=== PATIENT | female | born 1935 | race Caucasian/White ===

== ENCOUNTER 2019-01-25 04:06 | Emergency (ER) | payer MEDICARE, OTHER, SELFPAY ==
--- NOTE | 2019-01-25 04:08 | DI.CT.S_ITS ---
PROCEDURE: CT HEAD/BRAIN WO CON INDICATIONS: fall with head injury on eliquis TECHNIQUE: Noncontrast 4.5 mm thick angled axial sections acquired from the foramen magnum to the vertex, with coronal and sagittal reformats. For radiation dose reduction, the following was used: automated exposure control, adjustment of mA and/or kV according to patient size. COMPARISON: None. FINDINGS: Image quality: Excellent. CSF spaces: Basal cisterns are patent. No extra-axial fluid collections. The ventricles are symmetric in size and shape. Brain: No intracranial bleeds or masses. There is cerebral volume loss for age, with resultant ventricular and sulcal prominence. There are periventricular and deep white matter chronic small vessel ischemic changes. Small chronic right putamen lacunar infarct versus prominent perivascular space. There is intracranial internal carotid artery and vertebral artery atherosclerosis. Skull and face: Calvarium and visualized facial bones appear intact, without suspicious lesions. Sinuses: Visualized sinuses and mastoids are clear. IMPRESSION: No acute intracranial disease process. Dictated by: Brisa Joaquin MD, PhD on 01/25/2019 at 7:26 Approved by: Brisa Joaquin MD, PhD on 01/25/2019 at 7:29
[2019-01-25 04:15] VITALS: BP 188/102; PULSE 108; RESP 18; TEMP 36.6; O2SAT 96
--- NOTE | 2019-01-25 04:31 | ED_ITS ---
HPI - Head Injury General Chief complaint: Head Injury Stated complaint: fall at home, hit head on blood thinners Time Seen by Provider: 01/25/19 04:08 Source: patient and family Mode of arrival: ambulatory Limitations: no limitations History of Present Illness HPI Narrative: 83-year-old female, nonsmoker with history of atrial fibrillation on anticoagulants presents with family after a mechanical fall resulted in a head injury from standing. She was up early this morning to use the restroom and stumbled, falling backwards and striking her head. She denies loss of consciousness nor nausea or vomiting. She has full recall of the event and states she frequently loses her balance. She denies any neck or back pain and is otherwise well and free of complaint. Patient activated as a modified trauma given fall with head injury on anticoagulation MD Complaint: head injury Onset (ago): minute(s) Mechanism of Injury: fall Place: home Loss of Consciousness: no Location of injury: parietal Severity: mild Radiation: none Other Injuries: none Associated symptoms: denies other symptoms Related Data Home Medications Medication Instructions Recorded Confirmed ALBUTEROL SULFATE (Ventolin / 2 puff INH Q4H PRN #0 03/11/10 Proventil) Fexofenadine Hydrochloride 180 mg PO QDAY #0 03/11/10 (Melly) Montelukast Sodium (Singulair) 10 mg PO QDAY #0 03/11/10 Simvastatin (Zocor) 20 mg PO HS #0 03/11/10 Fluticasone Propionate/Salme 1 puff IH BID #0 03/12/10 (Advair Diskus 100/50) HYDROCHLOROTHIAZIDE (Hydrodiuril / 25 mg PO QDAY #0 03/12/10 Hctz) WARFARIN SODIUM (COUMADIN) 6 mg PO QDAY #0 03/12/10 ATENOLOL (Tenormin) 100 mg PO QDAY #0 03/13/10 [MICARDIS] 80 mg PO QDAY #0 03/13/10 Previous Rx's Medication Instructions Recorded furosemide 0 PO SEE INSTRUCTIONS #8 tab 05/21/16 Allergies Allergy/AdvReac Type Severity Reaction Status Date / Time From ACTIFED COLD & ALLERGY Allergy Severe TONGUE Uncoded 09/29/17 12:12 SWELLS/LOSS OF MOBILITY Review of Systems Constitutional Denies chills, Denies fever(s), Denies lethargy and Denies weakness Eyes Denies change in vision, Denies eye discharge, Denies irritation and Denies loss of vision ENT Ears, Nose, Mouth, and Throat: Denies change in voice, Denies neck pain and Denies sore throat Cardiovascular Denies chest pain, Denies irregular heart rhythm, Denies lightheadedness, Denies palpitations, Reports dyspnea, Denies dyspnea on exertion and Denies orthopnea Respiratory Reports cough, Reports dyspnea, Denies dyspnea on exertion and Denies wheezing Gastrointestinal Gastrointestinal: Denies abdominal pain, Denies change in bowel habits, Denies diarrhea, Denies nausea and Denies vomiting Genitourinary Denies hematuria, Denies flank pain, Denies urinary incontinence and Denies urinary urgency Musculoskeletal Denies neck pain Integumentary/Breasts Denies pruritus, Denies erythema, Denies rash and Denies wounds Neurologic Denies confusion, Denies loss of vision and Denies weakness Psychiatric Denies anxiety, Denies confusion, Denies depression, Denies homicidal ideation and Denies suicidal ideation Endocrine Denies palpitations Hematologic/Lymphatic Denies easy bruising Allergic/Immunologic Denies wheezing PFSH Social History Smoking Status: Never smoker Social History Smoking Status: Never smoker Exam Narrative Exam Narrative: GENERAL: 83F appears younger than stated age, in no obvious distress. GCS 15, alert and oriented x3 HEAD: Atraumatic. Normocephalic. No obvious hematoma or depressed skull fracture but mild tenderness to palpation where she struck her head on her right parietal region EYES: Pupils equal round and reactive. Extraocular motions intact. No scleral icterus. No injection or drainage. ENT: Nose without bleeding, purulent drainage or septal hematoma. Throat without erythema, tonsillar hypertrophy or exudate. Uvula midline. Airway patent. NECK: Trachea midline. No JVD or lymphadenopathy. Supple, nontender, no meningeal signs. CARDIOVASCULAR: Irregular rate and rhythm without murmurs, gallops, or rubs. RESPIRATORY: Clear to auscultation. Breath sounds equal bilaterally. No wheezes, rales, or rhonchi. GASTROINTESTINAL: Abdomen soft, non-tender, nondistended. No hepato- splenomegaly, or palpable masses. No guarding. EXTREMITIES: No clubbing, cyanosis, or edema. No joint tenderness, effusion, or edema noted. BACK: Nontender without deformity or crepitance. No flank tenderness. NEURO: AOx3. SKIN: No rash or erythema. Initial Vital Signs Initial Vital Signs: Vital Signs Temperature 97.9 F 01/25/19 04:15 Pulse Rate 108 H 01/25/19 04:15 Respiratory Rate 18 01/25/19 04:15 Blood Pressure 188/102 H 01/25/19 04:15 Pulse Oximetry 96 01/25/19 04:15 Course Orders Ordered: ED Orders 01/25/19 04:08 CT head/brain wo con Stat Hemoglobin and Hematocrit Stat Prothrombin Time INR Stat 01/25/19 04:31 XR chest 1V Stat Vital Signs - 8 hr 01/25/19 04:15 01/25/19 05:04 Temperature 97.9 F Pulse Rate 108 H 75 Respiratory Rate 18 20 Blood Pressure 188/102 H Blood Pressure [Left Arm] 135/68 Pulse Oximetry 96 95 MDM - Head Injury Imaging Data CT scan - head: Radiologist's impression: No bleed or fracture Discharge Plan Departure Patient Disposition: Home Clinical Impression: Contusion of head, Cough Instructions: DI for Closed Head Injury Activity Restrictions/Additional Instructions: *You have been diagnosed with [ground level fall with scalp contusion, chronic cough] *What to do: *Take medications as directed *Follow up with your primary care provider in 2-3 days, call for an appointment. Let them know you were seen in the Emergency Department and that we ask that you be seen in follow up *Return to ER if you should have any new, worsening or concerning symptoms Prescriptions: No Action Fexofenadine Hydrochloride (Melly) 180 mg PO QDAY Qty: 0 RF: 0 ALBUTEROL SULFATE (Ventolin / Proventil) 2 puff INH Q4H PRN Qty: 0 RF: 0 Montelukast Sodium (Singulair) 10 mg PO QDAY Qty: 0 RF: 0 Simvastatin (Zocor) 20 mg PO HS Qty: 0 RF: 0 HYDROCHLOROTHIAZIDE (Hydrodiuril / Hctz) 25 mg PO QDAY Qty: 0 RF: 0 WARFARIN SODIUM (COUMADIN) 6 mg PO QDAY Qty: 0 RF: 0 Fluticasone Propionate/Salme (Advair Diskus 100/50) 1 puff IH BID Qty: 0 RF: 0 ATENOLOL (Tenormin) 100 mg PO QDAY Qty: 0 RF: 0 [MICARDIS] 80 mg PO QDAY Qty: 0 RF: 0 furosemide 20 MG tablet PO SEE INSTRUCTIONS Qty: 8 RF: 0 Referrals: Lory Hammer MD [Primary Care Provider] -
--- NOTE | 2019-01-25 04:31 | DI.RAD.S_ITS ---
PROCEDURE: XR CHEST 1V INDICATIONS: cough, shortness of breath TECHNIQUE: One view of the chest was acquired. COMPARISON: None. FINDINGS: Surgical changes and devices: Bilateral breast lumpectomies, left axillary node resection, remote ORIF of the proximal left humerus.. Lungs and pleura: Lungs are clear. No pleural effusions or pneumothorax. Mediastinum: Mediastinal contours appear normal. Mild cardiomegaly. Large right diaphragmatic hernia containing bowel and possibly stomach. Bones and chest wall: No suspicious bony lesions. Overlying soft tissues appear unremarkable. IMPRESSION: 1. Mild cardiomegaly. 2. Large right diaphragmatic hernia containing bowel and possibly stomach. 3. No evidence acute pulmonary process. Dictated by: Anselmo Parson M.D. on 01/25/2019 at 9:35 Approved by: Anselmo Parson M.D. on 01/25/2019 at 9:36
--- NOTE | 2019-01-25 04:42 | PC.NURSE ---
Stated she was reaching up high this AM in cupboard for her medications and fell backwards striking her head on a door,no loc,no neck pain,no obvious swelling or bruising on her scalp.
[2019-01-25 05:04] VITALS: BP 135/68; PULSE 75; RESP 20; O2SAT 95
[2019-01-25 05:34] LABS: Hematocrit 38.7 % (36-46); Hemoglobin 13.1 g/dL (12.0-16.0)
[2019-01-25 05:43] LABS: INR 1.2 (0.9-1.3); Prothrombin Time 14.1 SECONDS (10.1-12.7)
== END 2019-01-25 05:37 | disposition home or self-care (01) ==
PROVIDERS: Emergency Provider Emergency Medicine; PCP Internal Medicine
DX: S00.93XA Contusion of unspecified part of head, initial encounter (principal); R05 Cough; W19.XXXA Unspecified fall, initial encounter; Z79.01 Long term (current) use of anticoagulants
CPT/HCPCS: 36415; 70450; 71045; 85014; 85018; 85610; 99282; 99284

== ENCOUNTER 2019-07-09 21:35 | Emergency (ER) | payer MEDICARE, OTHER, SELFPAY ==
[2019-07-09 21:35] VITALS: BP 191/83; PULSE 92; RESP 16; TEMP 36.3; O2SAT 98
--- NOTE | 2019-07-09 21:43 | DI.CT.S_ITS ---
PROCEDURE: CT HEAD/BRAIN WO CON INDICATIONS: trauma - fall on eliquis TECHNIQUE: Noncontrast 4.5 mm thick angled axial sections acquired from the foramen magnum to the vertex, with coronal and sagittal reformats. For radiation dose reduction, the following was used: automated exposure control, adjustment of mA and/or kV according to patient size. COMPARISON: None. FINDINGS: Image quality: Excellent. CSF spaces: Basal cisterns are patent. No extra-axial fluid collections. The ventricles are symmetric in size and shape. Brain: No intracranial bleeds or masses. There is cerebral volume loss for age, with resultant ventricular and sulcal prominence. There are periventricular and deep white matter chronic small vessel ischemic changes. There is intracranial internal carotid artery and vertebral artery atherosclerosis. Skull and face: Calvarium and visualized facial bones appear intact, without suspicious lesions. Sinuses: Visualized sinuses and mastoids are clear. IMPRESSION: No acute intracranial disease process. Dictated by: Brisa Joaquin MD, PhD on 07/10/2019 at 7:19 Approved by: Brisa Joaquin MD, PhD on 07/10/2019 at 7:21
[2019-07-09 22:23] LABS: Hematocrit 37.3 % (36-46); Hemoglobin 12.6 g/dL (12.0-16.0)
[2019-07-09 22:28] LABS: INR 1.1 (0.9-1.3); Prothrombin Time 12.8 SECONDS (10.1-12.7)
--- NOTE | 2019-07-09 22:44 | ED_ITS ---
HPI - Fall General Chief Complaint: Fall Stated Complaint: GLF on blood thinners Time Seen by Provider: 07/09/19 21:39 Source: patient and EMS Mode of arrival: EMS Limitations: no limitations History of Present Illness HPI Narrative: 84-year-old female nonsmoker with history of hypertension and AFib on anticoagulation presents by EMS for evaluation of a ground level fall in which she fell and struck the right side of her head. Patient has full recall denies any loss of consciousness. She denies any headache, vomiting or focal neurologic findings such as numbness, tingling or weakness. Initially she has very little other complaints but eventually complains of some midline thoracic tenderness. She has activated as a modified trauma given head injury on anticoagulation. MD complaint: fall Onset (ago): minute(s) Fall from: standing Fall witnessed: yes, by family Place fall occurred: home Loss of consciousness: none Prolonged down time: no Symptoms prior to fall: none Context: tripped/slipped Location of injury: head Associated symptoms (after fall): denies Related Data Home Medications Medication Instructions Recorded Confirmed ALBUTEROL SULFATE (Ventolin / 2 puff INH Q4H PRN #0 03/11/10 Proventil) Fexofenadine Hydrochloride 180 mg PO QDAY #0 03/11/10 (Melly) Montelukast Sodium (Singulair) 10 mg PO QDAY #0 03/11/10 Simvastatin (Zocor) 20 mg PO HS #0 03/11/10 Fluticasone Propionate/Salme 1 puff IH BID #0 03/12/10 (Advair Diskus 100/50) HYDROCHLOROTHIAZIDE (Hydrodiuril / 25 mg PO QDAY #0 03/12/10 Hctz) WARFARIN SODIUM (COUMADIN) 6 mg PO QDAY #0 03/12/10 ATENOLOL (Tenormin) 100 mg PO QDAY #0 03/13/10 [MICARDIS] 80 mg PO QDAY #0 03/13/10 Previous Rx's Medication Instructions Recorded furosemide 0 PO SEE INSTRUCTIONS #8 tab 05/21/16 Allergies Allergy/AdvReac Type Severity Reaction Status Date / Time From ACTIFED COLD & ALLERGY Allergy Severe TONGUE Uncoded 09/29/17 12:12 SWELLS/LOSS OF MOBILITY Review of Systems Constitutional Constitutional: Denies chills, Denies fatigue, Denies fever(s), Denies frequent falls, Denies lethargy and Denies weakness Eyes Eyes: Denies change in vision, Denies eye discharge, Denies irritation and Denies loss of vision ENT Ears, Nose, Mouth, and Throat: Denies change in voice, Denies dizziness, Denies neck pain, Denies sore throat and Denies throat swelling Cardiovascular Cardiovascular: Denies chest pain, Denies irregular heart rhythm, Denies lightheadedness, Denies palpitations, Denies dyspnea, Denies dyspnea on exertion and Denies orthopnea Respiratory Respiratory: Denies cough, Denies dyspnea, Denies dyspnea on exertion and Denies wheezing Gastrointestinal Gastrointestinal: Denies abdominal pain, Denies change in bowel habits, Denies diarrhea, Denies nausea and Denies vomiting Genitourinary Genitourinary: Denies hematuria, Denies flank pain, Denies urinary incontinence and Denies urinary urgency Musculoskeletal Musculoskeletal: Reports back pain, Denies muscle weakness, Denies neck pain, Denies numbness and Denies tingling Integumentary/Breasts Skin/Breast: Denies pruritus, Denies erythema, Denies rash and Denies wounds Neurologic Neurologic: Denies behavioral changes, Denies confusion, Denies dizziness, Denies frequent falls, Denies loss of vision, Denies numbness, Denies tingling and Denies weakness Psychiatric Psychiatric: Denies anxiety, Denies behavioral changes, Denies confusion, Denies depression, Denies homicidal ideation and Denies suicidal ideation Endocrine Endocrine: Denies fatigue, Denies flushing and Denies palpitations Hematologic/Lymphatic Hematologic/Lymphatic: Denies easy bruising Allergic/Immunologic Allergic/Immunologic: Denies urticaria, Denies throat swelling and Denies wheezing Patient History Social History Smoking Status: Never smoker Smoking Status: Never smoker Substance Use Type: does not use Exam Narrative Exam Narrative: GENERAL: [84] year old patient appears stated age. Well- nourished, well-developed patient, in mild distress. GCS 15 HEAD: Atraumatic. Normocephalic. No obvious external manifestation of injury EYES: Pupils equal round and reactive. Extraocular motions intact. No scleral icterus. No injection or drainage. ENT: Nose without bleeding, purulent drainage. Throat without erythema, tonsillar hypertrophy or exudate. Airway patent. NECK: Trachea midline. Non tender CARDIOVASCULAR: Regular rate and rhythm without murmurs, gallops, or rubs. RESPIRATORY: Clear to auscultation. Breath sounds equal bilaterally. No wheezes, rales, or rhonchi. GASTROINTESTINAL: Abdomen soft, non-tender, nondistended. EXTREMITIES: No edema or joint tenderness. BACK: Midline tenderness in the mid Thoracics, no crepitance or step-offs noted NEURO: AOx3. SKIN: No rash or erythema of visible areas Initial Vital Signs Initial Vital Signs: Vital Signs Temperature 97.4 F L 07/09/19 21:35 Pulse Rate 92 H 07/09/19 21:35 Respiratory Rate 16 07/09/19 21:35 Blood Pressure 191/83 H 07/09/19 21:35 Pulse Oximetry 98 07/09/19 21:35 Course Orders Ordered: ED Orders 07/09/19 21:43 CT head/brain wo con Stat 07/09/19 22:15 Hemoglobin and Hematocrit Stat Prothrombin Time INR Stat 07/09/19 22:49 XR thoracic spine 3V Stat Vital Signs Vital signs: Vital Signs - 8 hr 07/09/19 22:45 07/09/19 23:27 Pulse Rate 79 87 Respiratory Rate 18 Blood Pressure [Right Arm] 158/64 H 168/71 H Pulse Oximetry 100 100 MDM - Fall Lab Data Result diagrams: 07/09/19 22:15 Labs: Lab Results 07/09/19 07/09/19 Range/Units 22:15 22:15 Hgb 12.6 (12.0-16.0) g/dL Hct 37.3 (36-46) % PT 12.8 H (10.1-12.7) SECONDS INR 1.1 (0.9-1.3) Imaging Data CT scan - head: Radiologist's Impression: No bleed or fracture Lumbar Xray: Attestation: I personally reviewed and interpreted this imaging study as follows: My Impression: No acute process Discharge Plan Departure Patient Disposition: Home Clinical Impression: Contusion of scalp Qualifiers: Encounter type: initial encounter Qualified Code(s): S00.03XA - Contusion of scalp, initial encounter Discharge Date/Time: 07/09/19 23:36 Instructions: How to Prevent Falls Activity Restrictions/Additional Instructions: *You have been diagnosed with [ fall with head injury ] *What to do: *Take medications as directed *Follow up with your primary care provider in 2-3 days, call for an appointment. Let them know you were seen in the Emergency Department and that we ask that you be seen in follow up *Return to ER if you should have any new, worsening or concerning symptoms Prescriptions: No Action Fexofenadine Hydrochloride (Melly) 180 mg PO QDAY Qty: 0 RF: 0 ALBUTEROL SULFATE (Ventolin / Proventil) 2 puff INH Q4H PRN Qty: 0 RF: 0 Montelukast Sodium (Singulair) 10 mg PO QDAY Qty: 0 RF: 0 Simvastatin (Zocor) 20 mg PO HS Qty: 0 RF: 0 HYDROCHLOROTHIAZIDE (Hydrodiuril / Hctz) 25 mg PO QDAY Qty: 0 RF: 0 WARFARIN SODIUM (COUMADIN) 6 mg PO QDAY Qty: 0 RF: 0 Fluticasone Propionate/Salme (Advair Diskus 100/50) 1 puff IH BID Qty: 0 RF: 0 ATENOLOL (Tenormin) 100 mg PO QDAY Qty: 0 RF: 0 [MICARDIS] 80 mg PO QDAY Qty: 0 RF: 0 furosemide 20 MG tablet 0 PO SEE INSTRUCTIONS Qty: 8 RF: 0 Referrals: Lory Hammer MD [Primary Care Provider] -
[2019-07-09 22:45] VITALS: BP 158/64; PULSE 79; RESP 18; O2SAT 100
--- NOTE | 2019-07-09 22:49 | DI.RAD.S_ITS ---
PROCEDURE: XR THORACIC SPINE 3V INDICATIONS: midline thoracic pain TECHNIQUE: 3 views of the thoracic spine were acquired. COMPARISON: None. FINDINGS: Bones: No fractures or dislocations. No suspicious bony lesions. Orbital pairs of ribs are noted, and appear intact where visualized. Spine degenerative disc disease and facet arthropathy. Soft tissues: No paravertebral stripe thickening. IMPRESSION: No fracture. No acute osseous lesion. If symptoms and/or clinical suspicion for pathology persists, evaluation with MRI may be helpful for further assessment. Dictated by: Brisa Joaquin MD, PhD on 07/10/2019 at 8:49 Approved by: Brisa Joaquin MD, PhD on 07/10/2019 at 8:50
[2019-07-09 23:27] VITALS: BP 168/71; PULSE 87; O2SAT 100
== END 2019-07-09 23:36 | disposition home or self-care (01) ==
PROVIDERS: Emergency Provider Emergency Medicine; PCP Internal Medicine
DX: S00.03XA Contusion of scalp, initial encounter (principal); W18.30XA Fall on same level, unspecified, initial encounter; Z79.01 Long term (current) use of anticoagulants
CPT/HCPCS: 36415; 70450; 72072; 85014; 85018; 85610; 99284

== ENCOUNTER 2020-07-27 09:37 | Emergency (ER) | payer MEDICARE, OTHER, SELFPAY ==
[2020-07-27 09:35] VITALS: BP 161/77; PULSE 82; RESP 18; TEMP 36.5; O2SAT 99; BMI 28.3
--- NOTE | 2020-07-27 09:54 | ED.GENADULT ---
HPI - General Adult General Chief complaint: Fall Stated complaint: GLF Time Seen by Provider: 07/27/20 09:49 Source: patient Mode of arrival: EMS Limitations: no limitations History of Present Illness HPI narrative: Patient is an 85-year-old female. Is on anticoagulation. Was brought in by EMS for evaluation after she states she was standing in her bathroom getting dressed this morning. States she was bent over with 1 hand on the toilet trying to put on her underwear when she lost balance and fell over. She hit her head. There was no loss of consciousness. She has no other injuries. She stated that she felt up to the top of her head and felt a bump there and so she used her medical button to contact EMS. She reports no other injuries. Related Data Home Medications Medication Instructions Recorded Confirmed ALBUTEROL SULFATE (Ventolin / 2 puff INH Q4H PRN #0 03/11/10 Proventil) Fexofenadine Hydrochloride 180 mg PO QDAY #0 03/11/10 (Melly) Montelukast Sodium (Singulair) 10 mg PO QDAY #0 03/11/10 Simvastatin (Zocor) 20 mg PO HS #0 03/11/10 Fluticasone Propionate/Salme 1 puff IH BID #0 03/12/10 (Advair Diskus 100/50) HYDROCHLOROTHIAZIDE (Hydrodiuril / 25 mg PO QDAY #0 03/12/10 Hctz) WARFARIN SODIUM (COUMADIN) 6 mg PO QDAY #0 03/12/10 ATENOLOL (Tenormin) 100 mg PO QDAY #0 03/13/10 [MICARDIS] 80 mg PO QDAY #0 03/13/10 Previous Rx's Medication Instructions Recorded furosemide 0 PO SEE INSTRUCTIONS #8 tab 05/21/16 Allergies Allergy/AdvReac Type Severity Reaction Status Date / Time chlorpheniramine Allergy Severe Anaphylaxis Verified 07/27/20 09:51 [From Actifed Cold-Allergy] phenylephrine Allergy Severe Anaphylaxis Verified 07/27/20 09:51 [From Actifed Cold-Allergy] pseudoephedrine Allergy Severe Anaphylaxis Verified 07/27/20 09:51 [From Actifed Cold-Allergy] triprolidine Allergy Severe Anaphylaxis Verified 07/27/20 09:51 [From Actifed Cold-Allergy] Review of Systems Constitutional Constitutional: Denies fever(s) and Denies headache(s) Eyes Eyes: Denies change in vision ENT Ears, Nose, Mouth, and Throat: Denies headache(s) Cardiovascular Cardiovascular: Denies chest pain and Denies dyspnea Respiratory Respiratory: Denies dyspnea Gastrointestinal Gastrointestinal: Denies abdominal pain, Denies nausea and Denies vomiting Genitourinary Genitourinary: Denies dysuria Genitourinary: Denies dysuria Musculoskeletal Musculoskeletal: Denies arthralgias and Denies myalgias Integumentary/Breasts Skin/Breast: Denies rash Neurologic Neurologic: Denies behavioral changes and Denies headache(s) Psychiatric Psychiatric: Denies behavioral changes Hematologic/Lymphatic On Anticoagulants: Yes Allergic/Immunologic Allergic/Immunologic: Denies urticaria Patient History Medical History Hypertension Social History Smoking Status: Never smoker Smoking Status: Never smoker Substance Use Type: does not use Exam Initial Vital Signs Initial Vital Signs: Vital Signs Temperature 97.7 F 07/27/20 09:35 Pulse Rate 82 07/27/20 09:35 Respiratory Rate 18 07/27/20 09:35 Blood Pressure 161/77 H 07/27/20 09:35 Pulse Oximetry 99 07/27/20 09:35 Const General: cooperative and comfortable Limitations: mental status not altered HENMT Head: contusion and No laceration Ears: hearing grossly normal bilaterally Nose: external nose normal Resp Effort & Inspection: normal respiratory effort Auscultation: clear to auscultation bilaterally Cardio Rate: regular rate Rhythm: regular rhythm Skin Lesions: no lesions Rashes: no rashes Neuro General: patient alert, patient awake and patient oriented x3 Cognition: normal cognition Speech: speech normal Extrem General: normal to inspection and capillary refill normal Psych Appearance: grossly normal and well kempt Scores GCS [place] coma scale eye opening: Spontaneous [place] coma scale verbal response: Orientated Dago coma scale motor response: Obey commands Dago coma scale total score: 15 Nexus Score for C-Spine Focal Neurologic deficit present: No Midline spinal tenderness present: No Altered level of conciousness present: No Intoxication present: No Distracting Injury Present: No Nexus Criteria for C-spine: 0 Course Orders Ordered: ED Orders 07/27/20 09:55 CT head/brain wo con Stat Vital Signs Vital signs: Vital Signs - 8 hr 07/27/20 09:35 Temperature 97.7 F Pulse Rate 82 Respiratory Rate 18 Blood Pressure 161/77 H Pulse Oximetry 99 Medical Decision Making Imaging Data CT scan - head: Radiologist's Impression: [address] [id number] Scan ReportSigned Patient: Denice Torres#: [id number]: [id number]:[id number]/Sex: 85 / FDate of Service: 07/27/20Loc: EDAccession Number: [id number] Procedure: CT head/brain wo con Ordering Provider: Enrique Anand D.O. PROCEDURE: CT HEAD/BRAIN WO CON INDICATIONS: fall on blood thinners TECHNIQUE: Noncontrast 4.5 mm thick angled axial sections acquired from the foramen magnum to the vertex, with coronal and sagittal reformats. For radiation dose reduction, the following was used: automated exposure control, adjustment of mA and/or kV according to patient size. COMPARISON: [facility], CT, CT HEAD/BRAIN WO CON, 07/09/2019, 21:51. FINDINGS: Image quality: Slightly degraded by patient positioning and streak artifact predominantly at the skull base. CSF spaces: Basal cisterns are patent. No extra-axial fluid collections. The ventricles are symmetric in size and shape. No focal extra-axial fluid collection. Brain: No intracranial bleeds or masses. There is cerebral volume loss for age, with resultant ventricular and sulcal prominence. There are periventricular and deep white matter chronic small vessel ischemic changes. There is intracranial internal carotid artery atherosclerosis. Skull and face: Calvarium and visualized facial bones appear intact, without suspicious lesions. Small soft tissue hematoma noted overlying the posterior occiput. Sinuses: Visualized sinuses and mastoids are clear. IMPRESSION: No acute intracranial hemorrhage. Small soft tissue hematoma overlying the posterior occiput. No acute skull fracture Senescent changes including cerebral volume loss and microvascular ischemic changes. No acute transcortical infarction. Dictated by: Keith Dodge D.O. on 07/27/2020 at 9:14 Approved by: Keith Dodge D.O. on 07/27/2020 at 9:19 MDM Narrative Medical decision making narrative: CT scan of the head shows no intracranial bleeds. She does have a small hematoma on the posterior aspect of the scalp without any overlying skin deficits. Neck is cleared through nexus criteria. No other injuries reported from the patient or found on exam. Will discharge home. She was given return precautions. Discharge Plan Departure Patient Disposition: Home Clinical Impression: Fall, Contusion of scalp Instructions: How to Prevent Falls Activity Restrictions/Additional Instructions: The CT scan of your head shows no signs of bleeding. You have no restrictions on your activities. Take all of your medications as directed. Return to the emergency department for any new or worsening symptoms Prescriptions: No Action Fexofenadine Hydrochloride (Melly) 180 mg PO QDAY Qty: 0 RF: 0 ALBUTEROL SULFATE (Ventolin / Proventil) 2 puff INH Q4H PRN Qty: 0 RF: 0 Montelukast Sodium (Singulair) 10 mg PO QDAY Qty: 0 RF: 0 Simvastatin (Zocor) 20 mg PO HS Qty: 0 RF: 0 HYDROCHLOROTHIAZIDE (Hydrodiuril / Hctz) 25 mg PO QDAY Qty: 0 RF: 0 WARFARIN SODIUM (COUMADIN) 6 mg PO QDAY Qty: 0 RF: 0 Fluticasone Propionate/Salme (Advair Diskus 100/50) 1 puff IH BID Qty: 0 RF: 0 ATENOLOL (Tenormin) 100 mg PO QDAY Qty: 0 RF: 0 [MICARDIS] 80 mg PO QDAY Qty: 0 RF: 0 furosemide 20 MG tablet 0 PO SEE INSTRUCTIONS Qty: 8 RF: 0 Referrals: Lory Hammer MD [Primary Care Provider] -
[2020-07-27 10:24] VITALS: PULSE 77; RESP 14; O2SAT 98
[2020-07-27 10:30] VITALS: BP 177/82; PULSE 76; RESP 15; O2SAT 98
== END 2020-07-27 10:55 | disposition home or self-care (01) ==
PROVIDERS: Emergency Provider Emergency Medicine; PCP Internal Medicine
DX: S00.03XA Contusion of scalp, initial encounter (principal); W19.XXXA Unspecified fall, initial encounter; Z79.01 Long term (current) use of anticoagulants; I10 Essential (primary) hypertension
CPT/HCPCS: 70450; 99283; 99284

== ENCOUNTER 2021-01-11 05:24 | Observation (INO) | payer MEDICARE, OTHER, SELFPAY ==
[2021-01-11] VITALS (28 sets, daily range): BP systolic 154–230; BP diastolic 71–112; PULSE 78–114; RESP 16–18; TEMP 36.3–36.9; O2SAT 91–99; BMI 31.8
--- NOTE | 2021-01-11 05:34 | ED.BACK ---
HPI - Back Pain/Injury <DO Mitesh Moulton Last Filed: 01/11/21 17:52> General Chief Complaint: Back Pain/Injury Stated Complaint: Lower Right Back Pain Time Seen by Provider: 01/11/21 05:30 Source: patient and EMS Mode of arrival: EMS Limitations: no limitations History of Present Illness HPI Narrative: Patient is a 85-year-old female who is brought in by EMS today for evaluation of her right lower back discomfort. This discomfort has been going on for the past couple days but is worsened over the past 24 hours. She denies any specific trauma. Has not fallen recently. Does not know exactly what caused the discomfort. She is not having any belly pain. No shortness of breath no chest pain. No urinary symptoms. No constipation or diarrhea. No tingling down into her legs. No hip pain. It is worse with palpation and movement. Related Data Home Medications Medication Instructions Recorded Confirmed apixaban 5 mg tablet (Eliquis) 5 mg PO BID 01/11/21 01/11/21 fluticasone propionate 50 1 spray INTRANASAL DAILY 01/11/21 01/11/21 mcg/actuation nasal spray,suspension hydrochlorothiazide 25 mg tablet 25 mg PO DAILY 01/11/21 01/11/21 loratadine 10 mg tablet 10 mg PO DAILY 01/11/21 01/11/21 metoprolol succinate 50 mg 50 mg PO DAILY 01/11/21 01/11/21 tablet,extended release 24 hr montelukast 10 mg tablet 10 mg PO DAILY 01/11/21 01/11/21 simvastatin 40 mg tablet 40 mg PO DAILY 01/11/21 01/11/21 telmisartan 80 mg tablet 80 mg PO DAILY 01/11/21 01/11/21 Allergies Allergy/AdvReac Type Severity Reaction Status Date / Time chlorpheniramine Allergy Severe Anaphylaxis Verified 07/27/20 09:51 [From Actifed Cold-Allergy] phenylephrine Allergy Severe Anaphylaxis Verified 07/27/20 09:51 [From Actifed Cold-Allergy] pseudoephedrine Allergy Severe Anaphylaxis Verified 07/27/20 09:51 [From Actifed Cold-Allergy] triprolidine Allergy Severe Anaphylaxis Verified 07/27/20 09:51 [From Actifed Cold-Allergy] Review of Systems <DO Mitesh Moulton Last Filed: 01/11/21 17:52> Constitutional Constitutional: Reports system reviewed and no additional complaints, except as documented Cardiovascular Cardiovascular: Reports system reviewed and no additional complaints, except as documented Respiratory Respiratory: Reports system reviewed and no additional complaints, except as documented Gastrointestinal Gastrointestinal: Reports system reviewed and no additional complaints, except as documented Genitourinary Genitourinary: Reports system reviewed and no additional complaints, except as documented Musculoskeletal Musculoskeletal: Reports back pain Integumentary/Breasts Skin/Breast: Reports system reviewed and no additional complaints, except as documented Neurologic Neurologic: Reports system reviewed and no additional complaints, except as documented Psychiatric Psychiatric: Reports system reviewed and no additional complaints, except as documented Hematologic/Lymphatic On Anticoagulants: Yes Patient History <Enrique Anand DO - Last Filed: 01/11/21 17:52> Medical History (Updated 01/11/21 @ 18:53 by Kellen Matson DO) Atrial fibrillation COPD (chronic obstructive pulmonary disease) Hypertension Surgical History (Updated 01/11/21 @ 17:53 by Ash Thomas DO) No pertinent past surgical history Family History (Updated 01/11/21 @ 17:54 by Ash Thomas DO) Mother CVA (cerebral vascular accident) Father CVA (cerebral vascular accident) Social History household members: family Smoking Status: Never smoker Smoking Status: Never smoker alcohol intake frequency: holidays/special occasions only Substance Use Type: does not use Exam <Enrique Anand DO - Last Filed: 01/11/21 17:52> Initial Vital Signs Initial Vital Signs: Vital Signs Temperature 97.5 F L 01/11/21 05:25 Pulse Rate 97 H 01/11/21 05:25 Respiratory Rate 18 01/11/21 05:25 Blood Pressure 180/98 H 01/11/21 05:25 Pulse Oximetry 96 01/11/21 05:25 Const General: cooperative and comfortable HENMT Head: normal to inspection and normocephalic Resp Effort & Inspection: normal respiratory effort Cardio Rate: regular rate Back/Spine/Pelvis Thoracic/Lumbar Spine: paraspinal tenderness (Right-sided thoracolumbar), No thoraco-lumbar spasm and No thoracic spinal tenderness Skin General: no rashes or lesions noted Neuro General: patient alert, patient awake and moves all extremities Extrem General: normal to inspection and capillary refill normal Psych Appearance: grossly normal and well kempt <Kellen Mic, DO - Last Filed: 01/11/21 18:53> Initial Vital Signs Initial Vital Signs: Vital Signs Temperature 97.5 F L 01/11/21 05:25 Pulse Rate 97 H 01/11/21 05:25 Respiratory Rate 18 01/11/21 05:25 Blood Pressure 180/98 H 01/11/21 05:25 Pulse Oximetry 96 01/11/21 05:25 Course <Enrique Kika DO - Last Filed: 01/11/21 17:52> Orders Ordered: ED Orders 01/11/21 12:30 Consult to [employer] CONSERVATOR - Cfd Engineer Stat 01/11/21 12:44 COVID19 - ADMIT ([employer] INST[employer] swab/PCR) Stat 01/11/21 13:03 CT head/brain wo con Stat Albuterol (Albuterol 2.5 Mg/3 Ml Neb (Adult)) 2.5 mg INH [id number] PRN PRN Reason: Shortness Of Breath Apixaban (Apixaban 5 Mg Tablet) 5 mg PO BID FABRIZIO Atorvastatin Calcium (Atorvastatin 20 Mg Tablet) 20 mg PO DAILY FABRIZIO Hydrochlorothiazide (Hydrochlorothiazide 25 Mg Tablet) 25 mg PO DAILY FABRIZIO Lidocaine (Lidocaine Patch 1 Each Adh..Patch) 1 each TOP DAILY FABRIZIO Loratadine (Loratadine 10 Mg Tablet) 10 mg PO DAILY FABRIZIO Losartan Potassium (Losartan 50 Mg Tablet) 100 mg PO DAILY FABRIZIO Metoprolol Succinate (Metoprolol Er 50 Mg Tablet) 50 mg PO DAILY FABRIZIO Montelukast Sodium (Montelukast 10 Mg Tablet) 10 mg PO DAILY FABRIZIO Naloxone HCl (Naloxone 0.4 Mg/Ml Vial) 0.2 mg IV Q2MIN PRN PRN Reason: Opiate Reversal Oxycodone HCl (Oxycodone Ir 5 Mg Tablet) 5 mg PO Q4HR PRN PRN Reason: Pain, Moderate (4-6) Discontinued Medications Hydrocodone Bitart/Acetaminophen (Hydrocodone/Acet 5/325 Prepack) 1 bottle MISC SEEINSTR ONE Stop: 01/11/21 05:35 Last Admin: 01/11/21 05:59 Dose: Not Given Documented by: KGALLAG Hydrocodone Bitart/Acetaminophen (Hydrocodone/Acet 5/325 Tablet) 1 tab PO NOW ONE Stop: 01/11/21 05:37 Last Admin: 01/11/21 05:58 Dose: 1 tab Documented by: SULEMAN Hydrochlorothiazide (Hydrochlorothiazide 25 Mg Tablet) 25 mg PO NOW ONE Stop: 01/11/21 07:48 Last Admin: 01/11/21 08:06 Dose: 25 mg Documented by: KAYA Lidocaine (Lidocaine Patch 1 Each Adh..Patch) 1 each TOP NOW ONE Stop: 01/11/21 17:59 Last Admin: 01/11/21 18:33 Dose: 1 each Documented by: LUCIAN Metoprolol Succinate (Metoprolol Er 50 Mg Tablet) 50 mg PO NOW ONE Stop: 01/11/21 07:47 Last Admin: 01/11/21 08:05 Dose: 50 mg Documented by: KAYA Morphine Sulfate (Morphine 2 Mg/Ml Inj) 2 mg IV NOW ONE Stop: 01/11/21 09:19 Last Admin: 01/11/21 09:30 Dose: 2 mg Documented by: KAYA Vital Signs Vital signs: Vital Signs - 8 hr 01/11/21 11:00 01/11/21 11:30 01/11/21 13:04 Pulse Rate 78 83 89 Respiratory Rate 18 17 Blood Pressure 161/72 H 162/94 H Pulse Oximetry 95 99 96 01/11/21 13:06 01/11/21 14:00 Pulse Rate 88 89 Respiratory Rate 17 Blood Pressure 176/79 H 176/78 H Pulse Oximetry 96 98 <Kellen Matson DO - Last Filed: 01/11/21 18:53> Orders Ordered: ED Orders 01/11/21 12:30 Consult to [employer]GR[employer] CONSERVATOR - Cfd Engineer Stat 01/11/21 12:44 COVID19 - ADMIT ([employer]ST[employer] swab/PCR) Stat 01/11/21 13:03 CT head/brain wo con Stat Albuterol (Albuterol 2.5 Mg/3 Ml Neb (Adult)) 2.5 mg INH [id number] PRN PRN Reason: Shortness Of Breath Apixaban (Apixaban 5 Mg Tablet) 5 mg PO BID FABRIZIO Atorvastatin Calcium (Atorvastatin 20 Mg Tablet) 20 mg PO DAILY FABRIZIO Hydrochlorothiazide (Hydrochlorothiazide 25 Mg Tablet) 25 mg PO DAILY FABRIZIO Lidocaine (Lidocaine Patch 1 Each Adh..Patch) 1 each TOP DAILY FABRIZIO Loratadine (Loratadine 10 Mg Tablet) 10 mg PO DAILY FABRIZIO Losartan Potassium (Losartan 50 Mg Tablet) 100 mg PO DAILY [facility] Metoprolol Succinate (Metoprolol Er 50 Mg Tablet) 50 mg PO DAILY [facility] Montelukast Sodium (Montelukast 10 Mg Tablet) 10 mg PO DAILY [facility] Naloxone HCl (Naloxone 0.4 Mg/Ml Vial) 0.2 mg IV Q2MIN PRN PRN Reason: Opiate Reversal Oxycodone HCl (Oxycodone Ir 5 Mg Tablet) 5 mg PO Q4HR PRN PRN Reason: Pain, Moderate (4-6) Discontinued Medications Hydrocodone Bitart/Acetaminophen (Hydrocodone/Acet 5/325 Prepack) 1 bottle MISC SEEINSTR ONE Stop: 01/11/21 05:35 Last Admin: 01/11/21 05:59 Dose: Not Given Documented by: SULEMAN Hydrocodone Bitart/Acetaminophen (Hydrocodone/Acet 5/325 Tablet) 1 tab PO NOW ONE Stop: 01/11/21 05:37 Last Admin: 01/11/21 05:58 Dose: 1 tab Documented by: SULEMAN Hydrochlorothiazide (Hydrochlorothiazide 25 Mg Tablet) 25 mg PO NOW ONE Stop: 01/11/21 07:48 Last Admin: 01/11/21 08:06 Dose: 25 mg Documented by: KAYA Lidocaine (Lidocaine Patch 1 Each Adh..Patch) 1 each TOP NOW ONE Stop: 01/11/21 17:59 Last Admin: 01/11/21 18:33 Dose: 1 each Documented by: LUCIAN Metoprolol Succinate (Metoprolol Er 50 Mg Tablet) 50 mg PO NOW ONE Stop: 01/11/21 07:47 Last Admin: 01/11/21 08:05 Dose: 50 mg Documented by: KAYA Morphine Sulfate (Morphine 2 Mg/Ml Inj) 2 mg IV NOW ONE Stop: 01/11/21 09:19 Last Admin: 01/11/21 09:30 Dose: 2 mg Documented by: KAYA Vital Signs Vital signs: Vital Signs - 8 hr 01/11/21 11:00 01/11/21 11:30 01/11/21 13:04 Pulse Rate 78 83 89 Respiratory Rate 18 17 Blood Pressure 161/72 H 162/94 H Pulse Oximetry 95 99 96 01/11/21 13:06 01/11/21 14:00 Pulse Rate 88 89 Respiratory Rate 17 Blood Pressure 176/79 H 176/78 H Pulse Oximetry 96 98 MDM - Back Pain/Injury <Enrique Anand, DO - Last Filed: 01/11/21 17:52> Lab Data Result diagrams: 01/11/21 07:58 01/11/21 07:58 Labs: Lab Results 01/11/21 01/11/21 01/11/21 Range/Units 07:58 07:58 07:58 WBC 7.2 (4.5-11.0) X10^3/uL RBC 4.23 (4.0-5.2) X10^6/uL Hgb 12.6 (12.0-16.0) g/dL Hct 37.3 (36-46) % MCV 88.0 (80-100) fL MCH 29.6 (26-34) PG MCHC 33.7 (30-36) % RDW 13.2 (11.6-14.8) % Plt Count 241 (150-400) X10^3/uL Neut % (Auto) 76.8 H (50-75) % Lymph % (Auto) 14.6 L (25-40) % [place] % (Auto) 7.0 (3-14) % Eos % (Auto) 0.8 L (2-4) % Baso % (Auto) 0.8 (0-2) % Neut # (Auto) 5500 (7826-2151) /uL Lymph # (Auto) 1000 L (6018-9939) /uL [place] # (Auto) 500 (0-900) /uL Eos # (Auto) 100 (0-450) /uL Baso # (Auto) 100 (0-100) /uL ESR 15 (0-20) MM/HR Sodium 138 (137-145) mmol/L Potassium 4.0 (3.4-5.1) mmol/L Chloride 105 (98-107) mmol/L Carbon Dioxide 28 (22-32) mmol/L BUN 25 H (7-17) mg/dL Creatinine 1.01 (0.52-1.04) mg/dL Estimated GFR 52.3 L (>60) mL/min BUN/Creatinine Ratio 24.8 H (6-22) Glucose 118 H (80-110) mg/dL Calcium 9.6 (8.4-10.2) mg/dL Total Bilirubin 0.7 (0.2-1.3) mg/dL AST 30 (14-36) IU/L ALT 19 (<35) IU/L Alkaline Phosphatase 133 H (38-126) U/L C-Reactive Protein (<1.0) mg/dL Total Protein 7.0 (6.3-8.2) g/dL Albumin 3.9 (3.5-5.0) g/dL Globulin 3.1 (1.7-4.1) g/dL Albumin/Globulin Ratio 1.3 (1.0-2.8) SARS-CoV-2 (PCR) (Negative) 01/11/21 01/11/21 Range/Units 07:58 12:44 WBC (4.5-11.0) X10^3/uL RBC (4.0-5.2) X10^6/uL Hgb (12.0-16.0) g/dL Hct (36-46) % MCV (80-100) fL MCH (26-34) PG MCHC (30-36) % RDW (11.6-14.8) % Plt Count (150-400) X10^3/uL Neut % (Auto) (50-75) % Lymph % (Auto) (25-40) % [place] % (Auto) (3-14) % Eos % (Auto) (2-4) % Baso % (Auto) (0-2) % Neut # (Auto) (5480-5855) /uL Lymph # (Auto) (8689-8661) /uL [place] # (Auto) (0-900) /uL Eos # (Auto) (0-450) /uL Baso # (Auto) (0-100) /uL ESR (0-20) MM/HR Sodium (137-145) mmol/L Potassium (3.4-5.1) mmol/L Chloride (98-107) mmol/L Carbon Dioxide (22-32) mmol/L BUN (7-17) mg/dL Creatinine (0.52-1.04) mg/dL Estimated GFR (>60) mL/min BUN/Creatinine Ratio (6-22) Glucose (80-110) mg/dL Calcium (8.4-10.2) mg/dL Total Bilirubin (0.2-1.3) mg/dL AST (14-36) IU/L ALT (<35) IU/L Alkaline Phosphatase (38-126) U/L C-Reactive Protein 0.8 (<1.0) mg/dL Total Protein (6.3-8.2) g/dL Albumin (3.5-5.0) g/dL Globulin (1.7-4.1) g/dL Albumin/Globulin Ratio (1.0-2.8) SARS-CoV-2 (PCR) Negative (Negative) Urine Dip Bedside Urine Glucose Negative Bedside Urine Bilirubin - Negative Bedside Urine Ketone - Negative Urine Specific [place] 1.015 Bedside Urine Occult Blood - Negative Bedside Urine pH 6.0 Bedside Urine Protein - Negative Bedside Urine Urobilinogen - Negative Bedside Urine Nitrite - Negative Bedside Urine Leukocytes - Negative Esterase MDM Narrative Medical decision making narrative: Patient did report some improvement of her back discomfort after medication here in the ER. Her daughter is now at bedside. The patient did fall a couple weeks ago and since that time has been expressing discomfort in her right hip and has had a decline during this time. She does have some tenderness of her right hip which was not apparent upon her initial evaluation. Will obtain an x-ray to evaluate for any potential fracture. Had a long discussion with the patient and family regarding her living situation. She has a walker at home. Has a bedside commode. Has a chair that she can use to roll around in. The family states that the house is not amendable to a wheelchair. They also are in the works of having someone come to help while the daughter is at work. We also had a long discussion about talk with the primary doctor about home health and physical therapy. Will obtain an x-ray of the hip with plans of discharge with pain medication if there is no fracture. Care turned over to Dr. Matson follow-up. <Kellen Matson, DO - Last Filed: 01/11/21 18:53> Lab Data Labs: Lab Results 01/11/21 01/11/21 01/11/21 Range/Units 07:58 07:58 07:58 WBC 7.2 (4.5-11.0) X10^3/uL RBC 4.23 (4.0-5.2) X10^6/uL Hgb 12.6 (12.0-16.0) g/dL Hct 37.3 (36-46) % MCV 88.0 (80-100) fL MCH 29.6 (26-34) PG MCHC 33.7 (30-36) % RDW 13.2 (11.6-14.8) % Plt Count 241 (150-400) X10^3/uL Neut % (Auto) 76.8 H (50-75) % Lymph % (Auto) 14.6 L (25-40) % [place] % (Auto) 7.0 (3-14) % Eos % (Auto) 0.8 L (2-4) % Baso % (Auto) 0.8 (0-2) % Neut # (Auto) 5500 (7479-0821) /uL Lymph # (Auto) 1000 L (2689-0320) /uL [place] # (Auto) 500 (0-900) /uL Eos # (Auto) 100 (0-450) /uL Baso # (Auto) 100 (0-100) /uL ESR 15 (0-20) MM/HR Sodium 138 (137-145) mmol/L Potassium 4.0 (3.4-5.1) mmol/L Chloride 105 (98-107) mmol/L Carbon Dioxide 28 (22-32) mmol/L BUN 25 H (7-17) mg/dL Creatinine 1.01 (0.52-1.04) mg/dL Estimated GFR 52.3 L (>60) mL/min BUN/Creatinine Ratio 24.8 H (6-22) Glucose 118 H (80-110) mg/dL Calcium 9.6 (8.4-10.2) mg/dL Total Bilirubin 0.7 (0.2-1.3) mg/dL AST 30 (14-36) IU/L ALT 19 (<35) IU/L Alkaline Phosphatase 133 H (38-126) U/L C-Reactive Protein (<1.0) mg/dL Total Protein 7.0 (6.3-8.2) g/dL Albumin 3.9 (3.5-5.0) g/dL Globulin 3.1 (1.7-4.1) g/dL Albumin/Globulin Ratio 1.3 (1.0-2.8) SARS-CoV-2 (PCR) (Negative) 01/11/21 01/11/21 Range/Units 07:58 12:44 WBC (4.5-11.0) X10^3/uL RBC (4.0-5.2) X10^6/uL Hgb (12.0-16.0) g/dL Hct (36-46) % MCV (80-100) fL MCH (26-34) PG MCHC (30-36) % RDW (11.6-14.8) % Plt Count (150-400) X10^3/uL Neut % (Auto) (50-75) % Lymph % (Auto) (25-40) % [place] % (Auto) (3-14) % Eos % (Auto) (2-4) % Baso % (Auto) (0-2) % Neut # (Auto) (4756-8790) /uL Lymph # (Auto) (3197-1243) /uL [place] # (Auto) (0-900) /uL Eos # (Auto) (0-450) /uL Baso # (Auto) (0-100) /uL ESR (0-20) MM/HR Sodium (137-145) mmol/L Potassium (3.4-5.1) mmol/L Chloride (98-107) mmol/L Carbon Dioxide (22-32) mmol/L BUN (7-17) mg/dL Creatinine (0.52-1.04) mg/dL Estimated GFR (>60) mL/min BUN/Creatinine Ratio (6-22) Glucose (80-110) mg/dL Calcium (8.4-10.2) mg/dL Total Bilirubin (0.2-1.3) mg/dL AST (14-36) IU/L ALT (<35) IU/L Alkaline Phosphatase (38-126) U/L C-Reactive Protein 0.8 (<1.0) mg/dL Total Protein (6.3-8.2) g/dL Albumin (3.5-5.0) g/dL Globulin (1.7-4.1) g/dL Albumin/Globulin Ratio (1.0-2.8) SARS-CoV-2 (PCR) Negative (Negative) Urine Dip Bedside Urine Glucose Negative Bedside Urine Bilirubin - Negative Bedside Urine Ketone - Negative Urine Specific [place] 1.015 Bedside Urine Occult Blood - Negative Bedside Urine pH 6.0 Bedside Urine Protein - Negative Bedside Urine Urobilinogen - Negative Bedside Urine Nitrite - Negative Bedside Urine Leukocytes - Negative Esterase MDM Narrative Medical decision making narrative: Patient did report some improvement of her back discomfort after medication here in the ER. Her daughter is now at bedside. The patient did fall a couple weeks ago and since that time has been expressing discomfort in her right hip and has had a decline during this time. She does have some tenderness of her right hip which was not apparent upon her initial evaluation. Will obtain an x-ray to evaluate for any potential fracture. Had a long discussion with the patient and family regarding her living situation. She has a walker at home. Has a bedside commode. Has a chair that she can use to roll around in. The family states that the house is not amendable to a wheelchair. They also are in the works of having someone come to help while the daughter is at work. We also had a long discussion about talk with the primary doctor about home health and physical therapy. Will obtain an x-ray of the hip with plans of discharge with pain medication if there is no fracture. Care turned over to Dr. Matson follow-up. MIC Patient signed out to me by Dr. Anand seen evaluated her myself. X-ray has returned and is negative. She certainly is weak in her right leg. Daughter states that she has been having hallucinations she typically does have hallucinations but last night she said that it was quite different. She also thinks that she may have had a stroke at some time because her right leg is weaker than normal no but that has been ongoing for awhile, but new over the last 2-3 weeks does not seem to be acute. Patient is noted to be hypertensive she has not yet taken her morning meds. We are giving her morning medication. The patient's hip is really quite tender really unable to move it. CT does confirm some inflammation but no fracture. Blood work does not show any leukocytosis ESR CRP are negative do not suspect any sort of septic hip. Non erythematous. Daughter is quite concerned over her mental status changes over the last 2 weeks. She is having some random tremors as well. Physical therapy was evaluated her because she is currently a 2 person assist. At this time it is only daughter to care for her. Daughter must leave to go to work wheezing patient home alone. This is clearly an unsafe discharge. Concern for possible underlying neurologic reason for patient's increasing right leg weakness. She has been given morphine my Lawrence to help with her pain. She is not a NSAID candidate because she is on Eliquis. Social Work has been involved with her care. Dr. Costello updated patient's symptoms test results and agrees for observation Discharge Plan Departure Patient Disposition: Admitted as Observation Clinical Impression: Right leg weakness, Hypertension Admit Date/Time: 01/11/21 14:27 Admit Provider: Ash Thomas
[2021-01-11] MEDS: HYDROCODONE/ACET 5/325 TABLET 1 TAB PO (05:58)
--- NOTE | 2021-01-11 06:49 | DI.RAD.S_ITS ---
PROCEDURE: XR HIP W PEL IF DONE RT 2V INDICATIONS: pain after fall TECHNIQUE: AP pelvis with lateral view(s) of the right hip(s). COMPARISON: None. FINDINGS: Bones: No fractures or dislocations. Pelvic ring appears intact. No suspicious bony lesions. Age-appropriate bony degenerative changes are seen, including involving the lower lumbar spine. Soft tissues: The visualized bowel gas pattern is normal. No suspicious soft tissue calcifications. IMPRESSION: No displaced fractures are seen on these plain films. If there is focal tenderness, or other clinical concern for a fracture not seen on these images in this patient with a given history of trauma, please consider a dedicated CT or a short-term followup plain film series (in 1-2 weeks) for further evaluation. Dictated by: Juan Marques M.D. on 01/11/2021 at 7:25 Approved by: Juan Marques M.D. on 01/11/2021 at 7:26
--- NOTE | 2021-01-11 07:54 | DI.CT.S_ITS ---
PROCEDURE: CT PEL WO CON INDICATIONS: right hip pain can't walk TECHNIQUE: Noncontrast 3 mm axial sections acquired through the bony pelvis, with coronal and sagittal reformatting. COMPARISON: None. FINDINGS: Image quality: Excellent. Bones: In this patient with this given history, scrutiny is given to the right hip. No fractures or dislocations can be seen of the right hip, including the right proximal femur. No fractures are seen of the bones of the pelvis. Degenerative changes are seen throughout, including involving the lower lumbar spine. Is the L5 level is transitional and highly sacralized on the left. Soft tissues: Generalized fatty stranding can be seen surrounding the right kidney, with blurring of the fascial planes. No large joint effusion is seen. No soft tissue fluid collection can be seen to suggest a drainable abscess. 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 No dilated loops of bowel are seen. Colonic diverticulosis is seen, without findings of active diverticulitis. No free air or significant free fluid can be seen. No soft tissue masses can be seen. This patient is status post hysterectomy. No adnexal masses are seen. IMPRESSION: Negative for fracture or dislocation. Inflammatory stranding can be seen surrounding the right hip. Infection or inflammation is suspected. No drainable abscess collection is seen. No large joint effusion is seen. If it would be helpful for clinical management decision making, please consider a dedicated right hip MRI (without and with contrast) for further evaluation (assuming that there is no contraindication). Incidental note is made of: Pelvic kidney Hysterectomy Diverticulosis, without active diverticulitis Transitional lumbar anatomy, with partial sacralization of L5. Dictated by: Juan Marques M.D. on 01/11/2021 at 7:59 Approved by: Juan Marques M.D. on 01/11/2021 at 8:04
[2021-01-11] MEDS: METOPROLOL ER 50 MG TABLET PO (08:05)
[2021-01-11 08:06] LABS: Add Manual Diff / Slide Review NO; Basophils Absolute Auto 100 /uL (0-100); Basophils Percent Auto 0.8 % (0-2); Eosinophils Absolute Auto 100 /uL (0-450); Eosinophils Percent Auto 0.8 % (2-4); Hematocrit 37.3 % (36-46); Hemoglobin 12.6 g/dL (12.0-16.0); Lymphocytes Absolute Auto 1000 /uL (1100-4500); Lymphocytes Percent Auto 14.6 % (25-40); Mean Corpuscular HGB Conc 33.7 % (30-36); Mean Corpuscular Hemoglobin 29.6 PG (26-34); Monocytes Absolute Auto 500 /uL (0-900); Neutrophils Absolute Auto 5500 /uL (1500-7000); Neutrophils Percent Auto 76.8 % (50-75); Platelet Count 241 X10^3/uL (150-400); Red Blood Cell Count 4.23 X10^6/uL (4.0-5.2); Red Cell Distribution Width 13.2 % (11.6-14.8); White Blood Cell Count 7.2 X10^3/uL (4.5-11.0)
[2021-01-11] MEDS: hydroCHLOROthiazide 25 MG TABLET PO (08:06)
[2021-01-11 08:30] LABS: Alanine Aminotransferase 19 IU/L (<35); Albumin 3.9 g/dL (3.5-5.0); Albumin Globulin Ratio 1.3 (1.0-2.8); Alkaline Phosphatase 133 U/L (38-126); Aspartate Aminotransferase 30 IU/L (14-36); BUN Creatinine Ratio 24.8 (6-22); Bilirubin Total 0.7 mg/dL (0.2-1.3); Blood Urea Nitrogen 25 mg/dL (7-17); Calcium 9.6 mg/dL (8.4-10.2); Carbon Dioxide 28 mmol/L (22-32); Chloride 105 mmol/L (98-107); Estimated Glomerular Filt Rate 52.3 mL/min (>60); Globulin 3.1 g/dL (1.7-4.1); Glucose 118 mg/dL (80-110); HEMOLYSIS < 15 (0-50); Sodium 138 mmol/L (137-145)
[2021-01-11] MEDS: MORPHINE 2 MG/ML INJ IV (09:30)
--- NOTE | 2021-01-11 09:40 | PC.NURSE ---
pt unable to stand without max assist x 2 and very unsteady and returned to bed, unable to walk or pivot even with assistance, right leg pain interfering with ambulation and range of motion.
[2021-01-11 09:43] LABS: C-Reactive Protein Quant 0.8 mg/dL (<1.0)
[2021-01-11 10:47] LABS: Erythrocyte Sedimentation Rate 15 MM/HR (0-20)
--- NOTE | 2021-01-11 11:35 | PT.IIE ---
Medical History (Last Reviewed 01/11/21 @ 06:23 by Enrique Anand DO) Hypertension Physical Therapy Inpatient Evaluation/Re-Eval M1 PT/OT-IP Prior Functional Status Start: 01/11/21 12:55 Freq: Status: Active Protocol: Document 01/11/21 11:35 AB (Rec: 01/11/21 13:33 AB [id number]) Medical Review Prior Functional Status Medical History Reviewed Yes Communication able to make needs known but HOPI also with difficulty following directions requiring increase time to respond Mobility and Gait per daughter: pt is modified independent with all mobilities and ambulation using 4WW but has h/o falls with 3-4 fall already within this year Prior Functional Level (Other details) pt daughter, pt has ongoing tremors for some time already and sometime becomes worse that she cannot even assist pt to move Social History Household Members family Living Arrangements House Number of Floors (Floors) Two Floors Number of Stairs To Enter/Railing? pt stays on main level of the house 5 steps to enter with B wide rails and can only hold on to 1 rail at a time Home Environment Standard Height Toilet,Walk in Shower Home Equipment Four Wheel Walker,Bedside Commode,Raised Toilet Seat Without Armrests,Shower Seat with Backrest,Hand Held Shower ,Lift Recliner,Grab Bars Near Toilet Additional Social History Comment pt lives with her daughter but daughter goes to work and pt by herself from ~ 130 pm to ~ 9-10pm. pt sleeps on a lift chair M2 PT-IP Current Condition Start: 01/11/21 12:55 Freq: Status: Active Protocol: Document 01/11/21 11:35 AB (Rec: 01/11/21 13:33 AB [id number]) Physical Therapy Current Condition Current Condition Evaluation Date 01/11/21 Treatment Diagnosis R LBP; difficulty in walking Onset Date 01/11/21 Precautions Other Precautions falls M3 PT-IP Subjective Start: 01/11/21 12:55 Freq: Status: Active Protocol: Document 01/11/21 11:35 AB (Rec: 01/11/21 13:33 AB [id number]) Subjective Physical Therapy Visit Type Type Initial Evaluation Visit Start Time 11:35 Visit Stop Time 12:14 Total Visit Minutes 39 Number of SENIOR APPLICATION SOFTWARE ENGINEER Visits 0 Physical Therapy Visit Comments Patient Comments agreed to do PT Therapy Pain Assessment Pain When Pain Assessed At Rest Location Right Hip Intensity 5 Scale Used Numeric (0 - 10) Pain Management Techniques Distraction,Modification of Treatment,Re-positioning, Timing of Activity with Medications Right Knee Intensity 5 Scale Used Numeric (0 - 10) Pain Management Techniques Distraction,Modification of Treatment,Re-positioning, Timing of Activity with Medications M4 PT-IP Mobility and Gait Start: 01/11/21 12:55 Freq: Status: Active Protocol: Document 01/11/21 11:35 AB (Rec: 01/11/21 13:33 AB [id number]) PT-Bed Mobility Assessment Supine to Sit Supine to Sit Maximum Assistance,2 Person Assistance Sit to Supine Sit to Supine Maximum Assistance,2 Person Assistance PT-Transfer Assessment Comments Mobility Comments pt supine in bed with HOB elevated ~ 45 deg. ROM/MMT conducted but with difficulty. pt presents with BLE in extension/adductor rigidity with resistance with PROM but able to bend knee to ~ 25 deg only. pt completed supine to sit max A x 2 and max cues. pt with increase lateral trunk lean to the L. requires mod to max A for sitting balance on EOB and max cues for upright posture. attempted sit to stand x 3 but unable. pt presents with whole body intentional tremors during attempts and required assistance and reassurance for tremors to subside. pt with difficulty following directions and also has great fear of falling. assisted pt back in bed max A x 2 and max cues. positioned in bed. Call light and table placed within reach. Nurse assist PT with pt and is aware that pt is not safe to go home. talked to the doctor and informed regarding pt's mobility, R knee pain and also regarding the intentional tremors and LE rigidity. Gait Assessment Comments Gait Comments unable PT-Balance Assessment Sitting Balance and Reactions Static Sitting Balance Ability Fair Dynamic Sitting Balance Ability Poor M5 PT-IP Objective Assessments Start: 01/11/21 12:55 Freq: Status: Active Protocol: Document 01/11/21 11:35 AB (Rec: 01/11/21 13:33 AB [id number]) Orientation Orientation/Cognition Level of Alertness Alert Orientation Name Language Function Ability Hard of Hearing Safety Awareness Decreased Safety Awareness Memory Description 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 Gross Range of Motion Lower Extremity ROM Impairments with increase LE rigidity and guarding and only able to bend knees to ~ 25 deg during ROM testing Strength Lower Extremity Strength Knee gross strength: LLE 3+/5 RLE: 3-/5 Comments Strength Comments MMT not tested formally due to pt with difficulty following directions and also has siginificant LE adductor and extensor rigidity Muscle Tone Muscle Tone Location Bilateral Lower Extremity Type of Tone Rigidity Severity of Tone Moderate Comments Muscle Tone Comments also presents with intention tremors trunk/LE/UE M6 PT-IP Treatment Start: 01/11/21 12:55 Freq: Status: Active Protocol: Document 01/11/21 11:35 AB (Rec: 01/11/21 13:33 AB [id number]) Physical Therapy Treatment Education Education Provided Safety M7 PT-IP Assessment and Plan Start: 01/11/21 12:55 Freq: Status: Active Protocol: Document 01/11/21 11:35 AB (Rec: 01/11/21 13:33 AB [id number]) PT Summary Assessment and Plan Potential Rehabilitation Potential Fair Status of Condition at Evaluation Evolving Summary Impairments Pain,ROM,Strength,Balance, Coordination,Sensation,Tone, Cognition,Bed Mobility, Transfers,Gait,Activity Tolerance Assessment Summary PT eval order received from ED for assessment for mobility and safe d/c plan. pt requiring max A x 2 for bed mobility unable to stand to transfer of ambulate. Pt presents with bilateral LE extesor and adductor rigidity in supine and has intention tremors with attempts to sit to stand. pt is not safe to go home and may require SNF rehab. informed MD regarding pt's mobility and rigidity/ tremors presentations. Goals Bed Mobility Goal Contact Guard Assistance Transfer Goal Contact Guard Assistance,Front Wheeled Walker Gait Goal Contact Guard Assistance,Front Wheel Walker Gait Distance 50 Other Goals improve bed mobility, transfers SBA, ambulation using FWW SBA 100 ft up/down 5 steps 1 rail CGA Days to Meet Goals 10 Frequency of Treatment Frequency Of Treatment Once a Day Treatment Plan Physical Therapy Treatment Plan Bed Mobility Training,Transfer Training,Gait Training, Therapeutic Exercise,Balance Retraining,Discharge Planning, Hot or Cold Pack,Neuromuscular Re-ed,Coordination Retraining ,Manual Therapy Recommendations To Nursing Amount of Assist Needed Mechanical Lift Discharge Recommendations PT Discharge Recommendations SNF Rehab Transportation Needs at Discharge Wheelchair/Cabulance,Stretcher /Ambulance
--- NOTE | 2021-01-11 13:03 | DI.CT.S_ITS ---
PROCEDURE: CT HEAD/BRAIN WO CON INDICATIONS: right leg weakness TECHNIQUE: Noncontrast 4.5 mm thick angled axial sections acquired from the foramen magnum to the vertex, with coronal and sagittal reformats. For radiation dose reduction, the following was used: automated exposure control, adjustment of mA and/or kV according to patient size. COMPARISON: [facility], CT, CT HEAD/BRAIN WO CON, 07/27/2020, 10:01. FINDINGS: Image quality: Excellent. CSF spaces: Basal cisterns are patent. No extra-axial fluid collections. Ventricles are normal in size and shape. Brain: No midline shift. No intracranial masses or hemorrhage. No area of hypodensity in a large vascular distribution to suggest acute infarction. Periventricular hypodensity consistent with chronic microvascular ischemic change. Age-related parenchymal loss. Skull and face: Calvarium and visualized facial bones are intact, without suspicious lesions. Sinuses: Visualized sinuses and mastoids are clear. IMPRESSION: No acute intracranial abnormality. No interval change appreciated. Dictated by: Brice Pena M.D. on 01/11/2021 at 13:29 Approved by: Brice Pena M.D. on 01/11/2021 at 13:32
[2021-01-11 14:04] LABS: COVID19 - ADMIT (NP swab/PCR) Negative (Negative)
--- NOTE | 2021-01-11 14:28 | CM.SWNOTE ---
Patient is an 85 year old female who was admitted to [facility] ED on 01/11/21 today for Lower Back Pain. Pt has [employer] for insurance and her PCP is on [facility] Lory [facility]. EMR was reviewed. Per MD, HVAC/R SERVICE TECHNICIAN consult placed due to pt and Dtr not having safe d/c plan to home right now based on pt's lack of mobility. Per PT, completed initial eval in ED on pt with Dtr present and pt below baseline where before pt could stand and transfer and mobilize some and now pt is a 2PA and only completed sitting at EOB and unable to currently stand. Pt presents as having more of a neurological condition with her leg rigidity, tremors, and affect. SW met bedside with pt and Dtr Jose Manuel in the ED and explained role and they confirm that they live in [place] in pt's home and Dtr is primary CG. Dtr typically helps with meds, shopping and errands, cooking but has not needed to help with bathing or toileting but pt currently requiring this assist. Dtr states that she works and cannot quit and be home 11/01 and pt has [employer] that they have had to utilize as pt has GLF x4 since Jun and Dtr cannot safely get pt up from the floor after fall. Dtr in the process of hiring a private CG and interviewed a CG but it was only going to be for a couple hours a few days a week. SW inquired about Medicaid and pt currently over-qualified financially as she gets a couple thousand dollars a month for income. Dtr has placed a call to [facility] and they are sending her some information via mail. Pt also has 3 adult sons, 2 whom live locally but one travels a lot, and both pt and Dtr discussed that they are not available or willing to assist in person at this time but willing to help place calls and get CG in place and maybe provide some financial assist. SW discussed that they may need more information regarding either their assist or the need for Private Pay Respite care. SW discussed the medical justification for keeping the pt in the ED or admitting her and that currently no medical need to be admitted as Inpt Status. SW discussed in depth ER stay, OBS Status and Medicare coverage, and Inpt Status and that currently there may not be a justification for even OBS Stay. SW stressed the importance of a plan for either Private Pay SNF/Respite Stay if not safe for home or family members stepping up to assist at home as pt is currently 2PA. Dtr and pt currently decline PP SNF/Respite and SW provided the Senior [employer] Guidebook and earmarked PP CG agencies and Aging and Disability contact info. SW also inquired about PCP and any referrals for Ortho and Neurology outpt consult and pt and Dtr state no referrals have been discussed or provided even though pt has chronic knee and hip pain from falls and some possible Neuro indicators. SW discussed pt status with ED MD and Hospitalist towards determining if pt meets criteria for OBS stay towards steroids to reduce inflammation and PT to determine if pt will improve for increased mobility/standing to have a safer d/c to home with HH. Plan: SW to follow closely for MD decision if pt meets criteria for OBS stay vs return to home via stretcher and family assist and HH. GISSELLE Ocasio
--- NOTE | 2021-01-11 17:50 | PM.HP.1 ---
History of Present Illness History of Present Illness Date Patient Seen: 01/11/21 Time Patient Seen: 18:23 Chief complaint: Lower Right Back Pain Narrative: This is an 85-year-old female with a past medical history of atrial fibrillation, hypertension, and COPD who presented with worsening right sided weakness and pain over the past month. Patient's daughter has noticed that her mother has been complaining of worsening right hip pain over the past month, progressing more notably over the past 2-3 weeks to the point where she has had a difficult time walking and ultimately today for the patient was unable to ambulate. There was a fall approx. 3 weeks ago but it was not witnessed and it is unknown if she hit her R side. The daughter has also noticed increasing lethargy over the past 2-3 weeks and does report that her mom has been having some paranoid hallucinations, notably at night, Complaining that people are in her room when there is no one present. She also has noticed some slurred speech though no focal weakness, facial droop, numbness, other than her continued right leg weakness and pain. She has been increasingly more and more in her bed and unable to ambulate, and has been favoring her right side. In addition to favoring her right side when turning she also continues to hit her right hip in bed. daughter also notes that starting about 3 weeks ago she was notably having more difficulties with him balance. In the emergency room, patient was notably hypertensive but the remainder of her vital signs are unremarkable. Initial CBC was unremarkable. ESR was within normal limits at 15. Chemistries showed no significant lab abnormalities and a stable creatinine. COVID-[address] of her head was unremarkable. x-ray of her hip did not show any acute fractures. CT abdomen showed soft tissue swelling and fatty inflammation surrounding her right hip but no involvement in her joint, MRI was recommended. She was seen extensively in the emergency room including by Physical therapy and social work and physical therapy did not believe that the patient was safe to discharge home at this time given her current fucntion status. Given some possible speech defects, worsening balance , as well as decreased mobility due to right hip pain patient was admitted under observation status for further evaluation of possible CVA. Patient History Medical History (Updated 01/11/21 @ 17:53 by Ash Thomas DO) Atrial fibrillation COPD (chronic obstructive pulmonary disease) Hypertension Surgical History (Updated 01/11/21 @ 17:53 by Ash Thomas DO) No pertinent past surgical history Family & Social History Family History (Updated 01/11/21 @ 17:54 by Ash Thomas DO) Mother CVA (cerebral vascular accident) Father CVA (cerebral vascular accident) Social History: household members family Prior Living Arrangements House Safety & Behavioral: Feels Safe in Current Yes Environment Been Physically Hurt or No Threatened By a Person Suicidal Ideation Description None Suicide Plan Description No Plan Tobacco & Substance use: Smoking Status Never smoker alcohol intake frequency holiday/special occasion Substance Use Type does not use Meds Home Medications and Allergies Home Medications Medication Instructions Recorded Confirmed Type apixaban 5 mg tablet (Eliquis) 5 mg PO BID 01/11/21 01/11/21 History fluticasone propionate 50 1 spray INTRANASAL DAILY 01/11/21 01/11/21 History mcg/actuation nasal spray,suspension hydrochlorothiazide 25 mg tablet 25 mg PO DAILY 01/11/21 01/11/21 History loratadine 10 mg tablet 10 mg PO DAILY 01/11/21 01/11/21 History metoprolol succinate 50 mg 50 mg PO DAILY 01/11/21 01/11/21 History tablet,extended release 24 hr montelukast 10 mg tablet 10 mg PO DAILY 01/11/21 01/11/21 History simvastatin 40 mg tablet 40 mg PO DAILY 01/11/21 01/11/21 History telmisartan 80 mg tablet 80 mg PO DAILY 01/11/21 01/11/21 History Allergies Allergy/AdvReac Type Severity Reaction Status Date / Time chlorpheniramine Allergy Severe Anaphylaxis Verified 07/27/20 09:51 [From Actifed Cold-Allergy] phenylephrine Allergy Severe Anaphylaxis Verified 07/27/20 09:51 [From Actifed Cold-Allergy] pseudoephedrine Allergy Severe Anaphylaxis Verified 07/27/20 09:51 [From Actifed Cold-Allergy] triprolidine Allergy Severe Anaphylaxis Verified 07/27/20 09:51 [From Actifed Cold-Allergy] Review of Systems Review of Systems Narrative: All other systems reviewed with the patient and are negative unless otherwise stated. Exam Vital Signs (past 8 hours): - 01/11/21 10:00 01/11/21 10:01 01/11/21 10:30 Temperature Pulse Rate 78 78 78 Respiratory Rate Blood Pressure 171/73 H 160/71 H Pulse Oximetry 95 96 95 01/11/21 11:00 01/11/21 11:30 01/11/21 13:04 Temperature Pulse Rate 78 83 89 Respiratory Rate 18 17 Blood Pressure 161/72 H 162/94 H Pulse Oximetry 95 99 96 01/11/21 13:06 01/11/21 14:00 01/11/21 15:00 Temperature 98.4 F Pulse Rate 88 89 82 Respiratory Rate 17 Blood Pressure 176/79 H 176/78 H 204/81 H Pulse Oximetry 96 98 96 01/11/21 16:32 Temperature Pulse Rate Respiratory Rate Blood Pressure Pulse Oximetry 96 Oxygen Delivery Method Room Air Oxygen Flow Rate 0 Narrative Exam Narrative: GENERAL APPEARANCE: Well developed, well nourished, Obese elderlyfemale with BMI of 31.8 in no acute distress. SKIN: Inspection of the skin reveals no rashes, ulcerations or petechiae. HEENT: Normocephalic atraumatic, extraocular muscles are intact, oropharynx is clear and mucous membranes are moist, neck is supple without adenopathy NECK: Supple and symmetric. There was no thyroid enlargement, and no tenderness, or masses were felt. CHEST: Normal AP diameter and normal contour without any kyphoscoliosis. LUNGS: Auscultation of the lungs revealed no wheezes, rhonchi, or rales. CARDIOVASCULAR: There was a regular rate and rhythm without any murmurs, gallops, rubs. Peripheral pulses were 2+ and symmetric. ABDOMEN: Soft and nontender with normal bowel sounds. No ascites was noted. MUSCULOSKELETAL Muscle strength and tone were normal. Though slightly diminished right side compared to left as noted below. R hip minimal tenderness over the area of greater trochanter and slightly inferiorly. no overylying erythema. EXTREMITIES: No cyanosis, clubbing . There is bilateral peripheral edema, left slightly greater than right. Passive range of motion elicited minimal tenderness at her hip Though this was slightly worsened with abduction. NEUROLOGIC: Alert, falls asleep easily, probable cognitive impairment is evident with deficits in short-term memory. Normal affect. strength is at least +4/5 on the right (able to lift foot off of bed though barely, though she is notably weaker on the right compared to the left, though evaluation is limited by effort and pain. Objective Labs Result Diagrams: 01/11/21 07:58 01/11/21 07:58 Labs: Laboratory Results - last 24 hr 01/11/21 01/11/21 01/11/21 07:58 07:58 07:58 WBC 7.2 RBC 4.23 Hgb 12.6 Hct 37.3 MCV 88.0 MCH 29.6 MCHC 33.7 RDW 13.2 Plt Count 241 Neut % (Auto) 76.8 H Lymph % (Auto) 14.6 L [place] % (Auto) 7.0 Eos % (Auto) 0.8 L Baso % (Auto) 0.8 Neut # (Auto) 5500 Lymph # (Auto) 1000 L [place] # (Auto) 500 Eos # (Auto) 100 Baso # (Auto) 100 ESR 15 Sodium 138 Potassium 4.0 Chloride 105 Carbon Dioxide 28 BUN 25 H Creatinine 1.01 Estimated GFR 52.3 L BUN/Creatinine Ratio 24.8 H Glucose 118 H Calcium 9.6 Total Bilirubin 0.7 AST 30 ALT 19 Alkaline Phosphatase 133 H C-Reactive Protein Total Protein 7.0 Albumin 3.9 Globulin 3.1 Albumin/Globulin Ratio 1.3 SARS-CoV-2 (PCR) 01/11/21 01/11/21 07:58 12:44 WBC RBC Hgb Hct MCV MCH MCHC RDW Plt Count Neut % (Auto) Lymph % (Auto) [place] % (Auto) Eos % (Auto) Baso % (Auto) Neut # (Auto) Lymph # (Auto) [place] # (Auto) Eos # (Auto) Baso # (Auto) ESR Sodium Potassium Chloride Carbon Dioxide BUN Creatinine Estimated GFR BUN/Creatinine Ratio Glucose Calcium Total Bilirubin AST ALT Alkaline Phosphatase C-Reactive Protein 0.8 Total Protein Albumin Globulin Albumin/Globulin Ratio SARS-CoV-2 (PCR) Negative Assessment & Plan Assessment & Plan narrative: This is an 85-year-old female with a past medical history of atrial fibrillation, hypertension, and COPD who presented with worsening right sided weakness and pain over the past month. 1. Right lower extremity weakness and pain, right hip soft tissue inflammation - possible CVA given possible slurred speech and balance issues though this may be related to probable progression of dementia / cognitive impairment. Rule out CVA with brain MRI. Depending on MRI of brain consider vascular imaging if positive. - CT of right lower extremity showing soft tissue inflammation around her hip joint, will check MRI for more definitive diagnosis. Etiologies based on exam and history include repetetive trauma leading to a bursitis or other soft tissue injury, possible non-visualized fracture (though this seems less likely), no evidence on exam or labs to suggest infected hip joint either. - continue pain control, PT/OT. Limit opiate use given cognitive impairment. 2. atrial fibrillation / flutter, presumed chronic - continue home beta rina and anticoagulation. - telemetry currently with rate controlled flutter. 3. HTN - hypertensive currently likely in setting of pain. Will attempt to control pain. Resume home medications and adjust as needed. 4. COPD, chronic - not taking home inhalers per daughter. Will provide albuterol prn. No evidence of acute exacerbation 5. Cognitive impairment - encourage daytime activity, rest during the night. Frequent re-orientation if confused. Reported night hallucinations by daughter, consider nightly seroquel depending on hospital course. - OT evaluation ordered. - MRI noted above to check for possible recent CVA. Code: DNR/DNI, surrogate decision maker is the patient's daughter. No formal medical POA, financial POA is the patient's son. Dispo: admitted under observation status pending above evaluation. likely discharge home with home health, [place] not interested in private pay SNF. DVT: on apixaban Quality VTE Deep Vein Thrombosis/Pulmonary Embolism Present on Admission: No
--- NOTE | 2021-01-11 18:24 | DI.MRI.S_ITS ---
PROCEDURE: MR HEAD/BRAIN WO CON INDICATIONS: RLE weakness, speech and balance difficulties, r/o CVA TECHNIQUE: This study is highly limited by motion artifact. Several attempts at diffusion-weighted images with ADC maps were performed in the axial plane. Axial gradient recalled echo sequences were also performed. Sagittal FLAIR images were performed. COMPARISON: [facility], CT, CT HEAD/BRAIN WO CON, 01/25/2019, 4:09. [facility], CT, CT HEAD/BRAIN WO CON, 07/27/2020, 10:01. [facility], CT, CT HEAD/BRAIN WO CON, 01/11/2021, 13:07. FINDINGS: This examination is limited by involuntary motion artifact. No definite findings of acute or subacute infarction can be seen. Note is made of age-appropriate brain parenchymal volume loss and chronic small vessel ischemic changes. No nellie extra-axial fluid collections can be seen. The lateral ventricles are prominent and are somewhat more prominent than would be expected given the degree of sulcal atrophy. The cerebellar tonsils are not abnormally low lying. IMPRESSION: Highly limited study, without nellie findings of acute or subacute infarction. If clinically appropriate, please consider a short-term follow-up repeat study, when the patient is able to hold still. Prominent lateral ventricles. Please consider normal pressure hydrocephalus. Dictated by: Juan Marques M.D. on 01/12/2021 at 13:48 Approved by: Juan Marques M.D. on 01/12/2021 at 13:51
[2021-01-11] MEDS: LIDOCAINE PATCH 1 EACH ADH..PATCH TOP (18:33)
[2021-01-11] MEDS: APIXABAN 5 MG TABLET PO (20:15)
[2021-01-12] VITALS (9 sets, daily range): BP systolic 144–159; BP diastolic 59–78; PULSE 79–95; RESP 16–18; TEMP 36.1–36.8; O2SAT 93–98
[2021-01-12] MEDS: LIDOCAINE PATCH 1 EACH ADH..PATCH TOP (08:40)
[2021-01-12] MEDS: MONTELUKAST 10 MG TABLET PO (08:41)
[2021-01-12] MEDS: METOPROLOL ER 50 MG TABLET PO (08:41)
[2021-01-12] MEDS: LORATADINE 10 MG TABLET PO (08:41)
[2021-01-12] MEDS: LOSARTAN 50 MG TABLET 100 MG PO (08:41)
[2021-01-12] MEDS: hydroCHLOROthiazide 25 MG TABLET PO (08:41)
[2021-01-12] MEDS: APIXABAN 5 MG TABLET PO ×2 (08:41→20:35)
[2021-01-12] MEDS: ATORVASTATIN 20 MG TABLET PO (08:41)
--- NOTE | 2021-01-12 11:13 | OT.IP.EVAL ---
Past Medical History (Last Updated 01/11/21 @ 17:53 by Ash Thomas DO) Atrial fibrillation COPD (chronic obstructive pulmonary disease) Hypertension No pertinent past surgical history Surgical History (Last Updated 01/11/21 @ 17:53 by Ash Thomas DO) No pertinent past surgical history Occupational Therapy Inpatient Evaluation/Re-Eval M1 PT/OT-IP Prior Functional Status Start: 01/11/21 12:55 Freq: Status: Active Protocol: Document 01/12/21 12:44 CGR (Rec: 01/12/21 13:07 CGR [id number]) Medical Review Prior Functional Status Medical History Reviewed Yes Communication able to make needs known but [place] also with difficulty following directions requiring increase time to respond Mobility and Gait per daughter: pt is modified independent with all mobilities and ambulation using 4WW but has h/o falls with 3-4 fall already within this year Activities of Daily Living and IADL's Per pt, pt was mod independent with all ADLs Prior Functional Level (Other details) pt daughter, pt has ongoing tremors for some time and sometime becomes worse that she cannot even assist pt to move Social History Household Members family Living Arrangements House Number of Floors (Floors) Two Floors Number of Stairs To Enter/Railing? pt stays on main level of the house 5 steps to enter with B wide rails and can only hold on to 1 rail at a time Home Environment Standard Height Toilet,Walk in Shower Home Equipment Four Wheel Walker,Bedside Commode,Raised Toilet Seat Without Armrests,Shower Seat with Backrest,Hand Held Shower ,Lift Recliner,Grab Bars Near Toilet Additional Social History Comment pt lives with her daughter but daughter goes to work and pt by herself from ~ 130 pm to ~ 9-10pm. pt sleeps on a lift chair M1 PT/OT-IP Prior Functional Status Start: 01/12/21 12:43 Freq: NEEDED Status: Active Protocol: Document 01/12/21 12:44 CGR (Rec: 01/12/21 13:07 CGR [id number]) Medical Review Prior Functional Status Medical History Reviewed Yes Communication able to make needs known but [place] also with difficulty following directions requiring increase time to respond Mobility and Gait per daughter: pt is modified independent with all mobilities and ambulation using 4WW but has h/o falls with 3-4 fall already within this year Activities of Daily Living and IADL's Per pt, pt was mod independent with all ADLs Prior Functional Level (Other details) pt daughter, pt has ongoing tremors for some time and sometime becomes worse that she cannot even assist pt to move Social History Household Members family Living Arrangements House Number of Floors (Floors) Two Floors Number of Stairs To Enter/Railing? pt stays on main level of the house 5 steps to enter with B wide rails and can only hold on to 1 rail at a time Home Environment Standard Height Toilet,Walk in Shower Home Equipment Four Wheel Walker,Bedside Commode,Raised Toilet Seat Without Armrests,Shower Seat with Backrest,Hand Held Shower ,Lift Recliner,Grab Bars Near Toilet Additional Social History Comment pt lives with her daughter but daughter goes to work and pt by herself from ~ 130 pm to ~ 9-10pm. pt sleeps on a lift chair M2 OT-IP Current Condition Start: 01/12/21 12:43 Freq: Status: Active Protocol: Document 01/12/21 12:44 CGR (Rec: 01/12/21 13:07 CGR [id number]) Occupational Therapy Current Condition Current Condition Evaluation Date 01/12/21 Treatment Diagnosis R hip pain, weakness Diagnosis Onset Date 01/11/21 M3 OT- IP Subjective and Pain Start: 01/12/21 12:43 Freq: Status: Active Protocol: Document 01/12/21 12:44 CGR (Rec: 01/12/21 13:07 CGR [id number]) OT- Subjective Occupational Therapy Visit Type Type Initial Evaluation Visit Start Time 10:30 Visit Stop Time 11:13 Total Visit Minutes 43 Notes Partial co-treat with P.T. for transfer OT Pain Assessment Pain When Pain Assessed At Rest Pain Present Pain Present Pain Reported Location Right Hip Scale Used did not rate Management Techniques Distraction,Modification of Treatment,Re-positioning M4 OT- IP ADL's Start: 01/12/21 12:43 Freq: Status: Active Protocol: Document 01/12/21 12:44 CGR (Rec: 01/12/21 13:07 CGR [id number]) OT [id number] Comments OT Self-Feeding Comments not meal time OT ADL-Grooming General Evaluation Grooming Ability Minimal Assistance Areas Needing Assistance Face Washing Comments OT Grooming Comments seated in chair OT ADL-Oral Care General Eval Oral Care Ability Moderate Assistance Areas of Assistance Brushing Teeth,Retrieving/Set- Up of Items Comments Oral Care Comments Pt had difficulty getting top on and off tooth paste then hand to mouth. OT ADL-Dressing General Eval Lower Body Dressing Ability Total Assistance Areas Needing Assistance Socks OT ADL-Toileting Comments OT Toileting Comments not performed OT ADL-Bathing Comments OT Bathing Comments not performed M5 OT- IP IADL's Start: 01/12/21 12:43 Freq: Status: Active Protocol: Document 01/12/21 12:44 CGR (Rec: 01/12/21 13:07 CGR [id number]) OT-Instrumental Activities of Daily Living Deficits IADL Deficits Identified No Deficits Home Safety Awareness Awareness of Need for Assistance at Home Good Awareness Ability to Problem Solve Emergency Able to Problem Solve Situations Medication Management Medication Management Caregiver Administers Money Management Money Management Caregiver Provides Assistance Meal Preparation Meal Preparation Caregiver Provides Assist Cd Technician Cd Technician Caregiver Provides Assist Driving Driving Caregiver Provides Assist M6 OT- IP Functional Cognition Start: 01/12/21 12:43 Freq: Status: Active Protocol: Document 01/12/21 12:44 CGR (Rec: 01/12/21 13:07 CGR [id number]) Cognitive Factors Limiting Selfcare Function Cognitive Ability Level of Alertness Alert Patient Orientation Name,Month,Place,Situation Attention Span Ability Capable of Focused Attention, Unable to Sustain Attention Ability to Follow Commands Able to Follow One Step Commands with Increased Time, Able to Follow One Step Commands with Repetition Cognitive Comments Cognitive Assessment Comments Pt would benefit from formal cog testing OT- Vision and Hearing OT- Hearing Assessment OT- Hearing Assessment Hearing Impaired OT- Vision Assessment Vision History Cataracts Visual Attentiveness Impaired Visual Convergence Impaired Vision Assessment Comments Pts occular pursuits are delayed beyond what is typical for age. Pt preferred to keep eyes closed for most of session and needed VC to open eyes for activities. M7 OT- IP Mobility and Balance Start: 01/12/21 12:43 Freq: Status: Active Protocol: Document 01/12/21 12:44 CGR (Rec: 01/12/21 13:07 CGR [id number]) OT- Bed Mobility Assessment Rolling Type of Rolling Roll to Right Level of Assistance Maximum Assistance,2 Person Assistance Supine to Sit Supine to Sit Assist Maximum Assistance,2 Person Assistance Scooting Scooting to Edge of Bed Maximum Assistance,2 Person Assistance OT-Transfer Assessment Sit to and From Stand Sit to and from Stand Maximum Assistance,2 Person Assistance Transfers Transfer Ability Maximum Assistance Technique Transfer Destination Bed,Chair Transfer Technique stand with surface swap Devices Transfer Assistive Devices Gait Belt,Front Wheeled Walker Comments Mobility Comments Pt was able to perform sit to stand x 3 with assist for foot placment and maintaining foot placement. Upon third stand bed was moved and chair replaced. Pt states less pain with sitting upright. Pt leans to the L and is unable to maintain straight posture with tactile or verbal cues. OT- Balance Assessment Sitting Balance and Reactions Static Sitting Balance Ability Fair Dynamic Sitting Balance Ability Poor M8 OT- IP Objective Assessments Start: 01/12/21 12:43 Freq: Status: Active Protocol: Document 01/12/21 12:44 CGR (Rec: 01/12/21 13:07 CGR [id number]) OT Gross Range of Motion Upper Extremity Range of Motion ROM Impairments B shld impairments. L 0-90, R 0-100 OT Strength Upper Extremity Strength Assessment Within Functional Limits Comments Strength Comments shlds 3+/5 to limited range, arms and hands 4+/5 OT- Coordination Assessment Upper Extremity Finger to Nose Test Bilateral UE Impaired Finger Tapping Test Bilateral UE Impaired Comments Coordination Comments Pt displays poor coordination throughout session. OT-Muscle Tone Assessment Muscle Tone WNL Yes OT Sensation Assessment Comments Summary Comments Pt states pain sensations to the L upper arm when sensation was tested but later reports normal sensation. Edema Edema Absent M9 OT- IP Assessment and Plan Start: 01/12/21 12:43 Freq: Status: Active Protocol: Document 01/12/21 12:44 CGR (Rec: 01/12/21 13:07 CGR [id number]) OT Summary Assessment and Plan Potential Rehabilitation Potential Good Analytic Complexity at Evaluation High Summary OT Impairments Pain,Range of Motion,Strength, Balance,Coordination,Sensation ,Functional Cognition, Functional Mobility,Grooming, Dressing,Toileting,Bathing, Toilet Transfers,Shower Transfers,Activity Tolerance Progress Towards Goals Slow Progress due to Medical Issues Assessment Summary Pt presents as a high complexity evaluation s/p admit for R sided weakness and hip pain. Pt demonstrates neurologic looking tremors that are impacting her ability to perform ADLs and functional mobility at this time. Pt was unable to safely take steps but stood 3 times with max x 2. Pt will benefit from SNF upon discharge. If home, given pt's current ability for movement, pt would need a lyle lift and ramp to enter the home among other DME items. Goals Self-Feeding Goal Independent Grooming Goal Independent Dressing Goal Independent Toileting Goal Independent Bathing Goal Independent Toilet Transfer Goal Independent Shower Transfer Goal Independent Days to Meet Goals 25 Frequency of Treatment Frequency Of Treatment Once a Day Treatment Plan OT Treatment Plan ADL Training,Functional Cognition Training,Functional Mobility,Therapeutic Exercises ,Patient/Family Education, Discharge Planning Other Treatment Recommendations and Next SLUMS Treatment Focus Discharge Recommendations OT Discharge Recommendations SNF Rehab Other Discharge Recommendations Recommendation is for SNF, if pt goes home, pt will need equipment noted below. Home Equipment Needs lyle, 2ww, BSC, hospital bed, wheelchair, ramp to enter the home. Transportation Needs at Discharge Wheelchair/Cabulance
--- NOTE | 2021-01-12 11:15 | PC.NURSE ---
Patient is confused and was teary eyed earlier. She didnt really give a reason but states that sometimes she just does this. She stated that the year was 2021 and [place] current place. Patient has some skin issues, including some fungal/yeast area's to her r.inner groin. She was a 2-3 person assist to get up to the chair, and is currently in the recliner. Son is suppose to be visiting a bit later. She has been appropriate and kind to staff, no agitation noted.
--- NOTE | 2021-01-12 12:01 | PT.IPTN ---
Physical Therapy Treatment Note M2 PT-IP Current Condition Start: 01/11/21 12:55 Freq: Status: Active Protocol: Document 01/11/21 11:35 AB (Rec: 01/11/21 13:33 AB [id number]) Physical Therapy Current Condition Current Condition Evaluation Date 01/11/21 Treatment Diagnosis R LBP; difficulty in walking Onset Date 01/11/21 Precautions Other Precautions falls M3 PT-IP Subjective Start: 01/11/21 12:55 Freq: Status: Active Protocol: Document 01/12/21 11:42 LJ (Rec: 01/12/21 12:01 LJ [id number]) Subjective Physical Therapy Visit Type Type Treatment Note Visit Start Time 10:30 Visit Stop Time 11:09 Total Visit Minutes 39 Physical Therapy Visit Comments Patient Comments agreed to do PT Therapy Pain Assessment Pain When Pain Assessed At Rest M4 PT-IP Mobility and Gait Start: 01/11/21 12:55 Freq: Status: Active Protocol: Document 01/12/21 11:42 LJ (Rec: 01/12/21 12:01 LJ [id number]) PT-Bed Mobility Assessment Supine to Sit Supine to Sit Maximum Assistance,2 Person Assistance Sit to Supine Sit to Supine Maximum Assistance,2 Person Assistance Scooting Scooting to Edge of Bed Maximum Assistance PT-Transfer Assessment Sit to and From Stand Sit to and from Stand Maximum Assistance,2 Person Assistance,Use of Upper Extremities Equipment Transfer Assistive Device Gait Belt,Front Wheeled Walker Orthotic/Prosthetic Devices or Brace: No Transfers Transfer Destination Chair Transfer Technique stood while chair brought in back of her Transfer Ability Level of Assist Maximum Assistance,2 Person Assistance Comments Mobility Comments Pt slumped in bed with left lateral lean of body and head on shoulders. MaxA x2 for longsitting pivot to get LEs to side of bed. MaxA x2 for scooting to side of bed. Pt exibiting RLE adductor rigidity but able to flex knee beyond 25 deg today. Pt requiring ModA x2 for sitting balance aon edge of bed and Max cues for correcting lateral lean. Pt stood x3 with MaxA x2. Able to maintain standing for ~20 seconds first and second times but only ~10 seconds third attempt during which 2 nurses were assisting to move bed and place chair in back of pt. Pt able to understand and follow directions but had difficulty with motor planning during all mobility. Demonstrates intention tremor responses to assistance with putting feet on floor. Difficulty with correcting lateral lean in sitting and standing. In chair, pt able to remain upright however head remained cocked to the left. Gait Assessment Comments Gait Comments unable PT-Balance Assessment Sitting Balance and Reactions Static Sitting Balance Ability Fair Dynamic Sitting Balance Ability Poor M5 PT-IP Objective Assessments Start: 01/11/21 12:55 Freq: Status: Active Protocol: Document 01/11/21 11:35 AB (Rec: 01/11/21 13:33 AB [id number]) Orientation Orientation/Cognition Level of Alertness Alert Orientation Name Language Function Ability Hard of Hearing Safety Awareness Decreased Safety Awareness Memory Description 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 Gross Range of Motion Lower Extremity ROM Impairments with increase LE rigidity and guarding and only able to bend knees to ~ 25 deg during ROM testing Strength Lower Extremity Strength Knee gross strength: LLE 3+/5 RLE: 3-/5 Comments Strength Comments MMT not tested formally due to pt with difficulty following directions and also has siginificant LE adductor and extensor rigidity Muscle Tone Muscle Tone Location Bilateral Lower Extremity Type of Tone Rigidity Severity of Tone Moderate Comments Muscle Tone Comments also presents with intention tremors trunk/LE/UE M6 PT-IP Treatment Start: 01/11/21 12:55 Freq: Status: Active Protocol: Document 01/12/21 11:42 NATALIE (Rec: 01/12/21 12:01 NATALIE [id number]) Physical Therapy Treatment Education Education Provided Safety M7 PT-IP Assessment and Plan Start: 01/11/21 12:55 Freq: Status: Active Protocol: Document 01/12/21 11:42 NATALIE (Rec: 01/12/21 12:01 NATALIE [id number]) PT Summary Assessment and Plan Potential Rehabilitation Potential Fair Status of Condition at Evaluation Evolving Summary Impairments Pain,ROM,Strength,Balance, Coordination,Sensation,Tone, Cognition,Bed Mobility, Transfers,Gait,Activity Tolerance Assessment Summary Pt mobility improved today but still exhibiting intention tremors and lateral lean. Pt has difficulty following directions and with confusion as to where she is and what year it is. Pt will require SNF vs home Recommendations To Nursing Amount of Assist Needed Mechanical Lift Discharge Recommendations PT Discharge Recommendations SNF Rehab Transportation Needs at Discharge Wheelchair/Cabulance
[2021-01-12] MEDS: LORazepam 2 MG/ML INJ 1 MG IV (13:36)
--- NOTE | 2021-01-12 13:45 | PM.PN.1 ---
Subjective Subjective Date Patient Seen: 01/12/21 Time Patient Seen: 13:45 Interval history: This is an 85 year old female admitted with inability to ambulate yesterday, with concern for possible CVA leading to her difficulties. MRI is being attempted this afternoon with pre-medication due to claustriphobia. Patient denies complaints today, does have chronic pain but overall she feels improved. She did better with PT but still required significant assistance. Exam Vital Signs (past 8 hours): - 01/12/21 07:24 Temperature 97.9 F Pulse Rate 95 H Respiratory Rate 16 Blood Pressure 153/66 H Pulse Oximetry 93 Oxygen Delivery Method Room Air Oxygen Flow Rate 0 Narrative Exam Narrative: GENERAL APPEARANCE: Well developed, well nourished, Obese elderlyfemale with BMI of 31.8 in no acute distress. Sitting in bedside chair. SKIN: Inspection of the skin reveals no rashes, ulcerations or petechiae. HEENT: Normocephalic atraumatic, extraocular muscles are intact, oropharynx is clear and mucous membranes are moist, neck is supple without adenopathy NECK: Supple and symmetric. There was no thyroid enlargement, and no tenderness, or masses were felt. CHEST: Normal AP diameter and normal contour without any kyphoscoliosis. LUNGS: Auscultation of the lungs revealed no wheezes, rhonchi, or rales. CARDIOVASCULAR: There was a regular rate and rhythm without any murmurs, gallops, rubs. Peripheral pulses were 2+ and symmetric. ABDOMEN: Soft and nontender with normal bowel sounds. No ascites was noted. MUSCULOSKELETAL Muscle strength and tone were normal. R hip minimal tenderness over the area of greater trochanter and slightly inferiorly, improved. R knee tenderness without joint effusion. EXTREMITIES: No cyanosis, clubbing . There is bilateral peripheral edema, left slightly greater than right slightly improved today. No pain with active abduction or adduction at the hip, even with resistance. NEUROLOGIC: Alert, falls asleep easily, probable cognitive impairment is evident with deficits in short-term memory. Normal affect. strength is at 5/5 on the right today. Objective Labs Result Diagrams: 01/11/21 07:58 01/11/21 07:58 Labs: Laboratory Results - last 24 hr 01/11/21 12:44 SARS-CoV-2 (PCR) Negative [facility] Medical History (Updated 01/11/21 @ 18:53 by Kellen Matson DO) Atrial fibrillation COPD (chronic obstructive pulmonary disease) Hypertension Surgical History (Updated 01/11/21 @ 17:53 by Ash Thomas DO) No pertinent past surgical history Family History (Updated 01/11/21 @ 17:54 by Ash Thomas DO) Mother CVA (cerebral vascular accident) Father CVA (cerebral vascular accident) Social History household members: family Smoking Status: Never smoker Assessment & Plan Assessment & Plan narrative: This is an 85-year-old female with a past medical history of atrial fibrillation, hypertension, and COPD who presented with worsening right sided weakness and pain over the past month. 1. Right lower extremity weakness and pain, right hip soft tissue inflammation - possible CVA given possible slurred speech and balance issues though this may be related to probable progression of dementia / cognitive impairment. Rule out CVA with brain MRI which is ordered for today and hopefully will be able to obtain given claustripobia. Depending on MRI of brain consider vascular imaging if positive. - CT of right lower extremity showing soft tissue inflammation around her hip joint, will check MRI for more definitive diagnosis. Etiologies based on exam and history include repetetive trauma leading to a bursitis or other soft tissue injury, possible non-visualized fracture (though this seems less likely), no evidence on exam or labs to suggest infected hip joint either. - continue pain control, PT/OT. Limit opiate use given cognitive impairment. 2. atrial fibrillation / flutter, presumed chronic - continue home beta rina and anticoagulation. - telemetry currently with rate controlled flutter. 3. HTN - hypertensive currently likely in setting of pain. Improved today. Will attempt to control pain. Resume home medications and adjust as needed. 4. COPD, chronic - not taking home inhalers per daughter. Will provide albuterol prn. No evidence of acute exacerbation 5. Cognitive impairment - encourage daytime activity, rest during the night. Frequent re-orientation if confused. Reported night hallucinations by daughter, consider nightly seroquel depending on hospital course. - OT evaluation ordered. - MRI noted above to check for possible recent CVA. Code: DNR/DNI, surrogate decision maker is the patient's daughter. No formal medical POA, financial POA is the patient's son. Dispo: admitted under observation status pending above evaluation. likely discharge home with home health tomorrow depending on MRI results, family not interested in private pay SNF. DVT: on apixaban Quality VTE Deep Vein Thrombosis/Pulmonary Embolism Present on Admission: No
--- NOTE | 2021-01-12 18:28 | PC.NURSE ---
Addendum entered by Regina Francisco R.N. 01/12/21 21:37: Pt resting at intervals later in shift. Tele shows a-flutter per ICU staff. Condition remains essentially unchanged. Call light w/in reach, bed alarm on for pt safety. Continue w/plan of care. Original Note: Pt is alert however w/some confusion. Lungs clear/shallow, SpO2 95% RA Tele showing A-flutter per ICU staff. HL RAC intact/patent. SCD in place @ this time. Call light w/in reach, bed alarm on for pt safety.
[2021-01-13] VITALS (7 sets, daily range): BP systolic 134–163; BP diastolic 71–94; PULSE 81–98; RESP 16–20; TEMP 36.2–36.7; O2SAT 94–100
--- NOTE | 2021-01-13 09:38 | PC.NURSE ---
Day shift: Pt OOB w/ PT/OT. Tele HR 130's. Dr Thomas informed. Giving AM meds per MAR at this time.
--- NOTE | 2021-01-13 09:40 | OT.IP.TRT ---
Occupational Therapy Treatment Note M2 OT-IP Current Condition Start: 01/12/21 12:43 Freq: Status: Active Protocol: Document 01/12/21 12:44 CGR (Rec: 01/12/21 13:07 CGR [id number]) Occupational Therapy Current Condition Current Condition Evaluation Date 01/12/21 Treatment Diagnosis R hip pain, weakness Diagnosis Onset Date 01/11/21 M3 OT- IP Subjective and Pain Start: 01/12/21 12:43 Freq: Status: Active Protocol: Document 01/13/21 12:07 CGR (Rec: 01/13/21 12:13 CGR [id number]) OT- Subjective Occupational Therapy Visit Type Type Progress Note Visit Start Time 09:15 Visit Stop Time 09:40 Total Visit Minutes 25 Notes Partial co-treat with P.T., OT left after mobility. OT Pain Assessment Pain When Pain Assessed During Mobility Pain Present Pain Present Pain Reported Location Right Hip Scale Used did not rate Management Techniques Modification of Treatment,Re- positioning M4 OT- IP ADL's Start: 01/12/21 12:43 Freq: Status: Active Protocol: Document 01/13/21 12:07 CGR (Rec: 01/13/21 12:13 CGR [id number]) OT [id number] Comments OT Self-Feeding Comments not meal time, pt had just completed breakfast OT ADL-Grooming Comments OT Grooming Comments not performed OT ADL-Oral Care Comments Oral Care Comments not performed OT ADL-Dressing General Eval Lower Body Dressing Ability Total Assistance Areas Needing Assistance Socks OT ADL-Toileting Comments OT Toileting Comments not performed OT ADL-Bathing Comments OT Bathing Comments not performed M5 OT- IP IADL's Start: 01/12/21 12:43 Freq: Status: Active Protocol: Document 01/12/21 12:44 CGR (Rec: 01/12/21 13:07 CGR [id number]) OT-Instrumental Activities of Daily Living Deficits IADL Deficits Identified No Deficits Home Safety Awareness Awareness of Need for Assistance at Home Good Awareness Ability to Problem Solve Emergency Able to Problem Solve Situations Medication Management Medication Management Caregiver Administers Money Management Money Management Caregiver Provides Assistance Meal Preparation Meal Preparation Caregiver Provides Assist Advertising Project Manager Advertising Project Manager Caregiver Provides Assist Driving Driving Caregiver Provides Assist M6 OT- IP Functional Cognition Start: 01/12/21 12:43 Freq: Status: Active Protocol: Document 01/12/21 12:44 CGR (Rec: 01/12/21 13:07 CGR [id number]) Cognitive Factors Limiting Selfcare Function Cognitive Ability Level of Alertness Alert Patient Orientation Name,Month,Place,Situation Attention Span Ability Capable of Focused Attention, Unable to Sustain Attention Ability to Follow Commands Able to Follow One Step Commands with Increased Time, Able to Follow One Step Commands with Repetition Cognitive Comments Cognitive Assessment Comments Pt would benefit from formal cog testing OT- Vision and Hearing OT- Hearing Assessment OT- Hearing Assessment Hearing Impaired OT- Vision Assessment Vision History Cataracts Visual Attentiveness Impaired Visual Convergence Impaired Vision Assessment Comments Pts occular pursuits are delayed beyond what is typical for age. Pt preferred to keep eyes closed for most of session and needed VC to open eyes for activities. M7 OT- IP Mobility and Balance Start: 01/12/21 12:43 Freq: Status: Active Protocol: Document 01/13/21 12:07 CGR (Rec: 01/13/21 12:13 CGR [id number]) OT- Bed Mobility Assessment Rolling Level of Assistance Standby Assistance,Contact Guard Assistance,Head of Bed Elevated,Bedrails Supine to Sit Supine to Sit Assist Standby Assistance,Contact Guard Assistance,Head of Bed Elevated,Bedrails Scooting Scooting to Edge of Bed Standby Assistance,Contact Guard Assistance,Head of Bed Elevated,Bedrails OT-Transfer Assessment Sit to and From Stand Sit to and from Stand Moderate Assistance,2 Person Assistance Transfers Transfer Ability Moderate Assistance,2 Person Assistance Technique Transfer Destination Bed,Chair Transfer Technique Stand Step Pivot Devices Transfer Assistive Devices Gait Belt,Front Wheeled Walker Comments Mobility Comments Pt was able to take steps to chair then stood again and ambulated ~6 ft with chair follow. Pt needs assist placing feet for sit to stand and input through the knees to maintain positioning till she stands. OT- Balance Assessment Sitting Balance and Reactions Static Sitting Balance Ability Good M8 OT- IP Objective Assessments Start: 01/12/21 12:43 Freq: Status: Active Protocol: Document 01/12/21 12:44 CGR (Rec: 01/12/21 13:07 CGR [id number]) OT Gross Range of Motion Upper Extremity Range of Motion ROM Impairments B shld impairments. L 0-90, R 0-100 OT Strength Upper Extremity Strength Assessment Within Functional Limits Comments Strength Comments shlds 3+/5 to limited range, arms and hands 4+/5 OT- Coordination Assessment Upper Extremity Finger to Nose Test Bilateral UE Impaired Finger Tapping Test Bilateral UE Impaired Comments Coordination Comments Pt displays poor coordination throughout session. OT-Muscle Tone Assessment Muscle Tone WNL Yes OT Sensation Assessment Comments Summary Comments Pt states pain sensations to the L upper arm when sensation was tested but later reports normal sensation. 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 Pt demonstrates neurologic looking tremmors that are impacting her ability to perform ADLs and functional mobility at this time. Tremmors appeared improved on this date and pt was able to take steps to chair then walk about 6 ft. Recommendation is still for d/ c to SNF. Goals Self-Feeding Goal Independent Grooming Goal Independent Dressing Goal Independent Toileting Goal Independent Bathing Goal Independent Toilet Transfer Goal Independent Shower Transfer Goal Independent Days to Meet Goals 25 Frequency of Treatment Frequency Of Treatment Once a Day Treatment Plan OT Treatment Plan ADL Training,Functional Cognition Training,Functional Mobility,Therapeutic Exercises ,Patient/Family Education, Discharge Planning Other Treatment Recommendations and Next SLUMS Treatment Focus Discharge Recommendations OT Discharge Recommendations SNF Rehab Other Discharge Recommendations Recommendation is for SNF, if pt goes home, pt will need equipment noted below. Home Equipment Needs 2ww, BSC, hospital bed, wheelchair, ramp to enter the home. Transportation Needs at Discharge Wheelchair/Cabulance
[2021-01-13] MEDS: LIDOCAINE PATCH 1 EACH ADH..PATCH TOP (09:45)
[2021-01-13] MEDS: ATORVASTATIN 20 MG TABLET PO (09:47)
[2021-01-13] MEDS: APIXABAN 5 MG TABLET PO (09:47)
[2021-01-13] MEDS: hydroCHLOROthiazide 25 MG TABLET PO (09:47)
[2021-01-13] MEDS: METOPROLOL ER 50 MG TABLET PO (09:47)
[2021-01-13] MEDS: LOSARTAN 50 MG TABLET 100 MG PO (09:47)
[2021-01-13] MEDS: LORATADINE 10 MG TABLET PO (09:47)
[2021-01-13] MEDS: MONTELUKAST 10 MG TABLET PO (09:47)
--- NOTE | 2021-01-13 09:48 | PT.IPTN ---
Physical Therapy Treatment Note M2 PT-IP Current Condition Start: 01/11/21 12:55 Freq: Status: Active Protocol: Document 01/11/21 11:35 AB (Rec: 01/11/21 13:33 AB [id number]) Physical Therapy Current Condition Current Condition Evaluation Date 01/11/21 Treatment Diagnosis R LBP; difficulty in walking Onset Date 01/11/21 Precautions Other Precautions falls M3 PT-IP Subjective Start: 01/11/21 12:55 Freq: Status: Active Protocol: Document 01/13/21 09:48 AW (Rec: 01/13/21 11:09 AW [id number]) Subjective Physical Therapy Visit Type Type Treatment Note Visit Start Time 09:16 Visit Stop Time 09:48 Total Visit Minutes 34 Notes Co-tx with OT due to level of assist required Physical Therapy Visit Comments Patient Comments Pt is willing to participate with therapy. She is significantly more alert today . Therapy Pain Assessment Pain When Pain Assessed At Rest Pain Present Pain Present Pain Reported Location Right Hip Intensity 5 Scale Used Numeric (0 - 10) Pain Management Techniques Distraction,Modification of Treatment,Re-positioning Right Knee Intensity 5 Scale Used Numeric (0 - 10) Pain Management Techniques Distraction,Modification of Treatment,Re-positioning M4 PT-IP Mobility and Gait Start: 01/11/21 12:55 Freq: Status: Active Protocol: Document 01/13/21 09:48 AW (Rec: 01/13/21 11:09 AW [id number]) PT-Bed Mobility Assessment Supine to Sit Supine to Sit Standby Assistance,Contact Guard Assistance,Head of Bed Elevated Scooting Scooting to Edge of Bed Standby Assistance PT-Transfer Assessment Sit to and From Stand Sit to and from Stand Moderate Assistance,2 Person Assistance,Use of Upper Extremities Equipment Transfer Assistive Device Gait Belt,Front Wheeled Walker Orthotic/Prosthetic Devices or Brace: No Transfers Transfer Destination Chair Transfer Technique Stand Step Pivot Transfer Ability Level of Assist Moderate Assistance,2 Person Assistance,Use of Upper Extremities Comments Mobility Comments Pt moved slowly but deliberately toward the right side of the bed SBA to CGA with cues to use BUE to move her painful right leg. She used the bed cane on her left to pull to sitting EOB. She was able to sit EOB without assist. PT and OT assisted pt to position her feet closer to the bed, blocked her feet, provided manual cues and assist for knee extension, and mod assist x 2 vs max assist x 1 for pt to stand. She stood ~45 seconds with max cues to extend her knees and hips before needing to sit EOB. After a brief rest, pt stood again in similar fashion and walked 2 feet to transfer to chair mod A x 2 with assist for weightshifting and FWW mmanagement. Pt agreed to get up again mod A x 2 and walked 6 feet with FWW, chair follow, max A x 2. Pt returned to the chair and was positioned to look out the window with call light and tray table in reach. Gait Assessment Gait Gait Assistance Required: Maximum Assistance,2 Person Assist Distance (Feet) 6 Assistive Devices Assistive Device Front Wheeled Walker Orthotic/Prosthetic Devices or Brace: No Gait Deviations General Gait Pattern Antalgic,Ataxic,Decreased Stride Length,Decreased Feet Clearance,Flexed Trunk,Lateral Trunk Lean Factors Limiting Gait Function Factors Limiting Gait Function Abnormal Tonal Influences, Decreased Activity Tolerance, Decreased Sensation,Decreased Strength,Difficulty Following Directions,Incoordination,Pain ,Poor Balance,Poor Safety Awareness Comments Gait Comments Pt has difficulty advancing her RLE but is able to improve amplitude in response to cues . Two person assist required for safety. PT-Balance Assessment Sitting Balance and Reactions Static Sitting Balance Ability Good Dynamic Sitting Balance Ability Fair Standing Balance and Reactions Static Standing Balance Ability Poor Dynamic Standing Balance Ability Poor Device Used FWW Balance Tests Single Limb Standing unable M5 PT-IP Objective Assessments Start: 01/11/21 12:55 Freq: Status: Active Protocol: Document 01/11/21 11:35 AB (Rec: 01/11/21 13:33 AB [id number]) Orientation Orientation/Cognition Level of Alertness Alert Orientation Name Language Function Ability Hard of Hearing Safety Awareness Decreased Safety Awareness Memory Description 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 Gross Range of Motion Lower Extremity ROM Impairments with increase LE rigidity and guarding and only able to bend knees to ~ 25 deg during ROM testing Strength Lower Extremity Strength Knee gross strength: LLE 3+/5 RLE: 3-/5 Comments Strength Comments MMT not tested formally due to pt with difficulty following directions and also has siginificant LE adductor and extensor rigidity Muscle Tone Muscle Tone Location Bilateral Lower Extremity Type of Tone Rigidity Severity of Tone Moderate Comments Muscle Tone Comments also presents with intention tremors trunk/LE/UE M6 PT-IP Treatment Start: 01/11/21 12:55 Freq: Status: Active Protocol: Document 01/13/21 09:48 AW (Rec: 01/13/21 11:09 AW [id number]) Physical Therapy Treatment Education Education Provided Safety M7 PT-IP Assessment and Plan Start: 01/11/21 12:55 Freq: Status: Active Protocol: Document 01/13/21 09:48 AW (Rec: 01/13/21 11:09 AW [id number]) PT Summary Assessment and Plan Summary Impairments Pain,ROM,Strength,Balance, Coordination,Sensation,Tone, Cognition,Bed Mobility, Transfers,Gait,Activity Tolerance Progress Towards Goals Slow Progress due to Pain,Slow Progress due to Medical Issues Assessment Summary Pt's alertness is improved today and she is less tremulous. She continues to require mod assist of two people or max assist of one for sit to stand, transfers, and gait with FWW. Pt would benefit from ongoing acute and subacute rehab services to improve strength and functional mobility before safe to return home. Goals Bed Mobility Goal Contact Guard Assistance Transfer Goal Contact Guard Assistance,Front Wheeled Walker Gait Goal Contact Guard Assistance,Front Wheel Walker Gait Distance 50 Other Goals improve bed mobility, transfers SBA, ambulation using FWW SBA 100 ft up/down 5 steps 1 rail CGA Days to Meet Goals 10 Frequency of Treatment Frequency Of Treatment Once a Day Treatment Plan Physical Therapy Treatment Plan Bed Mobility Training,Transfer Training,Gait Training, Therapeutic Exercise,Balance Retraining,Discharge Planning, Hot or Cold Pack,Neuromuscular Re-ed,Coordination Retraining ,Manual Therapy Precautions Other Precautions falls Recommendations To Nursing Amount of Assist Needed 2 Person Assist,3 or More Person Assist Discharge Recommendations PT Discharge Recommendations SNF Rehab Transportation Needs at Discharge Wheelchair/Cabulance
--- NOTE | 2021-01-13 10:28 | PM.DS.1 ---
History of Present Illness History of Present Illness Date Patient Seen: 01/13/21 Time Patient Seen: 10:28 Chief complaint: Lower Right Back Pain Narrative: This is an 85-year-old female with a past medical history of atrial fibrillation, hypertension, and COPD who presented with worsening right sided weakness and pain over the past month. Patient's daughter has noticed that her mother has been complaining of worsening right hip pain over the past month, progressing more notably over the past 2-3 weeks to the point where she has had a difficult time walking and ultimately today for the patient was unable to ambulate. There was a fall approx. 3 weeks ago but it was not witnessed and it is unknown if she hit her R side. The daughter has also noticed increasing lethargy over the past 2-3 weeks and does report that her mom has been having some paranoid hallucinations, notably at night, Complaining that people are in her room when there is no one present. She also has noticed some slurred speech though no focal weakness, facial droop, numbness, other than her continued right leg weakness and pain. She has been increasingly more and more in her bed and unable to ambulate, and has been favoring her right side. In addition to favoring her right side when turning she also continues to hit her right hip in bed. daughter also notes that starting about 3 weeks ago she was notably having more difficulties with him balance. In the emergency room, patient was notably hypertensive but the remainder of her vital signs are unremarkable. Initial CBC was unremarkable. ESR was within normal limits at 15. Chemistries showed no significant lab abnormalities and a stable creatinine. COVID-[address] of her head was unremarkable. x-ray of her hip did not show any acute fractures. CT abdomen showed soft tissue swelling and fatty inflammation surrounding her right hip but no involvement in her joint, MRI was recommended. She was seen extensively in the emergency room including by Physical therapy and social work and physical therapy did not believe that the patient was safe to discharge home at this time given her current fucntion status. Given some possible speech defects, worsening balance , as well as decreased mobility due to right hip pain patient was admitted under observation status for further evaluation of possible CVA. Discharge Providers Provider Date of admission: 01/11/21 14:27 Discharge Date: 01/13/21 Primary care physician: Lory Hammer MD Consults: 01/11/21 09:18 Consult to Physical Therapy Evaluate & Treat Comment: right hip pain, safety for home Physician Instructions: Evaluate and Treat 01/11/21 12:30 Consult to HEAD BELLHOP CAPTAIN - Graphics Software Engineer Stat Comment: home safety HEAD BELLHOP CAPTAIN Consult: Community Health Res Need 01/11/21 16:10 Consult to Pastoral Services Routine Comment: requested 01/11/21 17:58 Consult to Occupational Therapy Evaluate & Treat Comment: Physician Instructions: Evaluate and treat Consult to Physical Therapy Evaluate & Treat Comment: Physician Instructions: Evaluate and Treat Discharge provider: Ash Thomas DO Summary Hospital Course Hospital Course: This is an 85-year-old female with a past medical history of atrial fibrillation, hypertension, and COPD who presented with worsening right sided weakness and pain over the past month. 1. Right lower extremity weakness and pain, right hip soft tissue inflammation - possible CVA given possible slurred speech and balance issues though this may be related to probable progression of dementia / cognitive impairment however limited MRI (given patient's claustriphobia) was negative for evdience of acut infarct. - CT of right lower extremity showing soft tissue inflammation around her hip joint. MRI was unable to be performed as noted above. Etiologies based on exam and history include repetetive trauma leading to a bursitis or other soft tissue injury, possible non-visualized fracture (though this seems less likely), no evidence on exam or labs to suggest infected hip joint either. - continue pain control, PT/OT. Limit opiate use given cognitive impairment. - patient had continued improvement with pain patches and continued PT/OT therapy, making CVA less likely the etiology. PT / OT did notice imbalance and some tremors when trying to ambulate, would recommend outaptient evaluation with neurology. 2. atrial fibrillation / flutter, presumed chronic - continue home beta rina and anticoagulation. - telemetry currently with rate controlled flutter. 3. HTN - hypertensive currently likely in setting of pain. Improved over the course of admission, no need for medication changes. 4. COPD, chronic - not taking home inhalers per daughter. Will provide albuterol prn. No evidence of acute exacerbation. 5. Cognitive impairment - encourage daytime activity, rest during the night. Frequent re-orientation if confused. Reported night hallucinations by daughter. Would recommend outpatient evaluation with neurology given tremors noted above. - MRI did show enlarged ventricle size, though this is non-specific, recommend outpatient neurology evaluation. Code: DNR/DNI, surrogate decision maker is the patient's daughter. No formal medical POA, financial POA is the patient's son. Dispo: Discharge home with home health. Exam Vital Signs (past 8 hours): - 01/13/21 04:00 01/13/21 08:00 01/13/21 08:32 Temperature 97.2 F L 97.6 F Pulse Rate 81 98 H Respiratory Rate 16 20 Blood Pressure 134/71 147/90 H Pulse Oximetry 94 95 95 01/13/21 08:51 Temperature Pulse Rate 81 Respiratory Rate 16 Blood Pressure Pulse Oximetry 95 Oxygen Delivery Method Room Air Oxygen Flow Rate 0 Narrative Exam Narrative: GENERAL APPEARANCE: Well developed, well nourished, Obese elderlyfemale with BMI of 31.8 in no acute distress. Sitting in bedside chair. SKIN: Inspection of the skin reveals no rashes, ulcerations or petechiae. HEENT: Normocephalic atraumatic, extraocular muscles are intact, oropharynx is clear and mucous membranes are moist, neck is supple without adenopathy NECK: Supple and symmetric. There was no thyroid enlargement, and no tenderness, or masses were felt. CHEST: Normal AP diameter and normal contour without any kyphoscoliosis. LUNGS: Auscultation of the lungs revealed no wheezes, rhonchi, or rales. CARDIOVASCULAR: There was a regular rate and rhythm without any murmurs, gallops, rubs. Peripheral pulses were 2+ and symmetric. ABDOMEN: Soft and nontender with normal bowel sounds. No ascites was noted. MUSCULOSKELETAL Muscle strength and tone were normal. R hip minimal tenderness over the area of greater trochanter and slightly inferiorly, improved. R knee tenderness without joint effusion. EXTREMITIES: No cyanosis, clubbing . There is bilateral peripheral edema, left slightly greater than right slightly improved today. No pain with active abduction or adduction at the hip, even with resistance. NEUROLOGIC: Alert, probable cognitive impairment is evident with deficits in short-term memory. Normal affect. strength is at 5/5 on the right today. Objective Labs Result Diagrams: 01/11/21 07:58 01/11/21 07:58 [facility] Medical History (Updated 01/11/21 @ 18:53 by Kellen Matson DO) Atrial fibrillation COPD (chronic obstructive pulmonary disease) Hypertension Surgical History (Updated 01/11/21 @ 17:53 by Ash Thomas DO) No pertinent past surgical history Family History (Updated 01/11/21 @ 17:54 by Ash Thomas DO) Mother CVA (cerebral vascular accident) Father CVA (cerebral vascular accident) Social History household members: family Smoking Status: Never smoker Discharge Plan Discharge Plan Patient Disposition: Home Health Service Provider Discharge Comment: You were admitted to the hospital with right leg pain. Improved with pain control and rest / PT. This is likely a bursitis or pressure injury to the right thigh based on evaluation. MRI was negative for stroke. Continue pain relief at home with tylenol and pain patches, have also sent a medicated cream to use at the right hip (disregard auto-populated instructions in prescription). Home health prescribed as well. Discharge orders & Medications Prescriptions: New lidocaine 5 % Adhesive Patch,Medicated 1 ea topical DAILY 30 Days Qty: 30 RF: 0 diclofenac sodium 1 % gel 2 g topical QID 30 Days Qty: 100 RF: 0 Continued metoprolol succinate 50 mg tablet extended release 24 hr 50 mg PO DAILY RF: 0 simvastatin 40 mg tablet 40 mg PO DAILY RF: 0 telmisartan 80 mg tablet 80 mg PO DAILY RF: 0 montelukast 10 mg tablet 10 mg PO DAILY RF: 0 hydrochlorothiazide 25 mg tablet 25 mg PO DAILY RF: 0 fluticasone propionate 50 mcg/actuation spray,suspension 1 spray INTRANASAL DAILY RF: 0 loratadine 10 mg tablet 10 mg PO DAILY RF: 0 Eliquis 5 mg tablet 5 mg PO BID RF: 0 Follow up/Referrals: Lory Hammer MD [Primary Care Provider] - Diet/Activity/Treatments Diet: Diet as Tolerated Activity: As tolerated Visit Report/Discharge Packet Instructions: How to Prevent Falls, DI for Muscle Weakness Discharge Data Primary Care Provider: Lory Hammer Attending Provider: Ash Thomas VTE Deep Vein Thrombosis/Pulmonary Embolism Present on Admission: No
--- NOTE | 2021-01-13 13:22 | CM.DPNOTE ---
Called and spoke to Noemi at [facility] to see pt. for all services except ST by Wednesday01/13/21. She said that they could see pt. I also gave the the personal lines agent's [facility] phone number. Faxed clinical packet and received fax confirm. Stephani Bueno CM Asst.
--- NOTE | 2021-01-13 14:35 | PC.NURSE ---
Day shift: Paperwork signed and all questions answered. Pt's Daughter in room for the teaching. Pt has all personal belongings. New MD scripts sent to Pt's pharmacy and her daughter is aware of this. Pt has all personal belongings. This inspector automatic typewriter and extension service specialist in charge Jadiel helped Pt get into her daughters car. Family agrees that they will be able to get Pt back into the house. Pt did well getting into car. Needed 2 ppl to assist w/ gait belt. Gait belt left on Pt to aid family. Left unit at approx 1430.
--- NOTE | 2021-01-13 14:52 | CM.DANOTE ---
DCP/Continued: Reviewed EMR. Per provider patient is medically stable for discharge today. BUILDING MAINTENANCE SUPERINTENDENT met with patient, daughter/Jose Manuel and son/Jason at bedside. Family continues to be concerned about long-term needs for this patient. BUILDING MAINTENANCE SUPERINTENDENT had long discussion with patient and family about long-term assistance and community resources. Family provided with several resources specific to patient needs. Daughter reports that she is interviewing private caregiver on Wednesday. Patient owns home and daughter currently resides with her. Daughter does work during the day but is home at night to assist. Notified daughter that best option would be for family to gather and discuss next steps and financial status? Daughter unclear about patient's income or if she would qualify for Medicaid. In addition, patient receives income from [place] for her spouse whom has . Again, all resources provided for patient/family to follow up. Family agreeable to take patient home today. Home health arranged through [facility] ([facility]) Per [facility] services expected to start on Wednesday01-15-21. Services ordered were as follows: RN/PT/OT/BUILDING MAINTENANCE SUPERINTENDENT/FISHER TROT LINE. Family also would like to transport patient private auto. Son reports that he can get additional assistance if needed. Family offered non-urgent BLS transport via private pay but they declined. P: Home today. [facility] accepted referral. Family provided with numerous resources for immediate f/u as outpatient. GISSELLE Cabrera Discharge Planning/Care Management Advanced directive, confirm from FAMILY Start: 01/11/21 16:11 Freq: Q24H Status: Discharge Protocol: Document 01/11/21 16:11 EE (Rec: 01/11/21 18:08 EE [id number]) Advance Directive, confirm on record Time 18:08 Person contacted Jose Manuel Copy received No Document 01/12/21 16:11 KMD (Rec: 01/12/21 18:23 KMD [id number]) Advance Directive, confirm on record Time 18:08 Person contacted Jose Manuel Copy received No Time 18:23 Person contacted Jose Manuel Copy received No CM Discharge Assessment Start: 01/13/21 14:29 Freq: Status: Discharge Protocol: Document 01/13/21 14:30 KJS (Rec: 01/13/21 14:52 KJS [id number]) Discharge Planning Assessment Assigned Hi Ranger Operator GISSELLE Cabrera Advance Directives? No: discussed and family will work on this Advance Directives on File No History Provided By Patient,Family Member,Medical Record Prior Living Arrangements House Household Members family Type of transporation used prior to Relies on Others admit Independent with ADL's No Is patient alert and oriented? Yes Needs Assistance With Bathing,Grooming,Meal Prep, Toileting,Managing Medications ,Home Chores / Shopping Caregiver for Another No DME Already Rented / Owned Bath Bench,Wheelchair,FWW / Walker,Bedside Commode Patient/Family Preference Home with Home Health Barriers to Discharge No Discharge Plan Home Community Services Home Health Nurse Transportation Arrangement Family requesting to provide transport. Referrals Initiated Home Health,Medicaid Application,Other Additional Comment Home and Community Resources provided. Medicare Choice List Provided Yes SNF/HH Preference [facility] Review Status In Process Next Review Type Continued Stay Review
== END 2021-01-13 14:39 | disposition home health service (06) ==
LOC: ED 14:21 → AC 14:28
PROVIDERS: Admitting Provider Internal Medicine; Emergency Provider Emergency Medicine; PCP Internal Medicine; Referring Provider Emergency Medicine; Visit Provider Internal Medicine
DX: M54.5 Low back pain (principal); R53.1 Weakness; G31.84 Mild cognitive impairment of uncertain or unknown etiology; I48.91 Unspecified atrial fibrillation; J44.9 Chronic obstructive pulmonary disease, unspecified; I10 Essential (primary) hypertension; Z20.822 Contact with and (suspected) exposure to COVID-19; Z91.81 History of falling; M25.551 Pain in right hip; R26.2 Difficulty in walking, not elsewhere classified
CPT/HCPCS: 36415; 51701; 70450; 70551; 72192; 73502; 80053; 81003; 85025; 85651; 86140; 87635; 93005; 94760; 96374; 96375; 97116; 97162; 97167; 97530; 97535; 99285; C9803; G0378; J2060; J2270

== ENCOUNTER 2021-04-03 23:22 | Observation (INO) | payer MEDICARE, OTHER, SELFPAY ==
[2021-01-11 15:56] VITALS: BMI 31.8
[2021-04-03 23:23] VITALS: BP 183/77; PULSE 85; RESP 18; TEMP 36.7; O2SAT 100; BMI 31.6
[2021-04-03 23:27] VITALS: PULSE 79; O2SAT 100
[2021-04-03 23:30] VITALS: PULSE 86; RESP 13; O2SAT 100
--- NOTE | 2021-04-03 23:42 | ED.FALL ---
HPI - Fall General Chief Complaint: Fall Stated Complaint: GLF gen weakness Time Seen by Provider: 04/03/21 23:42 Source: patient and family Mode of arrival: EMS Limitations: no limitations History of Present Illness HPI Narrative: This is an 85-year-old female comes emergency department with witnessed ground level fall. Patient states she lost her balance and fell onto her left side. She initially told medics her left knee and arm hurt. On examination and she initially says she is not in pain but does have pain with palpation in the left hip. Patient denies hitting her head. Her daughter does not think she hit her head either. Patient appears to be on Eliquis. Patient denies any neck or back pain. No chest pain or shortness of breath. No nausea or vomiting. She was on her way to the bathroom but does not know she needs to go to the bathroom. Patient denies any numbness, tingling or weakness. She does not have a formal diagnosis of stroke but daughter suspect she has had 1 her remotely. She tends to lean to the left have a little bit of facial droop and chronic speech changes. She was diagnosed with dementia and does have hallucinations frequently. She has been having some this week. She lives at home with her daughter who I believe is her primary caregiver. Hx of atrial fibrillation, COPD and hypertension. Related Data Home Medications Medication Instructions Recorded Confirmed apixaban 5 mg tablet (Eliquis) 5 mg PO BID 01/11/21 04/04/21 fluticasone propionate 50 1 spray INTRANASAL DAILY 01/11/21 04/04/21 mcg/actuation nasal spray,suspension hydrochlorothiazide 25 mg tablet 25 mg PO DAILY 01/11/21 04/04/21 loratadine 10 mg tablet 10 mg PO DAILY 01/11/21 04/04/21 metoprolol succinate 50 mg 50 mg PO DAILY 01/11/21 01/11/21 tablet,extended release 24 hr montelukast 10 mg tablet 10 mg PO DAILY 01/11/21 01/11/21 simvastatin 40 mg tablet 40 mg PO DAILY 01/11/21 04/04/21 telmisartan 80 mg tablet 80 mg PO DAILY 01/11/21 01/11/21 Allergies Allergy/AdvReac Type Severity Reaction Status Date / Time chlorpheniramine Allergy Severe Anaphylaxis Verified 04/03/21 23:33 [From Actifed Cold-Allergy] phenylephrine Allergy Severe Anaphylaxis Verified 04/03/21 23:33 [From Actifed Cold-Allergy] pseudoephedrine Allergy Severe Anaphylaxis Verified 04/03/21 23:33 [From Actifed Cold-Allergy] triprolidine Allergy Severe Anaphylaxis Verified 04/03/21 23:33 [From Actifed Cold-Allergy] Review of Systems Review of Systems ROS Unobtainable: All systems reviewed & are unremarkable except as noted in HPI and below Patient History Medical History Atrial fibrillation COPD (chronic obstructive pulmonary disease) Hypertension Surgical History No pertinent past surgical history Family History Mother CVA (cerebral vascular accident) Father CVA (cerebral vascular accident) Social History household members: family Smoking Status: Never smoker Smoking Status: Never smoker alcohol intake frequency: holidays/special occasions only Substance Use Type: does not use Exam Narrative Exam Narrative: GENERAL: Alert, female in mild distress. HEENT: Head normocephalic, atraumatic, EOMI, pupils reactive, face symmetric, moist mucous membranes NECK: Supple, full range of motion CARDIOVASCULAR: Regular rate and rhythm without murmurs, rubs or gallops. RESPIRATORY: Breath sounds equal bilaterally, no wheezes rales or rhonchi. ABDOMEN: Soft, nontender. Normoactive bowel sounds all 4 quadrants. No guarding or rebound, rigidity, no mass : No CVA tenderness EXTREMITIES: Normal range of motion of upper extremities, patient has pain in the left hip, pain with movement as well but mild. No other bony tenderness on examination. Clubbing or edema. Neurovascularly intact. No ecchymosis appreciated. BACK: No cervical, thoracic or lumbar vertebral point tenderness. NEUROLOGICAL: Cranial nerves II through XII grossly intact. Moving all extremities SKIN: Warm, dry, no petechiae, no rashes or lesions. Initial Vital Signs Initial Vital Signs: Vital Signs Temperature 98.1 F 04/03/21 23:23 Pulse Rate 85 04/03/21 23:23 Respiratory Rate 18 04/03/21 23:23 Blood Pressure 183/77 H 04/03/21 23:23 Pulse Oximetry 100 04/03/21 23:23 Scores GCS Dago coma scale eye opening: Spontaneous Dago coma scale verbal response: Confused Sunbright coma scale motor response: Obey commands Sunbright coma scale total score: 14 Course Orders Ordered: ED Orders 04/03/21 23:31 Complete Blood Count AUTO DIFF Stat 04/03/21 23:58 XR chest 1V Stat XR hip w pel if done LT 2V Stat Comprehensive Metabolic Panel Stat 04/04/21 00:01 CT head/brain wo con Stat 04/04/21 00:31 Urinalysis and Microscopic Stat 04/04/21 02:20 COVID19 - ADMIT (PLUG AND MOLD FINISHER swab/PCR) Stat Acetaminophen (Acetaminophen 325 Mg Tablet) 650 mg PO Q6HR PRN PRN Reason: Fever/Mild Pain (1-3) Apixaban (Apixaban 5 Mg Tablet) 5 mg PO BID FABRIZIO Metoprolol Succinate (Metoprolol Er 50 Mg Tablet) 50 mg PO DAILY FABRIZIO Montelukast Sodium (Montelukast 10 Mg Tablet) 10 mg PO DAILY FABRIZIO Naloxone HCl (Naloxone 0.4 Mg/Ml Vial) 0.2 mg IV Q2MIN PRN PRN Reason: Opiate Reversal Nystatin (Nystatin Powder 15gm) 1 applic TOP BID FABRIZIO Ondansetron HCl (Ondansetron 4 Mg/2 Ml Inj) 4 mg IV Q8HR PRN PRN Reason: Nausea And Vomiting Oxycodone HCl (Oxycodone Ir 5 Mg Tablet) 5 mg PO Q6HR PRN PRN Reason: Pain, Moderate (4-6) Consultations Consultation #1: Dr. Jim, accepts for observation for patient with GLF, debility and weakness. Urine obtained but appears contaminated. Patient was difficult to obtain labs and blood was slightly hemolyzed with a potassium of 5.1 which was moderately hemolyzed. Patient is at her normal baseline mentation according to her and her daughter. Neither patient nor her daughter clearly tell me if she is anticoagulated but she has Eliquis on her home medication list sweats CT was included. Time: 02:10 Vital Signs Vital signs: Vital Signs - 8 hr 04/03/21 23:23 04/03/21 23:27 04/03/21 23:30 Temperature 98.1 F Pulse Rate 85 79 86 Respiratory Rate 18 13 Blood Pressure 183/77 H Pulse Oximetry 100 100 100 04/04/21 00:00 04/04/21 00:30 04/04/21 01:00 Temperature Pulse Rate 79 78 78 Respiratory Rate 18 16 15 Blood Pressure Pulse Oximetry 100 98 97 04/04/21 02:01 Temperature Pulse Rate Respiratory Rate Blood Pressure 167/70 H Pulse Oximetry MDM - Fall Lab Data Result diagrams: 04/03/21 23:31 04/04/21 01:25 Labs: Lab Results 04/03/21 04/04/21 04/04/21 Range/Units 23:31 00:31 01:25 WBC 7.2 (4.5-11.0) X10^3/uL RBC 4.48 (4.0-5.2) X10^6/uL Hgb 13.2 (12.0-16.0) g/dL Hct 40.5 (36-46) % MCV 90.4 (80-100) fL MCH 29.4 (26-34) PG MCHC 32.5 (30-36) % RDW 13.8 (11.6-14.8) % Plt Count 248 (150-400) X10^3/uL Neut % (Auto) 64.7 (50-75) % Lymph % (Auto) 24.1 L (25-40) % [place] % (Auto) 8.7 (3-14) % Eos % (Auto) 1.7 L (2-4) % Baso % (Auto) 0.8 (0-2) % Neut # (Auto) 4700 (3115-1436) /uL Lymph # (Auto) 1700 (9199-8915) /uL [place] # (Auto) 600 (0-900) /uL Eos # (Auto) 100 (0-450) /uL Baso # (Auto) 100 (0-100) /uL Sodium 136 L (137-145) mmol/L Potassium 5.1 (3.4-5.1) mmol/L Chloride 107 (98-107) mmol/L Carbon Dioxide 22 (22-32) mmol/L BUN 33 H (7-17) mg/dL Creatinine 0.84 (0.52-1.04) mg/dL Estimated GFR > 60.0 (>60) mL/min BUN/Creatinine Ratio 39.3 H (6-22) Glucose 109 (80-110) mg/dL Calcium 9.1 (8.4-10.2) mg/dL Total Bilirubin TNP AST TNP ALT TNP Alkaline Phosphatase TNP Total Protein TNP Albumin TNP Globulin TNP Albumin/Globulin Ratio TNP Urine Color Yellow Urine Appearance Clear Urine pH 5.0 (4.5-8.0) Ur Specific [place] 1.015 (1.000-1.035) Urine Protein Negative (Negative) Urine Glucose (UA) Negative (Negative) g/dL Urine Ketones Negative (NEGATIVE) Urine Occult Blood Negative (Negative) Urine Nitrate Negative (Negative) Urine Bilirubin Negative (NEGATIVE) Urine Urobilinogen 0.2 (0.2) E.U./dL Ur Leukocyte Esterase Trace H (NEGATIVE) Urine RBC 0-1/hpf (0-5/HPF) Urine WBC 0-1/hpf (0-5/HPF) Ur Squamous Epith Cells 5-10 /hpf H (0-5/HPF) Urine Bacteria Moderate (10-30) H (None) Ur Culture Indicated? Cult not indicated Imaging Data CT scan - head: Radiologist's Impression: [place] [address] CT Scan Report Signed Patient: Denice Torres MR#: [id number] : 1935 Acct:[id number] Age/Sex: 85 / F Date of Service: 04/04/21 Loc: Accession Number: [id number] ?? Procedure: CT head/brain wo con Ordering Provider: Karyn Rey D.O. PROCEDURE:? CT HEAD/BRAIN WO CON ? INDICATIONS:? fall, possibly hit head, on eliquis ? TECHNIQUE:? Noncontrast 4.5 mm thick angled axial sections acquired from the foramen magnum to the vertex, with coronal and sagittal reformats.? For radiation dose reduction, the following was used:? automated exposure control, adjustment of mA and/or kV according to patient size.? ? COMPARISON:? [facility], CT, CT HEAD/BRAIN WO CON, 01/11/2021, 13:07. ? FINDINGS:? Image quality:? Excellent.? ? CSF spaces:? Basal cisterns are patent.? No extra-axial fluid collections.? The ventricles are symmetric in size and shape.? ? Brain:? No intracranial bleeds or masses.? There is cerebral volume loss for age, with resultant ventricular and sulcal prominence.? There are periventricular and deep white matter chronic small vessel ischemic changes.? There is intracranial internal carotid artery atherosclerosis.? ? Skull and face:? Calvarium and visualized facial bones appear intact, without suspicious lesions.? ? Sinuses:? Visualized sinuses and mastoids are clear.? ? IMPRESSION:? ? 1. No acute intracranial process. ? 2. Moderate atrophy and chronic microvascular ischemic changes. ? ? ? Dictated by: Nitza Ross M.D. on 04/04/2021 at 1:16 ? ? Approved by: Nitza Ross M.D. on 04/04/2021 at 1:17 MDM Narrative Medical decision making narrative: This is an 85 year old female with witnessed ground level fall by patient's family where she slid slowly to the floor. Patient complained of some left knee and arm pain. She denies any pain initially but on examination does have some left hip pain. She is able to lift her leg slightly off the bed and does not feel particularly uncomfortable but with movement has some mild pain. Patient's x-ray including chest, hip x-ray and head CT are all negative. Patient's labs do not show major abnormalities. Urine sample appears contaminated. She is quite weak that tonight and requires 2 people assist even attempt to stand and was unsuccessful. I spoke with the hospitalist who kindly accepts. Discharge Plan Departure Patient Disposition: Home Clinical Impression: Weakness, Fall from ground level
--- NOTE | 2021-04-03 23:58 | DI.RAD.S_ITS ---
PROCEDURE: XR HIP W PEL IF DONE LT 2V INDICATIONS: left hip pain, Ground level fall TECHNIQUE: AP pelvis with lateral view(s) of the left hip(s). COMPARISON: [facility], , XR HIP W PEL IF DONE RT 2V, 01/11/2021, 6:59. FINDINGS: Bones: No fractures or dislocations. Pelvic ring appears intact. No suspicious bony lesions. Moderate to severe bilateral degenerative hip joint space narrowing. Soft tissues: The visualized bowel gas pattern is normal. No suspicious soft tissue calcifications. IMPRESSION: No visualized acute fracture or dislocation. However, if clinical concern and/or pain persist, short interval imaging followup in 7-10 days is recommended, as occult injury cannot be definitively excluded. Dictated by: Nitza Ross M.D. on 04/04/2021 at 0:24 Approved by: Nitza Ross M.D. on 04/04/2021 at 0:25
--- NOTE | 2021-04-03 23:58 | DI.RAD.S_ITS ---
PROCEDURE: XR CHEST 1V INDICATIONS: fall, left hip pain TECHNIQUE: One view of the chest was acquired. COMPARISON: [facility], CR, XR CHEST 1V, 01/25/2019, 4:48. FINDINGS: Surgical changes and devices: Left humeral fixation. Hardware is intact. Left axillary clips are noted. Lungs and pleura: Lungs are clear. No pleural effusions or pneumothorax. Mediastinum: Mediastinal contours appear normal. Heart size is enlarged. Lucency is noted in the right base most suggestive of diaphragmatic hernia, unchanged. Bones and chest wall: No suspicious bony lesions. Overlying soft tissues appear unremarkable. IMPRESSION: No acute pulmonary process. Dictated by: Nitza Ross M.D. on 04/04/2021 at 0:25 Approved by: Nitza Ross M.D. on 04/04/2021 at 0:27
[2021-04-04] VITALS (11 sets, daily range): BP systolic 146–173; BP diastolic 63–72; PULSE 77–81; RESP 15–19; TEMP 35.7–36.8; O2SAT 95–100; BMI 31.6
--- NOTE | 2021-04-04 00:01 | DI.CT.S_ITS ---
PROCEDURE: CT HEAD/BRAIN WO CON INDICATIONS: fall, possibly hit head, on eliquis TECHNIQUE: Noncontrast 4.5 mm thick angled axial sections acquired from the foramen magnum to the vertex, with coronal and sagittal reformats. For radiation dose reduction, the following was used: automated exposure control, adjustment of mA and/or kV according to patient size. COMPARISON: [facility], CT, CT HEAD/BRAIN WO CON, 01/11/2021, 13:07. FINDINGS: Image quality: Excellent. CSF spaces: Basal cisterns are patent. No extra-axial fluid collections. The ventricles are symmetric in size and shape. Brain: No intracranial bleeds or masses. There is cerebral volume loss for age, with resultant ventricular and sulcal prominence. There are periventricular and deep white matter chronic small vessel ischemic changes. There is intracranial internal carotid artery atherosclerosis. Skull and face: Calvarium and visualized facial bones appear intact, without suspicious lesions. Sinuses: Visualized sinuses and mastoids are clear. IMPRESSION: 1. No acute intracranial process. 2. Moderate atrophy and chronic microvascular ischemic changes. Dictated by: Nitza Ross M.D. on 04/04/2021 at 1:16 Approved by: Nitza Ross M.D. on 04/04/2021 at 1:17
[2021-04-04 00:07] LABS: Add Manual Diff / Slide Review NO; Basophils Absolute Auto 100 /uL (0-100); Basophils Percent Auto 0.8 % (0-2); Eosinophils Absolute Auto 100 /uL (0-450); Eosinophils Percent Auto 1.7 % (2-4); Hematocrit 40.5 % (36-46); Hemoglobin 13.2 g/dL (12.0-16.0); Lymphocytes Absolute Auto 1700 /uL (1100-4500); Lymphocytes Percent Auto 24.1 % (25-40); Mean Corpuscular HGB Conc 32.5 % (30-36); Mean Corpuscular Hemoglobin 29.4 PG (26-34); Mean Corpuscular Volume 90.4 fL (80-100); Monocytes Absolute Auto 600 /uL (0-900); Monocytes Percent Auto 8.7 % (3-14); Neutrophils Absolute Auto 4700 /uL (1500-7000); Neutrophils Percent Auto 64.7 % (50-75); Platelet Count 248 X10^3/uL (150-400); Red Blood Cell Count 4.48 X10^6/uL (4.0-5.2); Red Cell Distribution Width 13.8 % (11.6-14.8); White Blood Cell Count 7.2 X10^3/uL (4.5-11.0)
[2021-04-04 00:37] LABS: Appearance Urine UA CLEAR; Bilirubin Urine UA NEGATIVE (NEGATIVE); Color Urine UA YELLOW; Glucose Urine UA NEGATIVE (Negative); Ketones Urine UA NEGATIVE (NEGATIVE); Leukocyte Esterase Urine UA TRACE (NEGATIVE); Nitrite Urine UA NEGATIVE (Negative); Occult Blood Urine UA NEGATIVE (Negative); Protein Urine UA NEGATIVE (Negative); Specific Gravity Urine UA 1.015 (1.000-1.035); Urobilinogen Urine UA 0.2 E.U./dL (0.2)
[2021-04-04 00:54] LABS: Bacteria Urine Moderate (10-30); RBC Urine 0-1/HPF (0-5/HPF); Squamous Epithelial Cell Urine 5-10 /HPF (0-5/HPF); WBC Urine 0-1/HPF (0-5/HPF)
[2021-04-04 00:55] LABS: Culture Indicated Urine Cult Not Indicated
[2021-04-04 01:55] LABS: BUN Creatinine Ratio 39.3 (6-22); Blood Urea Nitrogen 33 mg/dL (7-17); Calcium 9.1 mg/dL (8.4-10.2); Carbon Dioxide 22 mmol/L (22-32); Chloride 107 mmol/L (98-107); Estimated Glomerular Filt Rate > 60.0 mL/min (>60); Glucose 109 mg/dL (80-110); Sodium 136 mmol/L (137-145)
[2021-04-04 01:56] LABS: HEMOLYSIS 207 (0-50)
[2021-04-04 01:58] LABS: Potassium 5.1 mmol/L (3.4-5.1)
--- NOTE | 2021-04-04 02:40 | DI.CT.S_ITS ---
PROCEDURE: CT PEL WO CON INDICATIONS: left hip pain TECHNIQUE: Noncontrast 3 mm axial sections acquired through the bony pelvis, with coronal and sagittal reformatting. COMPARISON: [facility], CR, XR HIP W PEL IF DONE LT 2V, 04/04/2021, 0:02. [facility], CT, CT PEL WO CON, 01/11/2021, 8:15. FINDINGS: Image quality: Excellent. Bones: No acute osseous fracture or dislocation. Mild degenerative changes are seen in the hips bilaterally. Degenerative changes are also noted in the pubic symphysis, right greater than left sacroiliac joints, and included lumbar spine. There is sacralization of the left L5 transverse process. 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 Soft tissues: Prominent heterotopic ossification is seen along the course of the distal right iliopsoas tendon, most likely secondary to a remote prior injury. The articular cartilages, labrum, ligaments, and tendons are not well evaluated with CT. 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 Multiple diverticula are seen in the colon without signs of acute diverticulitis. Moderate aortic atherosclerotic calcifications are present. IMPRESSION: 1. No acute osseous fracture. 2. Mild bilateral hip osteoarthrosis. 3. Degenerative changes in the pubic symphysis, sacroiliac joints, and included spine. Dictated by: Cb Brewer M.D. on 04/04/2021 at 7:57 Approved by: Cb Brewer M.D. on 04/04/2021 at 8:05
[2021-04-04 03:38] LABS: COVID19 - ADMIT (NP swab/PCR) Negative (Negative)
--- NOTE | 2021-04-04 05:09 | PM.HP.1 ---
History of Present Illness History of Present Illness Date Patient Seen: 04/04/21 Time Patient Seen: 03:00 Chief complaint: GLF gen weakness Narrative: Ms. Torres is an 85W with PMH afib, COPD, HTN who presents to the hospital with a fall. Patient states she has been weaker than normal for a month. She lost her balance today and fell on her left side. She is complaining of left hip pain. She fell because her knees and ankles buckle and feel weak. She did not hit her head or lose consciousness. She sounds as if she has episodes of incontinence. She also has been diagnosed with dementia and recently has been having hallucinations. Patient states she recently had Serafin and Serafin covid vaccine and is wondering if this is causing her symptoms In the ED workup was done, vitals notable for hypertension. Labs notable for WBC of 7.2, hgb 13.2, creatinine 0.84. UA with elevated squamous epithelal cells. CT head showed no acute process and enlarged ventricles. Left hip xray showed no acute process. Chest xray showed no acute process. She was admitted for further treatment. Patient History Medical History Atrial fibrillation COPD (chronic obstructive pulmonary disease) Hypertension Surgical History No pertinent past surgical history Family & Social History Family History Mother CVA (cerebral vascular accident) Father CVA (cerebral vascular accident) Social History: household members family Safety & Behavioral: Feels Safe in Current Yes Environment Been Physically Hurt or No Threatened By a Person Tobacco & Substance use: Smoking Status Never smoker alcohol intake frequency holiday/special occasion Substance Use Type does not use Meds Home Medications and Allergies Home Medications Medication Instructions Recorded Confirmed Type apixaban 5 mg tablet (Eliquis) 5 mg PO BID 01/11/21 04/04/21 History fluticasone propionate 50 1 spray INTRANASAL DAILY 01/11/21 04/04/21 History mcg/actuation nasal spray,suspension hydrochlorothiazide 25 mg tablet 25 mg PO DAILY 01/11/21 04/04/21 History loratadine 10 mg tablet 10 mg PO DAILY 01/11/21 04/04/21 History metoprolol succinate 50 mg 50 mg PO DAILY 01/11/21 01/11/21 History tablet,extended release 24 hr montelukast 10 mg tablet 10 mg PO DAILY 01/11/21 01/11/21 History simvastatin 40 mg tablet 40 mg PO DAILY 01/11/21 04/04/21 History telmisartan 80 mg tablet 80 mg PO DAILY 01/11/21 01/11/21 History Allergies Allergy/AdvReac Type Severity Reaction Status Date / Time chlorpheniramine Allergy Severe Anaphylaxis Verified 04/03/21 23:33 [From Actifed Cold-Allergy] phenylephrine Allergy Severe Anaphylaxis Verified 04/03/21 23:33 [From Actifed Cold-Allergy] pseudoephedrine Allergy Severe Anaphylaxis Verified 04/03/21 23:33 [From Actifed Cold-Allergy] triprolidine Allergy Severe Anaphylaxis Verified 04/03/21 23:33 [From Actifed Cold-Allergy] Review of Systems Review of Systems Narrative: 14 systems reviewed and negative aside from what is noted in HPI Exam Vital Signs (past 8 hours): - 04/03/21 23:23 04/03/21 23:27 04/03/21 23:30 Temperature 98.1 F Pulse Rate 85 79 86 Respiratory Rate 18 13 Blood Pressure 183/77 H Pulse Oximetry 100 100 100 04/04/21 00:00 04/04/21 00:30 04/04/21 01:00 Temperature Pulse Rate 79 78 78 Respiratory Rate 18 16 15 Blood Pressure Pulse Oximetry 100 98 97 04/04/21 02:01 04/04/21 02:36 Temperature 98.2 F Pulse Rate 81 Respiratory Rate 19 Blood Pressure 167/70 H 173/72 H Pulse Oximetry 98 Oxygen Delivery Method Room Air Narrative Exam Narrative: GEN: no acute distress HEENT: moist mucous membranes, PERRL NECK: trachea midline, no JVD CV: regular rate and rhythm with no murmurs PULM: clear bilaterally, no wheezes, rhonchi, rales ABD: soft, nontender, nondistended, no organomegaly, normal bowel sounds EXT: warm and well perfused, left hip point tenderness, R knee swelling NEURO: no focal deficits, awake and alert, mildly confused PSYCH: pleasant, cooperative Objective Labs Result Diagrams: 04/03/21 23:31 04/04/21 01:25 Labs: Laboratory Results - last 24 hr 1004/04/21 04/04/21 23:31 00:31 01:25 WBC 7.2 RBC 4.48 Hgb 13.2 Hct 40.5 MCV 90.4 MCH 29.4 MCHC 32.5 RDW 13.8 Plt Count 248 Neut % (Auto) 64.7 Lymph % (Auto) 24.1 L [place] % (Auto) 8.7 Eos % (Auto) 1.7 L Baso % (Auto) 0.8 Neut # (Auto) 4700 Lymph # (Auto) 1700 [place] # (Auto) 600 Eos # (Auto) 100 Baso # (Auto) 100 Sodium 136 L Potassium 5.1 Chloride 107 Carbon Dioxide 22 BUN 33 H Creatinine 0.84 Estimated GFR > 60.0 BUN/Creatinine Ratio 39.3 H Glucose 109 Calcium 9.1 Total Bilirubin TNP AST TNP ALT TNP Alkaline Phosphatase TNP Total Protein TNP Albumin TNP Globulin TNP Albumin/Globulin Ratio TNP Urine Color Yellow Urine Appearance Clear Urine pH 5.0 Ur Specific [place] 1.015 Urine Protein Negative Urine Glucose (UA) Negative Urine Ketones Negative Urine Occult Blood Negative Urine Nitrate Negative Urine Bilirubin Negative Urine Urobilinogen 0.2 Ur Leukocyte Esterase Trace H Urine RBC 0-1/hpf Urine WBC 0-1/hpf Ur Squamous Epith Cells 5-10 /hpf H Urine Bacteria Moderate (10-30) H Ur Culture Indicated? Cult not indicated SARS-CoV-2 (PCR) 04/04/21 02:20 WBC RBC Hgb Hct MCV MCH MCHC RDW Plt Count Neut % (Auto) Lymph % (Auto) [place] % (Auto) Eos % (Auto) Baso % (Auto) Neut # (Auto) Lymph # (Auto) [place] # (Auto) Eos # (Auto) Baso # (Auto) Sodium Potassium Chloride Carbon Dioxide BUN Creatinine Estimated GFR BUN/Creatinine Ratio Glucose Calcium Total Bilirubin AST ALT Alkaline Phosphatase Total Protein Albumin Globulin Albumin/Globulin Ratio Urine Color Urine Appearance Urine pH Ur Specific [place] Urine Protein Urine Glucose (UA) Urine Ketones Urine Occult Blood Urine Nitrate Urine Bilirubin Urine Urobilinogen Ur Leukocyte Esterase Urine RBC Urine WBC Ur Squamous Epith Cells Urine Bacteria Ur Culture Indicated? SARS-CoV-2 (PCR) Negative Assessment & Plan Assessment & Plan narrative: Ms. Torres presented to the hospital with a fall and left hip pain and was too weak to ambulate to get home. 1. Weakness, fall -etiology unclear, seems slowly progressive could be worsening dementia, some other form of parkinsonism, NPH or other etiology -recheck UA by straight cath to see if evidence of infection, first UA appears contaminated -CT hip as still has hip pain -recommended last admission to f/u neurology, would consider LP for possible NPH -order PT/OT 2. Atrial fibrillation, chronic permanent -continue eliquis, continue metoprolol 3. COPD -no exacerbation, currently -continue montelukast 4. HTN -continue metoprolol, hold telmisartan 5. Cognitive impairment -unclear etiology, possible early dementia, consider workup for NPH CODE: DNR/DNI Proxy: Jose Manuel Torres, Daughter DVT ppx: full ac with eliquis I have utilized all available immediate resources to obtain, update, or review the patient's current medications. Time Spent With Patient Critical Care time: I spent a total of [] minutes of critical care time on this patient's care today; this time is exclusive of procedural time.
[2021-04-04 07:52] LABS: Add Manual Diff / Slide Review NO; Basophils Absolute Auto 100 /uL (0-100); Eosinophils Absolute Auto 100 /uL (0-450); Eosinophils Percent Auto 1.9 % (2-4); Hematocrit 34.5 % (36-46); Hemoglobin 11.4 g/dL (12.0-16.0); Lymphocytes Absolute Auto 1100 /uL (1100-4500); Lymphocytes Percent Auto 21.2 % (25-40); Mean Corpuscular HGB Conc 32.9 % (30-36); Mean Corpuscular Hemoglobin 29.3 PG (26-34); Mean Corpuscular Volume 89.1 fL (80-100); Monocytes Absolute Auto 600 /uL (0-900); Monocytes Percent Auto 10.3 % (3-14); Neutrophils Absolute Auto 3500 /uL (1500-7000); Neutrophils Percent Auto 65.6 % (50-75); Platelet Count 224 X10^3/uL (150-400); Red Blood Cell Count 3.87 X10^6/uL (4.0-5.2); Red Cell Distribution Width 13.3 % (11.6-14.8); White Blood Cell Count 5.4 X10^3/uL (4.5-11.0)
[2021-04-04 08:09] LABS: BUN Creatinine Ratio 31.8 (6-22); Blood Urea Nitrogen 27 mg/dL (7-17); Calcium 9.1 mg/dL (8.4-10.2); Carbon Dioxide 29 mmol/L (22-32); Chloride 105 mmol/L (98-107); Estimated Glomerular Filt Rate > 60.0 mL/min (>60); Glucose 102 mg/dL (80-110); HEMOLYSIS < 15 (0-50); Magnesium 1.8 mg/dL (1.6-2.3); Potassium 3.7 mmol/L (3.4-5.1); Sodium 139 mmol/L (137-145)
[2021-04-04] MEDS: APIXABAN 5 MG TABLET PO ×2 (09:46→20:53)
[2021-04-04] MEDS: METOPROLOL ER 50 MG TABLET PO (09:46)
[2021-04-04] MEDS: MONTELUKAST 10 MG TABLET PO (09:51)
[2021-04-04] MEDS: NYSTATIN POWDER 15GM 1 APPLIC TOP ×2 (09:51→20:53)
--- NOTE | 2021-04-04 10:10 | PT.IIE ---
Medical History (Last Reviewed 04/04/21 @ 05:16 by Logan Jim MD) Atrial fibrillation COPD (chronic obstructive pulmonary disease) Hypertension Physical Therapy Inpatient Evaluation/Re-Eval M1 PT/OT-IP Prior Functional Status Start: 04/04/21 11:06 Freq: NEEDED Status: Active Protocol: Document 04/04/21 10:10 AB (Rec: 04/04/21 11:22 AB [email or web address]) Medical Review Prior Functional Status Medical History Reviewed Yes Communication able to make needs known Mobility and Gait pt stated that she is modified independent with all mobilities and ambulation using a 4WW. Social History Household Members children Living Arrangements House Number of Floors (Floors) Two Floors Number of Stairs To Enter/Railing? ramp to enter pt stays on main level of the house Home Environment Walk in Shower,Ramp Home Equipment Front Wheel Walker,Four Wheel Walker,Bedside Commode,Raised Toilet Seat Without Armrests, Shower Seat without Backrest, Hand Held Shower,Grab Bars Near Toilet,Grab Bars In Shower Additional Social History Comment pt stated that her daughter lives with her but her daughter works M-F 130pm to 9pm. stated that her son/ daughter in law comes in occasionally and stays a few hours with her. also has homehealth aide that comes in 2x /week for ~ 4 hours. M2 PT-IP Current Condition Start: 04/04/21 11:06 Freq: NEEDED Status: Active Protocol: Document 04/04/21 10:10 AB (Rec: 04/04/21 11:22 AB [email or web address]) Physical Therapy Current Condition Current Condition Evaluation Date 04/04/21 Treatment Diagnosis GLF; difficulty in walking Onset Date 04/04/21 M3 PT-IP Subjective Start: 04/04/21 11:06 Freq: NEEDED Status: Active Protocol: Document 04/04/21 10:10 AB (Rec: 04/04/21 11:22 AB [email or web address]) Subjective Physical Therapy Visit Type Type Initial Evaluation Visit Start Time 10:10 Visit Stop Time 10:40 Total Visit Minutes 30 Number of ACUTE CARE SURGEON Visits 0 Physical Therapy Visit Comments Patient Comments agreed to do PT M4 PT-IP Mobility and Gait Start: 04/04/21 11:06 Freq: NEEDED Status: Active Protocol: Document 04/04/21 10:10 AB (Rec: 04/04/21 11:22 AB [email or web address]) PT-Bed Mobility Assessment Supine to Sit Supine to Sit Maximum Assistance,1 Person Assistance,Head of Bed Elevated Sit to Supine Sit to Supine Maximum Assistance,2 Person Assistance Scooting Scooting to Edge of Bed Maximum Assistance PT-Transfer Assessment Sit to and From Stand Sit to and from Stand Maximum Assistance,2 Person Assistance,Use of Upper Extremities Equipment Transfer Assistive Device Gait Belt,Front Wheeled Walker Orthotic/Prosthetic Devices or Brace: No Transfers Transfer Destination Bed,Chair Transfer Technique Stand Step Pivot Transfer Ability Level of Assist Maximum Assistance,2 Person Assistance,Use of Upper Extremities Comments Mobility Comments completed supine to sit with HOB elevated max A and max cues. pt with increase lateral neck and trunk leaning to the L. pt required mod A for sitting on EOB. completed sit <> stand x 3 attempts max a x 2 and max cues. increase R sided leaning and posterior leaning. completed step transfer to chair using FWW max A x 2 and max cues. required assist with weight shifting to be able to move BLE. pt sat on chair. Nurse came in and stated that she needs pt back in bed for a straight cath. pt completed sit to stand from chair max A x 2 and max cues and completed step transfer to bed using FWW max A x 2 and max cues. sit to supine max A x 2 and max cues. positioned pt in bed. Left pt with nurse and NAC. Gait Assessment Comments Gait Comments unable at this time PT-Balance Assessment Sitting Balance and Reactions Static Sitting Balance Ability Fair Dynamic Sitting Balance Ability Fair Standing Balance and Reactions Static Standing Balance Ability Poor Dynamic Standing Balance Ability Poor Device Used FWW M5 PT-IP Objective Assessments Start: 04/04/21 11:06 Freq: NEEDED Status: Active Protocol: Document 04/04/21 10:10 AB (Rec: 04/04/21 11:22 AB [email or web address]) Orientation Orientation/Cognition Level of Alertness Confusional State Orientation Name,Place,Situation Language Function Ability Word Finding Difficulties Safety Awareness Decreased Safety Awareness Memory Description 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 Gross Range of Motion Lower Extremity ROM Assessment Within Functional Limits Strength Lower Extremity Strength Assessment Bilaterally Impaired Hip 3+/5 Knee 3+/5 M6 PT-IP Treatment Start: 04/04/21 11:06 Freq: NEEDED Status: Active Protocol: Document 04/04/21 10:10 AB (Rec: 04/04/21 11:22 AB [email or web address]) Physical Therapy Treatment Education Education Provided Safety M7 PT-IP Assessment and Plan Start: 04/04/21 11:06 Freq: NEEDED Status: Active Protocol: Document 04/04/21 10:10 AB (Rec: 04/04/21 11:22 AB [email or web address]) PT Summary Assessment and Plan Potential Rehabilitation Potential Fair Status of Condition at Evaluation Evolving Summary Impairments Pain,ROM,Strength,Balance, Coordination,Sensation,Tone, Cognition,Bed Mobility, Transfers,Gait,Activity Tolerance Assessment Summary pt requiring max A x 2 with step transfer with poor standing balance and requires assist for steadiness and weight shifting to be able to move BLE for transfers. pt also has increase R sided lateral neck and trunk leaning with LOB laterally and posteriorly. pt also has difficulty following instructions and has decrease safety awareness. pt will require SNF rehab at this time . pt has h/o frequent falls and is a high fall risk. Goals Bed Mobility Goal Minimal Assistance Transfer Goal Minimal Assistance,Front Wheeled Walker Gait Goal Minimal Assistance,Front Wheel Walker Gait Distance 50 Other Goals improve bed mobility, transfers to CGA using fWW and ambulation 100 ft using FWW CGA Days to Meet Goals 10 Frequency of Treatment Frequency Of Treatment Once a Day Treatment Plan Physical Therapy Treatment Plan Bed Mobility Training,Transfer Training,Gait Training, Therapeutic Exercise,Balance Retraining,Discharge Planning, Hot or Cold Pack,Neuromuscular Re-ed,Coordination Retraining ,Manual Therapy Precautions Other Precautions falls Recommendations To Nursing Amount of Assist Needed Mechanical Lift Discharge Recommendations PT Discharge Recommendations SNF Rehab Transportation Needs at Discharge Wheelchair/Cabulance
[2021-04-04 12:06] LABS: Appearance Urine UA CLEAR; Bilirubin Urine UA NEGATIVE (NEGATIVE); Color Urine UA YELLOW; Glucose Urine UA NEGATIVE (Negative); Ketones Urine UA NEGATIVE (NEGATIVE); Leukocyte Esterase Urine UA TRACE (NEGATIVE); Nitrite Urine UA NEGATIVE (Negative); Occult Blood Urine UA NEGATIVE (Negative); Protein Urine UA NEGATIVE (Negative); Specific Gravity Urine UA <=1.005 (1.000-1.035); Urobilinogen Urine UA 0.2 E.U./dL (0.2)
--- NOTE | 2021-04-04 12:10 | CM.DPNOTE ---
Faxed referral packet to: [facility] [place], [place] and [facility] per Bibiana and received confirmations. Stephani Bueno CM Asst.
[2021-04-04 12:16] LABS: Bacteria Urine Moderate (10-30); RBC Urine None Seen (0-5/HPF); Squamous Epithelial Cell Urine None Seen (0-5/HPF); WBC Urine 0-1/HPF (0-5/HPF)
[2021-04-04 12:17] LABS: Culture Indicated Urine Cult Not Indicated
--- NOTE | 2021-04-04 12:28 | OT.IP.EVAL ---
Past Medical History (Last Reviewed 04/04/21 @ 05:16 by Logan Jim MD) Atrial fibrillation COPD (chronic obstructive pulmonary disease) Hypertension No pertinent past surgical history Surgical History (Last Reviewed 04/04/21 @ 05:16 by Logan Jim MD) No pertinent past surgical history Occupational Therapy Inpatient Evaluation/Re-Eval M1 PT/OT-IP Prior Functional Status Start: 04/04/21 11:06 Freq: NEEDED Status: Active Protocol: Document 04/04/21 11:50 [facility] (Rec: 04/04/21 12:56 [facility] [id number]) Medical Review Prior Functional Status Medical History Reviewed Yes Communication able to make needs known Mobility and Gait pt stated that she is modified independent with all mobilities and ambulation using a 4WW. Activities of Daily Living and IADL's Pt states able to do all basic ADL's and that her daughter would assist with showering needs. Pt states is barefooted at home. Social History Household Members children Living Arrangements House Number of Floors (Floors) Two Floors Number of Stairs To Enter/Railing? ramp to enter pt stays on main level of the house Home Environment Walk in Shower,Ramp Home Equipment Front Wheel Walker,Four Wheel Walker,Bedside Commode,Raised Toilet Seat Without Armrests, Shower Seat without Backrest, Hand Held Shower,Grab Bars Near Toilet,Grab Bars In Shower Additional Social History Comment pt stated that her daughter lives with her but her daughter works M-F 130pm to 9pm. stated that her son/ daughter in law comes in occasionally and stays a few hours with her. also has homehealth aide that comes in 2x /week for ~ 4 hours. M2 OT-IP Current Condition Start: 04/04/21 12:30 Freq: Status: Active Protocol: Document 04/04/21 11:50 [facility] (Rec: 04/04/21 12:56 [facility] [id number]) Occupational Therapy Current Condition Current Condition Evaluation Date 04/04/21 Treatment Diagnosis GLF, decreased mobility Diagnosis Onset Date 04/04/21 M3 OT- IP Subjective and Pain Start: 04/04/21 12:30 Freq: Status: Active Protocol: Document 04/04/21 11:50 [facility] (Rec: 04/04/21 12:56 [facility] [id number]) OT- Subjective Occupational Therapy Visit Type Type Treatment Note Visit Start Time 11:50 Visit Stop Time 12:28 Total Visit Minutes 38 Occupational Therapy Visit Comments Patient Comments Pt agreed to get up for OT eval. Patient/Caregiver Goals TO go home. OT Pain Assessment Pain When Pain Assessed At Rest Pain Present Pain Present Denied Pain M4 OT- IP ADL's Start: 04/04/21 12:30 Freq: Status: Active Protocol: Document 04/04/21 11:50 [facility] (Rec: 04/04/21 12:56 [facility] [id number]) OT [id number] Comments OT Self-Feeding Comments Not at meal time. OT ADL-Grooming Comments OT Grooming Comments Pt able to wash her face and hands after set-up of wash cloth. OT ADL-Oral Care Comments Oral Care Comments Not performed. OT ADL-Dressing General Eval Lower Body Dressing Ability Maximum Assistance Areas Needing Assistance Underpants/Brief Comments OT Dressing Comments Pt states does not wear sock and is bare footed at home. OT ADL-Toileting Comments OT Toileting Comments Pt not having to go. OT ADL-Bathing Comments OT Bathing Comments Nursing aid did sponge bath with pt prior. M5 OT- IP IADL's Start: 04/04/21 12:30 Freq: Status: Active Protocol: Document 04/04/21 11:50 [facility] (Rec: 04/04/21 12:56 [facility] [id number]) OT-Instrumental Activities of Daily Living Home Safety Awareness Awareness of Need for Assistance at Home Good Awareness Ability to Problem Solve Emergency Unable to Problem Solve Situations Home Safety Comments Pt did not know what to do in case the toilet overflow and not able to recall 911 to call in case of an emergency. Pt does have a Life Alert and says calls her daughter as well. Medication Management Medication Management Caregiver Administers Money Management Money Management Caregiver Provides Assistance Meal Preparation Meal Preparation Caregiver Provides Assist Meal Preparation Comments Pt states mainly microwaves her meals. Buffing Machine Operator Buffing Machine Operator Caregiver Provides Assist M6 OT- IP Functional Cognition Start: 04/04/21 12:30 Freq: Status: Active Protocol: Document 04/04/21 11:50 [facility] (Rec: 04/04/21 12:56 [facility] [id number]) Cognitive Factors Limiting Selfcare Function Cognitive Ability Level of Alertness Alert,Confusional State Patient Orientation Name Attention Span Ability Capable of Focused Attention, Capable of Sustained Attention Ability to Follow Commands Able to Follow One Step Commands with Increased Time, Able to Follow One Step Commands with Repetition Memory Description Working Impaired Problem Solving Ability Unable to Identify Errors, Needs Assist to Identify Solutions Cognitive Comments Cognitive Assessment Comments Pt not able to accurately answer home safety questions. Pt having trouble to get the words out and also trouble to read the clock- states it was 12-40 versus 12:20. OT- Vision and Hearing OT- Hearing Assessment OT- Hearing Assessment WFL OT- Vision Assessment Visual Acuity Glasses All The Time M7 OT- IP Mobility and Balance Start: 04/04/21 12:30 Freq: Status: Active Protocol: Document 04/04/21 11:50 [facility] (Rec: 04/04/21 12:56 [facility] [id number]) OT- Bed Mobility Assessment Supine to Sit Supine to Sit Assist Minimal Assistance,Head of Bed Elevated,Bedrails Scooting Scooting to Edge of Bed Moderate Assistance,1 Person Assistance OT-Transfer Assessment Sit to and From Stand Sit to and from Stand Maximum Assistance,2 Person Assistance Transfers Transfer Ability Maximum Assistance,2 Person Assistance Technique Transfer Destination Bed,Chair Transfer Technique Stand Step Pivot Devices Transfer Assistive Devices Gait Belt,Front Wheeled Walker Comments Mobility Comments Pt able to get her body to the edge of the bed with with HOB slightly up with PRASANNA x1. Pt normally sleeps on her recliner at home. MAX AX 2 to stand to FWW and assist for balance, and to guide the FWW to transfer to the recliner. OT- Gait Assessment Comments Gait Ability Comments Transfer only at this time. OT- Balance Assessment Sitting Balance and Reactions Static Sitting Balance Ability Fair Dynamic Sitting Balance Ability Poor Standing Balance and Reactions Static Standing Balance Ability Poor Comments Other Balance Tests/Deviations/Treatment Pt tends to lean to the left : with posterior lean. M8 OT- IP Objective Assessments Start: 04/04/21 12:30 Freq: Status: Active Protocol: Document 04/04/21 11:50 [facility] (Rec: 04/04/21 12:56 [facility] [id number]) OT Gross Range of Motion Upper Extremity Range of Motion Assessment Bilaterally Impaired OT Strength Upper Extremity Strength Assessment Bilaterally Impaired OT-Muscle Tone Assessment Muscle Tone WNL Yes M9 OT- IP Assessment and Plan Start: 04/04/21 12:30 Freq: Status: Active Protocol: Document 04/04/21 11:50 [facility] (Rec: 10/15/21 12:56 [facility] [id number]) OT Summary Assessment and Plan Potential Rehabilitation Potential Good Analytic Complexity at Evaluation Moderate Summary OT Impairments Range of Motion,Strength, Balance,Functional Cognition, Functional Mobility,Self- Feeding,Grooming,Dressing, Toileting,Toilet Transfers, Shower Transfers,Activity Tolerance Progress Towards Goals Slow Progress due to Medical Issues,Slow Progress due to Activity Tolerance,Slow Progress due to Cognition Assessment Summary Pt MOD complexity and here due to left hip pain and weakness . Pt is far from her baseline as prior was MOD I with basic ADl needs and mobility with with 4ww. Goals Self-Feeding Goal Independent Grooming Goal Independent Dressing Goal Independent Toileting Goal Independent Bathing Goal Standby Assistance Toilet Transfer Goal Independent Shower Transfer Goal Standby Assistance Days to Meet Goals 30 Frequency of Treatment Frequency Of Treatment Once a Day Treatment Plan OT Treatment Plan ADL Training,Functional Cognition Training,Functional Mobility,Patient/Family Education,Discharge Planning Other Treatment Recommendations and Next Transfer to [facility] with MAX A X2 Treatment Focus with FWW. Discharge Recommendations OT Discharge Recommendations SNF Rehab Transportation Needs at Discharge Wheelchair/Cabulance
--- NOTE | 2021-04-04 15:20 | CM.IDA ---
Initial DCP Assessment Note Patient is an 85 year old female, resident of [place], presents to the ED after GLF/generalized weakness. Pt has [employer] for insurance and her PCP is through the [facility], Dr Orly Bender. Per MD, patient meets criteria for failure to thrive and appears to be requiring more care than what is available at home. Patient admitted observation. Per PT, pt below baseline where before pt could stand and transfer and mobilize some and now pt is a 2 person Max A and requiring Max cues during session. This WINDSHIELD TECHNICIAN reviewed chart notes from patient's admission in December 2020, similar presentation, patient had returned home w/family and HH. According to notes, WINDSHIELD TECHNICIAN team reviewed at length w/dtr Jose Manuel: observation vs inpatient status, facility options, residential care resources, and also strongly encouraged family to solidify residential care plan. Placed call to dtr Jose Manuel to review DCP; Jose Manuel states she still lives w/her mom, works M-F in the afternoon/evenings. patient has caregivers x2 weekly and [facility]. Patient had been doing really well until last few weeks she became increasingly weak. 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 Juan explains patient had not needed increased care, had been self transferring to the and making occasional meals on her own. Jose Manuel has not secured an appt w/a Neurologist, needs a referral from [facility]. Educated dtr that she will likely continue to see ups and downs from patient at home but overall, patient appears to be declining; dtr agreed. 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 Suggested that SNF be attempted and dtr agreeable, states she cannot pay privately. Dtr Jose Manuel prepared to take patient home tomorrow, has the day off. Will attempt SNF placement under current COVID-19 related waiver (for MCR/observation patients) GISSELLE Pena Discharge Planning/Care Management CM Discharge Assessment Start: 04/04/21 14:59 Freq: Status: Active Protocol: Document 04/04/21 15:00 ALEX (Rec: 04/04/21 15:20 ALEX [id number]) Discharge Planning Assessment Assigned Train Brakeman GISSELLE Mccarty DPOA/Assigned Designee Name Jose Manuel Torres dtr Contact Information [phone] cell Advance Directives? No Advance Directives on File No History Provided By Patient,Medical Record Prior Living Arrangements House Household Members children Type of transporation used prior to Relies on Others admit Independent with ADL's No Is patient alert and oriented? No Needs Assistance With Bathing,Meal Prep,Managing Medications,Home Chores / Shopping Patient/Family Preference Home with Home Health Barriers to Discharge Yes Comment Would benefit from SNF stay, may not be available to patient upon DC. Likely home w /dtr and resume [facility] Discharge Plan Home Transportation Arrangement Family
--- NOTE | 2021-04-04 15:43 | CM.DPNOTE ---
DCP Note Attempted SNFs- So far, either no bed availability today/over the weekend and/or cannot secure a diagnosis to admit patient w/use of the COVID-19 waiver form. Will continue to follow closely. Does not appear SNF will be available, dtr states she will not pay privately. Likely home w/dtr and HH tomorrow, family to transport. JW
--- NOTE | 2021-04-04 16:12 | PM.PN.1 ---
Subjective Subjective Date Patient Seen: 04/04/21 Time Patient Seen: 16:12 Interval history: This is an 85 year old female admitted with inability to ambulate yesterday, with concern for possible CVA leading to her difficulties. MRI is being attempted this afternoon with pre-medication due to claustriphobia. Patient denies complaints today, does have chronic pain but overall she feels improved. She did better with PT but still required significant assistance. Exam Vital Signs (past 8 hours): - 04/04/21 09:31 04/04/21 09:46 04/04/21 11:00 Temperature 96.3 F L Pulse Rate 77 77 Respiratory Rate 19 Blood Pressure 166/63 H 166/63 H Pulse Oximetry 95 95 Oxygen Delivery Method Room Air Oxygen Flow Rate 0 Objective Labs Result Diagrams: 04/04/21 07:05 04/04/21 07:05 Labs: Laboratory Results - last 24 hr 04/03/21 04/04/21 04/04/21 23:31 00:31 01:25 WBC 7.2 RBC 4.48 Hgb 13.2 Hct 40.5 MCV 90.4 MCH 29.4 MCHC 32.5 RDW 13.8 Plt Count 248 Neut % (Auto) 64.7 Lymph % (Auto) 24.1 L [place] % (Auto) 8.7 Eos % (Auto) 1.7 L Baso % (Auto) 0.8 Neut # (Auto) 4700 Lymph # (Auto) 1700 [place] # (Auto) 600 Eos # (Auto) 100 Baso # (Auto) 100 Sodium 136 L Potassium 5.1 Chloride 107 Carbon Dioxide 22 BUN 33 H Creatinine 0.84 Estimated GFR > 60.0 BUN/Creatinine Ratio 39.3 H Glucose 109 Calcium 9.1 Magnesium Total Bilirubin TNP AST TNP ALT TNP Alkaline Phosphatase TNP Total Protein TNP Albumin TNP Globulin TNP Albumin/Globulin Ratio TNP Urine Color Yellow Urine Appearance Clear Urine pH 5.0 Ur Specific [place] 1.015 Urine Protein Negative Urine Glucose (UA) Negative Urine Ketones Negative Urine Occult Blood Negative Urine Nitrate Negative Urine Bilirubin Negative Urine Urobilinogen 0.2 Ur Leukocyte Esterase Trace H Urine RBC 0-1/hpf Urine WBC 0-1/hpf Ur Squamous Epith Cells 5-10 /hpf H Urine Bacteria Moderate (10-30) H Ur Culture Indicated? Cult not indicated SARS-CoV-2 (PCR) 04/04/21 04/04/21 04/04/21 02:20 07:05 07:05 WBC 5.4 RBC 3.87 L Hgb 11.4 L Hct 34.5 L MCV 89.1 MCH 29.3 MCHC 32.9 RDW 13.3 Plt Count 224 Neut % (Auto) 65.6 Lymph % (Auto) 21.2 L [place] % (Auto) 10.3 Eos % (Auto) 1.9 L Baso % (Auto) 1.0 Neut # (Auto) 3500 Lymph # (Auto) 1100 [place] # (Auto) 600 Eos # (Auto) 100 Baso # (Auto) 100 Sodium 139 Potassium 3.7 D Chloride 105 Carbon Dioxide 29 BUN 27 H Creatinine 0.85 Estimated GFR > 60.0 BUN/Creatinine Ratio 31.8 H Glucose 102 Calcium 9.1 Magnesium 1.8 Total Bilirubin AST ALT Alkaline Phosphatase Total Protein Albumin Globulin Albumin/Globulin Ratio Urine Color Urine Appearance Urine pH Ur Specific [place] Urine Protein Urine Glucose (UA) Urine Ketones Urine Occult Blood Urine Nitrate Urine Bilirubin Urine Urobilinogen Ur Leukocyte Esterase Urine RBC Urine WBC Ur Squamous Epith Cells Urine Bacteria Ur Culture Indicated? SARS-CoV-2 (PCR) Negative 04/04/21 11:00 WBC RBC Hgb Hct MCV MCH MCHC RDW Plt Count Neut % (Auto) Lymph % (Auto) [place] % (Auto) Eos % (Auto) Baso % (Auto) Neut # (Auto) Lymph # (Auto) [place] # (Auto) Eos # (Auto) Baso # (Auto) Sodium Potassium Chloride Carbon Dioxide BUN Creatinine Estimated GFR BUN/Creatinine Ratio Glucose Calcium Magnesium Total Bilirubin AST ALT Alkaline Phosphatase Total Protein Albumin Globulin Albumin/Globulin Ratio Urine Color Yellow Urine Appearance Clear Urine pH 6.0 Ur Specific [place] <=1.005 Urine Protein Negative Urine Glucose (UA) Negative Urine Ketones Negative Urine Occult Blood Negative Urine Nitrate Negative Urine Bilirubin Negative Urine Urobilinogen 0.2 Ur Leukocyte Esterase Trace H Urine RBC None seen Urine WBC 0-1/hpf Ur Squamous Epith Cells None seen Urine Bacteria Moderate (10-30) H Ur Culture Indicated? Cult not indicated SARS-CoV-2 (PCR) PFSH Medical History Atrial fibrillation COPD (chronic obstructive pulmonary disease) Hypertension Surgical History No pertinent past surgical history Family History Mother CVA (cerebral vascular accident) Father CVA (cerebral vascular accident) Social History household members: children Smoking Status: Never smoker Assessment & Plan Time Spent With Patient Critical Care time: I spent a total of [] minutes of critical care time on this patient's care today; this time is exclusive of procedural time.
--- NOTE | 2021-04-04 18:46 | PC.NURSE ---
Addendum entered by Mena Bailey R.N. 04/04/21 22:00: Change neurovascular to neurological. Addendum entered by Mena Bailey R.N. 04/04/21 21:11: Pt able to transfer with staff assistance x 2 from recliner to commode. Is continent of urine. Pt is unable to move self from commode to standing to return to bed. Pt admits to fear of falling and becomes all over tremulous. States this occurs @ home as well. Tremors stop with rest, reassurance. Utilized mechanical lift to transfer pt to bed. Pt refuses scd's. Toes to feet BL are now bright pink in color when elevated versus cyanotic. Left fourth toe cleansed with normal saline and bandaid applied for superficial slight bleeding to toe--source unsure. Bed alarm in place. Door open and light on as per pt request. No change in neurovascular status this evening shift. Pt denies pain with activity and at rest. Original Note: Pt sitting on side of bed @ beginning of shift. [employer] reports one assist to transfer from chair. Pt reports is slipping with feet on floor and pt is unable to reposition self without assistance. Two assist with gait belt and walker to return to chair for evening meal. Pt is max assist with verbal cueing to return to chair. Once settled, pt admits to needing to toilet. Again, two staff members max assist to mobilize pt. Pt states is unable to take needed steps to nearby commode. Attempted x 2. Pt states, I can't. In chair, pt lists to left side even after having been righted by staff. Left facial droop and left eyelid droop observed with occasional jumbled speech. Upon questioning, pt reports eyelid has been this way x 20 years. Pt reports daughter states pt had suspected stroke sometime in pt's past. IV has failed to right ac and restarted after multiple attempts. Dr. Thomas was informed of these findings, observations, and events and comes to room to assess pt. States feels as though pt is at baseline without any focal deficits. Chair alarm in place. Dinner tray set up for pt and pt is able to feed self. Swallow intact.
[2021-04-04] MEDS: SODIUM CHLORIDE 0.9% FLUSH 10 ML IV (20:55)
--- NOTE | 2021-04-04 23:25 | PC.NURSE ---
Patient was transferred with assistance from this student nurse, KELSY Gibson and VIJAY San from recliner to bedside commode. Gait belt and no-slip socks were on patient. FWW was also in use. She was quite weak and shaky during the transfer with 3 people assisting so it was determined to move her with the lyle lift back to bed from the commode. Once in bed she asked for her socks to be removed and a small, superficial bleeding from her left fourth toe was present. This student nurse cleaned the area with normal saline, dried it with a 2x2 gauze and a band aid was loosely applied. Patient did not complain of any pain. SCD's were applied and call light is in reach.
[2021-04-05] VITALS (7 sets, daily range): BP systolic 115–150; BP diastolic 60–87; PULSE 77–80; RESP 16–20; TEMP 35.6–36.4; O2SAT 94–97
--- NOTE | 2021-04-05 08:03 | DI.MRI.S_ITS ---
PROCEDURE: MR HEAD/BRAIN WO CON INDICATIONS: r/o CVA TECHNIQUE: Non-contrast axial T1 spin echo, axial T2 fast spin echo, sagittal and axial FLAIR, coronal T2 fast spin echo, axial gradient echo, axial diffusion and ADC through the brain. COMPARISON: [facility], CT, CT HEAD/BRAIN WO CON, 04/04/2021, 0:22. [facility], MR, MR HEAD/BRAIN WO CON, 01/12/2021, 13:32. FINDINGS: Image quality: Significantly limited given motion artifact on every sequence. CSF spaces: Within limits of this examination there is stable prominence of the lateral and 3rd ventricles. No focal extra-axial fluid collection within limits of this exam. Brain: Within limits of this exam. No intracranial bleeds or mass effects. There is cerebral volume loss for age. There are periventricular and deep white matter chronic small vessel ischemic changes. Brainstem appears normal. Diffusion-weighted images show no acute ischemic insults. No chronic ischemic insults. Normal intravascular flow voids are present. No suspicious susceptibility artifact. Skull and face: Calvarial bone marrow is normal in signal. Orbits are normal. Sinuses: Sinuses and mastoids are grossly clear within limits of this exam. IMPRESSION: Extremely limited study given significant motion artifact on all sequences. No significant restricted diffusion to suggest acute ischemia. Stable prominence of the lateral and 3rd ventricles. Dictated by: Keith Dodge D.O. on 04/05/2021 at 9:41 Approved by: Keith Dodge D.O. on 04/05/2021 at 9:46
[2021-04-05 08:41] LABS: Add Manual Diff / Slide Review NO; Basophils Absolute Auto 0 /uL (0-100); Basophils Percent Auto 0.7 % (0-2); Eosinophils Absolute Auto 100 /uL (0-450); Eosinophils Percent Auto 1.3 % (2-4); Hematocrit 34.1 % (36-46); Hemoglobin 11.1 g/dL (12.0-16.0); Lymphocytes Absolute Auto 1100 /uL (1100-4500); Lymphocytes Percent Auto 19.4 % (25-40); Mean Corpuscular HGB Conc 32.6 % (30-36); Mean Corpuscular Hemoglobin 29.3 PG (26-34); Mean Corpuscular Volume 89.7 fL (80-100); Monocytes Absolute Auto 500 /uL (0-900); Monocytes Percent Auto 8.7 % (3-14); Neutrophils Absolute Auto 4000 /uL (1500-7000); Neutrophils Percent Auto 69.9 % (50-75); Platelet Count 213 X10^3/uL (150-400); Red Blood Cell Count 3.81 X10^6/uL (4.0-5.2); Red Cell Distribution Width 13.4 % (11.6-14.8); White Blood Cell Count 5.8 X10^3/uL (4.5-11.0)
[2021-04-05 08:54] LABS: Blood Urea Nitrogen 27 mg/dL (7-17); Calcium 8.8 mg/dL (8.4-10.2); Carbon Dioxide 29 mmol/L (22-32); Chloride 105 mmol/L (98-107); Estimated Glomerular Filt Rate 50.6 mL/min (>60); Glucose 93 mg/dL (80-110); HEMOLYSIS < 15 (0-50); Potassium 4.4 mmol/L (3.4-5.1); Sodium 139 mmol/L (137-145)
[2021-04-05] MEDS: LORazepam 2 MG/ML INJ 1.5 MG IV (09:25)
[2021-04-05] MEDS: APIXABAN 5 MG TABLET PO ×2 (09:27→20:29)
[2021-04-05] MEDS: METOPROLOL ER 50 MG TABLET PO (09:27)
[2021-04-05] MEDS: MONTELUKAST 10 MG TABLET PO (09:27)
[2021-04-05] MEDS: SODIUM CHLORIDE 0.9% FLUSH 10 ML IV ×2 (09:27→20:52)
--- NOTE | 2021-04-05 09:29 | OT.IPNOTE ---
Per nursing pt going to get MRI at 930am, check on pt later if appropriate.
--- NOTE | 2021-04-05 12:02 | OT.IPNOTE ---
Per nursing pt not appropriate to be seen as, therefore unable to see pt for OT treatment today.
--- NOTE | 2021-04-05 12:08 | PT-IP ANOTE ---
checked on pt and pt is lethargic. nurse stated that pt was given ativan ~ 1-2 hours ago for MRI procedure. Pt unable to participate with PT this morning.
--- NOTE | 2021-04-05 13:29 | CM.DPNOTE ---
DCP Note Spoke w/patient's dtr Jose Manuel this morning. Reiterated that patient will likely be discharged home today, dtr expressed concern about taking patient home and not being able to provide proper care. Reiterated that patient has required additional care before arriving to and encouraged dtr/family to investigate agency care-giving options, patient's finances and options for facility residential care. caregiver providing assist weekly is a friend who will likely not be able to help d/t her own life circumstance. Therapy team continues to recommend SNF, dtr/family cannot pay privately for this level of care. SNF has snot been secured using COVID-[address] Thomas, patient will receive MRI to r/o acute findings. It appears now that d/t meds administered to assist in the MRI process, patient is very lethargic and cannot safely participate w/therapies so far today. Placed call to [facility]. Patient is current [facility], and so if she remains obs status [facility] will only need an H+P/DC Summary upon DC to continue service. DC might be delayed until tomorrow pending patient's ability to participate w/therapies; home w/family and [facility] is expected today or tomorrow. Dtr Jose Manuel has been updated, states cannot pay privately at this time for SNF or respite stay. ALEX
--- NOTE | 2021-04-05 14:46 | PT-IP ANOTE ---
checked on pt again but pt continues to be lethargic. attempted to wake pt up but pt unable to open her eyes and just moved around in bed. pt unable to participate with PT at this time. will f/u.
--- NOTE | 2021-04-05 14:53 | PC.NURSE ---
Patient given ativan 1.5mg iv for MRI, which she gets claustrophobic easily. She sat up at the side of the bed x1 and had to void 800cc in the bedpan. Patient is arousable but confused. She denies pain.
[2021-04-05] MEDS: NYSTATIN POWDER 15GM 1 APPLIC TOP ×2 (14:58→20:30)
--- NOTE | 2021-04-05 15:02 | P.PN_ITS ---
Subjective Subjective Date Patient Seen: 04/05/21 Time Patient Seen: 15:02 Interval history: reports improved left hip pain, still very sleepy after ativan needed for MRI imaging and claustriphobia. Denies nausea, vomiting chest pain. Exam Vital Signs (past 8 hours): - 04/05/21 08:00 04/05/21 09:15 Temperature 96.1 F L Pulse Rate 80 Respiratory Rate 19 Blood Pressure 139/60 Pulse Oximetry 94 95 Oxygen Delivery Method Room Air Oxygen Flow Rate 0 Narrative Exam Narrative: GEN: no acute distress HEENT: moist mucous membranes, PERRL NECK: trachea midline, no JVD CV: regular rate and rhythm with no murmurs PULM: clear bilaterally, no wheezes, rhonchi, rales ABD: soft, nontender, nondistended, no organomegaly, normal bowel sounds EXT: warm and well perfused, no joint tenderness, slight non-pitting edema bilateral lower extremities. NEURO: no focal deficits, but does have some facial asymmetry and leans preferentially to the left. falls asleep easily, mildly confused. PSYCH: pleasant, cooperative Objective Labs Result Diagrams: 04/05/21 08:23 04/05/21 08:23 Labs: Laboratory Results - last 24 hr 04/05/21 04/05/21 08:23 08:23 WBC 5.8 RBC 3.81 L Hgb 11.1 L Hct 34.1 L MCV 89.7 MCH 29.3 MCHC 32.6 RDW 13.4 Plt Count 213 Neut % (Auto) 69.9 Lymph % (Auto) 19.4 L [place] % (Auto) 8.7 Eos % (Auto) 1.3 L Baso % (Auto) 0.7 Neut # (Auto) 4000 Lymph # (Auto) 1100 [place] # (Auto) 500 Eos # (Auto) 100 Baso # (Auto) 0 Sodium 139 Potassium 4.4 Chloride 105 Carbon Dioxide 29 BUN 27 H Creatinine 1.04 Estimated GFR 50.6 L BUN/Creatinine Ratio 26.0 H Glucose 93 Calcium 8.8 Magnesium 2.0 PFSH Medical History Atrial fibrillation COPD (chronic obstructive pulmonary disease) Hypertension Surgical History No pertinent past surgical history Family History Mother CVA (cerebral vascular accident) Father CVA (cerebral vascular accident) Social History household members: children Smoking Status: Never smoker Assessment & Plan Assessment & Plan narrative: Ms. Torres presented to the hospital with a fall and left hip pain and was too weak to ambulate to get home. 1. Weakness, fall -etiology unclear, seems slowly progressive could be worsening dementia, some other form of parkinsonism, NPH or other etiology. Recommend further outpatient evaluation with neurology. -repeat UA negative. No signs or symptoms of infection. Pain is improved. -CT imaging negative for fracture of left side. -MRI negative for infarct to rule out CVA given mild facial asymmetry, leaning to L side at baseline, now somnolent after ativan required for MRI claustrophobia. -max assist with PT, unable to participate in therapy today after ativan. continue PT/OT. 2. Atrial fibrillation, chronic permanent -continue eliquis, continue metoprolol 3. COPD -no exacerbation, currently -continue montelukast 4. HTN -continue metoprolol, hold telmisartan 5. Cognitive impairment -likely secondary to dementia, further outpatient evaluation with neurology recommended. CODE: DNR/DNI Proxy: Jose Manuel Torres, Daughter DVT ppx: full ac with eliquis I have utilized all available immediate resources to obtain, update, or review the patient's current medications. Dispo: probable discharge home vs private pay SNF, pending repeat PT/OT given sedation required for MRI. Time Spent With Patient Critical Care time: I spent a total of [] minutes of critical care time on this patient's care today; this time is exclusive of procedural time.
[2021-04-06 00:30] VITALS: BP 149/68; PULSE 78; RESP 18; TEMP 36.2; O2SAT 93
[2021-04-06 01:19] VITALS: O2SAT 93
[2021-04-06 08:00] VITALS: BP 150/114; PULSE 79; RESP 18; TEMP 35.6; O2SAT 94
--- NOTE | 2021-04-06 09:12 | P.DS_ITS ---
History of Present Illness History of Present Illness Date Patient Seen: 04/06/21 Time Patient Seen: 09:12 Chief complaint: GLF gen weakness Narrative: Per Dr. Jim, Ms. Torres is an 85W with PMH afib, COPD, HTN who presents to the hospital with a fall. Patient states she has been weaker than normal for a month. She lost her balance today and fell on her left side. She is complaining of left hip pain. She fell because her knees and ankles buckle and feel weak. She did not hit her head or lose consciousness. She sounds as if she has episodes of incontinence. She also has been diagnosed with dementia and recently has been having hallucinations. Patient states she recently had Serafin and Serafin covid vaccine and is wondering if this is causing her symptoms In the ED workup was done, vitals notable for hypertension. Labs notable for WBC of 7.2, hgb 13.2, creatinine 0.84. UA with elevated squamous epithelal cells. CT head showed no acute process and enlarged ventricles. Left hip xray showed no acute process. Chest xray showed no acute process. She was admitted for further treatment. Discharge Providers Provider Date of admission: 04/04/21 02:10 Discharge Date: 04/06/21 Primary care physician: Lory Hammer MD Consults: 04/04/21 02:39 Consult to Occupational Therapy Evaluate & Treat Comment: Physician Instructions: Evaluate and treat Consult to Physical Therapy Evaluate & Treat Comment: Physician Instructions: Evaluate and Treat Discharge provider: Ash Thomas DO Summary Hospital Course Discharge Diagnosis: Please see hospital course by problem list noted below Hospital Course: Ms. Torres presented to the hospital with a fall and left hip pain and was too weak to ambulate to get home. She was admitted for observation but no acute cause of her weakness could be found. Do recommend outpatient follow-up with Neurology for possible parkinsonism as noted below. 1. Weakness, fall -etiology unclear, seems slowly progressive could be worsening dementia, some other form of parkinsonism, NPH or other etiology. Recommend further outpatient evaluation with neurology. -repeat UA negative. No signs or symptoms of infection. Pain is improved. -CT imaging negative for fracture of left side. -MRI negative for infarct to rule out CVA given mild facial asymmetry, leaning to L side at baseline, somnolent after ativan required for MRI claustrophobia, but improved the following day. 2. Atrial fibrillation, chronic permanent -continued eliquis, continue metoprolol 3. COPD -no exacerbation, currently -continue montelukast 4. HTN -no medication changes are recommended. 5. Cognitive impairment -likely secondary to dementia, further outpatient evaluation with neurology recommended. Exam Vital Signs (past 8 hours): - 04/06/21 01:19 04/06/21 08:00 Temperature 96.1 F L Pulse Rate 79 Respiratory Rate 18 Blood Pressure 150/114 H Pulse Oximetry 93 94 Oxygen Delivery Method Room Air Oxygen Flow Rate 0 Narrative Exam Narrative: ?GEN: no acute distress HEENT: moist mucous membranes, PERRL NECK: trachea midline, no JVD CV: regular rate and rhythm with no murmurs PULM: clear bilaterally, no wheezes, rhonchi, rales ABD: soft, nontender, nondistended, no organomegaly, normal bowel sounds EXT: warm and well perfused, no joint tenderness, slight non-pitting edema bilateral lower extremities. NEURO: no focal deficits, but does have some facial asymmetry and leans preferentially to the left. awake and alert. PSYCH: pleasant, cooperative Objective Labs Result Diagrams: 04/05/21 08:23 04/05/21 08:23 [facility] Medical History Atrial fibrillation COPD (chronic obstructive pulmonary disease) Hypertension Surgical History No pertinent past surgical history Family History Mother CVA (cerebral vascular accident) Father CVA (cerebral vascular accident) Social History household members: children Smoking Status: Never smoker Discharge Plan Discharge Plan Patient Disposition: Home Provider Discharge Comment: You were admitted for weakness and left hip pain. Hip pain is improved. No acute cause of weakness could be found. 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 Discharge orders & Medications Prescriptions: Continued metoprolol succinate 50 mg tablet extended release 24 hr 50 mg PO DAILY RF: 0 simvastatin 40 mg tablet 40 mg PO DAILY RF: 0 telmisartan 80 mg tablet 80 mg PO DAILY RF: 0 montelukast 10 mg tablet 10 mg PO DAILY RF: 0 fluticasone propionate 50 mcg/actuation spray,suspension 1 spray INTRANASAL DAILY RF: 0 loratadine 10 mg tablet 10 mg PO DAILY RF: 0 Eliquis 5 mg tablet 5 mg PO BID RF: 0 Discontinued hydrochlorothiazide 25 mg tablet 25 mg PO DAILY RF: 0 Follow up/Referrals: Lory Hammer MD [Primary Care Provider] - Diet/Activity/Treatments Diet: Diet as Tolerated Activity: As tolerated, no restrictions. However high fall risk. Visit Report/Discharge Packet Instructions: How to Prevent Falls, DI for Muscle Weakness Discharge Data Primary Care Provider: Lory Hammer Attending Provider: Logan Jim
[2021-04-06] MEDS: MONTELUKAST 10 MG TABLET PO (09:33)
[2021-04-06] MEDS: APIXABAN 5 MG TABLET PO (09:33)
[2021-04-06] MEDS: METOPROLOL ER 50 MG TABLET PO (09:33)
[2021-04-06] MEDS: SODIUM CHLORIDE 0.9% FLUSH 10 ML IV (09:34)
[2021-04-06] MEDS: NYSTATIN POWDER 15GM 1 APPLIC TOP (09:34)
--- NOTE | 2021-04-06 09:58 | PC.NURSE ---
Patient is alert but confused x2. Getting up with physical therapy now, she is a two person assist with walker and will be discharged today. Waiting to see what the plan is. Home vs Snf! She denies pain. Redness to folds is looing less red and she is comfortable.
--- NOTE | 2021-04-06 10:07 | PT.IPTN ---
Physical Therapy Treatment Note M2 PT-IP Current Condition Start: 04/04/21 11:06 Freq: NEEDED Status: Active Protocol: Document 04/04/21 10:10 AB (Rec: 04/04/21 11:22 AB [id number]) Physical Therapy Current Condition Current Condition Evaluation Date 04/04/21 Treatment Diagnosis GLF; difficulty in walking Onset Date 04/04/21 M3 PT-IP Subjective Start: 04/04/21 11:06 Freq: NEEDED Status: Active Protocol: Document 04/06/21 10:07 AW (Rec: 04/06/21 11:07 AW [id number]) Subjective Physical Therapy Visit Type Type Treatment Note Visit Start Time 09:28 Visit Stop Time 10:07 Total Visit Minutes 39 Number of TENTERING MACHINE OFF BEARER Visits 0 Physical Therapy Visit Comments Patient Comments agreed to do PT M4 PT-IP Mobility and Gait Start: 04/04/21 11:06 Freq: NEEDED Status: Active Protocol: Document 04/06/21 10:07 AW (Rec: 04/06/21 11:07 AW [id number]) PT-Bed Mobility Assessment Supine to Sit Supine to Sit Minimal Assistance,1 Person Assistance,Head of Bed Elevated PT-Transfer Assessment Sit to and From Stand Sit to and from Stand Maximum Assistance,1 Person Assistance,Use of Upper Extremities Equipment Transfer Assistive Device Gait Belt,Front Wheeled Walker Orthotic/Prosthetic Devices or Brace: No Transfers Transfer Destination Chair Transfer Technique Stand Step Pivot Transfer Ability Level of Assist Maximum Assistance,2 Person Assistance Comments Mobility Comments BP in supine was 112/60 HR 87. Pt noted to have a leftward lean in her neck and B hand tremors. She was oriented but confused. With HOB elevated, pt required extra time and min assist to complete supine to sit. Sitting EOB, she attempted to don a brief but needed assist to get it over her feet and pull up past her knees. Pt stood max A x 1 with significant retro lean but could stand ~45 seconds before needing to sit, citing left knee pain and general fatigue. She stood again max A x 1 and stood for ~60 seconds while PT assisted to pull up brief as pt steadied herself with FWW. Pt sat again on EOB. JUNIOR LOAN PROCESSOR arrived to assist with transfer. Pt stood max A x 1 and required max A x 2, max cues, and assist with walker management for step transfer to chair set up on her right side. Pt was too fatigued to do more. She was left with call light and tray table in reach. Gait Assessment Comments Gait Comments Steps taken during transfer only. PT-Balance Assessment Sitting Balance and Reactions Static Sitting Balance Ability Fair Dynamic Sitting Balance Ability Poor Standing Balance and Reactions Static Standing Balance Ability Poor Dynamic Standing Balance Ability Poor Device Used FWW Comments Other Balance Tests/Deviations/Treatment Pt has left-leaning neck and : requires assist with balance in sitting and standing. M5 PT-IP Objective Assessments Start: 04/04/21 11:06 Freq: NEEDED Status: Active Protocol: Document 04/04/21 10:10 AB (Rec: 04/04/21 11:22 AB [id number]) Orientation Orientation/Cognition Level of Alertness Confusional State Orientation Name,Place,Situation Language Function Ability Word Finding Difficulties Safety Awareness Decreased Safety Awareness Memory Description 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 Gross Range of Motion Lower Extremity ROM Assessment Within Functional Limits Strength Lower Extremity Strength Assessment Bilaterally Impaired Hip 3+/5 Knee 3+/5 M6 PT-IP Treatment Start: 04/04/21 11:06 Freq: NEEDED Status: Active Protocol: Document 04/06/21 10:07 AW (Rec: 04/06/21 11:07 AW [id number]) Physical Therapy Treatment Education Education Provided Safety M7 PT-IP Assessment and Plan Start: 04/04/21 11:06 Freq: NEEDED Status: Active Protocol: Document 04/06/21 10:07 AW (Rec: 04/06/21 11:07 AW [id number]) PT Summary Assessment and Plan Summary Progress Towards Goals Slow Progress due to Activity Tolerance Assessment Summary Pt continues to require 2- person assist with transfers and has very limited tolerance for activity. She needs max cues for sequencing and has difficulty following directions which is affecting her mobility independence. PT recommends SNF rehab to improve strength and mobility but pt is likely to discharge home. Per CM, family has declined caregiver training. If she goes home, pt would benefit from home health services. Goals Bed Mobility Goal Minimal Assistance Transfer Goal Minimal Assistance,Front Wheeled Walker Gait Goal Minimal Assistance,Front Wheel Walker Gait Distance 50 Other Goals improve bed mobility, transfers to CGA using fWW and ambulation 100 ft using FWW CGA Days to Meet Goals 10 Frequency of Treatment Frequency Of Treatment Once a Day Treatment Plan Physical Therapy Treatment Plan Bed Mobility Training,Transfer Training,Gait Training, Therapeutic Exercise,Balance Retraining,Discharge Planning, Hot or Cold Pack,Neuromuscular Re-ed,Coordination Retraining ,Manual Therapy Precautions Other Precautions falls Recommendations To Nursing Amount of Assist Needed 2 Person Assist Discharge Recommendations PT Discharge Recommendations SNF Rehab Transportation Needs at Discharge Wheelchair/Cabulance
--- NOTE | 2021-04-06 10:56 | CM.DPC ---
DCP continued: CM called Noemi at [facility] to verify they have everything they need to reinstate services for patient at DC. Noemi asked to send DC summary and a copy of the H&P to continue services- CM faxed DC summary and H&P to [facility]. CM called patients daughter Tor to discuss discharge plan. Patients daughter stated she is fine with her mother coming home with [facility] reinstated. CM asked if she would like some caregiver training by PT to help with assisting her mother at home since PT recommended SNF. Patients daughter stated she felt fine with the patient coming home and does not feel she needs Caregiver training with PT. CM updated patients RN Emily about DC plan and updated PT about patients daughter not wanting extra caregiver training. No other DC planning needs noted at this time. Cm will follow to assist with any new DC planning needs that may arise. Karina Reed RN
--- NOTE | 2021-04-06 11:35 | PT-IP ANOTE ---
RN requested assist with car transfer as pt is discharging home. This PT and LEATHER SPRAYER wheeled pt to ED entrance where pt's daughter arrived to transport. Using a car cane, pt transferred into the car max A x 2 with assist to stand, to elevate her legs to the passenger cabin, and to turn facing forward. Pt's daughter states no one else will be home to assist with transfer from car to transport chair.
== END 2021-04-06 11:25 | disposition home or self-care (01) ==
LOC: ED 04-04 02:10 → AC 04-04 02:11
PROVIDERS: Internal Medicine; Admitting Provider Internal Medicine; Emergency Provider Emergency Medicine; PCP Internal Medicine; Referring Provider Emergency Medicine; Visit Provider Internal Medicine
DX: R53.1 Weakness (principal); W18.39XA Other fall on same level, initial encounter; M25.552 Pain in left hip; J44.9 Chronic obstructive pulmonary disease, unspecified; Z79.01 Long term (current) use of anticoagulants; F03.90 Unspecified dementia, unspecified severity, without behavioral disturbance, psychotic disturbance, mood disturbance, and anxiety; I10 Essential (primary) hypertension; I48.20 Chronic atrial fibrillation, unspecified; Z20.822 Contact with and (suspected) exposure to COVID-19
CPT/HCPCS: 36415; 70450; 70551; 71045; 72192; 73502; 80048; 80053; 81001; 83735; 85025; 87635; 94760; 97162; 97166; 97530; 99284; C9803; G0378; J2060

== ENCOUNTER 2021-04-20 18:12 | Inpatient (IN) | payer MEDICARE, OTHER, SELFPAY ==
[2021-04-04 02:15] VITALS: BMI 31.6
[2021-04-20] VITALS (77 sets, daily range): BP systolic 144–223; BP diastolic 64–108; PULSE 61–150; RESP 16–26; TEMP 36.4–36.6; O2SAT 95–100; BMI 31.4
--- NOTE | 2021-04-20 18:24 | ED_ITS ---
HPI - General Adult General Chief complaint: Trauma Stated complaint: Fall on ground 5 hours + blood thinners Time Seen by Provider: 04/20/21 18:15 Source: patient, family and EMS Mode of arrival: EMS History of Present Illness HPI narrative: 85-year-old woman with a history of hypertension, hyperlipidemia, atrial fibrillation on Eliquis, COPD due to recently was diagnosed with dementia. She lives with her daughter and is home alone while her daughter works. Medics have been out there increasingly frequently over the last 3 weeks and patient declines transport each time. Reportedly she is able to sit in her chair can sometimes transfer to the commode right next to the chair but any more than that she ends up falling on calls for lift assist. Apparently she tried to get up to answer the door around noon today fell on the floor, she does report hitting her head but no loss of consciousness, and 5 hours later her daughter came home and called medics. She denies fever, headaches, specific localized weakness, abdominal pain, vomiting, diarrhea. She does note a slight cough, she has had a Serafin & Serafin vaccine. She was admitted April 03, January 13, July 27 and July 09 for similar findings. Despite not wanting to be transported to the hospital, medics were concerned that her global weakness was significant enough that they opted to transport her for further evaluation. She is globally weak, sitting in the bed she continues to drift to the left side, mild left facial droop that she can correct for when it is pointed out. She is globally weak. Speech is fluent but she is having mild word-finding difficulties (likely more related to dementia rather than aphasia). Related Data Home Medications Medication Instructions Recorded Confirmed apixaban 5 mg tablet (Eliquis) 5 mg PO BID 01/11/21 04/04/21 fluticasone propionate 50 1 spray INTRANASAL DAILY 01/11/21 04/04/21 mcg/actuation nasal spray,suspension loratadine 10 mg tablet 10 mg PO DAILY 01/11/21 04/04/21 metoprolol succinate 50 mg 50 mg PO DAILY 01/11/21 01/11/21 tablet,extended release 24 hr montelukast 10 mg tablet 10 mg PO DAILY 01/11/21 01/11/21 simvastatin 40 mg tablet 40 mg PO DAILY 01/11/21 04/04/21 telmisartan 80 mg tablet 80 mg PO DAILY 01/11/21 01/11/21 Allergies Allergy/AdvReac Type Severity Reaction Status Date / Time chlorpheniramine Allergy Severe Anaphylaxis Verified 04/03/21 23:33 [From Actifed Cold-Allergy] phenylephrine Allergy Severe Anaphylaxis Verified 04/03/21 23:33 [From Actifed Cold-Allergy] pseudoephedrine Allergy Severe Anaphylaxis Verified 04/03/21 23:33 [From Actifed Cold-Allergy] triprolidine Allergy Severe Anaphylaxis Verified 04/03/21 23:33 [From Actifed Cold-Allergy] Review of Systems Review of Systems Narrative: Remainder of complete review of systems is otherwise unremarkable except for that included in the HPI. Patient History Medical History Atrial fibrillation COPD (chronic obstructive pulmonary disease) Hypertension Surgical History No pertinent past surgical history Family History Mother CVA (cerebral vascular accident) Father CVA (cerebral vascular accident) Social History household members: children Smoking Status: Never smoker Smoking Status: Never smoker alcohol intake frequency: holidays/special occasions only Substance Use Type: does not use Exam Narrative Exam Narrative: General: Chronically ill-appearing but in no acute distress. Listing to the left side while sitting in the hospital bed. HEENT: Moist mucous membranes, normal sclera with reactive pupils, mild left- sided facial weakness with left eyelid droop that she can correct when this is pointed out. She has no peripheral visual deficits. Neck: No JVD, supple Respiratory: Lungs are clear to auscultation, she does have a mild scattered cough but no wheezing no rales no rhonchi. Full and symmetrical air movement Cardiac: Irregular, mildly tachycardic without murmurs no bruits Abdomen: Soft, mild diffuse tenderness with palpation but no specific localizing symptoms. bowel tones, no flank pain Skin: Warm and dry, no rashes Neurologic: Globally weak, unable to lift either leg off the bed due to her weakness. Both arms can be held against gravity for a few moments. Extremities: No trauma, well perfused, mild left knee effusion from chronic arthritis Psych: Cooperative, fluent speech, poor overall insight Initial Vital Signs Initial Vital Signs: Vital Signs Temperature 97.6 F 04/20/21 18:12 Pulse Rate 94 H 04/20/21 18:12 Respiratory Rate 20 04/20/21 18:12 Blood Pressure 177/101 H 04/20/21 18:12 Pulse Oximetry 100 04/20/21 18:12 Course Orders Ordered: ED Orders 04/20/21 19:00 Blood Culture Stat 04/20/21 19:58 Urinalysis and Microscopic Stat Urine Culture Stat 04/20/21 21:19 EKG-12 Lead Routine 04/21/21 Consult to MENTAL HEALTH AIDES TEACHER - Station Mechanic Stat 04/21/21 00:15 Magnesium Urgent NT-proBNP (BNP-Adult 18+) Routine Troponin I Stat 04/21/21 01:51 Consult to Tele-wildlife biostation research ecologist Routine 04/21/21 01:57 Consult to Physical Therapy Evaluate & Treat Acetaminophen (Acetaminophen 325 Mg Tablet) 650 mg PO Q6HR PRN PRN Reason: Fever/Mild Pain (1-3) Sodium Chloride (Normal Saline 0.9%) 1,000 mls @ 150 mls/hr IV CONT FABRIZIO Last Admin: 04/20/21 18:51 Dose: 150 mls/hr Documented by: KARIS Naloxone HCl (Naloxone 0.4 Mg/Ml Vial) 0.2 mg IV Q2MIN PRN PRN Reason: Opiate Reversal Naloxone HCl (Naloxone 0.4 Mg/Ml Vial) 0.2 mg IV Q2MIN PRN PRN Reason: Opiate Reversal Sennosides (Sennosides 8.6 Mg Tablet) 17.2 mg PO BEDTIME FABRIZIO Discontinued Medications Acetaminophen (Acetaminophen 325 Mg Tablet) 650 mg PO NOW ONE Stop: 04/20/21 22:45 Last Admin: 04/20/21 23:01 Dose: 650 mg Documented by: CHELI Amlodipine Besylate (Amlodipine 5 Mg Tablet) 10 mg PO NOW ONE Stop: 04/20/21 22:34 Last Admin: 04/20/21 22:40 Dose: 10 mg Documented by: CHELI Nicardipine HCl 25 mg/ Sodium (Chloride) 250 mls @ 50 mls/hr IV TITRATE FABRIZIO; Protocol Last Titration: 04/21/21 01:11 Dose: 2 mg/hr, 20 mls/hr Documented by: Titration: 04/20/21 23:53 Dose: 2.5 mg/hr, 25 mls/hr Documented by: Titration: 04/20/21 23:12 Dose: 3 mg/hr, 30 mls/hr Documented by: Titration: 04/20/21 22:32 Dose: 2.5 mg/hr, 25 mls/hr Documented by: Admin: 04/20/21 22:06 Dose: 5 mg/hr, 50 mls/hr Documented by: CHELI Losartan Potassium (Losartan 50 Mg Tablet) 100 mg PO NOW ONE Stop: 04/20/21 18:59 Last Admin: 04/20/21 20:04 Dose: 100 mg Documented by: KARIS Metoprolol Tartrate (Metoprolol Tartrate 5 Mg/5 Ml Inj) 5 mg IV Q5M FABRIZIO Stop: 04/20/21 20:26 Last Admin: 04/20/21 21:00 Dose: 5 mg Documented by: Admin: 04/20/21 20:35 Dose: 5 mg Documented by: Admin: 04/20/21 20:27 Dose: 5 mg Documented by: KARIS Vital Signs Vital signs: Vital Signs - 8 hr 04/20/21 19:45 04/20/21 19:50 04/20/21 19:55 Pulse Rate 84 89 81 Respiratory Rate 17 17 17 Blood Pressure Pulse Oximetry 98 99 99 04/20/21 20:00 04/20/21 20:04 04/20/21 20:05 Pulse Rate 80 79 82 Respiratory Rate 17 18 Blood Pressure 223/93 H Pulse Oximetry 99 98 04/20/21 20:10 04/20/21 20:15 04/20/21 20:16 Pulse Rate 91 H 85 83 Respiratory Rate 18 19 21 Blood Pressure 195/108 H Pulse Oximetry 99 99 100 04/20/21 20:20 04/20/21 20:25 04/20/21 20:27 Pulse Rate 88 90 88 Respiratory Rate 22 19 18 Blood Pressure 192/81 H Pulse Oximetry 100 100 99 04/20/21 20:30 04/20/21 20:33 04/20/21 20:35 Pulse Rate 90 79 78 Respiratory Rate 18 17 17 Blood Pressure 214/84 H 202/86 H Pulse Oximetry 100 100 100 04/20/21 20:38 04/20/21 20:40 04/20/21 20:45 Pulse Rate 78 79 79 Respiratory Rate 17 17 17 Blood Pressure 192/81 H 202/86 H Pulse Oximetry 100 100 100 04/20/21 20:50 04/20/21 20:53 04/20/21 20:55 Pulse Rate 77 80 72 Respiratory Rate 16 17 17 Blood Pressure 205/84 H Pulse Oximetry 100 99 99 04/20/21 20:57 04/20/21 20:58 04/20/21 21:00 Pulse Rate 79 79 79 Respiratory Rate 18 20 17 Blood Pressure 210/91 H 210/91 H Pulse Oximetry 100 100 100 04/20/21 21:05 04/20/21 21:09 04/20/21 21:10 Pulse Rate 79 79 80 Respiratory Rate 16 19 18 Blood Pressure 202/93 H Pulse Oximetry 100 99 99 04/20/21 21:12 04/20/21 21:15 04/20/21 21:20 Pulse Rate 79 79 79 Respiratory Rate 18 18 Blood Pressure 202/93 H Pulse Oximetry 98 100 99 04/20/21 21:25 04/20/21 21:30 04/20/21 21:35 Pulse Rate 79 80 80 Respiratory Rate 19 16 18 Blood Pressure Pulse Oximetry 100 99 99 04/20/21 21:40 04/20/21 21:45 04/20/21 21:50 Pulse Rate 80 84 80 Respiratory Rate 18 17 18 Blood Pressure Pulse Oximetry 99 98 98 04/20/21 21:55 04/20/21 22:00 04/20/21 22:05 Pulse Rate 84 80 79 Respiratory Rate 18 23 Blood Pressure Pulse Oximetry 99 97 97 04/20/21 22:07 04/20/21 22:10 04/20/21 22:15 Pulse Rate 80 80 79 Respiratory Rate 25 H 25 H 24 Blood Pressure 206/84 H 201/84 H 178/77 H Pulse Oximetry 97 97 96 04/20/21 22:20 04/20/21 22:25 04/20/21 22:30 Pulse Rate 79 79 69 Respiratory Rate 25 H Blood Pressure 178/73 H 144/70 H Pulse Oximetry 97 97 96 04/20/21 22:35 04/20/21 22:36 04/20/21 22:40 Pulse Rate 85 87 83 Respiratory Rate 21 21 22 Blood Pressure 190/75 H 170/74 H Pulse Oximetry 96 95 96 04/20/21 22:45 04/20/21 22:50 04/20/21 22:51 Pulse Rate 88 81 85 Respiratory Rate 26 H 25 H 19 Blood Pressure 178/72 H Pulse Oximetry 97 97 97 04/20/21 22:55 04/20/21 22:56 04/20/21 23:00 Pulse Rate 95 H 83 88 Respiratory Rate 25 H 19 Blood Pressure 183/77 H 182/75 H Pulse Oximetry 97 98 97 04/20/21 23:05 04/20/21 23:10 04/20/21 23:11 Pulse Rate 82 81 Respiratory Rate 18 24 Blood Pressure 181/79 H 165/67 H Pulse Oximetry 97 97 97 04/20/21 23:15 04/20/21 23:16 04/20/21 23:20 Pulse Rate 81 80 83 Respiratory Rate 23 18 22 Blood Pressure 190/73 H 168/71 H Pulse Oximetry 97 97 96 04/20/21 23:25 04/20/21 23:26 04/20/21 23:31 Pulse Rate 83 80 150 H Respiratory Rate 23 Blood Pressure 178/86 H Pulse Oximetry 98 98 04/20/21 23:35 04/20/21 23:40 04/20/21 23:44 Pulse Rate 87 87 83 Respiratory Rate 19 18 Blood Pressure 164/64 H Pulse Oximetry 97 96 97 04/20/21 23:45 04/20/21 23:46 04/20/21 23:50 Pulse Rate 80 81 82 Respiratory Rate 17 18 20 Blood Pressure 166/70 H 144/74 H Pulse Oximetry 97 97 97 04/20/21 23:55 04/21/21 00:00 04/21/21 00:05 Pulse Rate 81 87 86 Respiratory Rate 17 23 24 Blood Pressure 154/72 H 168/73 H Pulse Oximetry 96 95 95 04/21/21 00:06 04/21/21 00:10 04/21/21 00:15 Pulse Rate 85 83 79 Respiratory Rate 22 24 18 Blood Pressure 168/67 H 157/68 H 160/70 H Pulse Oximetry 96 95 96 04/21/21 00:20 04/21/21 00:25 04/21/21 00:29 Pulse Rate 81 79 81 Respiratory Rate 22 24 35 H Blood Pressure 157/72 H 182/79 H Pulse Oximetry 96 96 95 04/21/21 00:30 04/21/21 00:35 04/21/21 00:40 Pulse Rate 80 79 79 Respiratory Rate 29 H 26 H 26 H Blood Pressure 157/69 H 161/70 H Pulse Oximetry 95 95 95 04/21/21 00:41 04/21/21 00:45 04/21/21 00:50 Pulse Rate 80 80 79 Respiratory Rate 23 17 23 Blood Pressure 166/85 H 153/67 H 153/63 H Pulse Oximetry 96 96 95 04/21/21 00:55 04/21/21 01:00 04/21/21 01:05 Pulse Rate 85 81 81 Respiratory Rate 19 30 H 32 H Blood Pressure 151/65 H 155/70 H 150/59 H Pulse Oximetry 97 96 96 04/21/21 01:10 Pulse Rate 83 Respiratory Rate 27 H Blood Pressure Pulse Oximetry 94 Medical Decision Making Lab Data Result diagrams: 04/20/21 18:37 04/20/21 18:37 Labs: Lab Results 04/20/21 04/20/21 04/20/21 Range/Units 18:24 18:37 18:37 WBC 6.7 (4.5-11.0) X10^3/uL RBC 4.63 (4.0-5.2) X10^6/uL Hgb 13.6 (12.0-16.0) g/dL Hct 40.8 (36-46) % MCV 88.1 (80-100) fL MCH 29.4 (26-34) PG MCHC 33.4 (30-36) % RDW 13.3 (11.6-14.8) % Plt Count 294 (150-400) X10^3/uL Neut % (Auto) 77.9 H (50-75) % Lymph % (Auto) 14.1 L (25-40) % [place] % (Auto) 6.6 (3-14) % Eos % (Auto) 1.0 L (2-4) % Baso % (Auto) 0.4 (0-2) % Neut # (Auto) 5200 (9771-3849) /uL Lymph # (Auto) 900 L (0909-6802) /uL [place] # (Auto) 400 (0-900) /uL Eos # (Auto) 100 (0-450) /uL Baso # (Auto) 0 (0-100) /uL Sodium 141 (137-145) mmol/L Potassium 4.0 (3.4-5.1) mmol/L Chloride 104 (98-107) mmol/L Carbon Dioxide 30 (22-32) mmol/L BUN 22 H (7-17) mg/dL Creatinine 0.92 (0.52-1.04) mg/dL Estimated GFR 58.3 L (>60) mL/min BUN/Creatinine Ratio 23.9 H (6-22) Glucose 126 H (80-110) mg/dL Lactate (0.7-2.1) mmol/L Calcium 9.6 (8.4-10.2) mg/dL Magnesium (1.6-2.3) mg/dL Total Bilirubin 1.3 (0.2-1.3) mg/dL AST 27 (14-36) IU/L ALT 17 (<35) IU/L Alkaline Phosphatase 173 H (38-126) U/L Troponin I (0.01-0.034) ng/mL NT-Pro-B Natriuret Pep (<450) pg/mL Total Protein 7.8 (6.3-8.2) g/dL Albumin 4.4 (3.5-5.0) g/dL Globulin 3.4 (1.7-4.1) g/dL Albumin/Globulin Ratio 1.3 (1.0-2.8) Lipase (23-300) U/L Urine Color Urine Appearance Urine pH (4.5-8.0) Ur Specific [place] (1.000-1.035) Urine Protein (Negative) Urine Glucose (UA) (Negative) g/dL Urine Ketones (NEGATIVE) Urine Occult Blood (Negative) Urine Nitrate (Negative) Urine Bilirubin (NEGATIVE) Urine Urobilinogen (0.2) E.U./dL Ur Leukocyte Esterase (NEGATIVE) Urine RBC (0-5/HPF) Urine WBC (0-5/HPF) Ur Squamous Epith Cells (0-5/HPF) Urine Bacteria (None) Ur Culture Indicated? SARS-CoV-2 (PCR) Negative (Negative) 04/20/21 04/20/21 04/20/21 Range/Units 18:37 18:37 19:58 WBC (4.5-11.0) X10^3/uL RBC (4.0-5.2) X10^6/uL Hgb (12.0-16.0) g/dL Hct (36-46) % MCV (80-100) fL MCH (26-34) PG MCHC (30-36) % RDW (11.6-14.8) % Plt Count (150-400) X10^3/uL Neut % (Auto) (50-75) % Lymph % (Auto) (25-40) % [place] % (Auto) (3-14) % Eos % (Auto) (2-4) % Baso % (Auto) (0-2) % Neut # (Auto) (4112-0542) /uL Lymph # (Auto) (7269-1127) /uL [place] # (Auto) (0-900) /uL Eos # (Auto) (0-450) /uL Baso # (Auto) (0-100) /uL Sodium (137-145) mmol/L Potassium (3.4-5.1) mmol/L Chloride (98-107) mmol/L Carbon Dioxide (22-32) mmol/L BUN (7-17) mg/dL Creatinine (0.52-1.04) mg/dL Estimated GFR (>60) mL/min BUN/Creatinine Ratio (6-22) Glucose (80-110) mg/dL Lactate 1.3 (0.7-2.1) mmol/L Calcium (8.4-10.2) mg/dL Magnesium 1.9 (1.6-2.3) mg/dL Total Bilirubin (0.2-1.3) mg/dL AST (14-36) IU/L ALT (<35) IU/L Alkaline Phosphatase (38-126) U/L Troponin I 0.014 (0.01-0.034) ng/mL NT-Pro-B Natriuret Pep 1160 H (<450) pg/mL Total Protein (6.3-8.2) g/dL Albumin (3.5-5.0) g/dL Globulin (1.7-4.1) g/dL Albumin/Globulin Ratio (1.0-2.8) Lipase 249 (23-300) U/L Urine Color Yellow Urine Appearance Clear Urine pH 5.0 (4.5-8.0) Ur Specific [place] 1.015 (1.000-1.035) Urine Protein Negative (Negative) Urine Glucose (UA) Negative (Negative) g/dL Urine Ketones Negative (NEGATIVE) Urine Occult Blood Trace-lysed (Negative) Urine Nitrate Negative (Negative) Urine Bilirubin Negative (NEGATIVE) Urine Urobilinogen 0.2 (0.2) E.U./dL Ur Leukocyte Esterase Negative (NEGATIVE) Urine RBC 0-1/hpf (0-5/HPF) Urine WBC 1-5/hpf (0-5/HPF) Ur Squamous Epith Cells 0-1 /hpf (0-5/HPF) Urine Bacteria Many (>30) H (None) Ur Culture Indicated? Specimen cultured SARS-CoV-2 (PCR) (Negative) 04/21/21 04/21/21 04/21/21 Range/Units 00:15 00:15 00:15 WBC (4.5-11.0) X10^3/uL RBC (4.0-5.2) X10^6/uL Hgb (12.0-16.0) g/dL Hct (36-46) % MCV (80-100) fL MCH (26-34) PG MCHC (30-36) % RDW (11.6-14.8) % Plt Count (150-400) X10^3/uL Neut % (Auto) (50-75) % Lymph % (Auto) (25-40) % [place] % (Auto) (3-14) % Eos % (Auto) (2-4) % Baso % (Auto) (0-2) % Neut # (Auto) (5877-0959) /uL Lymph # (Auto) (5105-3905) /uL [place] # (Auto) (0-900) /uL Eos # (Auto) (0-450) /uL Baso # (Auto) (0-100) /uL Sodium (137-145) mmol/L Potassium (3.4-5.1) mmol/L Chloride (98-107) mmol/L Carbon Dioxide (22-32) mmol/L BUN (7-17) mg/dL Creatinine (0.52-1.04) mg/dL Estimated GFR (>60) mL/min BUN/Creatinine Ratio (6-22) Glucose (80-110) mg/dL Lactate (0.7-2.1) mmol/L Calcium (8.4-10.2) mg/dL Magnesium 1.8 (1.6-2.3) mg/dL Total Bilirubin (0.2-1.3) mg/dL AST (14-36) IU/L ALT (<35) IU/L Alkaline Phosphatase (38-126) U/L Troponin I 0.017 (0.01-0.034) ng/mL NT-Pro-B Natriuret Pep 1170 H (<450) pg/mL Total Protein (6.3-8.2) g/dL Albumin (3.5-5.0) g/dL Globulin (1.7-4.1) g/dL Albumin/Globulin Ratio (1.0-2.8) Lipase (23-300) U/L Urine Color Urine Appearance Urine pH (4.5-8.0) Ur Specific [place] (1.000-1.035) Urine Protein (Negative) Urine Glucose (UA) (Negative) g/dL Urine Ketones (NEGATIVE) Urine Occult Blood (Negative) Urine Nitrate (Negative) Urine Bilirubin (NEGATIVE) Urine Urobilinogen (0.2) E.U./dL Ur Leukocyte Esterase (NEGATIVE) Urine RBC (0-5/HPF) Urine WBC (0-5/HPF) Ur Squamous Epith Cells (0-5/HPF) Urine Bacteria (None) Ur Culture Indicated? SARS-CoV-2 (PCR) (Negative) Imaging Data CT scan - head: Radiologist's Impression: FINDINGS:? Image quality:? Excellent.? ? CSF spaces:? Basal cisterns are patent.? No extra-axial fluid collections.? Lateral ventricles are prominent size, unchanged.? Minimally prominent 3rd ventricle.? 4th ventricle is within normal limits.? ? Brain:? No midline shift.? No intracranial masses or hemorrhage.? No area of hypodensity in a large vascular distribution to suggest acute infarction. Periventricular hypodensity consistent with chronic microvascular ischemic change. Age-related parenchymal loss. ? Skull and face:? Calvarium and visualized facial bones are intact, without suspicious lesions.? ? Sinuses:? Visualized sinuses and mastoids are clear.? ? IMPRESSION:? No acute intracranial abnormality. Chronic microvascular ischemic disease. ? ? Dictated by: Brice Pena M.D. on 04/20/2021 at 19:41 ? ? Chest x-ray: Radiologist's Impression: INDINGS:? ? Surgical changes and devices:? Left axillary clips.? Suspect right breast biopsy clip.? Left humerus ORIF.? ? Lungs and pleura:? Lungs appear clear.? Minimal opacity at the left cardiac border is unchanged since 2019 and could represent prominent pericardial fat pad.? No defi nite consolidation.? No pleural effusions or pneumothorax.? ? Mediastinum:? Mediastinal contours appear unchanged.? Hiatal hernia.? Heart size is enlarged.? ? Bones and chest wall:? No suspicious bony lesions.? Overlying soft tissues appear unremarkable.? ? IMPRESSION:? No acute airspace opacity identified. Cardiomegaly. Hiatal hernia. ? ? Dictated by: Brice Pena M.D. on 04/20/2021 at 19:45 ? ? ECG Data Interpretation: Atrial flutter at a rate of 86 Variable conduction for the flutter Not meeting acute STEMI criteria Repeat EKG Flutter with variable conduction at a rate of 68 Baseline is a bit more stable at this point no evidence of acute ischemic issues MDM Narrative Medical decision making narrative: 85-year-old woman with progressive weakness [facility] Medics have been out increasingly since hospital discharge on April 06. She is weak enough that she can not lift her legs off the bed. With concerns for possible stroke with leaning to the left and lip mild left facial weakness notes from admission April 06 note MRI negative for infarct to rule out CVA given mild facial asymmetry, leaning to L side at baseline. She was discharged home with [facility] after 04/06 admit. Daughter is no available for further questioning. In the grand context of everything she has been getting significantly worse with increasing weakness since December of this year. Over the last couple of weeks and since discharge home from the hospital on April 06 she has been essentially unable to transfer by herself and is having significant difficulty with even one-person assist. The home physical therapist and occupational therapists have essentially signed off saying that there is nothing additional they can offer at this time. There apparently was a home health aide that was there for a couple of hours but the patient was reluctant to allow her to bathe her or help her toilet. She is having multiple falls due to significant weakness and seeming left-sided weakness. Her daughter continues to be concerned about the word-finding difficulties the left facial droop in the listing to the left that again had been noted on April 06 with a normal MRI at that time. Clinically she certainly appears to have stroke likely the residual symptoms that are increasing her overall weakness. At this time her blood pressure is significantly elevated and it may simply be that this is a hypertensive crisis exacerbating stroke-like symptoms. She was given an extra dose her ARB with no affect to blood pressure. She was given 3 doses of metoprolol with no blood pressure effects. Will begin nicardipine with a goal of 160-180. In looking it plead previous admission blood pressures they been ranging anywhere from 140-220 systolic with similar wide range for diastolic pressures. Currently no evidence for congestive heart failure or acute coronary syndrome. Bed availability is limited and at this point there is no option for transfer to [facility] or [place]. Will likely need to board in the emergency department over the course of the evening, patient is admitted to the [facility]. Critical Care Time Critical Care Time Critical Care Time: Yes Total Critical Care Time: 36 Attestation: Critical care time is separate from other billable procedures. There is a high probability of a significant, sudden or life-threatening deterioration that requires my full and direct attention, intervention and personal management. This critical care time includes consultation with family and other consulting doctors, review of records, and interpretation of data from labs, EKGs and imaging as well as managements of hypertensive emergency and stroke-like symptoms. Discharge Plan Departure Patient Disposition: Admitted As Inpatient Clinical Impression: Weakness, Hypertensive crisis Admit Date/Time: 04/21/21 02:14 Admit Provider: Yuliya Nails
--- NOTE | 2021-04-20 18:33 | DI.CT.S_ITS ---
PROCEDURE: CT HEAD/BRAIN WO CON INDICATIONS: Fall, on Eliquis, question subacute stroke, left-sided weakn TECHNIQUE: Noncontrast 4.5 mm thick angled axial sections acquired from the foramen magnum to the vertex, with coronal and sagittal reformats. For radiation dose reduction, the following was used: automated exposure control, adjustment of mA and/or kV according to patient size. COMPARISON: [facility], MR, MR HEAD/BRAIN WO CON, 04/05/2021, 9:49. [facility], CT, CT HEAD/BRAIN WO CON, 04/04/2021, 0:22. FINDINGS: Image quality: Excellent. CSF spaces: Basal cisterns are patent. No extra-axial fluid collections. Lateral ventricles are prominent size, unchanged. Minimally prominent 3rd ventricle. 4th ventricle is within normal limits. Brain: No midline shift. No intracranial masses or hemorrhage. No area of hypodensity in a large vascular distribution to suggest acute infarction. Periventricular hypodensity consistent with chronic microvascular ischemic change. Age-related parenchymal loss. Skull and face: Calvarium and visualized facial bones are intact, without suspicious lesions. Sinuses: Visualized sinuses and mastoids are clear. IMPRESSION: No acute intracranial abnormality. Chronic microvascular ischemic disease. Dictated by: Brice Pena M.D. on 04/20/2021 at 19:41 Approved by: Brice Pena M.D. on 04/20/2021 at 19:43
--- NOTE | 2021-04-20 18:34 | DI.RAD.S_ITS ---
PROCEDURE: XR CHEST 1V INDICATIONS: Cough TECHNIQUE: One view of the chest was acquired. COMPARISON: [facility], CR, XR CHEST 1V, 04/04/2021, 0:02. [facility], CR, XR CHEST 1V, 01/25/2019, 4:48. FINDINGS: Surgical changes and devices: Left axillary clips. Suspect right breast biopsy clip. Left humerus ORIF. Lungs and pleura: Lungs appear clear. Minimal opacity at the left cardiac border is unchanged since 2019 and could represent prominent pericardial fat pad. No definite consolidation. No pleural effusions or pneumothorax. Mediastinum: Mediastinal contours appear unchanged. Hiatal hernia. Heart size is enlarged. Bones and chest wall: No suspicious bony lesions. Overlying soft tissues appear unremarkable. IMPRESSION: No acute airspace opacity identified. Cardiomegaly. Hiatal hernia. Dictated by: Brice Pena M.D. on 04/20/2021 at 19:45 Approved by: Brice Pena M.D. on 04/20/2021 at 19:47
[2021-04-20 18:42] LABS: Add Manual Diff / Slide Review NO; Basophils Absolute Auto 0 /uL (0-100); Basophils Percent Auto 0.4 % (0-2); Eosinophils Absolute Auto 100 /uL (0-450); Hematocrit 40.8 % (36-46); Hemoglobin 13.6 g/dL (12.0-16.0); Lymphocytes Absolute Auto 900 /uL (1100-4500); Lymphocytes Percent Auto 14.1 % (25-40); Mean Corpuscular HGB Conc 33.4 % (30-36); Mean Corpuscular Hemoglobin 29.4 PG (26-34); Mean Corpuscular Volume 88.1 fL (80-100); Monocytes Absolute Auto 400 /uL (0-900); Monocytes Percent Auto 6.6 % (3-14); Neutrophils Absolute Auto 5200 /uL (1500-7000); Neutrophils Percent Auto 77.9 % (50-75); Platelet Count 294 X10^3/uL (150-400); Red Blood Cell Count 4.63 X10^6/uL (4.0-5.2); Red Cell Distribution Width 13.3 % (11.6-14.8); White Blood Cell Count 6.7 X10^3/uL (4.5-11.0)
[2021-04-20 18:50] LABS: Alanine Aminotransferase 17 IU/L (<35); Albumin 4.4 g/dL (3.5-5.0); Albumin Globulin Ratio 1.3 (1.0-2.8); Alkaline Phosphatase 173 U/L (38-126); Aspartate Aminotransferase 27 IU/L (14-36); BUN Creatinine Ratio 23.9 (6-22); Bilirubin Total 1.3 mg/dL (0.2-1.3); Blood Urea Nitrogen 22 mg/dL (7-17); Calcium 9.6 mg/dL (8.4-10.2); Carbon Dioxide 30 mmol/L (22-32); Chloride 104 mmol/L (98-107); Estimated Glomerular Filt Rate 58.3 mL/min (>60); Globulin 3.4 g/dL (1.7-4.1); Glucose 126 mg/dL (80-110); HEMOLYSIS < 15 (0-50); Lactate (Lactic Acid) 1.3 mmol/L (0.7-2.1); Lipase 249 U/L (23-300); Magnesium 1.9 mg/dL (1.6-2.3); Sodium 141 mmol/L (137-145); Total Protein 7.8 g/dL (6.3-8.2)
[2021-04-20] MEDS: SODIUM CHLORIDE 0.9% 1,000 ML 150 ML IV (18:51)
[2021-04-20 19:01] LABS: NT-proBNP (BNP-Adult 18+) 1160 pg/mL (<450); Troponin I 0.014 ng/mL (0.01-0.034)
[2021-04-20 19:35] LABS: COVID19 - ADMIT (NP swab/PCR) Negative (Negative)
[2021-04-20] MEDS: LOSARTAN 50 MG TABLET 100 MG PO (20:04)
[2021-04-20 20:07] LABS: Appearance Urine UA CLEAR; Bilirubin Urine UA NEGATIVE (NEGATIVE); Color Urine UA YELLOW; Glucose Urine UA NEGATIVE (Negative); Ketones Urine UA NEGATIVE (NEGATIVE); Leukocyte Esterase Urine UA NEGATIVE (NEGATIVE); Nitrite Urine UA NEGATIVE (Negative); Occult Blood Urine UA TRACE-LYSED (Negative); Protein Urine UA NEGATIVE (Negative); Specific Gravity Urine UA 1.015 (1.000-1.035); Urobilinogen Urine UA 0.2 E.U./dL (0.2)
[2021-04-20 20:14] LABS: Bacteria Urine Many (>30); Culture Indicated Urine Specimen Cultured; RBC Urine 0-1/HPF (0-5/HPF); Squamous Epithelial Cell Urine 0-1 /HPF (0-5/HPF); WBC Urine 1-5/HPF (0-5/HPF)
[2021-04-20] MEDS: METOPROLOL TARTRATE 5 MG/5 ML INJ IV ×3 (20:27→21:00)
--- NOTE | 2021-04-20 21:22 | PC.NURSE ---
I/O cath produced 750ml output.
[2021-04-20] MEDS: NICARDIPINE 25 MG in SODIUM CHLORIDE 0.9% 240 ML 50 ML IV (22:06)
[2021-04-20] MEDS: AMLODIPINE 5 MG TABLET 10 MG PO (22:40)
[2021-04-20] MEDS: ACETAMINOPHEN 325 MG TABLET 650 MG PO (23:01)
[2021-04-21] VITALS (76 sets, daily range): BP systolic 128–203; BP diastolic 59–109; PULSE 76–97; RESP 14–38; TEMP 36.2–36.8; O2SAT 90–97; BMI 33.7
[2021-04-21 00:44] LABS: Troponin I 0.017 ng/mL (0.01-0.034)
[2021-04-21 01:51] LABS: NT-proBNP (BNP-Adult 18+) 1170 pg/mL (<450)
[2021-04-21 02:20] LABS: Magnesium 1.8 mg/dL (1.6-2.3)
--- NOTE | 2021-04-21 03:16 | P.HP_ITS ---
History of Present Illness History of Present Illness Date Patient Seen: 04/21/21 Time Patient Seen: 00:11 Chief complaint: Fall on ground 5 hours + blood thinners Narrative: Denice Torres is a 85-year-old woman with a history of hypertension, hyperlipidemia, atrial fibrillation on Eliquis, COPD, chronic gloabal weakness, frequent falls and dementia with hallucinations. She lives with her daughter and is home alone while her daughter works. Frequent calls to the paramedics, often declining transport frequent falling with calls for lift assist. Earlier yesterday while her daughter was out the patient had a ground level fall, states that she did not hit her head but is unable to recall details, is a poor historian due to dementia. The daughter is unsure how long her mother was down. Patient was assessed for admit in the emergency department. She denies chest pain, SOB, body aches, fever, headaches, specific localized weakness, abdominal pain, nausea, vomiting, diarrhea, chills, no changes in medications. She does note a slight cough, she has had a Serafin & Serafin vaccine. She was admitted April 03, January 13, July 27 and July 09 for similar findings. She is globally weak, sitting in the bed she continues to drift to the left side, mild left facial droop that she can correct for when it is pointed out. Speech is fluent but she is having mild word-finding difficulties (likely more related to dementia rather than aphasia). She is favoring of the left side was noted on documentation on last hospitalization 04/03/2021, also the daughter at the bedside notes that previous visits with the patient's PCP has noted worsening dementia symptoms which would imply that the patient has been diagnosed with dementia for a longer period than previously thought. The daughter also notes that the patient's home blood pressures have been running in the 180s to 190 systolic for some time, which is was represented on last admits b/p's. In the ED the patient was placed on a nicardipine drip for hypertensive urgency BP's were 181/79, 190/73, 178/86-patient was stable and asymptomatic. Upon admit temp 97.6?, BP 178/86, HR 87, R 19, O2 saturation 96% on room air patient's CBC normal, CMP grossly normal, BNP 1160, initial troponin 1. 0.014, lipase normal, patient's urine was positive for large amount of bacteria was sent for culture. Patient's chest x-ray demonstrated no acute airspace opacity, was positive for cardiomegaly a and hiatal hernia. Patient's head CT was negative for any acute intracranial processes. Patient's EKG demonstrated atrial flutter with a rate of 86-did not meet STEMI criteria. Patient admitted for hypertensive urgency, with atrial flutter, ground level fall in the setting of frequent fall, secondary to global weakness, and left-sided neurological deficit. Patient History Medical History (Updated 04/21/21 @ 03:47 by SIMON Robins-JAMES) Atrial fibrillation COPD (chronic obstructive pulmonary disease) Dementia Failure to thrive in adult Frequent falls Hallucination Hypertension Hypertensive urgency Surgical History No pertinent past surgical history Family & Social History Family History Mother CVA (cerebral vascular accident) Father CVA (cerebral vascular accident) Social History: household members children Safety & Behavioral: Feels Safe in Current Yes, lives with daughter-home alone while daughter works Environment Been Physically Hurt or No Threatened By a Person Tobacco & Substance use: Smoking Status Never smoker alcohol intake frequency holiday/special occasion Substance Use Type does not use Meds Home Medications and Allergies Home Medications Medication Instructions Recorded Confirmed Type apixaban 5 mg tablet (Eliquis) 5 mg PO BID 01/11/21 04/04/21 History fluticasone propionate 50 1 spray INTRANASAL DAILY 01/11/21 04/04/21 History mcg/actuation nasal spray,suspension loratadine 10 mg tablet 10 mg PO DAILY 01/11/21 04/04/21 History metoprolol succinate 50 mg 50 mg PO DAILY 01/11/21 01/11/21 History tablet,extended release 24 hr montelukast 10 mg tablet 10 mg PO DAILY 01/11/21 01/11/21 History simvastatin 40 mg tablet 40 mg PO DAILY 01/11/21 04/04/21 History telmisartan 80 mg tablet 80 mg PO DAILY 01/11/21 01/11/21 History Allergies Allergy/AdvReac Type Severity Reaction Status Date / Time chlorpheniramine Allergy Severe Anaphylaxis Verified 04/03/21 23:33 [From Actifed Cold-Allergy] phenylephrine Allergy Severe Anaphylaxis Verified 04/03/21 23:33 [From Actifed Cold-Allergy] pseudoephedrine Allergy Severe Anaphylaxis Verified 04/03/21 23:33 [From Actifed Cold-Allergy] triprolidine Allergy Severe Anaphylaxis Verified 04/03/21 23:33 [From Actifed Cold-Allergy] Review of Systems Review of Systems Narrative: Patient unable to adequately participate in HPI or ROS due to dementia. Exam Vital Signs (past 8 hours): - 04/20/21 19:30 04/20/21 19:35 04/20/21 19:40 Pulse Rate 90 76 79 Respiratory Rate 18 16 16 Blood Pressure Pulse Oximetry 99 97 98 04/20/21 19:45 04/20/21 19:50 04/20/21 19:55 Pulse Rate 84 89 81 Respiratory Rate 17 17 17 Blood Pressure Pulse Oximetry 98 99 99 04/20/21 20:00 04/20/21 20:04 04/20/21 20:05 Pulse Rate 80 79 82 Respiratory Rate 17 18 Blood Pressure 223/93 H Pulse Oximetry 99 98 04/20/21 20:10 04/20/21 20:15 04/20/21 20:16 Pulse Rate 91 H 85 83 Respiratory Rate 18 19 21 Blood Pressure 195/108 H Pulse Oximetry 99 99 100 04/20/21 20:20 04/20/21 20:25 04/20/21 20:27 Pulse Rate 88 90 88 Respiratory Rate 22 19 18 Blood Pressure 192/81 H Pulse Oximetry 100 100 99 04/20/21 20:30 04/20/21 20:33 04/20/21 20:35 Pulse Rate 90 79 78 Respiratory Rate 18 17 17 Blood Pressure 214/84 H 202/86 H Pulse Oximetry 100 100 100 04/20/21 20:38 04/20/21 20:40 04/20/21 20:45 Pulse Rate 78 79 79 Respiratory Rate 17 17 17 Blood Pressure 192/81 H 202/86 H Pulse Oximetry 100 100 100 04/20/21 20:50 04/20/21 20:53 04/20/21 20:55 Pulse Rate 77 80 72 Respiratory Rate 16 17 17 Blood Pressure 205/84 H Pulse Oximetry 100 99 99 04/20/21 20:57 04/20/21 20:58 04/20/21 21:00 Pulse Rate 79 79 79 Respiratory Rate 18 20 17 Blood Pressure 210/91 H 210/91 H Pulse Oximetry 100 100 100 04/20/21 21:05 04/20/21 21:09 04/20/21 21:10 Pulse Rate 79 79 80 Respiratory Rate 16 19 18 Blood Pressure 202/93 H Pulse Oximetry 100 99 99 04/20/21 21:12 04/20/21 21:15 04/20/21 21:20 Pulse Rate 79 79 79 Respiratory Rate 18 18 Blood Pressure 202/93 H Pulse Oximetry 98 100 99 04/20/21 21:25 04/20/21 21:30 04/20/21 21:35 Pulse Rate 79 80 80 Respiratory Rate 19 16 18 Blood Pressure Pulse Oximetry 100 99 99 04/20/21 21:40 04/20/21 21:45 04/20/21 21:50 Pulse Rate 80 84 80 Respiratory Rate 18 17 18 Blood Pressure Pulse Oximetry 99 98 98 04/20/21 21:55 04/20/21 22:00 04/20/21 22:05 Pulse Rate 84 80 79 Respiratory Rate 18 23 Blood Pressure Pulse Oximetry 99 97 97 04/20/21 22:07 04/20/21 22:10 04/20/21 22:15 Pulse Rate 80 80 79 Respiratory Rate 25 H 25 H 24 Blood Pressure 206/84 H 201/84 H 178/77 H Pulse Oximetry 97 97 96 04/20/21 22:20 04/20/21 22:25 04/20/21 22:30 Pulse Rate 79 79 69 Respiratory Rate 25 H Blood Pressure 178/73 H 144/70 H Pulse Oximetry 97 97 96 04/20/21 22:35 04/20/21 22:36 04/20/21 22:40 Pulse Rate 85 87 83 Respiratory Rate 22 Blood Pressure 190/75 H 170/74 H Pulse Oximetry 96 95 96 04/20/21 22:45 04/20/21 22:50 04/20/21 22:51 Pulse Rate 88 81 85 Respiratory Rate 26 H 25 H 19 Blood Pressure 178/72 H Pulse Oximetry 97 97 97 04/20/21 22:55 04/20/21 22:56 04/20/21 23:00 Pulse Rate 95 H 83 88 Respiratory Rate 25 H 19 Blood Pressure 183/77 H 182/75 H Pulse Oximetry 97 98 97 04/20/21 23:05 04/20/21 23:10 04/20/21 23:11 Pulse Rate 82 81 Respiratory Rate 18 24 Blood Pressure 181/79 H 165/67 H Pulse Oximetry 97 97 97 04/20/21 23:15 04/20/21 23:16 04/20/21 23:20 Pulse Rate 81 80 83 Respiratory Rate 23 18 22 Blood Pressure 190/73 H 168/71 H Pulse Oximetry 97 97 96 04/20/21 23:25 04/20/21 23:26 04/20/21 23:31 Pulse Rate 83 80 150 H Respiratory Rate 23 Blood Pressure 178/86 H Pulse Oximetry 98 98 04/20/21 23:35 04/20/21 23:40 04/20/21 23:44 Pulse Rate 87 87 83 Respiratory Rate 19 18 Blood Pressure 164/64 H Pulse Oximetry 97 96 97 04/20/21 23:45 04/20/21 23:46 04/20/21 23:50 Pulse Rate 80 81 82 Respiratory Rate 17 18 20 Blood Pressure 166/70 H 144/74 H Pulse Oximetry 97 97 97 04/20/21 23:55 04/21/21 00:00 04/21/21 00:05 Pulse Rate 81 87 86 Respiratory Rate 17 23 24 Blood Pressure 154/72 H 168/73 H Pulse Oximetry 96 95 95 04/21/21 00:06 04/21/21 00:10 04/21/21 00:15 Pulse Rate 85 83 79 Respiratory Rate 22 24 18 Blood Pressure 168/67 H 157/68 H 160/70 H Pulse Oximetry 96 95 96 04/21/21 00:20 04/21/21 00:25 04/21/21 00:29 Pulse Rate 81 79 81 Respiratory Rate 22 24 35 H Blood Pressure 157/72 H 182/79 H Pulse Oximetry 96 96 95 04/21/21 00:30 04/21/21 00:35 04/21/21 00:40 Pulse Rate 80 79 79 Respiratory Rate 29 H 26 H 26 H Blood Pressure 157/69 H 161/70 H Pulse Oximetry 95 95 95 04/21/21 00:41 04/21/21 00:45 04/21/21 00:50 Pulse Rate 80 80 79 Respiratory Rate 23 17 23 Blood Pressure 166/85 H 153/67 H 153/63 H Pulse Oximetry 96 96 95 04/21/21 00:55 04/21/21 01:00 04/21/21 01:05 Pulse Rate 85 81 81 Respiratory Rate 19 30 H 32 H Blood Pressure 151/65 H 155/70 H 150/59 H Pulse Oximetry 97 96 96 04/21/21 01:10 Pulse Rate 83 Respiratory Rate 27 H Blood Pressure Pulse Oximetry 94 Oxygen Delivery Method Room Air Narrative Exam Narrative: GEN: Noemy obese elderly female in no acute distress at this time. HEENT: moist mucous membranes, PERRLA NECK: trachea midline, no JVD CV: irregular rate and rhythm with no murmurs PULM: Clear auscultation of all lobes, with occasional scattered wheezing throughout. ABD: soft, nontender, nondistended, no organomegaly, normal bowel sounds x4, no rebound, No CVA tenderness, no suprapubic tenderness. EXT: warm and well perfused, no joint tenderness, mild effusion to the left knee, slight non-pitting edema bilateral lower extremities. NEURO: no focal deficits, but does have some facial asymmetry and leans preferentially to the left. falls asleep easily, mildly confused, verbalizes active hallucination. PSYCH: pleasant, cooperative, no insight/cognitive thinking skills inappropriate for age, but congruent with a diagnosis of dementia. Objective Labs Result Diagrams: 04/20/21 18:37 04/20/21 18:37 Labs: Laboratory Results - last 24 hr 04/20/21 04/20/21 04/20/21 18:24 18:37 18:37 WBC 6.7 RBC 4.63 Hgb 13.6 Hct 40.8 MCV 88.1 MCH 29.4 MCHC 33.4 RDW 13.3 Plt Count 294 Neut % (Auto) 77.9 H Lymph % (Auto) 14.1 L Bee % (Auto) 6.6 Eos % (Auto) 1.0 L Baso % (Auto) 0.4 Neut # (Auto) 5200 Lymph # (Auto) 900 L Bee # (Auto) 400 Eos # (Auto) 100 Baso # (Auto) 0 Sodium 141 Potassium 4.0 Chloride 104 Carbon Dioxide 30 BUN 22 H Creatinine 0.92 Estimated GFR 58.3 L BUN/Creatinine Ratio 23.9 H Glucose 126 H Lactate Calcium 9.6 Magnesium Total Bilirubin 1.3 AST 27 ALT 17 Alkaline Phosphatase 173 H Troponin I NT-Pro-B Natriuret Pep Total Protein 7.8 Albumin 4.4 Globulin 3.4 Albumin/Globulin Ratio 1.3 Lipase Urine Color Urine Appearance Urine pH Ur Specific [place] Urine Protein Urine Glucose (UA) Urine Ketones Urine Occult Blood Urine Nitrate Urine Bilirubin Urine Urobilinogen Ur Leukocyte Esterase Urine RBC Urine WBC Ur Squamous Epith Cells Urine Bacteria Ur Culture Indicated? SARS-CoV-2 (PCR) Negative 04/20/21 04/20/21 04/20/21 18:37 18:37 19:58 WBC RBC Hgb Hct MCV MCH MCHC RDW Plt Count Neut % (Auto) Lymph % (Auto) Bee % (Auto) Eos % (Auto) Baso % (Auto) Neut # (Auto) Lymph # (Auto) Bee # (Auto) Eos # (Auto) Baso # (Auto) Sodium Potassium Chloride Carbon Dioxide BUN Creatinine Estimated GFR BUN/Creatinine Ratio Glucose Lactate 1.3 Calcium Magnesium 1.9 Total Bilirubin AST ALT Alkaline Phosphatase Troponin I 0.014 NT-Pro-B Natriuret Pep 1160 H Total Protein Albumin Globulin Albumin/Globulin Ratio Lipase 249 Urine Color Yellow Urine Appearance Clear Urine pH 5.0 Ur Specific [place] 1.015 Urine Protein Negative Urine Glucose (UA) Negative Urine Ketones Negative Urine Occult Blood Trace-lysed Urine Nitrate Negative Urine Bilirubin Negative Urine Urobilinogen 0.2 Ur Leukocyte Esterase Negative Urine RBC 0-1/hpf Urine WBC 1-5/hpf Ur Squamous Epith Cells 0-1 /hpf Urine Bacteria Many (>30) H Ur Culture Indicated? Specimen cultured SARS-CoV-2 (PCR) 04/21/21 04/21/21 04/21/21 00:15 00:15 00:15 WBC RBC Hgb Hct MCV MCH MCHC RDW Plt Count Neut % (Auto) Lymph % (Auto) Bee % (Auto) Eos % (Auto) Baso % (Auto) Neut # (Auto) Lymph # (Auto) Bee # (Auto) Eos # (Auto) Baso # (Auto) Sodium Potassium Chloride Carbon Dioxide BUN Creatinine Estimated GFR BUN/Creatinine Ratio Glucose Lactate Calcium Magnesium 1.8 Total Bilirubin AST ALT Alkaline Phosphatase Troponin I 0.017 NT-Pro-B Natriuret Pep 1170 H Total Protein Albumin Globulin Albumin/Globulin Ratio Lipase Urine Color Urine Appearance Urine pH Ur Specific [place] Urine Protein Urine Glucose (UA) Urine Ketones Urine Occult Blood Urine Nitrate Urine Bilirubin Urine Urobilinogen Ur Leukocyte Esterase Urine RBC Urine WBC Ur Squamous Epith Cells Urine Bacteria Ur Culture Indicated? SARS-CoV-2 (PCR) Assessment & Plan Assessment & Plan narrative: Denice Torres is a 85-year-old woman with a history of hypertension, hyperlipidemia, atrial fibrillation on Eliquis, COPD, chronic gloabal weakness, frequent falls and dementia with hallucinations. Earlier yesterday while her daughter was out the patient had a ground level fall, states that she did not hit her head, unable to verify how long the patient was down or if she hit her head. Patient admitted for hypertensive urgency, with atrial flutter, ground level fall in the setting of frequent fall, secondary to global weakness, and left-sided neurological deficit. The patient requires ruleout of stroke, assessment of global weakness, referral to SNF for rehab, and AERONAUTICAL RESEARCH ENGINEER evaluation to help daughter with support services to provide a safe environment for the patients care. As the patient has failed outpatient care multiple times resulting in multiple hospitalizations, and visits from paramedics. 1.Hypertensive urgency, acute on chronic, with atrial flutter, in the setting chronic permanent atrial fibrillation and HTN, uncontrolled, acute on chronic, present on admission-patient is stable and asymptomatic -patient's meds: Metoprolol 50 mg once daily Telimasarten 80mg QD -placed on nicardipine drip in ED -recommend increasing doage of B/P meds Metoprolol XL 75 mg once daily -Do not have telimasarten available increased losartan to 50 mg b.i.d.- monitor for hypotension or bradycardia -continue Eliquis -Patient admitted to ICU for nicardipine drip. Monitored on telemed- will stop drip if sustained HR<90 & SBP<160/DBP <100-pt asymptomatic. -Trend troponins, echo ordered for tomorrow. -out pt f/u with PCP r/t B/P 2. Ground level fall, acute on chronic, in the setting of frequent falls, secondary to global weakness, acute on chronic, and left-sided neurological deficit, acute on chronic, present on admission. -etiology unclear, believe this to be slowly progressive could be worsening dementia, possible UTI exacerbating symptoms.Low threshold for a stroke as this is the same presentation on last admit and imaging was negative, but repeating MRI to R/O stroke. Head CT was negative. (ativan for MRI-claustrophobia) - Blood & Urine culture pending. -Rocephin 2 g IV now followed by 1 g Q 24 hours- broad spectrum empiric therapy for UTI. -recommended last admission to f/u neurology -I discussed with the daughter that I strongly recommend 24hr around the clock supervision for her mothers safety, as her level of function is likely only to continue to decline. -Placed on FALL precautions -order PT/OT, AERONAUTICAL RESEARCH ENGINEER- recommend pt go to a SNF for Rehab 3. COPD, chronic, present on admission -no exacerbation, currently stable -continue montelukast 4. Dementia with hallucinations, acute on chronic, present on admission -Patient is pleasant, confused and unable to provide accurate HPI & ROS. The daughter seems to imply this is the patients base-line & has been for sometime, though with noted consistent decline- that she verbalizes has been told to her by the patients PCP. -needs neurological evaluation 5. Overweight as evidence by BMI of 31.5, acute on chronic, present on admit -consideration will be given for dietary counseling CODE: DNR/DNI Surrogate decision maker: Jose Manuel Torres, Daughter DVT ppx: SCD's & eliquis Covid PCR: Negative Disposition: Estimated length of stay, less than 2 midnights I confirmed that the patient's advanced care plan is present, Code status is documented and/or surrogate decision maker is listed in the patient's medical record. I have utilized all available immediate resources to obtain, update, or review the patient's current medications. Time Spent With Patient Critical Care time: I spent a total of [] minutes of critical care time on this patient's care today; this time is exclusive of procedural time.
--- NOTE | 2021-04-21 03:29 | DI.MRI.S_ITS ---
PROCEDURE: MR STROKE Pre- and post-contrast brain MRI, non-contrast brain MR angiogram, pre- and postcontrast neck MR angiogram INDICATIONS: GLF, left sided weakness, global weakness TECHNIQUE: Brain: Noncontrast axial T1 spin echo, axial T2 fast spin echo, sagittal and axial FLAIR, coronal T2 fast spin echo, axial gradient echo, axial diffusion and ADC through the brain. After the administration of contrast, axial 3D VIBE of the cranial vasculature and brain. Brain MRA: Non-contrast 3-D time of flight MR angiogram, with multiple sdbkhpf-idpxedjsn-tjvcejkxoa (MIP) reformats performed. Neck MRA: Axial and sagittal TruFISP through the neck. Coronal dynamic MR angiogram during administration of contrast in the arterial and venous phases, with 3-dimenstional vssfzsw-iqyoapsne-zccihmlmiu (MIP) reformats constructed from subtraction images. COMPARISON: None. FINDINGS: Severely motion degraded examination. BRAIN: CSF spaces: Ventricles are grossly unremarkable. Basal cisterns are patent. No extra-axial fluid collections. Brain: No midline shift. No intracranial bleeds or masses. Aranda-white matter interface appears intact. No acute ischemia. No abnormal enhancement. Scattered small white matter changes, probably represent chronic microvascular ischemic disease, versus statistically less likely demyelination or other infectious, inflammatory, neurodegenerative etiology, technically nonspecific. Skull and face: Calvarium and facial bones appear intact. Orbits appear normal. Sinuses: Sinuses and mastoids are clear. HEAD MR ANGIOGRAPHY: Anterior circulation: Intracranial internal carotid arteries (ICA): Patent. Anterior cerebral arteries (IVA): Patent. Middle cerebral arteries (MCA): Patent. Other: No aneurysms are seen. Posterior circulation: In Visualized portions of the vertebral arteries: Patent. Basilar artery: Patent. Posterior cerebral arteries (ADVERTISING AGENT): Patent. Other: No aneurysms are seen. NECK MR ANGIOGRAPHY: Carotid system: Common carotid artery (CCA) origins: Patent. Common carotid arteries (CCA): Patent. Internal carotid arteries (ICA): Patent. Posterior circulation: Vertebral artery origins: Dominant appearance of the left vertebral artery. There is diffuse narrowing of the right vertebral artery Extracranial portions of both vertebral arteries: Patent. Basilar artery: Patent. Soft tissues: Visualized neck soft tissues demonstrate no suspicious abnormalities. Bones: No suspicious bony lesions. Cervical spondylosis and facet arthropathy. IMPRESSION: BRAIN MRI: Severely motion degraded examination. No evidence of acute ischemia identified. Diffuse small white matter changes, probably represent chronic microvascular ischemic disease, versus statistically less likely demyelination or other infectious, inflammatory, neurodegenerative etiology, technically nonspecific. BRAIN MR ANGIOGRAM: No focal intracranial stenosis or occlusion. NECK MR ANGIOGRAM: Dominant appearance of the left vertebral artery. 50% focal stenosis of the proximal left vertebral artery. No hemodynamically significant right ICA stenosis. Dictated by: Al Dawn M.D. on 04/21/2021 at 11:47 Approved by: Al Dawn M.D. on 04/21/2021 at 12:00
--- NOTE | 2021-04-21 04:24 | DI.ECHO.S_ITS ---
[place] +---------+ Hospital +---------+ : : [address] : : : : [id number] : : : : Phone: [phone] Echocardiogram Report + + :Name: WILDER DIAS Study Date: 04/21/2021 Height: 65 in : :[facility] ReadingLocation: Weight: 189 lb : : Gender: Female BSA: 1.9 m2 : :: 1935 Age: 85 yrs BP: 148/69 mmHg: :Reason For Study: HYPERTENSION URGENCY, ATRIAL FLUTTER : :Ordering Physician: NONA, : :CHETAN Performed By: Chica Robin : :Referring: CHETAN CASTELLANO : + + Interpretation Summary The patient was in atrial flutter with heart rates between 59-89 bpm during the exam. Mild concentric left ventricular hypertrophy with ejection fraction 60-65%. Severe biatrial enlargement. Mild aortic regurgitation. Mild mitral annular calcification. Mild mitral regurgitation. Mild tricuspid regurgitation. Procedure: A two-dimensional transthoracic echocardiogram with color flow and Doppler was performed. The study quality was technically adequate. There is no prior echocardiogram noted for this patient. The patient was in atrial flutter with heart rates between 59-89 bpm during the exam. Left Ventricle: The left ventricle is normal in size. There is mild concentric left ventricular hypertrophy. The ejection fraction is estimated to be 60-65%. There are no focal wall motion abnormalities. Right Ventricle: The right ventricle is normal in size and function. Atria: There is severe biatrial enlargement. There is no Doppler evidence for an interatrial shunt. Mitral Valve: The mitral valve leaflets appear mildly thickened, but open well. There is mild mitral annular calcification. There is mild mitral regurgitation. Aortic Valve: The aortic valve is trileaflet. The aortic valve opens well. There is no aortic valve stenosis. There is mild aortic regurgitation. Tricuspid Valve: The tricuspid valve is normal in structure and function. There is mild tricuspid regurgitation. Pulmonary artery pressures cannot be estimated because of the lack of a measurable TR jet velocity but the IVC suggests a CVP of around 15 mmHg. Pulmonic Valve: The pulmonic valve is not well visualized. There is trace pulmonic regurgitation. Great Vessels: The aortic root is normal size. The dimensions of the ascending aorta are normal. The IVC is dilated (diameter is greater than 2.1 cm) and it collapses less than 50% with a sniff. This suggests a high right atrial pressure of 15 mm Hg. Pericardium/ Pleura There is no pericardial effusion. There is no pleural effusion. MMode/2D Measurements & Calculations LVIDd: 4.4 cm LVOT diam: 2.0 cm LVIDs: 2.7 cm Ao root diam: 3.2 cm FS: 37.7 % asc Aorta Diam: 3.2 cm IVSd: 0.92 cm LVPWd: 1.4 cm LV garsia. diameter/BSA (cm/m^2): 2.3 LV sys. diameter/BSA (cm/m^2): 1.4 LA A2 area: 30.2 cm2 RA long axis: 6.8 cm LA A4 area: 36.5 cm2 RA area: 27.1 cm2 LA length (vol): 7.6 cm RA vol: 91.2 ml LA vol: 122.4 ml RA : 47.3 ml/m2 LA vol index: 63.4 ml/m2 IVC diam: 2.7 cm RVD1 (basal): 3.2 cm TAPSE: 2.0 cm Doppler Measurements & Calculations Ao V2 max: 114.9 cm/sec LVOT Max Marquis: 61.5 cm/sec Ao V2 mean: 80.1 cm/sec LV V1 max P.5 mmHg Ao max P.3 mmHg LV V1 VTI: 16.7 cm Ao mean P.9 mmHg MARCY(I,D): 2.0 cm2 Ao V2 VTI: 26.5 cm MARCY(V,D): 1.7 cm2 sev ratio: 0.63 MARCY indexed to BSA (cm^2/m^2): 1.0 MV E max marquis: 100.8 cm/sec PA V2 max: 67.3 cm/sec MV A max marquis: 2.4 cm/sec PA V2 mean: 47.5 cm/sec MV E/A: 42.1 PA mean P.0 mmHg Med Peak E' Marquis: 6.7 cm/sec E/E' med: 15.1 Lat Peak E' Marquis: 7.3 cm/sec E/E' lat: 13.9 E/e' average: 14.5 MV dec time: 0.18 sec SV(LVOT): 52.5 ml Electronically signed by: Marcy Ram on Reading Physician:04/21/2021 03:08 PM
[2021-04-21] MEDS: cefTRIAXone 2,000 MG in SODIUM CHLORIDE 0.9% 100 ML 200 ML IV (05:36)
--- NOTE | 2021-04-21 07:27 | PC.ADMIT ---
[email or web address] Admission Note: The patient,Denice Torres,85 y/o, was given written information regarding hospital policies, unit procedures and contact persons. Patient's smoking status: Never smoker. Vital Signs - 8 hr 04/20/21 23:31 04/20/21 23:35 04/20/21 23:40 Temperature Pulse Rate 150 H 87 87 Respiratory Rate 19 Blood Pressure Pulse Oximetry 97 96 04/20/21 23:44 04/20/21 23:45 04/20/21 23:46 Temperature Pulse Rate 83 80 81 Respiratory Rate 18 17 18 Blood Pressure 164/64 H 166/70 H Pulse Oximetry 97 97 97 04/20/21 23:50 04/20/21 23:55 04/21/21 00:00 Temperature Pulse Rate 82 81 87 Respiratory Rate 20 17 23 Blood Pressure 144/74 H 154/72 H 168/73 H Pulse Oximetry 97 96 95 04/21/21 00:05 04/21/21 00:06 04/21/21 00:10 Temperature Pulse Rate 86 85 83 Respiratory Rate 24 22 24 Blood Pressure 168/67 H 157/68 H Pulse Oximetry 95 96 95 04/21/21 00:15 04/21/21 00:20 04/21/21 00:25 Temperature Pulse Rate 79 81 79 Respiratory Rate 18 22 24 Blood Pressure 160/70 H 157/72 H 182/79 H Pulse Oximetry 96 96 96 04/21/21 00:29 04/21/21 00:30 04/21/21 00:35 Temperature Pulse Rate 81 80 79 Respiratory Rate 35 H 29 H 26 H Blood Pressure 157/69 H 161/70 H Pulse Oximetry 95 95 95 04/21/21 00:40 04/21/21 00:41 04/21/21 00:45 Temperature Pulse Rate 79 80 80 Respiratory Rate 26 H 23 17 Blood Pressure 166/85 H 153/67 H Pulse Oximetry 95 96 96 04/21/21 00:50 04/21/21 00:55 04/21/21 01:00 Temperature Pulse Rate 79 85 81 Respiratory Rate 23 19 30 H Blood Pressure 153/63 H 151/65 H 155/70 H Pulse Oximetry 95 97 96 04/21/21 01:05 04/21/21 01:10 04/21/21 01:35 Temperature Pulse Rate 81 83 78 Respiratory Rate 32 H 27 H 17 Blood Pressure 150/59 H Pulse Oximetry 96 94 95 04/21/21 01:36 04/21/21 01:40 04/21/21 01:45 Temperature Pulse Rate 76 80 79 Respiratory Rate 16 17 16 Blood Pressure 154/67 H 165/72 H Pulse Oximetry 95 97 95 04/21/21 01:50 04/21/21 01:55 04/21/21 02:00 Temperature Pulse Rate 79 78 82 Respiratory Rate 18 20 23 Blood Pressure 150/102 H Pulse Oximetry 96 95 97 04/21/21 02:05 04/21/21 02:10 04/21/21 02:15 Temperature Pulse Rate 90 80 80 Respiratory Rate 27 H 18 22 Blood Pressure Pulse Oximetry 04/21/21 02:16 04/21/21 02:20 04/21/21 02:25 Temperature Pulse Rate 90 79 79 Respiratory Rate 20 18 Blood Pressure 151/109 H Pulse Oximetry 04/21/21 02:30 04/21/21 02:35 04/21/21 02:40 Temperature Pulse Rate 79 79 86 Respiratory Rate 21 Blood Pressure 151/79 H Pulse Oximetry 04/21/21 02:45 04/21/21 02:46 04/21/21 02:50 Temperature Pulse Rate 88 97 H 82 Respiratory Rate Blood Pressure 195/86 H Pulse Oximetry 04/21/21 02:55 04/21/21 02:56 04/21/21 03:00 Temperature Pulse Rate 82 79 80 Respiratory Rate 17 19 19 Blood Pressure 145/63 H 146/64 H Pulse Oximetry 93 93 92 04/21/21 03:05 04/21/21 03:10 04/21/21 03:15 Temperature Pulse Rate 80 79 83 Respiratory Rate Blood Pressure 144/65 H Pulse Oximetry 92 93 92 04/21/21 03:20 04/21/21 03:25 04/21/21 03:30 Temperature Pulse Rate 79 79 81 Respiratory Rate Blood Pressure Pulse Oximetry 91 91 92 04/21/21 03:35 04/21/21 03:40 04/21/21 03:45 Temperature Pulse Rate 79 97 H 79 Respiratory Rate Blood Pressure Pulse Oximetry 92 92 04/21/21 03:50 04/21/21 03:53 04/21/21 03:55 Temperature Pulse Rate 83 80 79 Respiratory Rate Blood Pressure 147/66 H Pulse Oximetry 91 92 94 04/21/21 04:00 04/21/21 04:05 04/21/21 04:10 Temperature Pulse Rate 79 82 79 Respiratory Rate Blood Pressure 156/67 H Pulse Oximetry 93 92 92 04/21/21 04:15 04/21/21 04:30 04/21/21 04:46 Temperature Pulse Rate 79 80 80 Respiratory Rate Blood Pressure 128/83 179/92 H 200/79 H Pulse Oximetry 92 92 92 04/21/21 05:05 04/21/21 05:44 04/21/21 05:51 Temperature 98.3 F Pulse Rate 79 79 Respiratory Rate 24 28 H Blood Pressure 148/74 H Pulse Oximetry 94 93 92 04/21/21 06:00 04/21/21 06:31 04/21/21 07:00 Temperature Pulse Rate 87 76 79 Respiratory Rate 31 H 16 17 Blood Pressure 163/68 H 170/73 H Pulse Oximetry 90 L 93 93 Patient admitted to ICU room 226 at 0505, drowsy and oriented to person and place, following simple directions. Has left UE and LE weakness, left face droop, left eye slightly closed with decreased vision. Denies pain. A-flutter CVR, BBB, BP 148/74, Nicardipine gtt off. Brief dry, declines urge to void. Abx hung as ordered.
[2021-04-21] MEDS: METOPROLOL ER 25 MG TABLET 75 MG PO (08:34)
[2021-04-21] MEDS: LOSARTAN 50 MG TABLET PO ×2 (08:34→20:19)
[2021-04-21] MEDS: SODIUM CHLORIDE 0.9% FLUSH 10 ML IV ×2 (08:35→22:24)
[2021-04-21] MEDS: LORazepam 0.5 MG TABLET PO (10:10)
--- NOTE | 2021-04-21 12:46 | ST.IPCSEOM ---
Visit Care Team Role Provider Type Lory Hammer MD Primary Care Provider Non-Staff Specialty: Medical Address: [address] [place] [address], [id number] Email: Nas Walker MD Other Providers Physician Specialty: Medical Address: Phone: Fax: Email: Valerie Shepard MD Other Providers Physician Specialty: Medical Address: Phone: Fax: Email: Cynthia Messina MD Other Providers Physician Specialty: Medical Address: Phone: Fax: Email: Gucci Fall MD Other Providers Physician Specialty: Medical Address: Phone: Fax: Email: Fredrick Patiño MD Other Providers Physician Specialty: Medical Address: Phone: Fax: Email: Enrique Mcintyre MD Other Providers Physician Specialty: Medical Address: Phone: Fax: Email: Kory Ball MD Other Providers Physician Specialty: Medical Address: Phone: Fax: Email: Bay Lewis MD Other Providers Physician Specialty: Medical Address: Phone: Fax: Email: Castro Messina MD Other Providers Physician Specialty: Medical Address: Phone: Fax: Email: Bandar Ceballos MD Other Providers Physician Specialty: Medical Address: Phone: Fax: Email: Drew Bello MD Other Providers Physician Specialty: Medical Address: Phone: Fax: Email: Maria E Rodgers MD Emergency Provider Physician Referring Provider Specialty: Emergency Medicine Address: [address] [place] [address], [facility] Email: [facility] Admit Provider Physician Attending Provider Specialty: Medical Address: [address] [place] [address], [id number] Email: Past Medical History (Last Updated 04/21/21 @ 09:18 by Rosemary Leal RN) Atrial fibrillation (Medical) Breast cancer (Medical) Lymph nodes removed COPD (chronic obstructive pulmonary disease) (Medical) Dementia (Medical) 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) Frequent falls (Medical) Hallucination (Medical) History of hysterectomy (Medical) Hypertension (Medical) Hypertensive urgency (Medical) No pertinent past surgical history (Medical) Speech-Language Pathology Swallow Evaluation 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 CONSERVATOR Clinical Swallow Evaluation Start: 04/21/21 10:21 Freq: Status: Active Protocol: Document 04/21/21 10:22 CLEO (Rec: 04/21/21 10:34 ZS [id number]) Clinical Swallow Evaluation Session Time Visit Start Time 09:10 Visit Stop Time 10:10 Total Visit Minutes 60 Setting Assessment Location Acute Care Visit Type Note Type Initial evaluation Next Note Type Next Note Type Treatment Note Patient Information Identification Type Name,Wristband History Denice Torres is a 85-year- old woman with a history of hypertension, hyperlipidemia, atrial fibrillation on Eliquis , COPD, chronic gloabal weakness, frequent falls and dementia with hallucinations. She lives with her daughter and is home alone while her daughter works. Frequent calls to the paramedics, often declining transport frequent falling with calls for lift assist. Earlier yesterday while her daughter was out the patient had a ground level fall, states that she did not hit her head but is unable to recall details, is a poor historian due to dementia. The daughter is unsure how long her mother was down. She denies chest pain, SOB, body aches, fever, headaches, specific localized weakness, abdominal pain, nausea, vomiting, diarrhea, chills, no changes in medications. She does note a slight cough, she has had a Serafin & Serafin vaccine. She was admitted April 03, January 13, July 27 and July 09 for similar findings. She is globally weak, sitting in the bed she continues to drift to the left side, mild left facial droop that she can correct for when it is pointed out. Speech is fluent but she is having mild word- finding difficulties (likely more related to dementia rather than aphasia). She is favoring of the left side was noted on documentation on last hospitalization 04/03/2021, also the daughter at the bedside notes that previous visits with the patient's PCP has noted worsening dementia symptoms which would imply that the patient has been diagnosed with dementia for a longer period than previously thought. Patient's chest x-ray demonstrated no acute airspace opacity, was positive for cardiomegaly a and hiatal hernia. Patient's head CT was negative for any acute intracranial processes. Patient's EKG demonstrated atrial flutter with a rate of 86-did not meet STEMI criteria . Subjective Observations Denice was seated upright in her bed and about to eat breakfast when clinician arrived. She exhibited significant left side weakness and was leaning to the left with pillows to help her maintain an upright position. Reported by Patient Current Diet Regular,Thin liquids Baseline Feeding Method Needs some assistance Objective Assessment Mental Status Alert,Responsive,Cooperative Oral Integrity WFL Dentition Missing teeth,Decay,Dentures or partials present Lip Function Within normal limits Observation of Lips at Rest Symmetrical Pucker Within normal limits Alternating Pucker/Lip Retraction Within normal limits Tongue Function Mild impairment Observations of Tongue at Rest Within normal limits Tongue Protrusion Within normal limits Tongue Retraction Within normal limits Tongue Lateralization Within normal limits Jaw Function Within normal limits Observations of Jaw at Rest Within normal limits Jaw Opening Within normal limits Jaw Closing Within normal limits Hard/Soft Palate Function Within normal limits Observations of Hard/Soft Palate Within normal limits Comment Completed oral mechanism exam with Denice. Denice exhibited weakness in her left eye and some drooping on her left side , though her mouth and jaw were symmetrical at rest and in motion. Bilateral weakness noted on tongue lateralization , though ROM was WNL. Missing dentition and decay noted. Denice has about 15-20 teeth, mostly in the front of her mouth and mostly uppers. She expressed difficulty chewing due to limited teeth. Denice had a congested/gurgly vocal quality prior to eating anything. Vocal quality improved with a drink of water . Speech was clear and intelligible, though word finding difficulties were present. Denice independently talked around words and described objects when experiencing word finding difficulty. Some difficulty noted in tracking longer answers to questions (e.g., What do you need help with?), though Denice tracked a story as she told it to clinician from beginning to end with no difficulty. Food and Liquid Trials Position During Assessment Upright (90 degrees),In bed Liquids Trialed Thin Solids Trialed Puree,Mechanical Soft,Regular Administration Type Tea spoon,Straw,Self-feeding, Needs some assistance Oral Impairment Mildly impaired Oral Phase Comments Denice demonstrated difficulty getting food from plate to her mouth due to global weakness and impaired vision in her left eye. Anterior spillage due to hand and arm muscle weakness/incoordination more than labial weakness. Once food was in her mouth, Denice demonstrated timely and efficient mastication, though reported difficulty chewing with her limited dentition. Anterior posterior propulsion of bolus was WNL and no oral residue noted following swallow. Pharyngeal Impairment Within normal limits Pharyngeal Phase Comments No wet/gurgly vocal quality noted following food or liquid trials. Denice had a congested/ gurgly vocal quality when clinician arrived in room, but this was reduced following initial trial of water and gradually dissipated through session. She reported no difficulty with swallowing and exhibited no overt signs/ symptoms of aspiration. Fatigue/Endurance Moderate fatigue Comment Denice ate very little of her breakfast as she became fatigued and frustrated with trying to get food from the plate to her mouth. She spilled food frequently and began crying because she was having so much trouble with getting food to her mouth. Despite difficulty, Denice indicated she did not want to be fed. She was receptive to help in getting food positioned on a utensil and positioning food on the plate or in her hand, but did not want to be fed. Denice indicated some difficulty with chewing due to limited dentition, which may contribute to fatigue, though limited trials were completed. Findings Swallowing Function Oral phase dysphagia Severity of Swallow Impairment Mildly impaired Contributing Factors to Swallow Mastication inefficiency Impairment Prognosis Fair Based on Cognitive status,Family support,Age,Comorbidities, Duration of symptoms/severity Comment Denice presents with mild oral dysphagia secondary to limited dentition. Denice experiences difficulty with transportation of food from the plate to her mouth and experiences difficulty chewing, both of which contribute to fatigue when eating. Increased frustration and fatigue when eating contribute to limited oral intake during meals, which may result in poor nutrition/hydration. Recommend dysphagia mechanical diet for easier chewing and manipulation of food (e.g., cutting, scooping, moving food to mouth). Impact on Safety and Functioning Risk for inadequate nutrition/ hydration Recommendations Instrumental Assessment No Swallowing Treatment Yes Recommended Solids Dysphagia Mechanical Recommended Liquids Thin Other Recommendations Denice benefits from the use of bowls and large spoons when self-feeding. She requires some assistance with positioning of self and dishes during meals to help reduce frustration. Safety Precautions/Swallowing Feed only when alert,Reduce Recommendations distractions,Remain upright ( 90 degrees) during all oral intake,Upright position at least 30 minutes after meals, Small bites and sips when eating,Slow rate; swallow between bites,Set-up assistance,1 to 1 feeding assistance Medication Recommendations As Tolerated Education Patient/Caregiver Education Described results of evaluation,Patient expressed understanding of evaluation, Patient expressed agreement with goals & treatment plans, Patient expressed understanding of feeding recommendations,Patient requires further education/ training Goals Short-term Goals 1. Denice will independently use strategies in conversation with others when she is having difficulty finding a word. 2. Denice will safely tolerate least restrictive diet to meet her nutrition and hydration needs.
--- NOTE | 2021-04-21 13:56 | PT.IIE ---
Medical History (Last Updated 04/21/21 @ 09:18 by Rosemary Leal RN) Atrial fibrillation Breast cancer COPD (chronic obstructive pulmonary disease) Dementia Failure to thrive in adult Frequent falls Hallucination Hypertension Hypertensive urgency Physical Therapy Inpatient Evaluation/Re-Eval M1 PT/OT-IP Prior Functional Status Start: 04/21/21 08:53 Freq: NEEDED Status: Active Protocol: Document 04/21/21 13:59 CGR (Rec: 04/21/21 14:21 CGR [id number]) Medical Review Prior Functional Status Medical History Reviewed Yes Communication Pt is an effective verbal communicator. Mobility and Gait Pt was mobilizing with a 4ww at baseline. Activities of Daily Living and IADL's Pt was IND throughout the day (with multiple falls). Pt's daughter assists with showers and they have a home health aide that comes in 2 times a week for 4 hours a day. Prior Functional Level (Other details) Pt lives with her daughter who works M-F from 1330 to 2100. Social History Household Members children Living Arrangements House Number of Floors (Floors) Two Floors Number of Stairs To Enter/Railing? Pt has a ramp to enter the home and stays on the main level Home Equipment Front Wheel Walker,Four Wheel Walker,Bedside Commode,Raised Toilet Seat Without Armrests, Shower Seat without Backrest, Hand Held Shower,Grab Bars In Shower Employment Status Retired Additional Social History Comment Pt's son and daughter in law also check in on pt. M1 PT/OT-IP Prior Functional Status Start: 04/21/21 13:58 Freq: NEEDED Status: Active Protocol: Document 04/21/21 13:59 CGR (Rec: 04/21/21 14:21 CGR [id number]) Medical Review Prior Functional Status Medical History Reviewed Yes Communication Pt is an effective verbal communicator. Mobility and Gait Pt was mobilizing with a 4ww at baseline. Activities of Daily Living and IADL's Pt was IND throughout the day (with multiple falls). Pt's daughter assists with showers and they have a home health aide that comes in 2 times a week for 4 hours a day. Prior Functional Level (Other details) Pt lives with her daughter who works M-F from 1330 to 2100. Social History Household Members children Living Arrangements House Number of Floors (Floors) Two Floors Number of Stairs To Enter/Railing? Pt has a ramp to enter the home and stays on the main level Home Equipment Front Wheel Walker,Four Wheel Walker,Bedside Commode,Raised Toilet Seat Without Armrests, Shower Seat without Backrest, Hand Held Shower,Grab Bars In Shower Employment Status Retired Additional Social History Comment Pt's son and daughter in law also check in on pt. M2 PT-IP Current Condition Start: 04/21/21 08:53 Freq: NEEDED Status: Active Protocol: Document 04/21/21 13:56 AW (Rec: 04/21/21 14:36 AW [id number]) Physical Therapy Current Condition Current Condition Evaluation Date 04/21/21 Treatment Diagnosis sepsis, AMS; impaired mobility and gait M3 PT-IP Subjective Start: 04/21/21 08:53 Freq: NEEDED Status: Active Protocol: Document 04/21/21 13:56 AW (Rec: 04/21/21 14:36 AW [id number]) Subjective Physical Therapy Visit Type Type Initial Evaluation Visit Start Time 13:36 Visit Stop Time 13:56 Total Visit Minutes 20 Notes Co-tx with OT due to pt's high level of assist. Number of BOARD FILLER Visits 0 Physical Therapy Visit Comments Patient Comments Pt would like to try to use the [facility] Pain Assessment Pain When Pain Assessed During Mobility Pain Present Pain Present Unable to Respond FLACC Pain Scale Face Occasional grimace/frown Legs Uneasy, restless, tense Activity Squirming,shifting Cry No cry (awake or asleep) Consolability Reassurable with touch FLACC Total 4 M4 PT-IP Mobility and Gait Start: 04/21/21 08:53 Freq: NEEDED Status: Active Protocol: Document 04/21/21 13:56 AW (Rec: 04/21/21 14:36 AW [id number]) PT-Bed Mobility Assessment Supine to Sit Supine to Sit Maximum Assistance,Total Assistance,2 Person Assistance Scooting Scooting to Edge of Bed Dependent PT-Transfer Assessment Sit to and From Stand Sit to and from Stand Maximum Assistance,Total Assistance,2 Person Assistance ,Use of Upper Extremities Equipment Transfer Assistive Device Mechanical Lift Orthotic/Prosthetic Devices or Brace: No Transfers Transfer Destination Bedside Commode Transfer Ability Level of Assist Total Assistance Comments Mobility Comments Pt was lying in bed as PT and OT arrived. She indicated interest in using the [facility]. Pt leaned heavily to the left during all activities but did not seem aware of leaning and was only minimally able to correct in response to cues. She needed max to total assist x 2 for supine to sit. She was intermittently able to support herself with UE's on the bed but needed near- constant assist to maintain seated balance. Pt needed total assist to scoot toward EOB and had uncontrolled, jerky movement in BLE which made it difficult for her feet to contact the floor. PT and OT called for nursing assist. DIVERSIFIED CROPS I FARMWORKER attempted to provide approximation for B feet during attempt to stand x 2 with FWW but pt was only minimally able to clear her hips from the bed and kept her weight posteriorly distributed in spite of max cues. Weight remained shifted toward her right and she was not able to fully extend either knee in spite of max verbal and tactile cues. Transfer was deemed unsafe. Assisted RN and DIVERSIFIED CROPS I FARMWORKER to transfer pt to [facility] via overhead lift. Gait Assessment Comments Gait Comments Unable at this time. PT-Balance Assessment Sitting Balance and Reactions Static Sitting Balance Ability Poor Dynamic Sitting Balance Ability Poor Standing Balance and Reactions Static Standing Balance Ability Poor Dynamic Standing Balance Ability Poor Device Used FWW M5 PT-IP Objective Assessments Start: 04/21/21 08:53 Freq: NEEDED Status: Active Protocol: Document 04/21/21 13:56 AW (Rec: 04/21/21 14:36 AW [id number]) Orientation Orientation/Cognition Level of Alertness Confusional State Orientation Name Language Function Ability Word Finding Difficulties,Hard of Hearing Safety Awareness Decreased Safety Awareness Memory Description 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 Gross Range of Motion Lower Extremity ROM Assessment Within Functional Limits Strength Lower Extremity Strength Assessment Bilaterally Impaired Comments Strength Comments BLE grossly 3+/5 but difficult to assess due to pt's challenged following directions. Sensation Assessment Comments Sensation Comments Unable to formally assess due to pt cognitive status. Muscle Tone Muscle Tone WNL No Comments Muscle Tone Comments Jerking involuntary movements BLE noted during bed mobility and in sitting. M6 PT-IP Treatment Start: 04/21/21 08:53 Freq: NEEDED Status: Active Protocol: Document 04/21/21 13:56 AW (Rec: 04/21/21 14:36 AW [id number]) Physical Therapy Treatment Education Education Provided Safety M7 PT-IP Assessment and Plan Start: 04/21/21 08:53 Freq: NEEDED Status: Active Protocol: Document 04/21/21 13:56 AW (Rec: 04/21/21 14:36 AW [id number]) PT Summary Assessment and Plan Potential Rehabilitation Potential Fair Status of Condition at Evaluation Evolving Summary Impairments Pain,Strength,Balance, Cognition,Bed Mobility, Transfers,Gait Assessment Summary Denice Farfan is an 85 yo woman with acute encephalopathy. This is her third admission since December and her mobility has progressively declined over that time. She was modified independent with 4WW for household mobility earlier this year but has had repeated falls and increasing weakness. On evaluation today, pt leaned significantly to the left and required max to total assist with two people for bed mobility and sit to stand. Transfer with FWW was deemed unsafe and pt ultimately transferred to [facility] with overhead lift. She will require SNF rehab to improve strength and mobility independence. She may ultimately need long-term placement. Goals Bed Mobility Goal Minimal Assistance Transfer Goal Minimal Assistance,Front Wheeled Walker Gait Goal Minimal Assistance,Front Wheel Walker Gait Distance 50 Other Goals - improve bed mobility and transfers to CGA, and gait to 50 feet with FWW CGA Days to Meet Goals 10 Frequency of Treatment Frequency Of Treatment Once a Day Treatment Plan Physical Therapy Treatment Plan Bed Mobility Training,Transfer Training,Gait Training, Therapeutic Exercise,Balance Retraining,Discharge Planning, Hot or Cold Pack Other Recommendations and Next Treatment bed mobility, transfers Focus Precautions Other Precautions falls Recommendations To Nursing Amount of Assist Needed Mechanical Lift Discharge Recommendations PT Discharge Recommendations SNF Rehab Transportation Needs at Discharge Wheelchair/Cabulance,Stretcher /Ambulance
--- NOTE | 2021-04-21 13:56 | OT.IP.EVAL ---
Past Medical History (Last Updated 04/21/21 @ 09:18 by Rosemary Leal RN) Atrial fibrillation Breast cancer COPD (chronic obstructive pulmonary disease) Dementia Failure to thrive in adult Frequent falls Hallucination History of hysterectomy Hypertension Hypertensive urgency No pertinent past surgical history Surgical History (Last Updated 04/21/21 @ 09:18 by Rosemary Leal RN) History of hysterectomy No pertinent past surgical history Occupational Therapy Inpatient Evaluation/Re-Eval M1 PT/OT-IP Prior Functional Status Start: 04/21/21 08:53 Freq: NEEDED Status: Active Protocol: Document 04/21/21 13:59 CGR (Rec: 04/21/21 14:21 CGR [id number]) Medical Review Prior Functional Status Medical History Reviewed Yes Communication Pt is an effective verbal communicator. Mobility and Gait Pt was mobilizing with a 4ww at baseline. Activities of Daily Living and IADL's Pt was IND throughout the day (with multiple falls). Pt's daughter assists with showers and they have a home health aide that comes in 2 times a week for 4 hours a day. Prior Functional Level (Other details) Pt lives with her daughter who works [employer] from 1330 to 2100. Social History Household Members children Living Arrangements House Number of Floors (Floors) Two Floors Number of Stairs To Enter/Railing? Pt has a ramp to enter the home and stays on the main level Home Equipment Front Wheel Walker,Four Wheel Walker,Bedside Commode,Raised Toilet Seat Without Armrests, Shower Seat without Backrest, Hand Held Shower,Grab Bars In Shower Employment Status Retired Additional Social History Comment Pt's son and daughter in law also check in on pt. M1 PT/OT-IP Prior Functional Status Start: 04/21/21 13:58 Freq: NEEDED Status: Active Protocol: Document 04/21/21 13:59 CGR (Rec: 04/21/21 14:21 CGR [id number]) Medical Review Prior Functional Status Medical History Reviewed Yes Communication Pt is an effective verbal communicator. Mobility and Gait Pt was mobilizing with a 4ww at baseline. Activities of Daily Living and IADL's Pt was IND throughout the day (with multiple falls). Pt's daughter assists with showers and they have a home health aide that comes in 2 times a week for 4 hours a day. Prior Functional Level (Other details) Pt lives with her daughter who works M-F from 1330 to 2100. Social History Household Members children Living Arrangements House Number of Floors (Floors) Two Floors Number of Stairs To Enter/Railing? Pt has a ramp to enter the home and stays on the main level Home Equipment Front Wheel Walker,Four Wheel Walker,Bedside Commode,Raised Toilet Seat Without Armrests, Shower Seat without Backrest, Hand Held Shower,Grab Bars In Shower Employment Status Retired Additional Social History Comment Pt's son and daughter in law also check in on pt. M2 OT-IP Current Condition Start: 04/21/21 13:58 Freq: Status: Active Protocol: Document 04/21/21 13:59 CGR (Rec: 04/21/21 14:21 CGR [id number]) Occupational Therapy Current Condition Current Condition Evaluation Date 04/21/21 Treatment Diagnosis global weakness, found down Diagnosis Onset Date 04/21/21 M3 OT- IP Subjective and Pain Start: 04/21/21 13:58 Freq: Status: Active Protocol: Document 04/21/21 13:59 CGR (Rec: 04/21/21 14:21 CGR [id number]) OT- Subjective Occupational Therapy Visit Type Type Initial Evaluation Visit Start Time 13:33 Visit Stop Time 13:56 Total Visit Minutes 23 Notes Co-eval with P.T. OT Pain Assessment Pain When Pain Assessed At Rest Pain Present Pain Present Denied Pain M4 OT- IP ADL's Start: 04/21/21 13:58 Freq: Status: Active Protocol: Document 04/21/21 13:59 CGR (Rec: 04/21/21 14:21 CGR [id number]) OT [id number] Comments OT Self-Feeding Comments not meal time OT ADL-Grooming Comments OT Grooming Comments not performed OT ADL-Oral Care Comments Oral Care Comments not performed OT ADL-Dressing General Eval Lower Body Dressing Ability Total Assistance Areas Needing Assistance Socks Comments OT Dressing Comments supine in bed OT ADL-Toileting Comments OT Toileting Comments Pt left on BSC for attempted urination with nursing present as pt needed lift for transfer. OT ADL-Bathing Comments OT Bathing Comments not performed M5 OT- IP IADL's Start: 04/21/21 13:58 Freq: Status: Active Protocol: Document 04/21/21 13:59 CGR (Rec: 04/21/21 14:21 CGR [id number]) OT-Instrumental Activities of Daily Living Deficits IADL Deficits Identified Deficits Home Safety Awareness Awareness of Need for Assistance at Home Decreased Awareness Ability to Problem Solve Emergency Unable to Problem Solve Situations Medication Management Medication Management Comments concerns regarding pt's ability to perform Money Management Money Management Comments concerns regarding pt's ability to perform Meal Preparation Meal Preparation Comments concerns regarding pt's ability to perform Education Spec Education Spec Comments concerns regarding pt's ability to perform Driving Driving Comments Pt does not drive M6 OT- IP Functional Cognition Start: 04/21/21 13:58 Freq: Status: Active Protocol: Document 04/21/21 13:59 CGR (Rec: 04/21/21 14:21 CGR [id number]) Cognitive Factors Limiting Selfcare Function Cognitive Ability Level of Alertness Alert Patient Orientation Name Attention Span Ability Unable to Focus,Unable to Sustain Attention Ability to Follow Commands Able to Follow One Step Commands with Increased Time, Able to Follow One Step Commands with Repetition Cognitive Comments Cognitive Assessment Comments Pt with poor cognition on this date. Per nursing, pt is just waking up from medications given for MRI. Reassess if cog assessment is needed at next session. Pt with hallucinations of a little boy in the room at [facility]. OT- Vision and Hearing OT- Hearing Assessment OT- Hearing Assessment WFL OT- Vision Assessment Visual Attentiveness Impaired Occular Pursuits Impaired Vertical Visual Convergence Impaired Vision Assessment Comments Pt unable to follow commands to perform M7 OT- IP Mobility and Balance Start: 04/21/21 13:58 Freq: Status: Active Protocol: Document 04/21/21 13:59 CGR (Rec: 04/21/21 14:21 CGR [id number]) OT- Bed Mobility Assessment Supine to Sit Supine to Sit Assist Total Assistance,2 Person Assistance Scooting Scooting to Edge of Bed Total Assistance,2 Person Assistance OT-Transfer Assessment Sit to and From Stand Sit to and from Stand Total Assistance,2 Person Assistance Transfers Transfer Ability Total Assistance Technique Transfer Destination Bedside Commode Devices Transfer Assistive Devices Gait Belt,Front Wheeled Walker ,Mechanical Lift Comments Mobility Comments Pt was able to stand initially with 2-3 person assist and significant posterior lean but then was unable to stand again for transfer. OT- Gait Assessment Comments Gait Ability Comments Unable to perform OT- Balance Assessment Sitting Balance and Reactions Static Sitting Balance Ability Poor Dynamic Sitting Balance Ability Poor M8 OT- IP Objective Assessments Start: 04/21/21 13:58 Freq: Status: Active Protocol: Document 04/21/21 13:59 CGR (Rec: 04/21/21 14:21 CGR [id number]) OT Gross Range of Motion Upper Extremity Range of Motion Assessment Left Impaired ROM Impairments L shld 0-90 R shld 0-110 OT Strength Upper Extremity Strength Assessment Within Functional Limits Comments Strength Comments grossly 4/5 OT- Coordination Assessment Comments Coordination Comments not tested, pt unable to perform on this date. OT-Muscle Tone Assessment Muscle Tone WNL Yes OT Sensation Assessment Edema Edema Absent M9 OT- IP Assessment and Plan Start: 04/21/21 13:58 Freq: Status: Active Protocol: Document 04/21/21 13:59 CGR (Rec: 04/21/21 14:21 CGR [id number]) OT Summary Assessment and Plan Potential Rehabilitation Potential Fair Analytic Complexity at Evaluation High Summary OT Impairments Range of Motion,Strength, Balance,Coordination, Functional Cognition, Functional Mobility,Self- Feeding,Grooming,Dressing, Toileting,Bathing,Toilet Transfers,Shower Transfers, Activity Tolerance Progress Towards Goals Slow Progress due to Medical Issues,Slow Progress due to Activity Tolerance,Slow Progress due to Cognition Assessment Summary Pt presents as a high complexity evaluation s/p admit for global weakness after being found down. Pt appears confused and hallucinating that a little boy is in her room. Per nursing, pt is waking up after being medicated for MRI. Pt needed total assist for all mobility today and was unable to stand fully even with 2 person assist. Lift used for transfer to [facility] [place] and pt left with nursing. Goals Self-Feeding Goal Independent Grooming Goal Independent Dressing Goal Independent Toileting Goal Independent Toilet Transfer Goal Independent Days to Meet Goals 15 Frequency of Treatment Frequency Of Treatment Once a Day Treatment Plan OT Treatment Plan ADL Training,Functional Cognition Training,Functional Mobility,Patient/Family Education,Discharge Planning Other Treatment Recommendations and Next co-treat with P.T. for all Treatment Focus mobility. Discharge Recommendations OT Discharge Recommendations SNF Rehab Transportation Needs at Discharge Wheelchair/Cabulance
--- NOTE | 2021-04-21 14:31 | DIET.PN1 ---
Dietary Progress Note Assessment: 85y F admitted for weakness and falls referred to nutrition for being screened high risk secondary to dementia. Pt lives c daughter and is alone several hours per day. Caregivers twice weekly for total 8hrs/w. Pt seen by POLYSOM TECH recommended Dysphagia Mechanical diet secondary to poor dentition (15 teeth, mostly uppers c difficulty chewing), difficulty navigating food from plate to mouth with utensil, and easy to fatigue and frustrate secondary to L sided weakness and vision loss. Concern regarding food safety and fire safety in home. With pts elevated BMI and difficulty preparing and eating food, pt at high risk for sarcopenic obesity increasing weakness, reliance on and work of caregivers, increased risk of falls in home. Ht: 165.1 cm Wt: 91.8 kg BMI: 33.7 UBW: 90-96kg Last BM: 04/20/21 (04/21/21 09:00) MNA: 10 Pelon Score: 16 Diet: 04/21/21 Breakfast Heart Healthy Diet Diet Modifications: 04/21/21 Dinner Dysphagia Mechanical Soft Nutrition Percent Meal Consumed 0% 04/21/21 12:45 Percent Meal Consumed 15 04/21/21 10:57 Labs: RBC 4.63 X10^6/uL (4.0-5.2) 04/20/21 18:37 Hgb 13.6 g/dL (12.0-16.0) 04/20/21 18:37 Hct 40.8 % (36-46) 04/20/21 18:37 Creatinine 0.92 mg/dL (0.52-1.04) 04/20/21 18:37 Lactate 1.3 mmol/L (0.7-2.1) 04/20/21 18:37 NT-Pro-B Natriuret Pep 1170 pg/mL (<450) H 04/21/21 00:15 Nutrition Diagnosis: difficulty eating r/t multifactoral: residual effects of stroke, poor dentition, and dementia aeb pt has 15 natural teeth mostly on top, pt with L sided weakness and vision loss leading to frustration and early fatigue with self-feeding, pt with memory impairment and reduced situational awareness c hallucinations. Interventions: 1. Recc adaptations to feeding including: modified texture diet, food in bowls, and weighted silverware to increase pts ability to consume nourishing foods to reduce LBM losses. 2. Recc supervised meal times with assistance as needed with feeding or set up of meal and adaptive gear. EER: Monitoring/Evaluations: monitoring POs to see if functional interventions increase meaningful PO intake. Electronically Signed by: Emma Mora 04/21/21 14:31 Clinical [address] [address]
--- NOTE | 2021-04-21 15:08 | CM.DPNOTE ---
Emailed referral packet to [facility] per Patricia and received receipt. Stephani Bueno CM Asst.
--- NOTE | 2021-04-21 15:27 | PM.PN.1 ---
Subjective Subjective Date Patient Seen: 04/21/21 Time Patient Seen: 08:00 Interval history: Patient states she was admitted for fall. She denies feeling any different than her baseline. Exam Vital Signs (past 8 hours): - 04/21/21 07:47 04/21/21 08:00 04/21/21 08:30 Temperature Pulse Rate 79 Respiratory Rate 16 Blood Pressure 159/68 H Pulse Oximetry 94 93 93 04/21/21 09:00 04/21/21 11:45 04/21/21 13:00 Temperature 97.5 F L Pulse Rate 91 H 80 Respiratory Rate 38 H 14 Blood Pressure 148/69 H Pulse Oximetry 93 93 Oxygen Delivery Method Room Air Oxygen Flow Rate 0 Narrative Exam Narrative: GEN: no acute distress at this time HEENT: moist mucous membranes, PERRLA NECK: trachea midline, no JVD CV: irregular rate and rhythm with no murmurs PULM: Clear auscultation of all lobes, with occasional scattered wheezing throughout. ABD: soft, nontender, nondistended, no organomegaly, normal bowel sounds x4, no rebound, No CVA tenderness, no suprapubic tenderness. EXT: warm and well perfused, no joint tenderness, mild effusion to the left knee, slight non-pitting edema bilateral lower extremities. NEURO: no focal deficits, but does have some facial asymmetry and leans preferentially to the left. falls asleep easily, mildly confused, verbalizes active hallucination. PSYCH: pleasant, cooperative, no insight/cognitive thinking skills inappropriate for age, but congruent with a diagnosis of dementia. Objective Labs Result Diagrams: 04/20/21 18:37 04/20/21 18:37 Labs: Laboratory Results - last 24 hr 04/20/21 04/20/21 04/20/21 18:24 18:37 18:37 WBC 6.7 RBC 4.63 Hgb 13.6 Hct 40.8 MCV 88.1 MCH 29.4 MCHC 33.4 RDW 13.3 Plt Count 294 Neut % (Auto) 77.9 H Lymph % (Auto) 14.1 L [place] % (Auto) 6.6 Eos % (Auto) 1.0 L Baso % (Auto) 0.4 Neut # (Auto) 5200 Lymph # (Auto) 900 L [place] # (Auto) 400 Eos # (Auto) 100 Baso # (Auto) 0 Sodium 141 Potassium 4.0 Chloride 104 Carbon Dioxide 30 BUN 22 H Creatinine 0.92 Estimated GFR 58.3 L BUN/Creatinine Ratio 23.9 H Glucose 126 H Lactate Calcium 9.6 Magnesium Total Bilirubin 1.3 AST 27 ALT 17 Alkaline Phosphatase 173 H Troponin I NT-Pro-B Natriuret Pep Total Protein 7.8 Albumin 4.4 Globulin 3.4 Albumin/Globulin Ratio 1.3 Lipase Urine Color Urine Appearance Urine pH Ur Specific [place] Urine Protein Urine Glucose (UA) Urine Ketones Urine Occult Blood Urine Nitrate Urine Bilirubin Urine Urobilinogen Ur Leukocyte Esterase Urine RBC Urine WBC Ur Squamous Epith Cells Urine Bacteria Ur Culture Indicated? Nasal Screen MRSA (PCR) SARS-CoV-2 (PCR) Negative 04/20/21 04/20/21 04/20/21 18:37 18:37 19:58 WBC RBC Hgb Hct MCV MCH MCHC RDW Plt Count Neut % (Auto) Lymph % (Auto) [place] % (Auto) Eos % (Auto) Baso % (Auto) Neut # (Auto) Lymph # (Auto) [place] # (Auto) Eos # (Auto) Baso # (Auto) Sodium Potassium Chloride Carbon Dioxide BUN Creatinine Estimated GFR BUN/Creatinine Ratio Glucose Lactate 1.3 Calcium Magnesium 1.9 Total Bilirubin AST ALT Alkaline Phosphatase Troponin I 0.014 NT-Pro-B Natriuret Pep 1160 H Total Protein Albumin Globulin Albumin/Globulin Ratio Lipase 249 Urine Color Yellow Urine Appearance Clear Urine pH 5.0 Ur Specific [place] 1.015 Urine Protein Negative Urine Glucose (UA) Negative Urine Ketones Negative Urine Occult Blood Trace-lysed Urine Nitrate Negative Urine Bilirubin Negative Urine Urobilinogen 0.2 Ur Leukocyte Esterase Negative Urine RBC 0-1/hpf Urine WBC 1-5/hpf Ur Squamous Epith Cells 0-1 /hpf Urine Bacteria Many (>30) H Ur Culture Indicated? Specimen cultured Nasal Screen MRSA (PCR) SARS-CoV-2 (PCR) 04/21/21 04/21/21 04/21/21 00:15 00:15 00:15 WBC RBC Hgb Hct MCV MCH MCHC RDW Plt Count Neut % (Auto) Lymph % (Auto) [place] % (Auto) Eos % (Auto) Baso % (Auto) Neut # (Auto) Lymph # (Auto) [place] # (Auto) Eos # (Auto) Baso # (Auto) Sodium Potassium Chloride Carbon Dioxide BUN Creatinine Estimated GFR BUN/Creatinine Ratio Glucose Lactate Calcium Magnesium 1.8 Total Bilirubin AST ALT Alkaline Phosphatase Troponin I 0.017 NT-Pro-B Natriuret Pep 1170 H Total Protein Albumin Globulin Albumin/Globulin Ratio Lipase Urine Color Urine Appearance Urine pH Ur Specific [place] Urine Protein Urine Glucose (UA) Urine Ketones Urine Occult Blood Urine Nitrate Urine Bilirubin Urine Urobilinogen Ur Leukocyte Esterase Urine RBC Urine WBC Ur Squamous Epith Cells Urine Bacteria Ur Culture Indicated? Nasal Screen MRSA (PCR) SARS-CoV-2 (PCR) 04/21/21 05:20 WBC RBC Hgb Hct MCV MCH MCHC RDW Plt Count Neut % (Auto) Lymph % (Auto) [place] % (Auto) Eos % (Auto) Baso % (Auto) Neut # (Auto) Lymph # (Auto) [place] # (Auto) Eos # (Auto) Baso # (Auto) Sodium Potassium Chloride Carbon Dioxide BUN Creatinine Estimated GFR BUN/Creatinine Ratio Glucose Lactate Calcium Magnesium Total Bilirubin AST ALT Alkaline Phosphatase Troponin I NT-Pro-B Natriuret Pep Total Protein Albumin Globulin Albumin/Globulin Ratio Lipase Urine Color Urine Appearance Urine pH Ur Specific [place] Urine Protein Urine Glucose (UA) Urine Ketones Urine Occult Blood Urine Nitrate Urine Bilirubin Urine Urobilinogen Ur Leukocyte Esterase Urine RBC Urine WBC Ur Squamous Epith Cells Urine Bacteria Ur Culture Indicated? Nasal Screen MRSA (PCR) Negative for mrsa SARS-CoV-2 (PCR) [facility] Medical History (Updated 04/21/21 @ 09:18 by Rosemary Leal RN) Atrial fibrillation Breast cancer COPD (chronic obstructive pulmonary disease) Dementia Failure to thrive in adult Frequent falls Hallucination Hypertension Hypertensive urgency Surgical History (Updated 04/21/21 @ 09:18 by Rosemary Leal RN) History of hysterectomy No pertinent past surgical history Family History Mother CVA (cerebral vascular accident) Father CVA (cerebral vascular accident) Social History household members: children Smoking Status: Never smoker Assessment & Plan Assessment & Plan narrative: Denice Torres is an 85W with PMHhypertension, hyperlipidemia, atrial fibrillation on Eliquis, COPD, frequent falls and dementia with hallucinations who presented with a fall 1. Ground level fall, acute on chronic,? in the setting of frequent falls, secondary to global weakness, acute on chronic, and left-sided neurological deficit, acute on chronic, present on admission. -CT head and MRI negative for acute process, as was done last admission - Blood & Urine culture pending. -for now Rocephin 1 g Q 24 hour for possible UBI -recommended last two admissions to have neurology follow up -likely needs more around the clock care -Placed on FALL precautions -order PT/OT, ASSOCIATE FINANCIAL ANALYST 2.Hypertension, acute on chronic, with atrial flutter, in the setting chronic permanent atrial fibrillation and HTN, -patient is stable and asymptomatic -patient's meds:? Metoprolol 50 mg once daily, Telimasarten 80mg QD -placed on nicardipine drip in ED, but this was stopped prior to arrival on floor -metoprolol has been increased - increased losartan to 50 mg b.i.d.- monitor for hypotension or bradycardia -continue Eliquis -ECHO with no acute process 3. COPD, chronic, present on admission -no exacerbation, currently stable -continue montelukast 4. Dementia with hallucinations, acute on chronic, present on admission -Patient is pleasant, confused and unable to provide accurate HPI & ROS. The daughter seems to imply this is the patients base-line & has been for sometime, though with noted consistent decline- that she verbalizes has been told to her by the patients PCP. -needs neurological evaluation 5. Overweight as evidence by BMI of 31.5, acute on chronic, present on admit -consideration will be given for dietary counseling Dispo: patient is medically stable for discharge pending dc home with additional services vs snf Time Spent With Patient Critical Care time: I spent a total of [] minutes of critical care time on this patient's care today; this time is exclusive of procedural time. Quality VTE Deep Vein Thrombosis/Pulmonary Embolism Present on Admission: No
--- NOTE | 2021-04-21 16:09 | CM.DANOTE ---
DCP/Assessment: Reviewed chart. Patient is a 85yr old female admitted to [facility] after [facility]. PCP listed is Lory Hammer. Primary payor is 1)Medicare 2)[facility]. Met with patient during therapy session. Patient currently max assist due to weakness. Records indicate early dementia. MOTOR EQUIPMENT CAPTAIN introduced role and requested to call patient's daughter/Jose Manuel for d/c planning needs. Patient agreeable. Apparently patient resides at home with daughter has her caregiver however, daughter works every day outside the residence. In addition, patient has been on service with [facility]. Last admit to [facility] was on 04-04-21. Placed call to daughter/Jose Manuel she admits that she is having trouble caring for patient in the home. Daughter works and leaves patient alone. Currently that is no longer appropriate given recent hospitalizations and falls. Daughter would like patient to go to SNF for short term. Daughter reports that patient does not qualify for Medicaid. Patient get approximately $2,500.00 to $3,000.00 monthly. Daughter resides in patient's home. Placed call to [facility] to check on whether or not they could consider under [employer] voucher and they report that they do not have adequate staffing. Therefore, referral sent to [facility] for review. Daughter plans to be at [facility] on 04-22-21 at approximately 10:30AM. Daughter aware if SNF cannot be found or accept will need to consider home with private pay caregivers until long-term plan can be secured. P: Pending. CLAUDIA Discharge Planning/Care Management CM Discharge Assessment Start: 04/21/21 15:56 Freq: Status: Active Protocol: Document 04/21/21 15:56 CLAUDIA (Rec: 04/21/21 16:09 CLAUDIA [id number]) Discharge Planning Assessment Assigned Mash Tub Cooker GISSELLE Cabrera Contact Information Jose Manuel Torres (daughter) ph# [phone] Advance Directives? No Advance Directives on File No History Provided By Patient,Medical Record Prior Living Arrangements House Household Members children Type of transporation used prior to Relies on Others admit Independent with ADL's No Is patient alert and oriented? Yes Needs Assistance With Bathing,Eating,Grooming,Meal Prep,Toileting,Managing Medications,Home Chores / Shopping Caregiver for Another No Patient/Family Preference [facility] Facility Barriers to Discharge Yes Comment Attempting SNF placement due to weakness and daughter's inabilty to care for her until she is stronger. Discharge Plan [facility] Facility [facility] Nurse Transportation Arrangement Facility Referrals Initiated [facility],Other Has Agency SNF been contacted Yes Comment [facility] reports that they do not have adequate staffing[facility] Whiteboard Updated in Patient Room with Yes name and ext. # of Mash Tub Cooker Review Status In Process Next Review Type Continued Stay Review
--- NOTE | 2021-04-21 17:58 | PC.NURSE ---
Day Shift Note Admission assessment, med list, and MRI interview form completed via phone call with daughter Jose Manuel Torres. Pt awakes easily to voice, oriented to self only, unable to state where she is. Left side is weak and pt leans predominately to left side, daughter reports this is not new. Premedicated with PO ativan prior to MRI due to history of claustrophobia. SpO2 93-94% on RA. Denies pain. Attempted bedpan for void this am without success, bladder scanned for 488 ml. PT/OT in room and attempted to transfer pt to [facility] without success. Transferred via [place] lift at 1400 and voided 600 ml. Pt quite agitated with SCDs stating that little boy is grabbing my legs, SCDs turned off at this time, reoriented to room and situation. Pt seen attempting to eat blankets, reported she was hungry. SMELLER assisted to eat dinner, required one to one assist. Bed alarm on. Call light within reach.
[2021-04-21] MEDS: APIXABAN 5 MG TABLET PO (20:21)
[2021-04-21] MEDS: SENNOSIDES 8.6 MG TABLET 17.2 MG PO (20:21)
[2021-04-22] VITALS (22 sets, daily range): BP systolic 158–221; BP diastolic 70–102; PULSE 76–81; RESP 16–22; TEMP 36.3–36.8; O2SAT 91–98
--- NOTE | 2021-04-22 01:55 | PC.NURSE ---
Addendum entered by Cande Ghosh R.N. 04/22/21 06:41: Damaris SHARIF/Hospitalist notified of BP 197/85 after Metoprolol IR 25 mg. Discussed HR 68-79 per pulse oximeter. López SHARIF to put in orders for Hydralazine. Addendum entered by Cande Ghosh R.N. 04/22/21 04:25: Damaris SHARIF/Hospitalist notified of patient's blood pressure trending up. HR 78 BP 197/84. Orders received for an additional one time dose of Metoprolol IR 25 mg. Patient able to communicate that she needed to urinate and was able to void 300 ml on the bedpan. Oxygen removed as patient is sating 92-94% on RA. Patient had removed the oxygen to the top of her head. Original Note: Patient remains confused. Patient bladder scanned for 417 cc @ 2245. Patient transferred to BS per lyle with void of 400cc. Patient denies pain. Patient desating on RA to 87% during sleep. Initiated O2 @ 1L and sats up to 89%, and with an increase to 2L sats increasing to 93-98%. Barrier cream applied to slit in gluteal cleft with prateek care. Patient repositioned with assistance of Ronna bed.
[2021-04-22] MEDS: METOPROLOL IR 25 MG TABLET PO (04:41)
[2021-04-22] MEDS: cefTRIAXone 1,000 MG in SODIUM CHLORIDE 0.9% 100 ML 200 ML IV (04:42)
[2021-04-22] MEDS: HYDRALAZINE 10 MG TABLET PO (07:15)
[2021-04-22] MEDS: LOSARTAN 50 MG TABLET PO ×2 (08:49→20:56)
[2021-04-22] MEDS: METOPROLOL ER 25 MG TABLET 75 MG PO (08:49)
[2021-04-22] MEDS: AMLODIPINE 5 MG TABLET PO (08:49)
[2021-04-22] MEDS: HYDRALAZINE 25 MG TABLET PO ×4 (08:50→20:56)
[2021-04-22] MEDS: SODIUM CHLORIDE 0.9% FLUSH 10 ML IV ×2 (08:50→20:57)
[2021-04-22] MEDS: INFLUENZA HD VACCINE 0.7 ML SYRINGE IM (08:50)
[2021-04-22] MEDS: APIXABAN 5 MG TABLET PO ×2 (08:50→20:56)
--- NOTE | 2021-04-22 09:53 | ST.IPDYTX ---
Visit Care Team Role Provider Type Lory Hammer MD Primary Care Provider Non-Staff Specialty: Medical Address: [address] [place] [address], [id number] Email: Nas Walker MD Other Providers Physician Specialty: Medical Address: Phone: Fax: Email: Valerie Shepard MD Other Providers Physician Specialty: Medical Address: Phone: Fax: Email: Cynthia Messina MD Other Providers Physician Specialty: Medical Address: Phone: Fax: Email: Gucci Fall MD Other Providers Physician Specialty: Medical Address: Phone: Fax: Email: Fredrick Patiño MD Other Providers Physician Specialty: Medical Address: Phone: Fax: Email: Enrique Mcintyre MD Other Providers Physician Specialty: Medical Address: Phone: Fax: Email: Kory Ball MD Other Providers Physician Specialty: Medical Address: Phone: Fax: Email: Bay Lewis MD Other Providers Physician Specialty: Medical Address: Phone: Fax: Email: Castro Messina MD Other Providers Physician Specialty: Medical Address: Phone: Fax: Email: Bandar Ceballos MD Other Providers Physician Specialty: Medical Address: Phone: Fax: Email: Drew Bello MD Other Providers Physician Specialty: Medical Address: Phone: Fax: Email: Maria E Rodgers MD Emergency Provider Physician Referring Provider Specialty: Emergency Medicine Address: [address] [place] [address] Email: ZAKIA Robins Admit Provider Physician Attending Provider Specialty: Medical Address: [address] [place] [address], [facility] Email: [facility] Dysphagia Treatment [facility] Dysphagia Treatment Start: 04/22/21 09:39 Freq: Status: Active Protocol: Document 04/22/21 09:39 [place] (Rec: 04/22/21 09:53 LNK [id number]) Dysphagia Treatment Session Time Visit Start Time 09:10 Visit Stop Time 09:30 Total Visit Minutes 20 Setting Assessment Location Acute Care Visit Type Note Type Treatment Note Patient Information Identification Type Name,ID Wristband Subjective Observations pt was seated up in bed eating breakfast. She was leaning to the left and was self-feeding . Treatment Liquids Trialed Thin Solids Trialed Puree,Dysphagia Mechanical Administration Type Tea Spoon,Straw,Self-Feeding Pharyngeal Strategies Sitting Upright (90 deg),Small Bites and Sips Treatment Activities Slow rate of eating. Left facial droop observed. Speech continues to be mildly dysarthric but intelligible. Mild word finding observed, pt was able to independently say word after describing object aloud. No wet/gurgly vocal quality observed during treatment. No oral residue observed on either left or right sides. Assessment Patient Response to Treatment Good Assessment of Improvement Pt appears to be more alert and less confused than reported yesterday. Improved self-feeding with less spills and reduced frustration. Diet Recommendations Recommendations Continue Current Diet Medication Recommendations As Tolerated,Whole in Carrier, Crushed in Carrier Aspiration Precautions Recommended Precautions Upright at 90 Degrees,Frequent Rest Periods,Small Bites/Sips Treatment Plan Placement Recommendation after Discharge Care Home Facility,Home with Home Health Appropriate for Continued Therapy Yes Therapy Recommendations Monitor pt for safe PO intake. Advance diet as tolerated Dysphagia Goals 1. Denice will independently use strategies in conversation with others when she is having difficulty finding a word. 2. Denice will safely tolerate least restrictive diet to meet her nutrition and hydration needs. [ End ]
--- NOTE | 2021-04-22 11:11 | DIET.PN1 ---
Dietary Progress Note Pt doing well with modified texture diet and food in bowls. Pt able to self-feed today with POs last night 40% and this am 25% compared to 0-15% without functional intervention. Weighted silverware did not work for pt, will trial standard silverware today with lunch. Ht: 165.1 cm Wt: 91.8 kg BMI: 33.7 Last BM: 04/20/21 (04/21/21 09:00) MNA: 10 Pelon Score: 15 Diet: 04/21/21 Breakfast Heart Healthy Diet Diet Modifications: 04/21/21 Dinner Dysphagia Diet Diet Modifications: food in bowls Safety Tray needed?: No Liquid consistency: Normal/Thin Food texture: Dysphagia Mechanical Soft Nutrition Percent Meal Consumed 25% 04/22/21 11:07 Percent Meal Consumed 40 04/21/21 17:56 Percent Meal Consumed 0% 04/21/21 12:45 Percent Meal Consumed 15 04/21/21 10:57 Labs: RBC 4.63 X10^6/uL (4.0-5.2) 04/20/21 18:37 Hgb 13.6 g/dL (12.0-16.0) 04/20/21 18:37 Hct 40.8 % (36-46) 04/20/21 18:37 Creatinine 0.92 mg/dL (0.52-1.04) 04/20/21 18:37 Lactate 1.3 mmol/L (0.7-2.1) 04/20/21 18:37 NT-Pro-B Natriuret Pep 1170 pg/mL (<450) H 04/21/21 00:15 Electronically Signed by: Emma Mora 04/22/21 11:11 Clinical Diet[address] [address]
--- NOTE | 2021-04-22 11:15 | OT.IP.TRT ---
Current Diagnoses Hypertensive urgency (04/21/21) Occupational Therapy Treatment Note M2 OT-IP Current Condition Start: 04/21/21 13:58 Freq: Status: Active Protocol: Document 04/21/21 13:59 CGR (Rec: 04/21/21 14:21 CGR [id number]) Occupational Therapy Current Condition Current Condition Evaluation Date 04/21/21 Treatment Diagnosis global weakness, found down Diagnosis Onset Date 04/21/21 M3 OT- IP Subjective and Pain Start: 04/21/21 13:58 Freq: Status: Active Protocol: Document 04/22/21 11:15 [facility] (Rec: 04/22/21 12:44 CCC [id number]) OT- Subjective Occupational Therapy Visit Type Type Treatment Note Visit Start Time 11:15 Visit Stop Time 11:36 Total Visit Minutes 21 Occupational Therapy Visit Comments Patient Comments Pt agreed to try to get up and pt's daughter in the room. risk and insurance manager in the room for part of the session and pt's daughter not feeing well. risk and insurance manager suggested pt daughter to let the nurse know or go to the ER . Patient/Caregiver Goals Pt wanting to go home. OT Pain Assessment Pain When Pain Assessed At Rest Pain Present Pain Present Denied Pain M4 OT- IP ADL's Start: 04/21/21 13:58 Freq: Status: Active Protocol: Document 04/21/21 13:59 CGR (Rec: 04/21/21 14:21 CGR [id number]) OT [id number] Comments OT Self-Feeding Comments not meal time OT ADL-Grooming Comments OT Grooming Comments not performed OT ADL-Oral Care Comments Oral Care Comments not performed OT ADL-Dressing General Eval Lower Body Dressing Ability Total Assistance Areas Needing Assistance Socks Comments OT Dressing Comments supine in bed OT ADL-Toileting Comments OT Toileting Comments Pt left on BSC for attempted urination with nursing present as pt needed lift for transfer. OT ADL-Bathing Comments OT Bathing Comments not performed M5 OT- IP IADL's Start: 04/21/21 13:58 Freq: Status: Active Protocol: Document 04/21/21 13:59 CGR (Rec: 04/21/21 14:21 CGR [id number]) OT-Instrumental Activities of Daily Living Deficits IADL Deficits Identified Deficits Home Safety Awareness Awareness of Need for Assistance at Home Decreased Awareness Ability to Problem Solve Emergency Unable to Problem Solve Situations Medication Management Medication Management Comments concerns regarding pt's ability to perform Money Management Money Management Comments concerns regarding pt's ability to perform Meal Preparation Meal Preparation Comments concerns regarding pt's ability to perform Legal Records Clerk Legal Records Clerk Comments concerns regarding pt's ability to perform Driving Driving Comments Pt does not drive M6 OT- IP Functional Cognition Start: 04/21/21 13:58 Freq: Status: Active Protocol: Document 04/22/21 11:15 [facility] (Rec: 04/22/21 12:44 [facility] [id number]) Cognitive Factors Limiting Selfcare Function Cognitive Ability Level of Alertness Alert Patient Orientation Name Attention Span Ability Unable to Focus,Unable to Sustain Attention Ability to Follow Commands Able to Follow One Step Commands with Increased Time, Able to Follow One Step Commands with Repetition Cognitive Comments Cognitive Assessment Comments Pt needing concrete simple commands to follow. Pt needing cues for all bed mobility needs. M7 OT- IP Mobility and Balance Start: 04/21/21 13:58 Freq: Status: Active Protocol: Document 04/22/21 11:15 [facility] (Rec: 04/22/21 12:44 [facility] [id number]) OT- Bed Mobility Assessment Supine to Sit Supine to Sit Assist Maximum Assistance,2 Person Assistance Sit to Supine Sit to Supine Assist Total Assistance,2 Person Assistance OT-Transfer Assessment Comments Mobility Comments Pt needing MAX AX 2 to get to the edge of the bed with HOB up. Pt BP increased 193/86 and shaky and then assisted to get back to supine, total assist x2. OT- Balance Assessment Sitting Balance and Reactions Static Sitting Balance Ability Fair Dynamic Sitting Balance Ability Poor Comments Other Balance Tests/Deviations/Treatment Pt initially needing MODA X 1 : to sit at edge of the bed but after set-up and cushion placed under her feet needing CGA. Pt tends to lean to the left and posteriorly. M8 OT- IP Objective Assessments Start: 04/21/21 13:58 Freq: Status: Active Protocol: Document 04/21/21 13:59 CGR (Rec: 04/21/21 14:21 CGR [id number]) OT Gross Range of Motion Upper Extremity Range of Motion Assessment Left Impaired ROM Impairments L shld 0-90 R shld 0-110 OT Strength Upper Extremity Strength Assessment Within Functional Limits Comments Strength Comments grossly 4/5 OT- Coordination Assessment Comments Coordination Comments not tested, pt unable to perform on this date. OT-Muscle Tone Assessment Muscle Tone WNL Yes OT Sensation Assessment Edema Edema Absent M9 OT- IP Assessment and Plan Start: 04/21/21 13:58 Freq: Status: Active Protocol: Document 04/22/21 11:15 [facility] (Rec: 04/22/21 12:44 [facility] [id number]) OT Summary Assessment and Plan Potential Rehabilitation Potential Fair Analytic Complexity at Evaluation High Summary OT Impairments Range of Motion,Strength, Balance,Coordination, Functional Cognition, Functional Mobility,Self- Feeding,Grooming,Dressing, Toileting,Bathing,Toilet Transfers,Shower Transfers, Activity Tolerance Progress Towards Goals Slow Progress due to Medical Issues,Slow Progress due to Activity Tolerance,Slow Progress due to Cognition Assessment Summary Pt able to sit on the edge of the bed better today from CGA to MODA X 1. Pt having increased BP and shaky and assisted back to bed. Nursing notified. Pt will benefit from skilled rehab when medically stable. Goals Self-Feeding Goal Independent Grooming Goal Independent Dressing Goal Independent Toileting Goal Independent Toilet Transfer Goal Independent Days to Meet Goals 30 Frequency of Treatment Frequency Of Treatment Once a Day Treatment Plan OT Treatment Plan ADL Training,Functional Cognition Training,Functional Mobility,Patient/Family Education,Discharge Planning Other Treatment Recommendations and Next Transfer with FWW to [place] with Treatment Focus MAX AX 2 Discharge Recommendations OT Discharge Recommendations SNF Rehab Transportation Needs at Discharge Wheelchair/Cabulance
--- NOTE | 2021-04-22 11:36 | PT.IPTN ---
Current Diagnoses Hypertensive urgency (04/21/21) Physical Therapy Treatment Note M2 PT-IP Current Condition Start: 04/21/21 08:53 Freq: NEEDED Status: Active Protocol: Document 04/21/21 13:56 AW (Rec: 04/21/21 14:36 AW [id number]) Physical Therapy Current Condition Current Condition Evaluation Date 04/21/21 Treatment Diagnosis sepsis, AMS; impaired mobility and gait M3 PT-IP Subjective Start: 04/21/21 08:53 Freq: NEEDED Status: Active Protocol: Document 04/22/21 11:15 [place] (Rec: 04/22/21 13:19 KS [id number]) Subjective Physical Therapy Visit Type Type Treatment Note Visit Start Time 11:15 Visit Stop Time 11:36 Total Visit Minutes 21 Notes Co-tx with OT due to pt's high level of assist. Daughter present during tx. Number of BONE DRIER Visits 1 M4 PT-IP Mobility and Gait Start: 04/21/21 08:53 Freq: NEEDED Status: Active Protocol: Document 04/22/21 11:15 [place] (Rec: 04/22/21 13:19 KS [id number]) PT-Bed Mobility Assessment Supine to Sit Supine to Sit Maximum Assistance,2 Person Assistance Sit to Supine Sit to Supine Total Assistance,2 Person Assistance Scooting Scooting to Edge of Bed Maximum Assistance Scooting Up and Down in Bed Dependent PT-Transfer Assessment Comments Mobility Comments Pt in bed upon arrival from PT and OT w/ daughter in room. Pt limited in mobility due to weakness and high blood pressure 193/86. Pt Max A x2 for sup<>sit and Max for scooting to EOB. Once EOB, pt was able to maintain seated balance w/ use of hand rail for ~5 min CGA to Min A. Pt fatigued and anxious w/ high BP, Total A for sit<>sup and scooting up in bed. Pt left in bed w/ pillow under LUE to prevent lean and SCDs on night mode for pts comfort. RN notified and approved. Gait Assessment Comments Gait Comments Unable at this time. PT-Balance Assessment Sitting Balance and Reactions Static Sitting Balance Ability Fair Dynamic Sitting Balance Ability Poor Standing Balance and Reactions Static Standing Balance Ability Poor Dynamic Standing Balance Ability Poor Device Used FWW M5 PT-IP Objective Assessments Start: 04/21/21 08:53 Freq: NEEDED Status: Active Protocol: Document 04/21/21 13:56 AW (Rec: 04/21/21 14:36 AW [id number]) Orientation Orientation/Cognition Level of Alertness Confusional State Orientation Name Language Function Ability Word Finding Difficulties,Hard of Hearing Safety Awareness Decreased Safety Awareness Memory Description 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 Gross Range of Motion Lower Extremity ROM Assessment Within Functional Limits Strength Lower Extremity Strength Assessment Bilaterally Impaired Comments Strength Comments BLE grossly 3+/5 but difficult to assess due to pt's challenged following directions. Sensation Assessment Comments Sensation Comments Unable to formally assess due to pt cognitive status. Muscle Tone Muscle Tone WNL No Comments Muscle Tone Comments Jerking involuntary movements BLE noted during bed mobility and in sitting. M6 PT-IP Treatment Start: 04/21/21 08:53 Freq: NEEDED Status: Active Protocol: Document 04/22/21 11:15 [place] (Rec: 04/22/21 13:19 KS [id number]) Physical Therapy Treatment Education Education Provided Safety M7 PT-IP Assessment and Plan Start: 04/21/21 08:53 Freq: NEEDED Status: Active Protocol: Document 04/22/21 11:15 [place] (Rec: 04/22/21 13:19 KS [id number]) PT Summary Assessment and Plan Potential Rehabilitation Potential Fair Status of Condition at Evaluation Evolving Summary Impairments Pain,Strength,Balance, Cognition,Bed Mobility, Transfers,Gait Progress Towards Goals Slow Progress due to Medical Issues,Slow Progress due to Activity Tolerance Assessment Summary Pt able to tolerate ~5 min sitting EOB w/ CGA to Min A to maintain balance today but remains limited in mobility due to weakness, fatigue, and high BP. Max A x2 for sup<>sit , Max A for scooting EOB, CGA to Min A for sitting EOB, Total A x2 for sit<>sup and scooting up in bed. Significant left lean remains, corrected w/ 2 pillows. Pt unsafe to return home and will require SNF to improve strength and tolerance for activity. Goals Bed Mobility Goal Minimal Assistance Transfer Goal Minimal Assistance,Front Wheeled Walker Gait Goal Minimal Assistance,Front Wheel Walker Gait Distance 50 Other Goals - improve bed mobility and transfers to CGA, and gait to 50 feet with FWW CGA Days to Meet Goals 10 Frequency of Treatment Frequency Of Treatment Once a Day Treatment Plan Physical Therapy Treatment Plan Bed Mobility Training,Transfer Training,Gait Training, Therapeutic Exercise,Balance Retraining,Discharge Planning, Hot or Cold Pack Other Recommendations and Next Treatment bed mobility, transfers Focus Precautions Other Precautions falls Recommendations To Nursing Amount of Assist Needed Mechanical Lift Discharge Recommendations PT Discharge Recommendations SNF Rehab Transportation Needs at Discharge Wheelchair/Cabulance,Stretcher /Ambulance
--- NOTE | 2021-04-22 12:12 | CM.DPNOTE ---
Faxed referral packet to [facility] & emailed to Mirtha Gomez. Received confirmations. Stephani Bueno CM Asst.
--- NOTE | 2021-04-22 15:48 | PM.PN.1 ---
Subjective Subjective Date Patient Seen: 04/22/21 Time Patient Seen: 08:00 Interval history: Today she has no complaints. She does have high blood pressure. Exam Vital Signs (past 8 hours): - 04/22/21 08:15 04/22/21 09:30 04/22/21 10:25 Temperature Pulse Rate 76 79 77 Respiratory Rate 16 Blood Pressure 208/81 H 158/70 H Pulse Oximetry 92 04/22/21 12:45 04/22/21 12:57 04/22/21 14:13 Temperature 97.6 F 97.3 F L Pulse Rate 77 80 Respiratory Rate 18 16 Blood Pressure 207/81 H 195/91 H Pulse Oximetry 97 97 97 Oxygen Delivery Method Room Air Oxygen Flow Rate 0 Narrative Exam Narrative: GEN:? no acute distress at this time HEENT: moist mucous membranes, PERRLA CV: irregular rate and rhythm with no murmurs PULM: Clear auscultation bilaterally ABD: soft, nontender, nondistended, no organomegaly, normal bowel sounds x4 EXT: warm and well perfused NEURO: no focal deficits, but does have some facial asymmetry and leans preferentially to the left. falls asleep easily, mildly confused, verbalizes active hallucination. PSYCH: pleasant, cooperative Objective Labs Result Diagrams: 04/20/21 18:37 04/20/21 18:37 [facility] Medical History (Updated 04/21/21 @ 09:18 by Rosemary Leal RN) Atrial fibrillation Breast cancer COPD (chronic obstructive pulmonary disease) Dementia Failure to thrive in adult Frequent falls Hallucination Hypertension Hypertensive urgency Surgical History (Updated 04/21/21 @ 09:18 by Rosemary Leal RN) History of hysterectomy No pertinent past surgical history Family History Mother CVA (cerebral vascular accident) Father CVA (cerebral vascular accident) Social History household members: children Smoking Status: Never smoker Assessment & Plan Assessment & Plan narrative: Denice Torres is an 85W with PMHhypertension, hyperlipidemia, atrial fibrillation on Eliquis, COPD, frequent falls and dementia with hallucinations who presented with a fall 1. Ground level fall, acute? in the setting of frequent falls, with UTI -CT head and MRI negative for acute process, as was done last admission - Blood & Urine culture pending. 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 Metoprolol 50 mg once daily, Telimasarten 80mg QD -placed on nicardipine drip in ED, but this was stopped prior to arrival on floor -increased losartan to 50 mg b.i.d. -added hydralazine, amlodipine -switch metoprolol to carvedilol -continue Eliquis -ECHO with no acute process 3. COPD, chronic, present on admission -no exacerbation, currently stable -continue montelukast 4. Dementia with hallucinations, acute on chronic, present on admission -Patient is pleasant, confused and unable to provide accurate HPI & ROS. The daughter seems to imply this is the patients base-line & has been for sometime, though with noted consistent decline- that she verbalizes has been told to her by the patients PCP. -needs neurological evaluation 5. Overweight as evidence by BMI of 31.5, acute on chronic, present on admit -consideration will be given for dietary counseling Dispo: patient is medically stable for discharge pending dc home with additional services vs snf Time Spent With Patient Critical Care time: I spent a total of [] minutes of critical care time on this patient's care today; this time is exclusive of procedural time. Quality VTE Deep Vein Thrombosis/Pulmonary Embolism Present on Admission: No
--- NOTE | 2021-04-22 18:07 | CM.DANOTE ---
DCP/Continued: Reviewed chart. Per DIOMEDES/[facility] patient changed to inpatient status effective 04-21-21. At this time attempting SNF placement. AERIAL APPLICATOR PILOT met with patient and daughter/Jose Manuel today. Daughter reports that she is primary caregiver but lately it has become more difficult. As of yesterday patient was max 2 person assist. Patient and daughter aware and agreeable to SNF. Daughter prefers that patient go to SNF in [facility]. Daughter would like to visit and any further would be a hardship for her. Daughter currently works outside of the residence full-time. AERIAL APPLICATOR PILOT discussed with both daughter and patient that long-term planning for patient is needed. Per daughter patient does not qualify for state assistance. Daughter hopeful that after a few weeks in SNF patient will be okay to return home with HH and potential caregivers if needed. AERIAL APPLICATOR PILOT requested referrals be sent to [facility], [facility], and [facility]. Denice at [facility] will do on site assessment on 04-23-21 and [facility] currently reviewing. Both facilities made aware that patient will not be coming on COVID waiver rather inpatient status. Patient qualifies for SNF on 04-24-21. Provider made aware and anticipates patient will be medically stable. P: SNF pending. Patient currently requiring rehabilitation for de-conditioning. Patient and daughter aware and agreeable. Daughter went to ED today after visiting with patient due to chest pain and/or panic attack. CLAUDIA
[2021-04-22] MEDS: carvediloL 12.5 MG TABLET PO (20:55)
[2021-04-22] MEDS: SENNOSIDES 8.6 MG TABLET 17.2 MG PO (20:56)
[2021-04-23] VITALS (17 sets, daily range): BP systolic 124–206; BP diastolic 58–105; PULSE 71–82; RESP 15–19; TEMP 36–36.6; O2SAT 92–97
[2021-04-23 05:02] LABS: Hematocrit 34.4 % (36-46); Hemoglobin 11.6 g/dL (12.0-16.0); Mean Corpuscular HGB Conc 33.8 % (30-36); Mean Corpuscular Hemoglobin 29.7 PG (26-34); Mean Corpuscular Volume 87.8 fL (80-100); Platelet Count 227 X10^3/uL (150-400); Red Blood Cell Count 3.91 X10^6/uL (4.0-5.2); Red Cell Distribution Width 13.2 % (11.6-14.8); White Blood Cell Count 4.8 X10^3/uL (4.5-11.0)
[2021-04-23 05:16] LABS: BUN Creatinine Ratio 16.5 (6-22); Blood Urea Nitrogen 14 mg/dL (7-17); Calcium 8.8 mg/dL (8.4-10.2); Carbon Dioxide 29 mmol/L (22-32); Chloride 106 mmol/L (98-107); Estimated Glomerular Filt Rate > 60.0 mL/min (>60); Glucose 119 mg/dL (80-110); HEMOLYSIS < 15 (0-50); Potassium 3.8 mmol/L (3.4-5.1); Sodium 138 mmol/L (137-145)
[2021-04-23] MEDS: cefTRIAXone 1,000 MG in SODIUM CHLORIDE 0.9% 100 ML 200 ML IV (05:20)
[2021-04-23] MEDS: AMLODIPINE 5 MG TABLET PO (08:15)
[2021-04-23] MEDS: LOSARTAN 50 MG TABLET PO ×2 (08:15→20:42)
[2021-04-23] MEDS: carvediloL 12.5 MG TABLET PO ×2 (08:15→20:40)
[2021-04-23] MEDS: APIXABAN 5 MG TABLET PO ×2 (08:15→20:42)
[2021-04-23] MEDS: HYDRALAZINE 25 MG TABLET PO ×4 (08:15→20:42)
[2021-04-23] MEDS: SODIUM CHLORIDE 0.9% FLUSH 10 ML IV ×2 (08:16→20:45)
--- NOTE | 2021-04-23 12:05 | ST.IPDYTX ---
Visit Care Team Role Provider Type Lory Hammer MD Primary Care Provider Non-Staff Specialty: Medical Address: [address] [place] [address], [id number] Email: Nas Walker MD Other Providers Physician Specialty: Medical Address: Phone: Fax: Email: Valerie Shepard MD Other Providers Physician Specialty: Medical Address: Phone: Fax: Email: Cynthia Messina MD Other Providers Physician Specialty: Medical Address: Phone: Fax: Email: Gucci Fall MD Other Providers Physician Specialty: Medical Address: Phone: Fax: Email: Fredrick Patiño MD Other Providers Physician Specialty: Medical Address: Phone: Fax: Email: Enrique Mcintyre MD Other Providers Physician Specialty: Medical Address: Phone: Fax: Email: Kory Ball MD Other Providers Physician Specialty: Medical Address: Phone: Fax: Email: Bay Lewis MD Other Providers Physician Specialty: Medical Address: Phone: Fax: Email: Castro Messina MD Other Providers Physician Specialty: Medical Address: Phone: Fax: Email: Bandar Ceballos MD Other Providers Physician Specialty: Medical Address: Phone: Fax: Email: Drew Bello MD Other Providers Physician Specialty: Medical Address: Phone: Fax: Email: Maria E Rodgers MD Emergency Provider Physician Referring Provider Specialty: Emergency Medicine Address: [address] [place] [address] Email: ZAKIA Robins Admit Provider Physician Attending Provider Specialty: Medical Address: [address] [place] [address], [id number] Email: CELL PHONE REPAIR TECHNICIAN Dysphagia Treatment CELL PHONE REPAIR TECHNICIAN Dysphagia Treatment Start: 04/22/21 09:39 Freq: Status: Active Protocol: Document 04/23/21 11:19 NAOMY (Rec: 04/23/21 12:05 NAOMY [id number]) Dysphagia Treatment Session Time Visit Start Time 08:50 Visit Stop Time 09:10 Total Visit Minutes 20 Setting Assessment Location Acute Care Visit Type Note Type Treatment Note Patient Information Identification Type Name,ID Wristband Subjective Observations Pt was seated up in bed self- feeding with breakfast upon CELL PHONE REPAIR TECHNICIAN arrival. She was leaning forward and to the left and asked for pillows to be removed behind her head. Pt repositioned to more upright position by CELL PHONE REPAIR TECHNICIAN. Treatment Liquids Trialed Thin Solids Trialed Puree,Dysphagia Mechanical Administration Type Tea Spoon,Straw,Self-Feeding Pharyngeal Strategies Sitting Upright (90 deg),Small Bites and Sips Treatment Activities Pt exhibited moderate difficulty manipulating food onto spoon and spoon to mouth, but was able to do so with effort. Resulted in slow rate of eating. Pt consumed Cream of Wheat, toast with butter and jam and without crust to ease mastication, and thin liquid from straw. She attempted juice from glass, which was heavy for her and difficult to maneuver. Agreed to straw when offered. No overt s/sx of aspiration were observed. Oral prep phase was slow but WFL and without abnormal oral residue or pocketing. The pt was pleasant and conversant throughout. Speech was halting d/t apparent WFDs which the pt self managed and did not result in conversational breakdowns. Speech was intelligible and language was egocentric and appropriate to contexts. Assessment Patient Response to Treatment Good Assessment of Improvement Pt appears to be improving in alertness and lucidity, though still exhibits some forgetfulness or mild confusion consistent with dementia. Pt continues to be determined to self-feed, though still exhibits frustration with its difficulty. Is safely tolerating dysphagia mechanical diet and thin liquids from straw. Diet Recommendations Recommendations Continue Current Diet Liquids Order Thin Diet Order Dysphagia Mechanical Medication Recommendations As Tolerated,Whole in Carrier, Crushed in Carrier Aspiration Precautions Recommended Precautions Upright at 90 Degrees,Frequent Rest Periods,Small Bites/Sips Additional Precautions Setup assistance as needed Treatment Plan Placement Recommendation after Discharge [facility] Facility,Home with Home Health Appropriate for Continued Therapy Yes Therapy Recommendations Monitor pt for safe PO intake. Advance diet as tolerated Dysphagia Goals 1. Denice will independently use strategies in conversation with others when she is having difficulty finding a word. 2. Denice will safely tolerate least restrictive diet to meet her nutrition and hydration needs. [ End ]
--- NOTE | 2021-04-23 12:27 | PT.IPTN ---
Current Diagnoses Hypertensive urgency (04/21/21) Physical Therapy Treatment Note M2 PT-IP Current Condition Start: 04/21/21 08:53 Freq: NEEDED Status: Active Protocol: Document 04/23/21 11:26 SP (Rec: 04/23/21 15:02 SP [id number]) Physical Therapy Current Condition Current Condition Evaluation Date 04/21/21 Treatment Diagnosis sepsis, AMS; impaired mobility and gait M3 PT-IP Subjective Start: 04/21/21 08:53 Freq: NEEDED Status: Active Protocol: Document 04/23/21 11:26 SP (Rec: 04/23/21 15:02 SP [id number]) Subjective Physical Therapy Visit Type Type Treatment Note Visit Start Time 11:26 Visit Stop Time 12:27 Total Visit Minutes 61 Notes APPLE Calvert provided 2nd person assist throughout tx, supervised and assisted R PROGRAMMER Jennifer. Nurse assisted with pericare and bed mobility required for 3rd person during tx. Number of R PROGRAMMER Visits 2 Physical Therapy Visit Comments Patient Comments Pt motivated and willing to work with therapy. Therapy Pain Assessment Pain When Pain Assessed During Mobility Pain Present Pain Present Pain Reported Location Left Knee Scale Used moderate pain but not quantified Pain Management Techniques Distraction,Re-positioning, Timing of Activity with Medications Right Knee Scale Used moderate pain but not quantified Pain Management Techniques Distraction,Modification of Treatment,Re-positioning M4 PT-IP Mobility and Gait Start: 04/21/21 08:53 Freq: NEEDED Status: Active Protocol: Document 04/23/21 11:26 SP (Rec: 04/23/21 15:02 SP [id number]) PT-Bed Mobility Assessment Rolling Type of Rolling Log Rolling,Bilateral Level of Assist Maximal Assistance,2 Person Assistance Supine to Sit Supine to Sit Maximum Assistance,2 Person Assistance Sit to Supine Sit to Supine Maximum Assistance,2 Person Assistance Scooting Scooting to Edge of Bed Maximum Assistance Scooting Up and Down in Bed Dependent PT-Transfer Assessment Comments Mobility Comments Pt supine in bed when arrived. Pt motivated to do mobility. Elevated supine>sit, cues for BLE to EOB with cues Max A x2 for trunk righting and scoot to EOB, improved BUE WB on bed for self assist. Once at EOB CGA able to sit UE support. Attempted to sit<>stand x2, unable unweight off bed due to shakiness in BUE WB on bed and BLE with inability to maintain LLE contact on floor with posterior lean Max A x2. Contact to anterior knees for steadying shakiness and allowed BLE rest on floor for safety sitting at EOB Min A for balance support. Sit> supine Max A x2 for trunk righting and BLE support in bed with noted BUE WB on bed to assist as could. Pt had a loss of bowels once in supine, Max A x2 for LR R and SPTA Mod A x1 for maintaining sidelying. R PROGRAMMER notified nursing request for assist, R PROGRAMMER/nurse assisted with pericare and bedding change required. Pt required dependent assist to scoot up in bed with bed in trendelenburg positioning to HOB. Pt had call light and all needs in reach before left. Bed alarmed . Gait Assessment Comments Gait Comments Unable at this time. PT-Balance Assessment Sitting Balance and Reactions Static Sitting Balance Ability Fair Dynamic Sitting Balance Ability Poor M5 PT-IP Objective Assessments Start: 04/21/21 08:53 Freq: NEEDED Status: Active Protocol: Document 04/21/21 13:56 AW (Rec: 04/21/21 14:36 AW [id number]) Orientation Orientation/Cognition Level of Alertness Confusional State Orientation Name Language Function Ability Word Finding Difficulties,Hard of Hearing Safety Awareness Decreased Safety Awareness Memory Description 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 Gross Range of Motion Lower Extremity ROM Assessment Within Functional Limits Strength Lower Extremity Strength Assessment Bilaterally Impaired Comments Strength Comments BLE grossly 3+/5 but difficult to assess due to pt's challenged following directions. Sensation Assessment Comments Sensation Comments Unable to formally assess due to pt cognitive status. Muscle Tone Muscle Tone WNL No Comments Muscle Tone Comments Jerking involuntary movements BLE noted during bed mobility and in sitting. M6 PT-IP Treatment Start: 04/21/21 08:53 Freq: NEEDED Status: Active Protocol: Document 04/23/21 11:26 SP (Rec: 04/23/21 15:02 SP [id number]) Physical Therapy Treatment Exercises Exercises Ankle Pumps,Quad Sets,Heel Slides,Seated Knee Flexion/ Extension Knee ROM Measurement AAROM B knee flexion Education Education Provided Safety M7 PT-IP Assessment and Plan Start: 04/21/21 08:53 Freq: NEEDED Status: Active Protocol: Document 04/23/21 11:26 SP (Rec: 04/23/21 15:02 SP [id number]) PT Summary Assessment and Plan Potential Rehabilitation Potential Fair Status of Condition at Evaluation Evolving Summary Impairments Pain,Strength,Balance, Cognition,Bed Mobility, Transfers,Gait Progress Towards Goals Progressing Toward Goals,Slow Progress due to Medical Issues ,Slow Progress due to Activity Tolerance Assessment Summary Pt required extra time to processing requests for answering, UE/ LE/ trunk positioning, Max A x2 for all mobility, 3rd person for pericare in sidelying and mobility assist. Pt improved in self trunk support sitting w/ UE on bed with cues for spacial awareness, continued unable to stand due to shakiness and decreased strength. Recommending SNF for increase strength and functional mobiltiy. Blossom recommendations for transfers nursing. Will continue to assess progress. Goals Bed Mobility Goal Minimal Assistance Transfer Goal Minimal Assistance,Front Wheeled Walker Gait Goal Minimal Assistance,Front Wheel Walker Gait Distance 50 Other Goals - improve bed mobility and transfers to CGA, and gait to 50 feet with FWW CGA Days to Meet Goals 10 Frequency of Treatment Frequency Of Treatment Once a Day Treatment Plan Physical Therapy Treatment Plan Bed Mobility Training,Transfer Training,Gait Training, Therapeutic Exercise,Balance Retraining,Discharge Planning, Hot or Cold Pack Other Recommendations and Next Treatment bed mobility, transfers Focus Precautions Other Precautions falls Recommendations To Nursing Amount of Assist Needed Mechanical Lift Discharge Recommendations PT Discharge Recommendations SNF Rehab Transportation Needs at Discharge Wheelchair/Cabulance,Stretcher /Ambulance
--- NOTE | 2021-04-23 12:27 | PT.IPTN ---
Current Diagnoses Hypertensive urgency (04/21/21) Physical Therapy Treatment Note M2 PT-IP Current Condition Start: 04/21/21 08:53 Freq: NEEDED Status: Active Protocol: Document 04/23/21 11:26 SP (Rec: 04/23/21 15:02 SP [id number]) Physical Therapy Current Condition Current Condition Evaluation Date 04/21/21 Treatment Diagnosis sepsis, AMS; impaired mobility and gait M3 PT-IP Subjective Start: 04/21/21 08:53 Freq: NEEDED Status: Active Protocol: Document 04/23/21 11:26 SP (Rec: 04/23/21 15:02 SP [id number]) Subjective Physical Therapy Visit Type Type Treatment Note Visit Start Time 11:26 Visit Stop Time 12:27 Total Visit Minutes 61 Notes APPLE Calvert provided 2nd person assist throughout tx, supervised and assisted APPLE Rodriguez. Nurse assisted with pericare and bed mobility required for 3rd person during tx. Number of ROCK CRUSHER Visits 2 Physical Therapy Visit Comments Patient Comments Pt motivated and willing to work with therapy. Therapy Pain Assessment Pain When Pain Assessed During Mobility Pain Present Pain Present Pain Reported Location Left Knee Scale Used moderate pain but not quantified Pain Management Techniques Distraction,Re-positioning, Timing of Activity with Medications Right Knee Scale Used moderate pain but not quantified Pain Management Techniques Distraction,Modification of Treatment,Re-positioning M4 PT-IP Mobility and Gait Start: 04/21/21 08:53 Freq: NEEDED Status: Active Protocol: Document 04/23/21 11:26 SP (Rec: 04/23/21 15:02 SP [id number]) PT-Bed Mobility Assessment Rolling Type of Rolling Log Rolling,Bilateral Level of Assist Maximal Assistance,2 Person Assistance Supine to Sit Supine to Sit Maximum Assistance,2 Person Assistance Sit to Supine Sit to Supine Maximum Assistance,2 Person Assistance Scooting Scooting to Edge of Bed Maximum Assistance Scooting Up and Down in Bed Dependent PT-Transfer Assessment Comments Mobility Comments Pt supine in bed when arrived. Pt motivated to do mobility. Elevated supine>sit, cues for BLE to EOB with cues Max A x2 for trunk righting and scoot to EOB, improved BUE WB on bed for self assist. Once at EOB CGA able to sit UE support. Attempted to sit<>stand x2, unable unweight off bed due to shakiness in BUE WB on bed and BLE with inability to maintain LLE contact on floor with posterior lean Max A x2. Contact to anterior knees for steadying shakiness and allowed BLE rest onfloor for safety sitting at EOB Min A for balance support. Sit> supine Max A x2 for trunk righting and BLE support in bed with noted BUE WB on bed to assist as could. Pt had a loss of bowels once in supine, Max A x2 for LR R and SPTA Mod A x1 for maintaining sidelying. ROCK CRUSHER notified nursing request for assist, ROCK CRUSHER/nurse assisted with pericare and bedding change required. Pt required dependent assist to scoot up in bed with bed in [place] positioning to HOB. Pt had call light and all needs in reach before left. Bed alarmed . Gait Assessment Comments Gait Comments Unable at this time. PT-Balance Assessment Sitting Balance and Reactions Static Sitting Balance Ability Fair Dynamic Sitting Balance Ability Poor M5 PT-IP Objective Assessments Start: 04/21/21 08:53 Freq: NEEDED Status: Active Protocol: Document 04/21/21 13:56 AW (Rec: 04/21/21 14:36 AW [id number]) Orientation Orientation/Cognition Level of Alertness Confusional State Orientation Name Language Function Ability Word Finding Difficulties,Hard of Hearing Safety Awareness Decreased Safety Awareness Memory Description 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 Gross Range of Motion Lower Extremity ROM Assessment Within Functional Limits Strength Lower Extremity Strength Assessment Bilaterally Impaired Comments Strength Comments BLE grossly 3+/5 but difficult to assess due to pt's challenged following directions. Sensation Assessment Comments Sensation Comments Unable to formally assess due to pt cognitive status. Muscle Tone Muscle Tone WNL No Comments Muscle Tone Comments Jerking involuntary movements BLE noted during bed mobility and in sitting. M6 PT-IP Treatment Start: 04/21/21 08:53 Freq: NEEDED Status: Active Protocol: Document 04/23/21 11:26 SP (Rec: 04/23/21 15:02 SP [id number]) Physical Therapy Treatment Exercises Exercises Ankle Pumps,Quad Sets,Heel Slides,Seated Knee Flexion/ Extension Knee ROM Measurement AAROM B knee flexion Education Education Provided Safety M7 PT-IP Assessment and Plan Start: 04/21/21 08:53 Freq: NEEDED Status: Active Protocol: Document 04/23/21 11:26 SP (Rec: 04/23/21 15:02 SP [id number]) PT Summary Assessment and Plan Potential Rehabilitation Potential Fair Status of Condition at Evaluation Evolving Summary Impairments Pain,Strength,Balance, Cognition,Bed Mobility, Transfers,Gait Progress Towards Goals Progressing Toward Goals,Slow Progress due to Medical Issues ,Slow Progress due to Activity Tolerance Assessment Summary Pt required Max A x2 for all mobility, 3rd person for pericare in sidelying and mobility. Pt improved in trunk support sitting, continued unalble to stand due to shakiness and decreased strength. Recommending SNF for increase strength and functional mobiltiy. Blossom recommendations for transfers nursing. Will continue to assess progress. Goals Bed Mobility Goal Minimal Assistance Transfer Goal Minimal Assistance,Front Wheeled Walker Gait Goal Minimal Assistance,Front Wheel Walker Gait Distance 50 Other Goals - improve bed mobility and transfers to CGA, and gait to 50 feet with FWW CGA Days to Meet Goals 10 Frequency of Treatment Frequency Of Treatment Once a Day Treatment Plan Physical Therapy Treatment Plan Bed Mobility Training,Transfer Training,Gait Training, Therapeutic Exercise,Balance Retraining,Discharge Planning, Hot or Cold Pack Other Recommendations and Next Treatment bed mobility, transfers Focus Precautions Other Precautions falls Recommendations To Nursing Amount of Assist Needed Mechanical Lift Discharge Recommendations PT Discharge Recommendations SNF Rehab Transportation Needs at Discharge Wheelchair/Cabulance,Stretcher /Ambulance
--- NOTE | 2021-04-23 12:41 | PM.PN.1 ---
Subjective Subjective Date Patient Seen: 04/23/21 Time Patient Seen: 09:00 Interval history: ?Today she has no complaints. She does have high blood pressure. Exam Vital Signs (past 8 hours): - 04/23/21 07:40 04/23/21 08:00 04/23/21 08:35 Temperature 97.3 F L Pulse Rate 80 Respiratory Rate 18 Blood Pressure 189/88 H Pulse Oximetry 92 94 94 04/23/21 11:40 Temperature 96.8 F L Pulse Rate 71 Respiratory Rate 18 Blood Pressure 124/58 L Pulse Oximetry 92 Oxygen Delivery Method Room Air Oxygen Flow Rate 0 Narrative Exam Narrative: EN:? no acute distress at this time HEENT: moist mucous membranes, PERRLA CV: irregular rate and rhythm with no murmurs PULM: Clear auscultation bilaterally ABD: soft, nontender, nondistended, no organomegaly, normal bowel sounds x4 EXT: warm and well perfused NEURO: no focal deficits, but does have some facial asymmetry and leans preferentially to the left. falls asleep easily, mildly confused, verbalizes active hallucination. PSYCH: pleasant, cooperative Objective Labs Result Diagrams: 04/23/21 04:45 04/23/21 04:45 Labs: Laboratory Results - last 24 hr 04/23/21 04/23/21 04:45 04:45 WBC 4.8 RBC 3.91 L Hgb 11.6 L Hct 34.4 L MCV 87.8 MCH 29.7 MCHC 33.8 RDW 13.2 Plt Count 227 Sodium 138 Potassium 3.8 Chloride 106 Carbon Dioxide 29 BUN 14 Creatinine 0.85 Estimated GFR > 60.0 BUN/Creatinine Ratio 16.5 Glucose 119 H Calcium 8.8 PFSH Medical History (Updated 04/21/21 @ 09:18 by Rosemary Leal RN) Atrial fibrillation Breast cancer COPD (chronic obstructive pulmonary disease) Dementia Failure to thrive in adult Frequent falls Hallucination Hypertension Hypertensive urgency Surgical History (Updated 04/21/21 @ 09:18 by Rosemary Leal RN) History of hysterectomy No pertinent past surgical history Family History Mother CVA (cerebral vascular accident) Father CVA (cerebral vascular accident) Social History household members: children Smoking Status: Never smoker Assessment & Plan Assessment & Plan narrative: Denice Torres is an 85W with PMHhypertension, hyperlipidemia, atrial fibrillation on Eliquis, COPD, frequent falls and dementia with hallucinations who presented with a fall 1. Ground level fall, acute? in the setting of frequent falls, with UTI -CT head and MRI negative for acute process, as was done last admission - blood culture negative, urine culture growing sphigmonas. -for now Rocephin 1gm daily -recommended last two admissions to have neurology follow up -likely needs more around the clock care -Placed on FALL precautions -continue PT/OT. 2.Hypertension, acute on chronic, with atrial flutter, in the setting chronic permanent atrial fibrillation and HTN, -patient is stable and asymptomatic -patient's meds:? Metoprolol 50 mg once daily, Telimasarten 80mg QD -placed on nicardipine drip in ED, but this was stopped prior to arrival on floor -increased losartan to 50 mg b.i.d. -added hydralazine, amlodipine, may need additional agents. Consider changing amlodipine to nifedipine if uncontrolled today. -switch metoprolol to carvedilol -continue Eliquis -ECHO with no acute process 3. COPD, chronic, present on admission -no exacerbation, currently stable -continue montelukast 4. Dementia with hallucinations, acute on chronic, present on admission -Patient is pleasant, confused and unable to provide accurate HPI & ROS. The daughter seems to imply this is the patients base-line & has been for sometime, though with noted consistent decline- that she verbalizes has been told to her by the patients PCP. -needs neurological evaluation as an outpatient. 5. Overweight as evidence by BMI of 31.5, acute on chronic, present on admit -consideration will be given for dietary counseling Dispo: pending SNF Time Spent With Patient Critical Care time: I spent a total of [] minutes of critical care time on this patient's care today; this time is exclusive of procedural time. Quality VTE Deep Vein Thrombosis/Pulmonary Embolism Present on Admission: No
--- NOTE | 2021-04-23 13:29 | OT.IP.TRT ---
Current Diagnoses Hypertensive urgency (04/21/21) Occupational Therapy Treatment Note M2 OT-IP Current Condition Start: 04/21/21 13:58 Freq: Status: Active Protocol: Document 04/21/21 13:59 CGR (Rec: 04/21/21 14:21 CGR [id number]) Occupational Therapy Current Condition Current Condition Evaluation Date 04/21/21 Treatment Diagnosis global weakness, found down Diagnosis Onset Date 04/21/21 M3 OT- IP Subjective and Pain Start: 04/21/21 13:58 Freq: Status: Active Protocol: Document 04/23/21 13:30 [facility] (Rec: 04/23/21 13:39 [facility] [id number]) OT- Subjective Occupational Therapy Visit Type Type Treatment Note Visit Start Time 12:50 Visit Stop Time 13:29 Total Visit Minutes 39 Occupational Therapy Visit Comments Patient Comments Pt eating lunch and had nursing aid assist therapist to help boost pt up higher in bed. OT Pain Assessment Pain When Pain Assessed At Rest Pain Present Pain Present Denied Pain M4 OT- IP ADL's Start: 04/21/21 13:58 Freq: Status: Active Protocol: Document 04/23/21 13:30 [facility] (Rec: 04/23/21 13:39 [facility] [id number]) OT [id number]-[id number] General Evaluation Self-Feeding Ability Maximum Assistance Areas Needing Assistance Cutting Food,Drinking From Cup /Glass,Loading Utensil,Opening Containers Comments OT Self-Feeding Comments At times pt not processing well to be able to get her straw to her mouth or utensil to her mouth. Pt needing cues throughout the task of self feeding at this time. Able to place foam tubing on utensil to increase ease to eat. Pt needing MOD vc to swallow everything in her mouth before trying to get another bite. Pt also needing assist of support of pillow under her elbows so able get to hand/ utensil to mouth easier. At this time pt would benefit from 1:1. M5 OT- IP IADL's Start: 04/21/21 13:58 Freq: Status: Active Protocol: Document 04/21/21 13:59 CGR (Rec: 04/21/21 14:21 CGR [id number]) OT-Instrumental Activities of Daily Living Deficits IADL Deficits Identified Deficits Home Safety Awareness Awareness of Need for Assistance at Home Decreased Awareness Ability to Problem Solve Emergency Unable to Problem Solve Situations Medication Management Medication Management Comments concerns regarding pt's ability to perform Money Management Money Management Comments concerns regarding pt's ability to perform Meal Preparation Meal Preparation Comments concerns regarding pt's ability to perform Information Security Risk Analyst Information Security Risk Analyst Comments concerns regarding pt's ability to perform Driving Driving Comments Pt does not drive M6 OT- IP Functional Cognition Start: 04/21/21 13:58 Freq: Status: Active Protocol: Document 04/23/21 13:30 [facility] (Rec: 04/23/21 13:39 [facility] [id number]) Cognitive Factors Limiting Selfcare Function Cognitive Comments Cognitive Assessment Comments Pt having trouble to follow commands and needing repetitive cues to follow. Pt at times would reach for wrong objects for example, reaching for the fork versus water bottle. M8 OT- IP Objective Assessments Start: 04/21/21 13:58 Freq: Status: Active Protocol: Document 04/21/21 13:59 CGR (Rec: 04/21/21 14:21 CGR [id number]) OT Gross Range of Motion Upper Extremity Range of Motion Assessment Left Impaired ROM Impairments L shld 0-90 R shld 0-110 OT Strength Upper Extremity Strength Assessment Within Functional Limits Comments Strength Comments grossly 4/5 OT- Coordination Assessment Comments Coordination Comments not tested, pt unable to perform on this date. OT-Muscle Tone Assessment Muscle Tone WNL Yes OT Sensation Assessment Edema Edema Absent M9 OT- IP Assessment and Plan Start: 04/21/21 13:58 Freq: Status: Active Protocol: Document 04/23/21 13:30 [facility] (Rec: 04/23/21 13:39 [facility] [id number]) OT Summary Assessment and Plan Potential Rehabilitation Potential Fair Analytic Complexity at Evaluation High Summary OT Impairments Range of Motion,Strength, Balance,Coordination, Functional Cognition, Functional Mobility,Self- Feeding,Grooming,Dressing, Toileting,Bathing,Toilet Transfers,Shower Transfers, Activity Tolerance Progress Towards Goals Slow Progress due to Medical Issues,Slow Progress due to Activity Tolerance,Slow Progress due to Cognition Assessment Summary Pt needing MAX vc to assist for her meal and may now benefit from someone to be there continuously for meals. Pt a bit confused and trying to grab her fork versus the water bottle. Pt pushing away her mac and cheese versus trying to pull it closer to her. Pt will benefit from skilled rehab when medically stable. Goals Self-Feeding Goal Independent Grooming Goal Independent Dressing Goal Independent Toileting Goal Independent Toilet Transfer Goal Independent Days to Meet Goals 30 Frequency of Treatment Frequency Of Treatment Once a Day Treatment Plan OT Treatment Plan ADL Training,Functional Cognition Training,Functional Mobility,Patient/Family Education,Discharge Planning Other Treatment Recommendations and Next Transfer with FWW to [facility] with Treatment Focus MAX AX 2 Discharge Recommendations OT Discharge Recommendations SNF Rehab
--- NOTE | 2021-04-23 14:03 | CM.DPNOTE ---
Denice from [facility] stopped in at 1400 saying she assessed patient. She asked me to send most recent PT note, and last few RN notes including med list. I told her pt. has a plan for after snf, going home with daughter. Denice wants to review the PT note to see if they can accept patient. If they do accept pt., they cannot take patient until Wednesday due to Covid situation and taking a couple of patients tomorrow 04/23. I relayed this information to [place] and Karina. Stephani Bueno CM Asst.
--- NOTE | 2021-04-23 14:20 | CM.DPC ---
DCP Ongoing SNF Planning: Per MD, pt is continuing to progress and to work with PT further today towards plan of SNF. Pt was made Inpt Status on 04/21/21. Per PT, pt improved today and was a max 1PA for bed mobility/transfer but then had GI issues and could not participate further but very pleasant and willing to participate. SW called [facility] and confirmed he received the referral yesterday but states it is now being reviewed by their DNS to determine if they can accept and DNS has been quite busy today but he will check in with the DNS to see if they have reviewed. Denice admissions from [facility] completed bedside assessment with pt today and states she is very pleasant and likely a good fit for their facility but requesting updated PT note from today, RN notes, and med list be faxed for final review before they confirm their decision on if they can accept. [facility] would not be able to accept until Wednesday though (today is Wed) due to bed availability and couple admissions scheduled for tomorrow already. PASRR completed. Plan: SW to follow closely for [facility] and [facility] review to determine if either can accept at d/c prior to safe return home to Dtr's house. SW to keep Dtr updated on SNF reviews. GISSELLE Ocasio
--- NOTE | 2021-04-23 18:46 | PC.NURSE ---
Day Shift Note Patient moved from room 226 to 223 this shift. All belongings with pt including clothing. Daughter updated. Bed alarm on. Call light within reach.
[2021-04-23] MEDS: SENNOSIDES 8.6 MG TABLET 17.2 MG PO (20:42)
[2021-04-23 20:55] LABS: Acinetobacter baumannii Not Detected (Not Detect); Candida albicans Not Detected (Not Detect); Candida glabrata Not Detected (Not Detect); Candida krusei Not Detected (Not Detect); Candida parapsilosis Not Detected (Not Detect); Candida tropicalis Not Detected (Not Detect); E. coli Not Detected (Not Detect); Enterobacter cloacae complex Not Detected (Not Detect); Enterobacteriaceae species Not Detected (Not Detect); Enterococcus species Not Detected (Not Detect); Haemophilus influenzae Not Detected (Not Detect); Listeria monocytogenes Not Detected (Not Detect); Neisseria meningitidis Not Detected (Not Detect); Proteus species Not Detected (Not Detect); Pseudomonas aeruginosa Not Detected (Not Detect); Serratia marcescens Not Detected (Not Detect); Staphylococcus species Not Detected (Not Detect); Streptococcus agalactiae (Gr B Not Detected (Not Detect); Streptococcus pneumonia Not Detected (Not Detect); Streptococcus pyogenes (Gr A) Not Detected (Not Detect); Streptococcus species Not Detected (Not Detect)
[2021-04-24] VITALS (10 sets, daily range): BP systolic 138–183; BP diastolic 67–103; PULSE 62–112; RESP 17–18; TEMP 35.8–36.7; O2SAT 92–98
[2021-04-24] MEDS: HYDRALAZINE 25 MG TABLET PO ×4 (09:49→20:53)
[2021-04-24] MEDS: AMLODIPINE 5 MG TABLET PO (09:49)
[2021-04-24] MEDS: carvediloL 12.5 MG TABLET PO ×2 (09:49→20:53)
[2021-04-24] MEDS: APIXABAN 5 MG TABLET PO ×2 (09:49→20:53)
[2021-04-24] MEDS: SODIUM CHLORIDE 0.9% FLUSH 10 ML IV ×2 (09:50→20:53)
[2021-04-24] MEDS: LOSARTAN 50 MG TABLET PO ×2 (09:50→20:52)
--- NOTE | 2021-04-24 10:38 | CM.DPC ---
DCP SNF Planning: Per [facility] admissions at [facility], their DNS reviewed and they declined accepting pt at this time. ARTURO called Denice admissions at [facility] and she confirms she reviewed updated notes with their team and they can accept pt tomorrow (Fri) and want to confirm if she can transport via w/c van. Pt will also need updated COVID swab as well as copy of her vaccination card for COVID. Per PT, pt seems to have trunk control and feel that pt can likely safely d/c by cabulance to SNF but will further assess this afternoon and alert SW if pt unsafe to transport via cabulance. SW called pt's Dtr and updated on [facility] acceptance for tomorrow and Dtr confirms that she spoke to Denice at [facility] but thought the SNF was in [place] but states [place] is alright as her brother only lives a few blocks away from [facility]. Dtr had questions regarding visitation and if pt has to quarantine and SW provided Denice's contact info to inquire directly with her. Dtr confirms pt was fully COVID vaccinated in [place] but ADRIAN Styles could not find the record on the [facility] website and Dtr will bring in copy of card today during visitation. ARTURO updated Denice at [facility] and she will work on setting up cabulance for pt for transport tomorrow. ARTURO updated RN that pt will need updated COVID swab later today for d/c tomorrow. Plan: SW to follow closely for copy of COVID vaccination card to be brought in by Dtr today and updated COVID swab and cabulance transport time for d/c tomorrow. GISSELLE Ocasio
--- NOTE | 2021-04-24 11:42 | PC.NURSE ---
07- Patient lyle lifted to the chair, chair alarm placed on patient, chair alarm did not go well with patient. This has been taken off. She does not try to get up out of chair. She did try to get out of bed this am as she was impulsive and ready to get up. She does follow some queing but is confused. Patient tends to lean to the left always when lying in bed and sitting up in the chair. Pillow placed under patients head and shoulder.
--- NOTE | 2021-04-24 11:45 | PM.PN.1 ---
Subjective Subjective Date Patient Seen: 04/24/21 Time Patient Seen: 09:00 Interval history: Today she has no complaints. BP is slightly improved. Exam Vital Signs (past 8 hours): - 04/24/21 03:57 04/24/21 04:00 04/24/21 08:20 Temperature 97.9 F 98.1 F Pulse Rate 83 93 H Respiratory Rate 18 18 Blood Pressure 154/94 H 176/103 H Pulse Oximetry 92 94 94 Oxygen Delivery Method Room Air Oxygen Flow Rate 0 Narrative Exam Narrative: ?GEN:? no acute distress at this time HEENT: moist mucous membranes, PERRLA CV: irregular rate and rhythm with no murmurs PULM: Clear auscultation bilaterally ABD: soft, nontender, nondistended, no organomegaly, normal bowel sounds x4 EXT: warm and well perfused NEURO: no focal deficits, but does have some facial asymmetry and leans preferentially to the left. falls asleep easily, mildly confused PSYCH: pleasant, cooperative Objective Labs Result Diagrams: 04/23/21 04:45 04/23/21 04:45 Labs: Laboratory Results - last 24 hr 04/20/21 18:49 A. baumannii (PCR) Not detected Marium albicans (PCR) Not detected C. glabrata (PCR) Not detected C. krusei (PCR) Not detected C. parapsilosis (PCR) Not detected C. tropicalis (PCR) Not detected Enterobacteriac sp PCR Not detected E. cloacae complex PCR Not detected Enterococcus sp PCR Not detected E. coli (PCR) Not detected H. influenzae (PCR) Not detected Klebsiella oxytoca PCR Not detected Klebsiella pneumoniae Not detected List. monocytogenes PCR Not detected N. meningitidis (PCR) Not detected Proteus species (PCR) Not detected Serratia marcescens PCR Not detected Staphylococcus sp PCR Not detected Staph aureus (PCR) Not detected mecA-Methicil Res Gene Not Reportable Streptococcus sp PCR Not detected Group A Strep (PCR) Not detected Strep agalactiae (PCR) Not detected Strep pneumoniae (PCR) Not detected P. aeruginosa (PCR) Not detected Ra/B-Vanco Res Genes Not Reportable KPC-Carbap Res Gene PCR Not Reportable [facility] Medical History (Updated 04/21/21 @ 09:18 by Rosemary Leal RN) Atrial fibrillation Breast cancer COPD (chronic obstructive pulmonary disease) Dementia Failure to thrive in adult Frequent falls Hallucination Hypertension Hypertensive urgency Surgical History (Updated 04/21/21 @ 09:18 by Rosemary Leal RN) History of hysterectomy No pertinent past surgical history Family History Mother CVA (cerebral vascular accident) Father CVA (cerebral vascular accident) Social History household members: children Smoking Status: Never smoker Assessment & Plan Assessment & Plan narrative: Denice Torres is an 85W with PMH hypertension, hyperlipidemia, atrial fibrillation on Eliquis, COPD, frequent falls and dementia with hallucinations who presented with a fall 1. Ground level fall, acute? in the setting of frequent falls, with acute cystitis -CT head and MRI negative for acute process, as was done last admission - blood culture negative, urine culture growing sphigmonas. -for now Rocephin 1gm daily -recommended last two admissions to have neurology follow up -likely needs more around the clock care -Placed on FALL precautions -continue PT/OT. 2.Hypertensive emergency, acute on chronic, with atrial flutter, in the setting chronic permanent atrial fibrillation and HTN, -patient is stable and asymptomatic -patient's meds:? Metoprolol 50 mg once daily, Telimasarten 80mg QD -placed on nicardipine drip in ED, but this was stopped prior to arrival on floor -increased losartan to 50 mg b.i.d. -added hydralazine, amlodipine, may need additional agents. Consider changing amlodipine to nifedipine if uncontrolled today. -switch metoprolol to carvedilol -continue Eliquis -ECHO with no acute process 3. COPD, chronic, present on admission -no exacerbation, currently stable -continue montelukast 4. Dementia with hallucinations, acute on chronic, present on admission -Patient is pleasant, confused and unable to provide accurate HPI & ROS. The daughter seems to imply this is the patients base-line & has been for sometime, though with noted consistent decline- that she verbalizes has been told to her by the patients PCP. -needs neurological evaluation as an outpatient. 5. Overweight as evidence by BMI of 31.5, acute on chronic, present on admit -consideration will be given for dietary counseling Dispo: pending SNF Time Spent With Patient Critical Care time: I spent a total of [] minutes of critical care time on this patient's care today; this time is exclusive of procedural time. Quality VTE Deep Vein Thrombosis/Pulmonary Embolism Present on Admission: No
--- NOTE | 2021-04-24 11:56 | PT.IPTN ---
Current Diagnoses Hypertensive urgency (04/21/21) Physical Therapy Treatment Note M2 PT-IP Current Condition Start: 04/21/21 08:53 Freq: NEEDED Status: Active Protocol: Document 04/23/21 11:26 SP (Rec: 04/23/21 15:02 SP [id number]) Physical Therapy Current Condition Current Condition Evaluation Date 04/21/21 Treatment Diagnosis sepsis, AMS; impaired mobility and gait M3 PT-IP Subjective Start: 04/21/21 08:53 Freq: NEEDED Status: Active Protocol: Document 04/24/21 11:23 KS (Rec: 04/24/21 13:26 KS [id number]) Subjective Physical Therapy Visit Type Type Treatment Note Visit Start Time 11:23 Visit Stop Time 11:56 Total Visit Minutes 33 Notes Daughter present, CLIN APPLICATION SPECIALIST present for assistance. Number of MANAGER INSURANCE Visits 3 Physical Therapy Visit Comments Patient Comments Pt motivated and willing to work with therapy. M4 PT-IP Mobility and Gait Start: 04/21/21 08:53 Freq: NEEDED Status: Active Protocol: Document 04/24/21 11:23 KS (Rec: 04/24/21 13:26 KS [id number]) PT-Transfer Assessment Sit to and From Stand Sit to and from Stand Maximum Assistance,2 Person Assistance,Use of Upper Extremities Equipment Transfer Assistive Device Front Wheeled Walker Orthotic/Prosthetic Devices or Brace: No Transfers Transfer Destination Chair Transfer Technique sit<>stand only Transfer Ability Level of Assist Maximum Assistance,2 Person Assistance,Use of Upper Extremities Comments Mobility Comments Pt in chair upon arrival from therapy and BP: 148/78. Pt completed 1x10 ankle pumps, glute sets, and seatd marches. Pt then sat up in chair w/o back support and was able to remain upright against resistance from this MANAGER INSURANCE to determine if pt will be safe for w/c transfer. Pt agreeable to try sit<>stand w/ FWW. CLIN APPLICATION SPECIALIST arrived for support, pts daughter stabilized FWW. Pt scooted to edge of chair Min A and sit<>stand Max A x2 w/ cues for hand placement and sequencing. Pt able to maintain standing w/ Min A x2 for ~30 seconds and then reported feelings of fatigue in BLE. Max A x1 for stand<> sit in chair. Pt left reclined in chair w/ all needs in reach and daughter in room. Gait Assessment Comments Gait Comments Unable at this time. PT-Balance Assessment Sitting Balance and Reactions Static Sitting Balance Ability Fair Dynamic Sitting Balance Ability Fair M5 PT-IP Objective Assessments Start: 04/21/21 08:53 Freq: NEEDED Status: Active Protocol: Document 04/21/21 13:56 AW (Rec: 04/21/21 14:36 AW [id number]) Orientation Orientation/Cognition Level of Alertness Confusional State Orientation Name Language Function Ability Word Finding Difficulties,Hard of Hearing Safety Awareness Decreased Safety Awareness Memory Description 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 Gross Range of Motion Lower Extremity ROM Assessment Within Functional Limits Strength Lower Extremity Strength Assessment Bilaterally Impaired Comments Strength Comments BLE grossly 3+/5 but difficult to assess due to pt's challenged following directions. Sensation Assessment Comments Sensation Comments Unable to formally assess due to pt cognitive status. Muscle Tone Muscle Tone WNL No Comments Muscle Tone Comments Jerking involuntary movements BLE noted during bed mobility and in sitting. M6 PT-IP Treatment Start: 04/21/21 08:53 Freq: NEEDED Status: Active Protocol: Document 04/24/21 11:23 KS (Rec: 04/24/21 13:26 KS [id number]) Physical Therapy Treatment Exercises Exercises Ankle Pumps,Gluteal Sets Education Education Provided Safety Other Treatments Other Treatment Performed seated marches M7 PT-IP Assessment and Plan Start: 04/21/21 08:53 Freq: NEEDED Status: Active Protocol: Document 04/24/21 11:23 KS (Rec: 04/24/21 13:26 KS [id number]) PT Summary Assessment and Plan Potential Rehabilitation Potential Fair Status of Condition at Evaluation Evolving Summary Impairments Pain,Strength,Balance, Cognition,Bed Mobility, Transfers,Gait Progress Towards Goals Progressing Toward Goals,Slow Progress due to Medical Issues ,Slow Progress due to Activity Tolerance Assessment Summary Pt showed improvements w/ tolerance for activity and mobility today. Able to complete 1x10 ankle pumps, glute sets, and seated marches . Able to tolerate resisted seated balance and will be safe to transfer in w/c. Completed sit<>stand Max A x2 w/ FWW and maintained standing balance ~20 seconds w/ Min A. Pt will require SNF to improve strength and functional mobility. Goals Bed Mobility Goal Minimal Assistance Transfer Goal Minimal Assistance,Front Wheeled Walker Gait Goal Minimal Assistance,Front Wheel Walker Gait Distance 50 Other Goals - improve bed mobility and transfers to CGA, and gait to 50 feet with FWW CGA Days to Meet Goals 10 Frequency of Treatment Frequency Of Treatment Once a Day Treatment Plan Physical Therapy Treatment Plan Bed Mobility Training,Transfer Training,Gait Training, Therapeutic Exercise,Balance Retraining,Discharge Planning, Hot or Cold Pack Other Recommendations and Next Treatment bed mobility, transfers, sit<> Focus stands Precautions Other Precautions falls Recommendations To Nursing Amount of Assist Needed Mechanical Lift Discharge Recommendations PT Discharge Recommendations SNF Rehab Transportation Needs at Discharge Wheelchair/Cabulance
--- NOTE | 2021-04-24 13:24 | ST.IPTN ---
Visit Care Team Role Provider Type Lory Hammer MD Primary Care Provider Non-Staff Address: [address] [place] [address], [id number] Nas Walker MD Other Providers Physician Address: Phone: Fax: Valerie Shepard MD Other Providers Physician Address: Phone: Fax: Cynthia Messina MD Other Providers Physician Address: Phone: Fax: Gucci Fall MD Other Providers Physician Address: Phone: Fax: Fredrick Patiño MD Other Providers Physician Address: Phone: Fax: Enrique Mcintyre MD Other Providers Physician Address: Phone: Fax: Kory Ball MD Other Providers Physician Address: Phone: Fax: Bay Lewis MD Other Providers Physician Address: Phone: Fax: Castro Messina MD Other Providers Physician Address: Phone: Fax: Bandar Ceballos MD Other Providers Physician Address: Phone: Fax: Drew Bello MD Other Providers Physician Address: Phone: Fax: Maria E Rodgers MD Emergency Provider Physician Referring Provider Address: [address] [place] [address], [facility] Physician Attending Provider Address: [address] [place] [address] CLIENT RELATIONS ASSOCIATE Treatment Note CLIENT RELATIONS ASSOCIATE Treatment Note Start: 04/24/21 13:10 Freq: Status: Active Protocol: Document 04/24/21 13:10 CLEO (Rec: 04/24/21 13:23 ZS [id number]) Speech Pathology Treatment Note Session Time Visit Start Time 12:00 Visit Stop Time 12:25 Total Visit Minutes 25 Setting Treatment Setting Acute Care Visit Type Note Type Discharge Summary General Information General Information Denice Torres is an 85-year- old woman with a history of hypertension, hyperlipidemia, atrial fibrillation on Eliquis , COPD, chronic global weakness, frequent falls, and dementia with hallucinations. She lives with her daughter and is home alone while her daughter works. Frequent calls to paramedics, often declining transport frequent falling with calls for lift assist. Earlier while her daughter was out the patient had a ground level fall, states that she did not hit her head but is unable to recall details, is a poor historian due to dementia. The daughter is unsure how long her mother was down. She denies chest pain, SOB, body aches, fever, headaches, specific localized weakness, abdominal pain, nausea, vomiting, diarrhea, chills, no changes in medications. She does not a slight cough, she has had a Serafin & Serafin vaccine. She was admitted April 03, January 13, July 27, and July 09 for similar findings. She is globally weak, sitting in the bed she continues to drift to the left side, mild left facial droop that she can correct for when it is pointed out. Speech is fluent but she is having mild word-finding difficulties (likely more related to dementia rather than aphasia). She favors the left side, as noted on documentation on last hospitalization 04/03/2021, also the daughter at the bedside notes that previous visits with the patient's PCP has noted worsening dementia symptoms which would imply that the patient has been diagnosed with dementia for a longer period than previously thought. Patient's chest x-ray demonstrated no acute airspace opacity, was positive for cardiomegaly and a hiatal hernia. Patient's head CT was negative for any acute intracranial processes. Patient's EKG demonstrated atrial flutter with a rate of 86- did not meet STEMI criteria. Subjective Identification Type Name,ID Wristband Others Present Family Observations/Patient Presentation Denice Farfan was seated upright in her chair with her daughter in the room. No left weakness immediately present and no facial droop observed. Denice was awake and alert during treatment session. Chief Complaint(s) Language,Swallowing Patient Knowledge/Awareness of CLIENT RELATIONS ASSOCIATE Role Good in Treatment Parent/Caretake Knowledge/Awareness of Good CLIENT RELATIONS ASSOCIATE Role in Treatment Objective Short Term Goals 1. Denice will independently use strategies in conversation with others when she is having difficulty finding a word. 2. Denice will safely tolerate least restrictive diet to meet her nutrition and hydration needs. Treatment Activities Discussed any swallowing difficulties and strategies to aid in feeding/swallowing at home. Discussed strategies for word finding difficulties and observed use of strategies during conversation. Assessment Patient Response to Treatment Good Rehab Potential Good Impairments Identified Dementia,Dysphagia Progress Towards Goals Excellent Progress Assessment of Overall Progress Improving Assessment of Improvement Denice spontaneously used a variety of strategies (e.g., describing the object, using a different word, using gestures) when she was experiencing word finding difficulties. She indicated the biggest difficulty with eating is the weight of the silverware, at home she uses plastic utensils and paper plates, which are much delivery coordinator . Discussed continued use of delivery coordinator silverware at home to reduce fatigue when eating. As Denice uses all strategies for swallowing and word finding difficulties independently, she is appropriate for discharge from speech therapy at this time. Reviewed with Patient Goals,Progress Being Made Patient/Caregiver Understanding Good Plan Amount of Therapy Recommended No Further Therapy Frequency of Treatment No Further Therapy Provided Patient/Caregiver Instruction Home Exercise Program,Plan of Care,Questions/Concerns Therapy Recommendations Discharge from Speech Therapy
--- NOTE | 2021-04-24 15:26 | OT.IP.TRT ---
Current Diagnoses Hypertensive urgency (04/21/21) Occupational Therapy Treatment Note M2 OT-IP Current Condition Start: 04/21/21 13:58 Freq: Status: Active Protocol: Document 04/21/21 13:59 CGR (Rec: 04/21/21 14:21 CGR [id number]) Occupational Therapy Current Condition Current Condition Evaluation Date 04/21/21 Treatment Diagnosis global weakness, found down Diagnosis Onset Date 04/21/21 M3 OT- IP Subjective and Pain Start: 04/21/21 13:58 Freq: Status: Active Protocol: Document 04/24/21 14:45 [facility] (Rec: 04/24/21 16:21 CCC [id number]) OT- Subjective Occupational Therapy Visit Type Type Treatment Note Visit Start Time 14:45 Visit Stop Time 15:26 Total Visit Minutes 41 Occupational Therapy Visit Comments Patient Comments Pt agreed to do grooming and sponge off. OT Pain Assessment Pain When Pain Assessed At Rest Pain Present Pain Present Denied Pain M4 OT- IP ADL's Start: 04/21/21 13:58 Freq: Status: Active Protocol: Document 04/24/21 14:45 [facility] (Rec: 04/24/21 16:21 [facility] [id number]) OT ADL-Grooming General Evaluation Grooming Ability Minimal Assistance Areas Needing Assistance Combing/Brushing Hair Comments OT Grooming Comments Pt needing PRASANNA to asisst to comb the back of her hair while seated. OT ADL-Oral Care General Eval Oral Care Ability Standby Assistance Areas of Assistance Retrieving/Set-Up of Items Comments Oral Care Comments Pt able to do oral care with cues for completeness. OT ADL-Dressing General Eval Lower Body Dressing Ability Maximum Assistance Areas Needing Assistance Socks Comments OT Dressing Comments Pt able to practice use or pulling unit operator and sock aid and needing MODA to help put the sock on the sock aid. MOD vc for sequencing of task. OT ADL-Toileting Comments OT Toileting Comments Pt not having to go at this time. OT ADL-Bathing Bathing Type Bathing Type Sponge Bath General Evaluation Bathing Ability Moderate Assistance,Maximal Assistance Areas Needing Assistance Wash/Dry Back,Wash/Dry Perineal Area,Wash/Dry Lower Extremities Comments OT Bathing Comments Pt able to reach her chest, arms, face and between her legs for sponge bath today while seated in the recliner. M5 OT- IP IADL's Start: 04/21/21 13:58 Freq: Status: Active Protocol: Document 04/21/21 13:59 CGR (Rec: 04/21/21 14:21 CGR [id number]) OT-Instrumental Activities of Daily Living Deficits IADL Deficits Identified Deficits Home Safety Awareness Awareness of Need for Assistance at Home Decreased Awareness Ability to Problem Solve Emergency Unable to Problem Solve Situations Medication Management Medication Management Comments concerns regarding pt's ability to perform Money Management Money Management Comments concerns regarding pt's ability to perform Meal Preparation Meal Preparation Comments concerns regarding pt's ability to perform Pharmacy Informatics Manager Pharmacy Informatics Manager Comments concerns regarding pt's ability to perform Driving Driving Comments Pt does not drive M6 OT- IP Functional Cognition Start: 04/21/21 13:58 Freq: Status: Active Protocol: Document 04/24/21 14:45 [facility] (Rec: 04/24/21 16:21 [facility] [id number]) Cognitive Factors Limiting Selfcare Function Cognitive Comments Cognitive Assessment Comments Pt dong a little better to follow commands, but still needing cues to sequence through tasks, ie rinse our mouth out, spit out into the basin,etc... M8 OT- IP Objective Assessments Start: 04/21/21 13:58 Freq: Status: Active Protocol: Document 04/21/21 13:59 CGR (Rec: 04/21/21 14:21 CGR [id number]) OT Gross Range of Motion Upper Extremity Range of Motion Assessment Left Impaired ROM Impairments L shld 0-90 R shld 0-110 OT Strength Upper Extremity Strength Assessment Within Functional Limits Comments Strength Comments grossly 4/5 OT- Coordination Assessment Comments Coordination Comments not tested, pt unable to perform on this date. OT-Muscle Tone Assessment Muscle Tone WNL Yes OT Sensation Assessment Edema Edema Absent M9 OT- IP Assessment and Plan Start: 04/21/21 13:58 Freq: Status: Active Protocol: Document 04/24/21 14:45 [facility] (Rec: 04/24/21 16:21 [facility] [id number]) OT Summary Assessment and Plan Potential Rehabilitation Potential Fair Analytic Complexity at Evaluation High Summary OT Impairments Range of Motion,Strength, Balance,Coordination, Functional Cognition, Functional Mobility,Self- Feeding,Grooming,Dressing, Toileting,Bathing,Toilet Transfers,Shower Transfers, Activity Tolerance Progress Towards Goals Progressing Toward Goals,Slow Progress due to Medical Issues ,Slow Progress due to Activity Tolerance,Slow Progress due to Cognition Assessment Summary Pt able to participate in grooming and partial sponge bath while seated today. NOted increased sitting balance while seated and not leaning as much to the left today. Pt will benefit from skilled rehab when medically stable. Goals Self-Feeding Goal Independent Grooming Goal Independent Dressing Goal Independent Toileting Goal Independent Toilet Transfer Goal Independent Days to Meet Goals 30 Frequency of Treatment Frequency Of Treatment Once a Day Treatment Plan OT Treatment Plan ADL Training,Functional Cognition Training,Functional Mobility,Patient/Family Education,Discharge Planning Other Treatment Recommendations and Next Transfer with [facility]WW to [facility] with Treatment Focus MAX AX 2 Discharge Recommendations OT Discharge Recommendations SNF Rehab Transportation Needs at Discharge Wheelchair/Cabulance
[2021-04-24] MEDS: SENNOSIDES 8.6 MG TABLET 17.2 MG PO (20:53)
[2021-04-25] VITALS (17 sets, daily range): BP systolic 103–186; BP diastolic 62–87; PULSE 57–86; RESP 16–18; TEMP 35.6–36.5; O2SAT 95–98
--- NOTE | 2021-04-25 08:18 | PM.DS.1 ---
History of Present Illness History of Present Illness Date Patient Seen: 04/25/21 Time Patient Seen: 08:18 Chief complaint: Fall on ground 5 hours + blood thinners Narrative: As per Yuliya Nails, [employer] P[employer]ER-: ?Denice Torres is a 85-year-old woman with a history of hypertension, hyperlipidemia, atrial fibrillation on Eliquis, COPD, chronic gloabal weakness, frequent falls and dementia with hallucinations.? She lives with her daughter and is home alone while her daughter works.? Frequent calls to the paramedics, often declining transport frequent falling with calls for lift assist.? Earlier yesterday while her daughter was out the patient had a ground level fall, states that she did not hit her head but is unable to recall details, is a poor historian due to dementia.? The daughter is unsure how long her mother was down.? Patient was assessed for admit in the emergency department.? She denies chest pain, SOB, body aches, fever, headaches, specific localized weakness, abdominal pain, nausea, vomiting, diarrhea, chills, no changes in medications. ? She does note a slight cough, she has had a Serafin & Serafin vaccine.? She was admitted April 03, January 13, July 27 and July 09 for similar findings. She is globally weak, sitting in the bed she continues to drift to the left side, mild left facial droop that she can correct for when it is pointed out.? Speech is fluent but she is having mild word-finding difficulties (likely more related to dementia rather than aphasia).? She is favoring of the left side was noted on documentation on last hospitalization 04/03/2021, also the daughter at the bedside notes that previous visits with the patient's PCP has noted worsening dementia symptoms which would imply that the patient has been diagnosed with dementia for a longer period than previously thought.? The daughter also notes that the patient's home blood pressures have been running in the 180s to 190 systolic for some time, which is was represented on last admits b/p's.? In the ED the patient was placed on a nicardipine drip for hypertensive urgency BP's were 181/79, 190/73, 178/86-patient was stable and asymptomatic.? Upon admit temp 97.6?, BP 178/86, HR 87, R 19, O2 saturation 96% on room air patient's CBC normal, CMP grossly normal, BNP 1160, initial troponin 1.? 0.014, lipase normal, patient's urine was positive for large amount of bacteria was sent for culture.? Patient's chest x-ray demonstrated no acute airspace opacity, was positive for cardiomegaly a and hiatal hernia.? Patient's head CT was negative for any acute intracranial processes.? Patient's EKG demonstrated atrial flutter with a rate of 86-did not meet STEMI criteria.? Patient admitted for hypertensive urgency, with atrial flutter, ground level fall in the setting of frequent fall, secondary to global weakness, and left-sided neurological deficit.? Discharge Providers Provider Date of admission: 04/21/21 02:14 Discharge Date: 04/25/21 Primary care physician: Lory Hammer MD Consults: 04/21/21 [place] [facility] [place] [employer] Coordinator Stat Comment: frequent falls FORCE ADJUSTMENT SUPERVISOR Consult: Community [facility] Res Need 04/21/21 01:51 Consult to Tele-byproducts maker Routine Comment: Consulting Provider: Bertha [employer]intensiv[employer] Reason for consultation: Alkylation Operator services 04/21/21 01:57 Consult to Physical Therapy Evaluate & Treat Comment: frequent Falls Physician Instructions: Evaluate and Treat 04/21/21 03:29 Consult to Discharge Planning Routine Comment: Consult to Occupational Therapy Evaluate & Treat Comment: global weakness Physician Instructions: Evaluate and treat Consult to Speech Therapy Evaluate & Treat Comment: Physician Instructions: Evaluate and treat 04/21/21 04:42 Consult to Tele-byproducts maker Routine Comment: Consulting Provider: [employer]intensiv[employer] Reason for consultation: Alkylation Operator services Has provider been notified: No 04/21/21 09:10 Consult to Dietitian, Adult Routine Comment: Reason For Exam: assessed at high risk Discharge provider: Ash Thomas DO Summary Hospital Course Discharge Diagnosis: Please see hospital course by problem list noted below. Hospital Course: Denice Torres is an 85W with PMH hypertension, hyperlipidemia, atrial fibrillation on Eliquis, COPD, frequent falls and dementia with hallucinations who presented with a fall. 1. Ground level fall, acute? in the setting of frequent falls, with acute cystitis -CT head and MRI negative for acute process, as was done last admission -blood culture negative, urine culture growing sphigmonas. -patient completed course of IV ceftriaxone during her admission. -recommended last two admissions to have neurology follow up -continue PT/OT at SNF 2.Possible hypertensive emergency, acute on chronic, with atrial flutter, in the setting chronic permanent atrial fibrillation and HTN, -patient is stable and asymptomatic -patient's meds:? Metoprolol 50 mg once daily, Telimasarten 80mg QD -placed on nicardipine drip in ED for possible hypertensive emergency, but this was stopped prior to arrival on floor -increased losartan to 50 mg b.i.d. -added hydralazine, amlodipine as well. -switched metoprolol to carvedilol -continue Eliquis -ECHO with no acute process -at discharge BP is much better controlled. 3. COPD, chronic, present on admission -no exacerbation, currently stable -continue montelukast 4. Dementia with hallucinations, acute on chronic, present on admission -Patient is pleasant, confused and unable to provide accurate HPI & ROS. The daughter seems to imply this is the patients base-line & has been for sometime, though with noted consistent decline- that she verbalizes has been told to her by the patients PCP. -needs neurological evaluation as an outpatient. 5. Overweight as evidence by BMI of 31.5, acute on chronic, present on admit -consideration will be given for dietary counseling Dispo: transfer to SNF Time Spent with Patient Time spent: Greater than 30 minutes Exam Vital Signs (past 8 hours): - 04/25/21 04:00 04/25/21 04:38 Temperature 97.2 F L Pulse Rate 85 Respiratory Rate 18 Blood Pressure 134/62 Pulse Oximetry 96 95 Oxygen Delivery Method Room Air Oxygen Flow Rate 0 Narrative Exam Narrative: GEN:? no acute distress at this time HEENT: moist mucous membranes, PERRLA CV: irregular rate and rhythm with no murmurs PULM: Clear auscultation bilaterally ABD: soft, nontender, nondistended, no organomegaly, normal bowel sounds x4 EXT: warm and well perfused NEURO: no focal deficits, but does have some facial asymmetry and leans preferentially to the left. falls asleep easily, mildly confused PSYCH: pleasant, cooperative Objective Labs Result Diagrams: 04/23/21 04:45 04/23/21 04:45 [facility] Medical History (Updated 04/21/21 @ 09:18 by Rosemary A.M. Shook, RN) Atrial fibrillation Breast cancer COPD (chronic obstructive pulmonary disease) Dementia Failure to thrive in adult Frequent falls Hallucination Hypertension Hypertensive urgency Surgical History (Updated 04/21/21 @ 09:18 by Rosemary Leal RN) History of hysterectomy No pertinent past surgical history Family History Mother CVA (cerebral vascular accident) Father CVA (cerebral vascular accident) Social History household members: children Smoking Status: Never smoker Discharge Plan Discharge Plan Patient Disposition: SNF Transfer to: [facility] Provider Discharge Comment: Denice Torres is an 85W with PMH hypertension, hyperlipidemia, atrial fibrillation on Eliquis, COPD, frequent falls and dementia with hallucinations who presented with a fall 1. Ground level fall, acute? in the setting of frequent falls, with acute cystitis -CT head and MRI negative for acute process, as was done last admission -blood culture negative, urine culture growing sphigmonas. -patient completed course of IV ceftriaxone during her admission. -recommended last two admissions to have neurology follow up -continue PT/OT at SNF 2.Possible hypertensive emergency, acute on chronic, with atrial flutter, in the setting chronic permanent atrial fibrillation and HTN, -patient is stable and asymptomatic -patient's meds:? Metoprolol 50 mg once daily, Telimasarten 80mg QD -placed on nicardipine drip in ED, but this was stopped prior to arrival on floor -increased losartan to 50 mg b.i.d. -added hydralazine, amlodipine as well. -switched metoprolol to carvedilol -continue Eliquis -ECHO with no acute process 3. COPD, chronic, present on admission -no exacerbation, currently stable -continue montelukast 4. Dementia with hallucinations, acute on chronic, present on admission -Patient is pleasant, confused and unable to provide accurate HPI & ROS. The daughter seems to imply this is the patients base-line & has been for sometime, though with noted consistent decline- that she verbalizes has been told to her by the patients PCP. -needs neurological evaluation as an outpatient. 5. Overweight as evidence by BMI of 31.5, acute on chronic, present on admit -consideration will be given for dietary counseling Dispo: transfer to SNF Discharge orders & Medications Prescriptions: New amlodipine [Norvasc] 5 mg Tablet 5 mg PO DAILY Qty: 30 RF: 0 carvedilol [Coreg] 12.5 mg Tablet 12.5 mg PO BID 30 Days Qty: 60 RF: 0 hydralazine 25 mg Tablet 25 mg PO QID 30 Days Qty: 120 RF: 0 Continued simvastatin 40 mg tablet 40 mg PO BEDTIME RF: 0 telmisartan 80 mg tablet 80 mg PO DAILY RF: 0 montelukast 10 mg tablet 10 mg PO BEDTIME RF: 0 loratadine 10 mg tablet 10 mg PO DAILY RF: 0 Eliquis 5 mg tablet 5 mg PO BID RF: 0 Discontinued metoprolol succinate 50 mg tablet extended release 24 hr 50 mg PO DAILY RF: 0 Medication counseling provided by Pharmacist: No Pharmacist Comment: Discharging to SNF Follow up/Referrals: Lory Hammer MD [Primary Care Provider] - So White MD [Non-Staff] - Diet/Activity/Treatments Diet: Diet as Tolerated and Low-sodium Liquid consistency: Normal/Thin Food texture: Regular Discharge Data Primary Care Provider: Lory Hammer Quality VTE Deep Vein Thrombosis/Pulmonary Embolism Present on Admission: No
--- NOTE | 2021-04-25 08:34 | PT.IPTN ---
Current Diagnoses Hypertensive urgency (04/21/21) Physical Therapy Treatment Note M2 PT-IP Current Condition Start: 04/21/21 08:53 Freq: NEEDED Status: Active Protocol: Document 04/25/21 07:47 ER (Rec: 04/25/21 09:47 ER [id number]) Physical Therapy Current Condition Current Condition Evaluation Date 04/21/21 Treatment Diagnosis sepsis, AMS; impaired mobility and gait M3 PT-IP Subjective Start: 04/21/21 08:53 Freq: NEEDED Status: Active Protocol: Document 04/25/21 07:47 ER (Rec: 04/25/21 09:47 ER [email or web address]) Subjective Physical Therapy Visit Type Type Treatment Note Visit Start Time 07:47 Visit Stop Time 08:34 Total Visit Minutes 47 Notes APPLE Calvert assisted and provided education, and served as 2nd person for , and under direct supervision of YARA Rodriguez. Nurse assisted with pericare. Number of MOLD MAKING [employer] SHEETS SUPERVISOR Visits 3 Physical Therapy Visit Comments Patient Comments Pt motivated and willing to work with therapy. Therapy Pain Assessment Pain Present Pain Present Denied Pain M4 PT-IP Mobility and Gait Start: 04/21/21 08:53 Freq: NEEDED Status: Active Protocol: Document 04/25/21 07:47 ER (Rec: 04/25/21 09:47 ER [email or web address]) PT-Bed Mobility Assessment Supine to Sit Supine to Sit Moderate Assistance,Maximum Assistance,1 Person Assistance Scooting Scooting to Edge of Bed Maximum Assistance PT-Transfer Assessment Sit to and From Stand Sit to and from Stand Maximum Assistance,2 Person Assistance,Use of Upper Extremities Equipment Transfer Assistive Device Front Wheeled Walker Orthotic/Prosthetic Devices or Brace: No Transfers Transfer Destination Chair,Bedside Commode Transfer Technique Squat Pivot Transfer Ability Level of Assist Maximum Assistance,2 Person Assistance,Use of Upper Extremities Comments Mobility Comments Pt. in bed (elevated supine) upon arrival. BP178/89, HR 79, SaO2 96. Pt. performed heel slides x2 to don parts interpreter socks ( put on by MOLD MAKING [employer] SHEETS SUPERVISOR). Pt. performed supine >sit with maxA+1, decreasing to modA +1. Cues for leg placement, use of UE, torso alignment. Pt. scooted to EOB with maxA+1, CGA x1 and use of UE and cues for leaning, alternating buttock sliding, UE placement, torso alignment. Pt. able to sit EOB with UE support for 2 minutes . Pt Sit>stand at EOB with FWW , max A +2 with cues for foot placement, forward lean, UE placement and use, pushing through legs into extension, and erect posture. Pt able to stand for 1 minute. Pt. attempted standing pivot, but was unable to weight shift sufficiently to ambulate through transfer. Pt. Stand> sit at EOB with FWW, max A+2 w /controlled descent. Pt squat pivoted to bedside commode max A+2 with cues for foot placement, forward lean, UE placement reaching across to [facility] arm rest, and erect posture. Pt. voided, self- maintaining posture w/ UEs on arm rests. MOLD MA[employer] SHEETS SUPERVISOR assisted with pericare in sitting. Pt. squat pivoted to chair, max A+2 with cues for foot placement, forward lean, UE placement and use, and erect posture. Nurse assisted M[employer] MA[employer] SHEETS SUPERVISOR, SPTA with donning brief while supported pt in semi stand usign FWW Max A x2. Pt. scooted posteriorly in chair, max A+2 on transfer pad, with cues to push through legs, UE placement. Pt . left in chair at end of treatment with call light and all needs within reach, discussed with nursing fall risk and use of chair alarm, nurse stated is inroom but not concerned. Gait Assessment Comments Gait Comments Unable at this time. PT-Balance Assessment Sitting Balance and Reactions Static Sitting Balance Ability Fair Dynamic Sitting Balance Ability Fair Standing Balance and Reactions Static Standing Balance Ability Poor Dynamic Standing Balance Ability Poor Device Used FWW Comments Other Balance Tests/Deviations/Treatment stood 1 min Max A x2 w/ FWW, : cues for upright posture and quad facilitation. M5 PT-IP Objective Assessments Start: 04/21/21 08:53 Freq: NEEDED Status: Active Protocol: Document 04/21/21 13:56 AW (Rec: 04/21/21 14:36 AW [id number]) Orientation Orientation/Cognition Level of Alertness Confusional State Orientation Name Language Function Ability Word Finding Difficulties,Hard of Hearing Safety Awareness Decreased Safety Awareness Memory Description 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 Gross Range of Motion Lower Extremity ROM Assessment Within Functional Limits Strength Lower Extremity Strength Assessment Bilaterally Impaired Comments Strength Comments BLE grossly 3+/5 but difficult to assess due to pt's challenged following directions. Sensation Assessment Comments Sensation Comments Unable to formally assess due to pt cognitive status. Muscle Tone Muscle Tone WNL No Comments Muscle Tone Comments Jerking involuntary movements BLE noted during bed mobility and in sitting. M6 PT-IP Treatment Start: 04/21/21 08:53 Freq: NEEDED Status: Active Protocol: Document 04/24/21 11:23 KS (Rec: 04/24/21 13:26 KS [id number]) Physical Therapy Treatment Exercises Exercises Ankle Pumps,Gluteal Sets Education Education Provided Safety Other Treatments Other Treatment Performed seated march M7 PT-IP Assessment and Plan Start: 04/21/21 08:53 Freq: NEEDED Status: Active Protocol: Document 04/25/21 07:47 ER (Rec: 04/25/21 09:47 ER [email or web address]) PT Summary Assessment and Plan Potential Rehabilitation Potential Fair Status of Condition at Evaluation Evolving Summary Impairments Pain,Strength,Balance, Cognition,Bed Mobility, Transfers,Gait Progress Towards Goals Progressing Toward Goals,Slow Progress due to Medical Issues ,Slow Progress due to Activity Tolerance Assessment Summary Pt. showed improvement with tolerance for mobility today. Pt was able to stand for increased time, and perform transfers with significantly less involuntary leg movement. Completed supine>sit>fwd scoot EOB Max A x1, Sit<>stand (1 minute)Max A x2, squat pivot transfer (to bedside commode)>squat pivot transfer (to chair)>backward scoot heavy Max A x2. Recommend SNF to improve strength and fuctional mobility. Goals Bed Mobility Goal Minimal Assistance Transfer Goal Minimal Assistance,Front Wheeled Walker Gait Goal Minimal Assistance,Front Wheel Walker Gait Distance 50 Other Goals - improve bed mobility and transfers to CGA, and gait to 50 feet with FWW CGA Days to Meet Goals 10 Frequency of Treatment Frequency Of Treatment Once a Day Treatment Plan Physical Therapy Treatment Plan Bed Mobility Training,Transfer Training,Gait Training, Therapeutic Exercise,Balance Retraining,Discharge Planning, Hot or Cold Pack Other Recommendations and Next Treatment bed mobility, transfers, sit<> Focus stands Precautions Other Precautions falls Recommendations To Nursing Amount of Assist Needed 3 or More Person Assist, Mechanical Lift Discharge Recommendations PT Discharge Recommendations SNF Rehab Transportation Needs at Discharge Wheelchair/Cabulance
--- NOTE | 2021-04-25 08:51 | CM.DPC ---
DCP continued: JEN spoke with Denice at [facility] she stated she is unable to accept patient today because her bed did not open up until late this afternoon but it will be available to patient tomorrow Wednesday. [facility] set up for 1030Am and aware of plan change. JEN spoke to patients nurse Emily and she is doing covid swab so it is ready for tomorrow. signed med list and DC summary CM asked HALIE tran to fax to Denice at [facility] and then place med list into red chart. Charge nurse notified of change in DC plan. Karina Reed RNdope firer
--- NOTE | 2021-04-25 09:31 | CM.MNRNOTE ---
Patient had a small lose stool, she is positive for c.diff. Alert and oriented x3. She is a feeder and is unable to ambulate at this point. She is a lyle lift. Patient will go to rehab in the next couple of days most likely. Stools are less frequent, small and formed. She is resting comfortably now.
[2021-04-25] MEDS: AMLODIPINE 5 MG TABLET PO (09:35)
[2021-04-25] MEDS: HYDRALAZINE 25 MG TABLET PO ×4 (09:35→20:19)
[2021-04-25] MEDS: LOSARTAN 50 MG TABLET PO ×2 (09:36→20:20)
[2021-04-25] MEDS: carvediloL 12.5 MG TABLET PO ×2 (09:36→20:19)
[2021-04-25] MEDS: APIXABAN 5 MG TABLET PO ×2 (09:36→20:20)
--- NOTE | 2021-04-25 10:06 | PC.NURSE ---
Addendum entered by Emily Hernandez R.N. 04/25/21 14:48: 1448- Patient just up to the bsc with help of 3 staff member, walker, and gaitbelt. She tolerated this well and is moving much better than yesterday. Addendum entered by Emily Hernandez R.N. 04/25/21 11:59: Patient was able to transfer to the bsc and then to the chair with help of two PTAs. She is comfortable and sitting up in chair, patient visiting with her daughter. Original Note: Patient is sitting up in her chair and eating a bit. She is feeding herself slowly. Systolic blood pressure 180s, medications given. She is napping now and comfortable.
--- NOTE | 2021-04-25 10:44 | CM.DPNOTE ---
Emailed Denice the MI summary, med list & order and received confirm. I place med list & RXs in pt. red folder Per Karina. Stephani Bueno CM Asst.
[2021-04-25 12:02] LABS: COVID19 -Nasal RAPID Negative (Negative)
--- NOTE | 2021-04-25 12:20 | OT.IP.TRT ---
Current Diagnoses Hypertensive urgency (04/21/21) Occupational Therapy Treatment Note M2 OT-IP Current Condition Start: 04/21/21 13:58 Freq: Status: Active Protocol: Document 04/21/21 13:59 CGR (Rec: 04/21/21 14:21 CGR [id number]) Occupational Therapy Current Condition Current Condition Evaluation Date 04/21/21 Treatment Diagnosis global weakness, found down Diagnosis Onset Date 04/21/21 M3 OT- IP Subjective and Pain Start: 04/21/21 13:58 Freq: Status: Active Protocol: Document 04/25/21 12:34 [facility] (Rec: 04/25/21 12:41 [facility] [id number]) OT- Subjective Occupational Therapy Visit Type Type Treatment Note Visit Start Time 12:00 Visit Stop Time 12:20 Total Visit Minutes 20 Occupational Therapy Visit Comments Patient Comments Pt's daughter in the room and able to clarify prior level of function for pt. Patient/Caregiver Goals TO go to skilled rehab. OT Pain Assessment Pain When Pain Assessed At Rest Pain Present Pain Present Denied Pain M4 OT- IP ADL's Start: 04/21/21 13:58 Freq: Status: Active Protocol: Document 04/25/21 12:34 [facility] (Rec: 04/25/21 12:41 [facility] [id number]) OT ADL-Grooming General Evaluation Grooming Ability Minimal Assistance Areas Needing Assistance Combing/Brushing Hair Comments OT Grooming Comments Assist to help comb her hand. OT ADL-Oral Care General Eval Oral Care Ability Standby Assistance Areas of Assistance Retrieving/Set-Up of Items Comments Oral Care Comments VC to help sequence through oral care needs, cues to rinse her mouth and spit. M5 OT- IP IADL's Start: 04/21/21 13:58 Freq: Status: Active Protocol: Document 04/21/21 13:59 CGR (Rec: 04/21/21 14:21 CGR [id number]) OT-Instrumental Activities of Daily Living Deficits IADL Deficits Identified Deficits Home Safety Awareness Awareness of Need for Assistance at Home Decreased Awareness Ability to Problem Solve Emergency Unable to Problem Solve Situations Medication Management Medication Management Comments concerns regarding pt's ability to perform Money Management Money Management Comments concerns regarding pt's ability to perform Meal Preparation Meal Preparation Comments concerns regarding pt's ability to perform Inspector Machine Parts Inspector Machine Parts Comments concerns regarding pt's ability to perform Driving Driving Comments Pt does not drive M6 OT- IP Functional Cognition Start: 04/21/21 13:58 Freq: Status: Active Protocol: Document 04/25/21 12:34 [facility] (Rec: 04/25/21 12:41 [facility] [id number]) Cognitive Factors Limiting Selfcare Function Cognitive Ability Level of Alertness Alert Attention Span Ability Capable of Focused Attention, Capable of Sustained Attention Ability to Follow Commands Able to Follow One Step Commands with Increased Time, Able to Follow One Step Commands with Repetition Memory Description 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,Snf Impaired,Working Impaired Problem Solving Ability Unable to Identify Errors, Needs Assist to Identify Solutions Cognitive Comments Cognitive Assessment Comments Pt daughter states in the past two weeks has had to assist her mother for all needs for ADl and transfer needs. Pt's daughter states one month ago, pt was able to walk with 4ww and needing just supervision of cues for completeness, safety and occasional assist. M8 OT- IP Objective Assessments Start: 04/21/21 13:58 Freq: Status: Active Protocol: Document 04/21/21 13:59 CGR (Rec: 04/21/21 14:21 CGR [id number]) OT Gross Range of Motion Upper Extremity Range of Motion Assessment Left Impaired ROM Impairments L shld 0-90 R shld 0-110 OT Strength Upper Extremity Strength Assessment Within Functional Limits Comments Strength Comments grossly 4/5 OT- Coordination Assessment Comments Coordination Comments not tested, pt unable to perform on this date. OT-Muscle Tone Assessment Muscle Tone WNL Yes OT Sensation Assessment Edema Edema Absent M9 OT- IP Assessment and Plan Start: 04/21/21 13:58 Freq: Status: Active Protocol: Document 04/25/21 12:34 [facility] (Rec: 04/25/21 12:41 [facility] [id number]) OT Summary Assessment and Plan Potential Rehabilitation Potential Fair Analytic Complexity at Evaluation High Summary OT Impairments Range of Motion,Strength, Balance,Coordination, Functional Cognition, Functional Mobility,Self- Feeding,Grooming,Dressing, Toileting,Bathing,Toilet Transfers,Shower Transfers, Activity Tolerance Progress Towards Goals Progressing Toward Goals,Slow Progress due to Medical Issues ,Slow Progress due to Activity Tolerance,Slow Progress due to Cognition Assessment Summary Pt able to sit up better today to midline while in the recliner and able to participate in grooming needs. Pt's daughter present and able to clarify on pt's function and needs. Goals Self-Feeding Goal Standby Assistance Grooming Goal Standby Assistance Dressing Goal Minimal Assistance Toileting Goal Minimal Assistance Bathing Goal Moderate Assistance Toilet Transfer Goal Minimal Assistance Shower Transfer Goal Moderate Assistance Days to Meet Goals 45 Frequency of Treatment Frequency Of Treatment Once a Day Treatment Plan OT Treatment Plan ADL Training,Functional Cognition Training,Functional Mobility,Patient/Family Education,Discharge Planning Other Treatment Recommendations and Next Transfer with FWW to [facility] with Treatment Focus MAX AX 2 Discharge Recommendations OT Discharge Recommendations SNF Rehab Transportation Needs at Discharge Wheelchair/Cabulance
[2021-04-25] MEDS: SENNOSIDES 8.6 MG TABLET 17.2 MG PO (20:19)
[2021-04-25] MEDS: SODIUM CHLORIDE 0.9% FLUSH 10 ML IV (20:21)
[2021-04-26 01:00] VITALS: O2SAT 98
[2021-04-26 05:00] VITALS: O2SAT 98
[2021-04-26 05:06] VITALS: BP 125/69; PULSE 81; RESP 17; TEMP 35.9; O2SAT 95
[2021-04-26 07:36] VITALS: BP 148/66; PULSE 80; RESP 16; TEMP 36.1; O2SAT 95
--- NOTE | 2021-04-26 07:54 | P.DS_ITS ---
History of Present Illness History of Present Illness Chief complaint: Fall on ground 5 hours + blood thinners Narrative: Narrative: As per Yuliya Nails, [facility]-: Denice Torres is a 85-year-old woman with a history of hypertension, hyperlipidemia, atrial fibrillation on Eliquis, COPD, chronic gloabal weakness, frequent falls and dementia with hallucinations. She lives with her daughter and is home alone while her daughter works. Frequent calls to the paramedics, often declining transport frequent falling with calls for lift assist. Earlier yesterday while her daughter was out the patient had a ground level fall, states that she did not hit her head but is unable to recall details, is a poor his jasmin due to dementia. The daughter is unsure how long her mother was down. Patient was assessed for admit in the emergency department. She denies chest pain, SOB, body aches, fever, headaches, specific localized weakness, abdominal pain, nausea, vomiting, diarrhea, chills, no changes in medications. She does note a slight cough, she has had a Serafin & Serafin vaccine. She was admitted April 03, January 13, July 27 and July 09 for similar findings. She is globally weak, sitting in the bed she continues to drift to the left side, mild left facial droop that she can correct for when it is pointed out. Speech is fluent but she is having mild word-finding difficulties (likely more related to dementia rather than aphasia). She is favoring of the left side was noted on documentation on last hospitalization 04/03/2021, also the daughter at the bedside notes that previous visits with the patient's PCP has noted worsening dementia symptoms which would imply that the patient has been diagnosed with dementia for a longer period than previously thought. The daughter also notes that the patient's home blood pressures have been running in the 180s to 190 systolic for some time, which is was represented on last admits b/p's. In the ED the patient was placed on a nicardipine drip for hypertensive urgency BP's were 181/79, 190/73, 178/86-patient was stable and asymptomatic. Upon admit temp 97.6?, BP 178/86, HR 87, R 19, O2 saturation 96% on room air patient's CBC normal, CMP grossly normal, BNP 1160, initial troponin 1. 0.014, lipase normal, patient's urine was positive for large amount of bacteria was sent for culture. Patient's chest x-ray demonstrated no acute airspace opacity, was positive for cardiomegaly a and hiatal hernia. Patient's head CT was negative for any acute intracranial processes. Patient's EKG demonstrated atrial flutter with a rate of 86-did not meet STEMI criteria. Patient admitted for hypertensive urgency, with atrial flutter, ground level fall in the setting of frequent fall, secondary to global weakness, and left-sided neurological deficit. Discharge Providers Provider Date of admission: 04/21/21 02:14 Discharge Date: 04/26/21 Primary care physician: Lory Hammer MD Consults: 04/21/21 Consult to [facility] Drier Attendant Stat Comment: frequent falls [facility] Consult: [facility] Health Res Need 04/21/21 01:51 Consult to Tele-sugar coating hand Routine Comment: Consulting Provider: [facility] [employer]int[employer]iv[employer] Reason for consultation: Dental Scheduling Coordinator services 04/21/21 01:57 Consult to Physical Therapy Evaluate & Treat Comment: frequent Falls Physician Instructions: Evaluate and Treat 04/21/21 03:29 Consult to Discharge Planning Routine Comment: Consult to Occupational Therapy Evaluate & Treat Comment: global weakness Physician Instructions: Evaluate and treat Consult to Speech Therapy Evaluate & Treat Comment: Physician Instructions: Evaluate and treat 04/21/21 04:42 Consult to Tele-sugar coating hand Routine Comment: Consulting Provider: [facility] [employer] Reason for consultation: Dental Scheduling Coordinator services Has provider been notified: No 04/21/21 09:10 Consult to Dietitian, Adult Routine Comment: Reason For Exam: assessed at high risk Discharge provider: Murray Joseph MD Summary Hospital Course Discharge Diagnosis: Please see hospital course by problem list noted below. 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: [facility] Res Need 04/21/21 01:51 Consult to Tele-sugar coating hand Routine Comment: Consulting Provider: [facility] [employer] Reason for consultation: Dental Scheduling Coordinator services 04/21/21 01:57 Consult to Physical Therapy Evaluate & Treat Comment: frequent Falls Physician Instructions: Evaluate and Treat 04/21/21 03:29 Consult to Discharge Planning Routine Comment: Consult to Occupational Therapy Evaluate & Treat Comment: global weakness Physician Instructions: Evaluate and treat Consult to Speech Therapy Evaluate & Treat Comment: Physician Instructions: Evaluate and treat 04/21/21 04:42 Consult to Tele-sugar coating hand Routine Comment: Consulting Provider: [facility] [employer] Reason for consultation: Dental Scheduling Coordinator services Has provider been notified: No 04/21/21 09:10 Consult to Dietitian, Adult Routine Comment: Reason For Exam: assessed at high risk Summary Hospital Course Discharge Diagnosis: Please see hospital course by problem list noted below. Hospital Course: Denice Torres is an 85W with PMH hypertension, hyperlipidemia, atrial fibrillation on Eliquis, COPD, frequent falls and de mentia with hallucinations who presented with a fall. 1. Ground level fall, acute in the setting of frequent falls, with acute cystitis -CT head and MRI negative for acute process, as was done last admission -blood culture negative, urine culture growing sphigmonas. -patient completed course of IV ceftriaxone during her admission. -recommended last two admissions to have neurology follow up -continue PT/OT at SNF 2.Possible hypertensive emergency, acute on chronic, with atrial flutter, in the setting chronic permanent atrial fibrillation and HTN, -patient is stable and asymptomatic -patient's meds: Metoprolol 50 mg once daily, Telimasarten 80mg QD -placed on nicardipine drip in ED for possible hypertensive emergency, but this was stopped prior to arrival on floor -increased losartan to 50 mg b.i.d. -added hydralazine, amlodipine as well. -switched metoprolol to carvedilol -continue Eliquis -ECHO with no acute process -at discharge BP is much better controlled. 3. COPD, chronic, present on admission -no exacerbation, currently stable -continue montelukast 4. Dementia with hallucinations, acute on chronic, present on admission -Patient is pleasant, confused and unable to provide accurate HPI & ROS. The daughter seems to imply this is the patients base-line & has been for sometime, though with noted consistent decline- that she verbalizes has been told to her by the patients PCP. -needs neurological evaluation as an outpatient. 5. Overweight as evidence by BMI of 31.5, acute on chronic, present on admit -consideration will be given for dietary counseling Dispo: transfer to SNF Time Spent with Patient Time spent: Greater than 30 minutes Status at Discharge Cognitive/behavioral status at discharge: at baseline, oriented Functional status at discharge: uses cane/walker Overall status at discharge: patient is progressing back to baseline Exam Vital Signs (past 8 hours): - 04/26/21 01:00 04/26/21 05:00 04/26/21 05:06 Temperature 96.7 F L Pulse Rate 81 Respiratory Rate 17 Blood Pressure 125/69 Pulse Oximetry 98 98 95 04/26/21 07:36 Temperature 97.0 F L Pulse Rate 80 Respiratory Rate 16 Blood Pressure 148/66 H Pulse Oximetry 95 Oxygen Delivery Method Room Air Oxygen Flow Rate 0 Narrative Exam Narrative: Exam Narrative: GEN: no acute distress at this time CV: irregular rate and rhythm with no murmurs PULM: Clear auscultation bilaterally ABD: soft, nontender, nondistended, no organomegaly, normal bowel sounds x4 EXT: warm and well perfused NEURO: no focal deficits, but does have some facial asymmetry and leans preferentially to the left. falls asleep easily, mildly confused PSYCH: pleasant, cooperative Objective Labs Result Diagrams: 04/23/21 04:45 04/23/21 04:45 Labs: Laboratory Results - last 24 hr 04/25/21 10:28 SARS-CoV-2 (PCR) Negative [facility] Medical History (Updated 04/21/21 @ 09:18 by Rosemary Leal RN) Atrial fibrillation Breast cancer COPD (chronic obstructive pulmonary disease) Dementia Failure to thrive in adult Frequent falls Hallucination Hypertension Hypertensive urgency Surgical History (Updated 04/21/21 @ 09:18 by Rosemary Leal RN) History of hysterectomy No pertinent past surgical history Family History Mother CVA (cerebral vascular accident) Father CVA (cerebral vascular accident) Social History household members: children Smoking Status: Never smoker Discharge Plan Discharge Plan Patient Disposition: SNF Transfer to: [facility], [facility] Under care of provider: Dr. Joseph Provider Discharge Comment: Denice Torres is an 85W with PMH hypertension, hyperlipidemia, atrial fibrillation on Eliquis, COPD, frequent falls and dementia with hallucinations who presented with a fall 1. Ground level fall, acute? in the setting of frequent falls, with acute cystitis -CT head and MRI negative for acute process, as was done last admission -blood culture negative, urine culture growing sphigmonas. -patient completed course of IV ceftriaxone during her admission. -recommended last two admissions to have neurology follow up -continue PT/OT at SNF 2.Possible hypertensive emergency, acute on chronic, with atrial flutter, in the setting chronic permanent atrial fibrillation and HTN, -patient is stable and asymptomatic -patient's meds:? Metoprolol 50 mg once daily, Telimasarten 80mg QD -placed on nicardipine drip in ED, but this was stopped prior to arrival on floor -increased losartan to 50 mg b.i.d. -added hydralazine, amlodipine as well. -switched metoprolol to carvedilol -continue Eliquis -ECHO with no acute process 3. COPD, chronic, present on admission -no exacerbation, currently stable -continue montelukast 4. Dementia with hallucinations, acute on chronic, present on admission -Patient is pleasant, confused and unable to provide accurate HPI & ROS. The daughter seems to imply this is the patients base-line & has been for sometime, though with noted consistent decline- that she verbalizes has been told to her by the patients PCP. -needs neurological evaluation as an outpatient. 5. Overweight as evidence by BMI of 31.5, acute on chronic, present on admit -consideration will be given for dietary counseling Dispo: transfer to SNF Discharge orders & Medications Prescriptions: New amlodipine [Norvasc] 5 mg Tablet 5 mg PO DAILY Qty: 30 RF: 0 carvedilol [Coreg] 12.5 mg Tablet 12.5 mg PO BID 30 Days Qty: 60 RF: 0 hydralazine 25 mg Tablet 25 mg PO QID 30 Days Qty: 120 RF: 0 Continued simvastatin 40 mg tablet 40 mg PO BEDTIME RF: 0 telmisartan 80 mg tablet 80 mg PO DAILY RF: 0 montelukast 10 mg tablet 10 mg PO BEDTIME RF: 0 loratadine 10 mg tablet 10 mg PO DAILY RF: 0 Eliquis 5 mg tablet 5 mg PO BID RF: 0 Discontinued metoprolol succinate 50 mg tablet extended release 24 hr 50 mg PO DAILY RF: 0 Medication counseling provided by Pharmacist: No Pharmacist Comment: Discharging to SNF Follow up/Referrals: Lory Hammer MD [Primary Care Provider] - So White MD [Non-Staff] - Discharge Health Status Multidrug resistant organism: No MDRO Precautions: [place] Diet/Activity/Treatments Diet: Diet as Tolerated and Low-sodium Liquid consistency: Normal/Thin Food texture: Regular [facility] Rehab type: Physical therapy, Occupational therapy and Speech therapy Discharge Data Primary Care Provider: Lory Hammer Quality VTE Deep Vein Thrombosis/Pulmonary Embolism Present on Admission: No
--- NOTE | 2021-04-26 07:58 | CM.DPC ---
Per MD, pt remains stable for d/c to SNF today and discharge had been done yesterday but SNF was unable to accept as anticipated due to bed availability. SW heard from [facility] that they received the d/c packet to review yesterday but still just need the PASRR and SS# for pt for planned 1030 transport via w/c van today. SW faxed requested documents and updated RN, , and [facility] for plan of 1030 discharge to SNF today. Plan: Patient to d/c to [facility] via facility van at 1030 prior to safe return home with Dtr. Venice Martínez MSW
[2021-04-26 09:00] VITALS: O2SAT 95
[2021-04-26] MEDS: HYDRALAZINE 25 MG TABLET PO (10:12)
[2021-04-26] MEDS: APIXABAN 5 MG TABLET PO (10:12)
[2021-04-26] MEDS: carvediloL 12.5 MG TABLET PO (10:12)
[2021-04-26] MEDS: AMLODIPINE 5 MG TABLET PO (10:13)
[2021-04-26] MEDS: LOSARTAN 50 MG TABLET PO (10:13)
--- NOTE | 2021-04-26 10:50 | PT-IP ANOTE ---
Attempted to see pt at 10:49, but pt had just been d/c to SNF.
--- NOTE | 2021-04-26 10:58 | PC.NURSE ---
Addendum entered by Yuliya Lovelace R.N. 04/26/21 11:21: Report called into [facility]. Original Note: Pt is ready to dc to SNF this am. Taking PO meds fine, BP stabilized. Routine hydralazine taken, Pt lyle to wc to van ride to facility. IV cath out. Pt belongings sent.
== END 2021-04-26 11:22 | DRG 305 ==
LOC: ED 21:57 → ICU 04-21 03:07 → AC 04-23 14:58
PROVIDERS: Internal Medicine; Admitting Provider Nurse Practitioner Family; Emergency Provider Emergency Medicine; PCP Internal Medicine; Referring Provider Emergency Medicine; Visit Provider Nurse Practitioner Family
DX: I16.0 Hypertensive urgency (principal); I48.92 Unspecified atrial flutter; I48.21 Permanent atrial fibrillation; R44.3 Hallucinations, unspecified; N30.00 Acute cystitis without hematuria; Z79.01 Long term (current) use of anticoagulants; R53.1 Weakness; F03.90 Unspecified dementia, unspecified severity, without behavioral disturbance, psychotic disturbance, mood disturbance, and anxiety; E66.9 Obesity, unspecified; Z68.33 Body mass index [BMI] 33.0-33.9, adult; R29.810 Facial weakness; R29.818 Other symptoms and signs involving the nervous system; J44.9 Chronic obstructive pulmonary disease, unspecified; B96.89 Other specified bacterial agents as the cause of diseases classified elsewhere; E78.5 Hyperlipidemia, unspecified; W18.30XA Fall on same level, unspecified, initial encounter; Z20.822 Contact with and (suspected) exposure to COVID-19; Z66 Do not resuscitate; Z91.81 History of falling; Z23 Encounter for immunization
CPT/HCPCS: 36415; 70450; 70548; 70553; 71045; 80048; 80053; 81001; 83605; 83690; 83735; 83880; 84484; 85025; 85027; 87040; 87077; 87086; 87150; 87205; 87635; 87797; 90471; 90662; 92507; 92526; 92610; 93005; 93306; 94762; 96361; 96365; 96366; 97110; 97163; 97167; 97530; 97535; 99285; 99291; 99292; C9803; A9579; J0696

== ENCOUNTER 2021-08-06 21:47 | Observation (INO) | payer MEDICARE, OTHER, SELFPAY ==
[2021-04-21 09:00] VITALS: BMI 33.7
[2021-08-06 21:52] VITALS: BP 165/74; PULSE 76; RESP 18; TEMP 37.1; O2SAT 97
[2021-08-06 21:53] VITALS: PULSE 74; O2SAT 96
[2021-08-06 22:00] VITALS: PULSE 71; O2SAT 96
--- NOTE | 2021-08-06 22:00 | DI.RAD.S_ITS ---
PROCEDURE: XR CHEST 1V INDICATIONS: weakness TECHNIQUE: One view of the chest was acquired. COMPARISON: [facility], CT, CT PEL WO CON, 04/04/2021, 7:27. [facility], CR, XR CHEST 1V, 01/25/2019, 4:48. [facility], CR, XR CHEST 1V, 04/04/2021, 0:02. [facility], CR, XR CHEST 1V, 04/20/2021, 19:10. FINDINGS: There is rotation. Surgical changes and devices: None. Lungs and pleura: Possible right diaphragmatic hernia. No infiltrate or consolidation. No pleural effusions or pneumothorax. Mediastinum: Right hilum is prominent, likely due to rotation. Heart size is normal. Moderate-sized hiatal hernia. Bones and chest wall: No suspicious bony lesions. Overlying soft tissues appear unremarkable. IMPRESSION: 1. Prominent right hilum likely due to rotation. If clinically indicated, a standard 2-view chest x-ray is recommended for follow-up evaluation. 2. Possible right diaphragmatic hernia. 3. Moderate-sized hiatal hernia. Dictated by: Mechelle Horowitz M.D. on 08/06/2021 at 23:37 Approved by: Mechelle Horowitz M.D. on 08/06/2021 at 23:42
--- NOTE | 2021-08-06 22:00 | DI.CT.S_ITS ---
PROCEDURE: CT HEAD/BRAIN WO CON INDICATIONS: weakness, trouble talking recent lumpectomy TECHNIQUE: Noncontrast 4.5 mm thick angled axial sections acquired from the foramen magnum to the vertex, with coronal and sagittal reformats. For radiation dose reduction, the following was used: automated exposure control, adjustment of mA and/or kV according to patient size. COMPARISON: [facility], MR, MR STROKE, 04/21/2021, 10:48. [facility], MR, MR HEAD/BRAIN WO CON, 04/05/2021, 9:49. [facility], CT, CT HEAD/BRAIN WO CON, 04/20/2021, 19:01. FINDINGS: Image quality: Excellent. CSF spaces: Basal cisterns are patent. No extra-axial fluid collections. The ventricles are symmetric in size and shape. Brain: No intracranial bleeds or masses. There is moderate cerebral volume loss for age, with resultant ventricular and sulcal prominence. There are moderate periventricular and deep white matter chronic small vessel ischemic changes. There is intracranial internal carotid artery atherosclerosis. Skull and face: Calvarium and visualized facial bones appear intact, without suspicious lesions. Sinuses: Visualized sinuses and mastoids are clear. IMPRESSION: 1. No acute intracranial abnormalities. 2. Cerebral volume loss and chronic microvascular ischemic changes. Dictated by: Mechelle Horowitz M.D. on 08/06/2021 at 23:23 Approved by: Mechelle Horowitz M.D. on 08/06/2021 at 23:25
--- NOTE | 2021-08-06 22:00 | ED_ITS ---
HPI - Weakness General Chief complaint: Weakness Stated complaint: increased weakness Time Seen by Provider: 08/06/21 22:00 Source: EMS Mode of arrival: EMS Limitations: no limitations History of Present Illness HPI Narrative: This is an 86-year-old female comes emergency department complaint of weakness. Patient had a recent lumpectomy possibly in [place]. She was at what is described as a rehab facility and discharged home. She has had increasing weakness with 2 EMS visits today. They states she was walking this morning and was able to get up and walk to the bathroom unassisted. Today she could even get out of her chair. Patient describes generalized weakness. Possibly some decreased left-sided weakness with the leg but describes maybe right-sided weakness with arm. She states she is having some word-finding difficulties. She states she has difficulty swallowing but describes it as her mouth being dry. She has been on Eliquis 10 the past unclear she is taking actively right now with her recent surgery. She had lumpectomy for breast cancer. She is typically on Norvasc, Eliquis, simvastatin and telmisartan. Per EMS a home healthcare was supposed to come tomorrow to see her and she lives at home with her daughter. Patient notes she was sort of leaning off to the side at the rehab facility. Unclear if she has had any sudden onset of her weakness there is no time frame able to be established at this time. Related Data Home Medications Medication Instructions Recorded Confirmed apixaban 5 mg tablet (Eliquis) 5 mg PO BID 01/11/21 08/07/21 loratadine 10 mg tablet 10 mg PO DAILY 01/11/21 08/07/21 montelukast 10 mg tablet 10 mg PO BEDTIME 01/11/21 08/07/21 simvastatin 40 mg tablet 20 mg PO BEDTIME 01/11/21 08/07/21 telmisartan 80 mg tablet 80 mg PO DAILY 01/11/21 08/07/21 carvedilol 12.5 mg tablet 12.5 mg PO BID 08/07/21 08/07/21 hydralazine 25 mg tablet 25 mg PO QID 08/07/21 08/07/21 polyethylene glycol 3350 17 gram 17 g PO DAILY PRN 08/07/21 08/07/21 oral powder packet (Miralax) Previous Rx's Medication Instructions Recorded amlodipine 5 mg tablet (Norvasc) 5 mg PO DAILY #30 tab 04/22/21 Allergies Allergy/AdvReac Type Severity Reaction Status Date / Time chlorpheniramine Allergy Severe Anaphylaxis Verified 04/03/21 23:33 [From Actifed Cold-Allergy] phenylephrine Allergy Severe Anaphylaxis Verified 04/03/21 23:33 [From Actifed Cold-Allergy] pseudoephedrine Allergy Severe Anaphylaxis Verified 04/03/21 23:33 [From Actifed Cold-Allergy] triprolidine Allergy Severe Anaphylaxis Verified 04/03/21 23:33 [From Actifed Cold-Allergy] Review of Systems Review of Systems ROS Unobtainable: All systems reviewed & are unremarkable except as noted in HPI and below Patient History Medical History Atrial fibrillation Breast cancer COPD (chronic obstructive pulmonary disease) Dementia Failure to thrive in adult Frequent falls Hallucination Hypertension Hypertensive urgency Surgical History History of hysterectomy No pertinent past surgical history Family History (Updated 08/07/21 @ 02:28 by KOLE Flores) Mother CVA (cerebral vascular accident) Father CVA (cerebral vascular accident) Brother Myocardial infarction Social History household members: children Smoking Status: Never smoker Smoking Status: Never smoker alcohol intake frequency: holidays/special occasions only Substance Use Type: does not use Exam Narrative Exam Narrative: GEN: Elderly appearing female, alert and oriented x 3, patient appears to be in mild distress. HEENT: Atraumatic, pupils are pinpoint, extraocular movements are intact, nares are clear, TMs are clear with no fluid, there is no conjunctival pallor. Throat is clear without any exudates, erythema, tonsillar enlargement or uvular deviation, patient has clear speech but sometimes word-finding difficulty. Possibly some mild left nasal labial fold decreased but is not appreciated with smile. Is more appreciated with puffing cheeks. HEART: Regular rate and rhythm without murmur, clicks, rubs. Pulses are equal in upper and lower extremities LUNGS:Lungs clear to auscultation, no wheezes, rales, crackles, chest moves symmetrically, no crackles, rales or tachypnea. Patient has speaks in full sentences. She does have a right healing incision on her breast that is clean dry and intact with some scabbing but no erythema or drainage. ABD:bowel sounds normal, soft, non-tender, no guarding, rebound, rigidity, no masses noted, no hepatosplenomegaly :No CVA tenderness MSCL: Non-tender, no muscle atrophy, patient is globally weak with her bilateral lower extremities and upper extremities. NEURO:CN 2-12 intact, sensation normal, reflexes 2/4 upper and lower extremities. Patient unable to really perform luwcrp-ecrr-lfntev heel-urrutia on either extremity. SKIN: Rash or other skin changes besides that noted above on exam. Initial Vital Signs Initial Vital Signs: Vital Signs Temperature 98.7 F 08/06/21 21:52 Pulse Rate 76 08/06/21 21:52 Respiratory Rate 18 08/06/21 21:52 Blood Pressure 165/74 H 08/06/21 21:52 Pulse Oximetry 97 08/06/21 21:52 Scores NIH Stroke Scale Level of Conciousness: Alert, keenly responsive Ask month/age: Answers both questions correctly. Open/close eyes, close hand: Performs both tasks correctly Best gaze horizontal: Normal Visual kim: No visual loss Facial palsy: Minor paralysis, flattened nasolabial fold, asymmetry on smiling Sensory on face/arms/legs: Normal, no sensory loss Best language: No aphasia, normal Dysarthria: Mild to mod,some slurring Extinction or inattention: No abnormality Course Orders Ordered: Acetaminophen (Acetaminophen 325 Mg Tablet) 650 mg PO Q6HR PRN PRN Reason: Fever/Mild Pain (1-3) Albuterol/Ipratropium (Albuterol/Ipratropium 3 Ml Ampul) 3 ml INH RTQ4HR PRN PRN Reason: Shortness Of Breath Last Admin: 08/08/21 22:00 Dose: 3 ml Documented by: WOODROW Amlodipine Besylate (Amlodipine 5 Mg Tablet) 5 mg PO DAILY ON LICENSE OF [facility] Last Admin: 08/08/21 08:38 Dose: 5 mg Documented by: Admin: 08/07/21 08:08 Dose: 5 mg Documented by: ASTER Apixaban (Apixaban 5 Mg Tablet) 5 mg PO BID ON LICENSE OF [facility] Last Admin: 08/08/21 21:53 Dose: 5 mg Documented by: Admin: 08/08/21 08:37 Dose: 5 mg Documented by: Admin: 08/07/21 20:34 Dose: 5 mg Documented by: Admin: 08/07/21 08:08 Dose: 5 mg Documented by: ASTER Atorvastatin Calcium (Atorvastatin 20 Mg Tablet) 10 mg PO BEDTIME ON LICENSE OF [facility] Last Admin: 08/08/21 21:52 Dose: 10 mg Documented by: Admin: 08/07/21 20:33 Dose: 10 mg Documented by: SYDNEY Carvedilol (Carvedilol 12.5 Mg Tablet) 12.5 mg PO BID ON LICENSE OF [facility] Last Admin: 08/08/21 21:53 Dose: 12.5 mg Documented by: Admin: 08/08/21 08:37 Dose: 12.5 mg Documented by: Admin: 08/07/21 20:33 Dose: 12.5 mg Documented by: Admin: 08/07/21 08:08 Dose: 12.5 mg Documented by: ASTER Furosemide (Furosemide 20 Mg/2 Ml Vial) 20 mg IV NOW ONE Stop: 08/09/21 09:12 Hydralazine HCl (Hydralazine 25 Mg Tablet) 25 mg PO QID ON LICENSE OF [facility] Last Admin: 08/08/21 21:53 Dose: 25 mg Documented by: Admin: 08/08/21 17:46 Dose: 25 mg Documented by: MARCIN Losartan Potassium (Losartan 50 Mg Tablet) 100 mg PO DAILY ON LICENSE OF [facility] Last Admin: 08/08/21 08:37 Dose: 100 mg Documented by: Admin: 08/07/21 08:11 Dose: 100 mg Documented by: ASTER Montelukast Sodium (Montelukast 10 Mg Tablet) 10 mg PO BEDTIME ON LICENSE OF [facility] Last Admin: 08/08/21 21:53 Dose: 10 mg Documented by: Admin: 08/07/21 20:33 Dose: 10 mg Documented by: SDYNEY Naloxone HCl (Naloxone 0.4 Mg/Ml Vial) 0.2 mg IV Q2MIN PRN PRN Reason: Opiate Reversal Sodium Chloride (Sodium Chloride 0.9% Flush) 10 ml IV PRN PRN PRN Reason: Flush Sodium Chloride (Sodium Chloride 0.9% Flush) 10 ml IV BID ON LICENSE OF [facility] Last Admin: 08/08/21 21:52 Dose: 10 ml Documented by: [email or web address] Admin: 08/08/21 08:38 Dose: 10 ml Documented by: SREEKANTH Discontinued Medications Sodium Chloride (Normal Saline 0.9%) 1,000 mls @ 150 mls/hr IV CONT FABRIZIO Last Admin: 08/06/21 23:00 Dose: 150 mls/hr Documented by: [email or web address] Sodium Chloride (Normal Saline 0.9%) 1,000 mls @ 100 mls/hr IV CONT FABRIZIO Last Infusion: 08/08/21 14:57 Dose: 0 mls/hr Documented by: Admin: 08/08/21 03:12 Dose: 100 mls/hr Documented by: Infusion: 08/08/21 02:28 Dose: 100 mls/hr Documented by: Admin: 08/07/21 16:28 Dose: 100 mls/hr Documented by: Infusion: 08/07/21 16:28 Dose: 100 mls/hr Documented by: Admin: 08/07/21 06:51 Dose: 100 mls/hr Documented by: Infusion: 08/07/21 06:51 Dose: 100 mls/hr Documented by: Admin: 08/07/21 03:00 Dose: 100 mls/hr Documented by: SYDNEY Non-Formulary Medication (Simvastatin) 20 mg PO BEDTIME ON LICENSE OF [facility] Non-Formulary Medication (Telmisartan) 80 mg PO DAILY ON LICENSE OF [facility] Consultations Consultation #1: Roxana Dawn NP. Accepts for admission. 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 Suspect this is longstanding. Vital Signs Vital signs: Vital Signs - 8 hr 08/06/21 21:52 08/06/21 21:53 08/06/21 22:00 Temperature 98.7 F Pulse Rate 76 74 71 Respiratory Rate 18 Blood Pressure 165/74 H Pulse Oximetry 97 96 96 08/06/21 22:30 08/06/21 22:37 08/07/21 00:08 Temperature Pulse Rate 72 73 71 Respiratory Rate 13 12 Blood Pressure 154/67 H Pulse Oximetry 90 L 91 94 08/07/21 00:30 Temperature Pulse Rate 71 Respiratory Rate 11 L Blood Pressure Pulse Oximetry 96 MDM - Weakness Lab Data Result diagrams: 08/08/21 06:16 08/08/21 06:16 Labs: Lab Results 08/06/21 08/06/21 08/06/21 Range/Units 22:08 22:08 22:08 WBC 5.5 (4.5-11.0) X10^3/uL RBC 3.71 L (4.0-5.2) X10^6/uL Hgb 10.7 L (12.0-16.0) g/dL Hct 31.6 L (36-46) % MCV 85.4 (80-100) fL MCH 28.7 (26-34) PG MCHC 33.7 (30-36) % RDW 15.5 H (11.6-14.8) % Plt Count 218 (150-400) X10^3/uL Neut % (Auto) 80.8 H (50-75) % Lymph % (Auto) 10.4 L (25-40) % [place] % (Auto) 5.9 (3-14) % Eos % (Auto) 2.3 (2-4) % Baso % (Auto) 0.6 (0-2) % Neut # (Auto) 4500 (3023-7023) /uL Lymph # (Auto) 600 L (4451-9633) /uL [place] # (Auto) 300 (0-900) /uL Eos # (Auto) 100 (0-450) /uL Baso # (Auto) 0 (0-100) /uL PT (10.1-12.7) SECONDS INR (0.9-1.3) APTT (26.4-36.2) SECONDS Sodium 138 (137-145) mmol/L Potassium 4.6 (3.4-5.1) mmol/L Chloride 107 (98-107) mmol/L Carbon Dioxide 29 (22-32) mmol/L BUN 34 H (7-17) mg/dL Creatinine 0.99 (0.52-1.04) mg/dL Estimated GFR 53.4 L (>60) mL/min BUN/Creatinine Ratio 34.3 H (6-22) Glucose 124 H (80-110) mg/dL Lactate 0.6 L (0.7-2.1) mmol/L Calcium 8.9 (8.4-10.2) mg/dL Total Bilirubin 0.5 (0.2-1.3) mg/dL AST 25 (14-36) IU/L ALT 15 (<35) IU/L Alkaline Phosphatase 131 H (38-126) U/L Total Creatine Kinase 73 (30-135) U/L CK-MB (CK-2) TNP CK-MB (CK-2) Rel Index TNP Troponin I < 0.012 (0.01-0.034) ng/mL NT-Pro-B Natriuret Pep (<450) pg/mL Total Protein 7.1 (6.3-8.2) g/dL Albumin 3.9 (3.5-5.0) g/dL Globulin 3.2 (1.7-4.1) g/dL Albumin/Globulin Ratio 1.2 (1.0-2.8) Urine Color Urine Appearance Urine pH (4.5-8.0) Ur Specific [place] (1.000-1.035) Urine Protein (Negative) Urine Glucose (UA) (Negative) g/dL Urine Ketones (NEGATIVE) Urine Occult Blood (Negative) Urine Nitrate (Negative) Urine Bilirubin (NEGATIVE) Urine Urobilinogen (0.2) E.U./dL Ur Leukocyte Esterase (NEGATIVE) Urine RBC (0-5/HPF) Urine WBC (0-5/HPF) Ur Squamous Epith Cells (0-5/HPF) Urine Bacteria (None) Ur Culture Indicated? U Opiates 300ng/mL cut (Negative) Ur Oxycodone Screen (Negative) Urine Methadone Screen (Negative) Ur Barbiturates Screen (Negative) U Tricyclic Antidepress (Negative) Ur Phencyclidine Scrn (Negative) Ur Amphetamines Screen (Negative) U Methamphetamines Scrn (Negative) Ur MDMA Scrn (Ecstasy) (Negative) U Benzodiazepines Scrn (Negative) Urine Cocaine Screen (Negative) U Marijuana (THC) Screen (Negative) SARS-CoV-2 (PCR) (Negative) 08/06/21 08/06/21 08/06/21 Range/Units 22:08 22:08 22:27 WBC (4.5-11.0) X10^3/uL RBC (4.0-5.2) X10^6/uL Hgb (12.0-16.0) g/dL Hct (36-46) % MCV (80-100) fL MCH (26-34) PG MCHC (30-36) % RDW (11.6-14.8) % Plt Count (150-400) X10^3/uL Neut % (Auto) (50-75) % Lymph % (Auto) (25-40) % [place] % (Auto) (3-14) % Eos % (Auto) (2-4) % Baso % (Auto) (0-2) % Neut # (Auto) (9824-8947) /uL Lymph # (Auto) (6506-7929) /uL [place] # (Auto) (0-900) /uL Eos # (Auto) (0-450) /uL Baso # (Auto) (0-100) /uL PT 13.8 H (10.1-12.7) SECONDS INR 1.2 (0.9-1.3) APTT 41 H (26.4-36.2) SECONDS Sodium (137-145) mmol/L Potassium (3.4-5.1) mmol/L Chloride (98-107) mmol/L Carbon Dioxide (22-32) mmol/L BUN (7-17) mg/dL Creatinine (0.52-1.04) mg/dL Estimated GFR (>60) mL/min BUN/Creatinine Ratio (6-22) Glucose (80-110) mg/dL Lactate (0.7-2.1) mmol/L Calcium (8.4-10.2) mg/dL Total Bilirubin (0.2-1.3) mg/dL AST (14-36) IU/L ALT (<35) IU/L Alkaline Phosphatase (38-126) U/L Total Creatine Kinase (30-135) U/L CK-MB (CK-2) CK-MB (CK-2) Rel Index Troponin I (0.01-0.034) ng/mL NT-Pro-B Natriuret Pep 411 (<450) pg/mL Total Protein (6.3-8.2) g/dL Albumin (3.5-5.0) g/dL Globulin (1.7-4.1) g/dL Albumin/Globulin Ratio (1.0-2.8) Urine Color Urine Appearance Urine pH (4.5-8.0) Ur Specific [place] (1.000-1.035) Urine Protein (Negative) Urine Glucose (UA) (Negative) g/dL Urine Ketones (NEGATIVE) Urine Occult Blood (Negative) Urine Nitrate (Negative) Urine Bilirubin (NEGATIVE) Urine Urobilinogen (0.2) E.U./dL Ur Leukocyte Esterase (NEGATIVE) Urine RBC (0-5/HPF) Urine WBC (0-5/HPF) Ur Squamous Epith Cells (0-5/HPF) Urine Bacteria (None) Ur Culture Indicated? U Opiates 300ng/mL cut (Negative) Ur Oxycodone Screen (Negative) Urine Methadone Screen (Negative) Ur Barbiturates Screen (Negative) U Tricyclic Antidepress (Negative) Ur Phencyclidine Scrn (Negative) Ur Amphetamines Screen (Negative) U Methamphetamines Scrn (Negative) Ur MDMA Scrn (Ecstasy) (Negative) U Benzodiazepines Scrn (Negative) Urine Cocaine Screen (Negative) U Marijuana (THC) Screen (Negative) SARS-CoV-2 (PCR) Negative (Negative) 08/07/21 08/07/21 Range/Units 00:22 00:22 WBC (4.5-11.0) X10^3/uL RBC (4.0-5.2) X10^6/uL Hgb (12.0-16.0) g/dL Hct (36-46) % MCV (80-100) fL MCH (26-34) PG MCHC (30-36) % RDW (11.6-14.8) % Plt Count (150-400) X10^3/uL Neut % (Auto) (50-75) % Lymph % (Auto) (25-40) % S[place] % (Auto) (3-14) % Eos % (Auto) (2-4) % Baso % (Auto) (0-2) % Neut # (Auto) (8656-8465) /uL Lymph # (Auto) (4256-2233) /uL [place] # (Auto) (0-900) /uL Eos # (Auto) (0-450) /uL Baso # (Auto) (0-100) /uL PT (10.1-12.7) SECONDS INR (0.9-1.3) APTT (26.4-36.2) SECONDS Sodium (137-145) mmol/L Potassium (3.4-5.1) mmol/L Chloride (98-107) mmol/L Carbon Dioxide (22-32) mmol/L BUN (7-17) mg/dL Creatinine (0.52-1.04) mg/dL Estimated GFR (>60) mL/min BUN/Creatinine Ratio (6-22) Glucose (80-110) mg/dL Lactate (0.7-2.1) mmol/L Calcium (8.4-10.2) mg/dL Total Bilirubin (0.2-1.3) mg/dL AST (14-36) IU/L ALT (<35) IU/L Alkaline Phosphatase (38-126) U/L Total Creatine Kinase (30-135) U/L CK-MB (CK-2) CK-MB (CK-2) Rel Index Troponin I (0.01-0.034) ng/mL NT-Pro-B Natriuret Pep (<450) pg/mL Total Protein (6.3-8.2) g/dL Albumin (3.5-5.0) g/dL Globulin (1.7-4.1) g/dL Albumin/Globulin Ratio (1.0-2.8) Urine Color Yellow Urine Appearance Clear Urine pH 5.0 (4.5-8.0) Ur Specific [place] 1.015 (1.000-1.035) Urine Protein Negative (Negative) Urine Glucose (UA) Negative (Negative) g/dL Urine Ketones Negative (NEGATIVE) Urine Occult Blood Negative (Negative) Urine Nitrate Negative (Negative) Urine Bilirubin Negative (NEGATIVE) Urine Urobilinogen 0.2 (0.2) E.U./dL Ur Leukocyte Esterase Negative (NEGATIVE) Urine RBC None seen (0-5/HPF) Urine WBC 0-1/hpf (0-5/HPF) Ur Squamous Epith Cells 1-5 /hpf (0-5/HPF) Urine Bacteria Few (2-10) H (None) Ur Culture Indicated? Cult not indicated U Opiates 300ng/mL cut Positive H (Negative) Ur Oxycodone Screen Negative (Negative) Urine Methadone Screen Negative (Negative) Ur Barbiturates Screen Negative (Negative) U Tricyclic Antidepress Negative (Negative) Ur Phencyclidine Scrn Negative (Negative) Ur Amphetamines Screen Negative (Negative) U Methamphetamines Scrn Negative (Negative) Ur MDMA Scrn (Ecstasy) Negative (Negative) U Benzodiazepines Scrn Negative (Negative) Urine Cocaine Screen Negative (Negative) U Marijuana (THC) Screen Negative (Negative) SARS-CoV-2 (PCR) (Negative) Imaging Data CTA - brain/neck: Radiologist Impression: Launch?Image [address] [address] [address] Scan Report Signed Patient: Denice Torres MR#: [id number] : 1935 Acct:[id number] Age/Sex: 86 / F Date of Service: 08/06/21 Loc: ED Accession Number: [id number] ?? Procedure: CT angio head and neck Ordering Provider: Karyn Rey D.O. PROCEDURE:? CT ANGIO HEAD AND NECK ? INDICATIONS:? weakness, hx flutter, slurred speech ? TECHNIQUE:? After the administration of intravenous contrast, 1 mm thick sections acquired from the aortic arch through the [place] of [place].? Post-contrast 4.5 mm thick sections then re-acquired from the foramen magnum to the vertex.? 3-dimensional meulauf-cxgpfkbtc-kntetnxbcd (MIP) and/or volume rendering reformats were acquired of the central intracranial vasculature and neck separately. ? COMPARISON:? [facility], MR, MR HEAD/BRAIN WO CON, 04/05/2021, 9:49.? [facility], CR, XR CHEST 1V, 08/06/2021, 21:53.? [facility], MR, MR STROKE, 1 06/21/2020, 10:48.? [facility], CT, CT HEAD/BRAIN WO CON, 08/06/2021, 22:04. ? FINDINGS:? Image quality:? Excellent.? ? BRAIN:? CSF spaces:? Ventricles are normal in size and shape.? Basal cisterns are patent.? No extra-axial fluid collections.? ? Brain:? No midline shift.? No intracranial bleeds or masses.? There is mild cerebral volume loss.? Aranda-white matter interface appears intact.? ? Skull and face:? Calvarium and facial bones appear intact, without suspicious lesions.? Orbits appear normal.? ? Sinuses:? Sinuses and mastoids are clear.? ? HEAD CT ANGIOGRAPHY:? Anterior circulation:? Intracranial internal carotid arteries are normal in size and flow.? The flow within the paired anterior cerebral arteries is normal and symmetric.? The flow within the middle cerebral arteries is normal and symmetric.? The anterior communicating artery is seen.? No aneurysms are seen.? ? Posterior circulation:? Visualized portions of the vertebral arteries demonstrate normal caliber, and join to form a normal appearing basilar artery.? Flow within the posterior cerebral arteries is normal and symmetric.? No aneurysms are seen.? ? NECK CT ANGIOGRAPHY:? Carotid system:? The great vessels demonstrate a conventional anatomy as they arise from the aortic arch.? The origins of the common carotid arteries appear patent.? The common carotid arteries demonstrate normal caliber and courses.? Calcified plaques at the carotid bifurcations bilaterally.? There is severe stenosis (approximately 80-90%) at the origin of the left internal carotid artery.? Mild stenosis of the right proximal internal carotid artery.? The internal carotid arteries demonstrate normal calibers and courses.? ? Posterior circulation:? The origins of the vertebral arteries both appear widely patent.? Vertebral artery.? The more superior extracranial portions of both vertebral arteries also demonstrate normal courses and calibers.? They join to form a normal appearing basilar artery.? ? Soft tissues:? Visualized neck soft tissues demonstrate no suspicious abnormalities.? ? Bones:? No suspicious bony lesions.? Kyphosis and severe degenerative changes in cervical spine.? ? ? IMPRESSION:? ? 1. No acute intracranial abnormalities. ? 2. No hemodynamic significant stenosis in anterior or posterior circulations. ? 3. There is high-grade stenosis at the origin of the left internal carotid artery. ? 4. Dominant left vertebral artery.? No high-grade stenosis or occlusion in cervical vertebral arteries. ? 5. A fluid-filled cavity in the posterior right lung base.? This could represent a lung abscess.? Recommend chest CT for follow-up evaluation. ? ? Any quantitative measurements of stenosis were performed using NASCET criteria.? ? ? Dictated by: Mechelle Horowitz M.D. on 08/07/2021 at 0:12 ? ? Approved by: Mechelle Horowitz M.D. on 08/07/2021 at 0:26?? CT scan - head: Radiologist Impression: Launch?[address] [address] [address] Scan Report Signed Patient: Denice Torres MR#: [id number] : 1935 Acct:[id number] Age/Sex: 86 / F Date of Service: 08/06/21 Loc: ED Accession Number: [id number] ?? Procedure: CT head/brain wo con Ordering Provider: Karyn Rey D.O. PROCEDURE:? CT HEAD/BRAIN WO CON ? INDICATIONS:? weakness, trouble talking recent lumpectomy ? TECHNIQUE:? Noncontrast 4.5 mm thick angled axial sections acquired from the foramen magnum to the vertex, with coronal and sagittal reformats.? For radiation dose reduction, the following was used:? automated exposure control, adjustment of mA and/or kV according to patient size.? ? COMPARISON:? [facility], MR, MR STROKE, 04/21/2021, 10:48.? [facility], MR, MR HEAD/BRAIN WO CON, 04/05/2021, 9:49.? [facility], CT, CT HEAD/BRAIN WO CON, 04/20/2021, 19:01. ? FINDINGS:? Image quality:? Excellent.? ? CSF spaces:? Basal cisterns are patent.? No extra-axial fluid collections.? The ventricles are symmetric in size and shape.? ? Brain:? No intracranial bleeds or masses.? There is moderate cerebral volume loss for age, with resultant ventricular and sulcal prominence.? There are moderate periventricular and deep white matter chronic small vessel ischemic changes.? There is intracranial internal carotid artery atherosclerosis.? ? Skull and face:? Calvarium and visualized facial bones appear intact, without suspicious lesions.? ? Sinuses:? Visualized sinuses and mastoids are clear.? ? IMPRESSION:? ? 1. No acute intracranial abnormalities. ? 2. Cerebral volume loss and chronic microvascular ischemic changes. ? ? ? Dictated by: Mechelle Horowitz M.D. on 08/06/2021 at 23:23 ? ? Approved by: Mechelle Horowitz M.D. on 08/06/2021 at 23:25?? CXR: Radiologist Impression: Launch?Image [address] [address] XRay Report Signed Patient: Denice Torres MR#: [id number] : 1935 Acct:[id number] Age/Sex: 86 / F Date of Service: 08/06/21 Loc: ED Accession Number: [id number] ?? Procedure: XR chest 1V Ordering Provider: Karyn Rey D.O. PROCEDURE:? XR CHEST 1V ? INDICATIONS:? weakness ? TECHNIQUE:? One view of the chest was acquired.? ? COMPARISON:? [facility], CT, CT PEL WO CON, 04/04/2021, 7:27.? [facility], CR, XR CHEST 1V, 01/25/2019, 4:48.? [facility], CR, XR CHEST 1V, 04/04/2021, 0:02.? [facility], CR, XR CHEST 1V, 04/20/2021, 19:10. ? FINDINGS:? There is rotation. ? Surgical changes and devices:? None.? ? Lungs and pleura:? Possible right diaphragmatic hernia.? No infiltrate or consolidation.? No pleural effusions or pneumothorax.? ? Mediastinum:? Right hilum is prominent, likely due to rotation.? Heart size is normal.? Moderate-sized hiatal hernia. ? Bones and chest wall:? No suspicious bony lesions.? Overlying soft tissues appear unremarkable.? ? IMPRESSION:? ? 1. Prominent right hilum likely due to rotation.? If clinically indicated, a standard 2-view chest x-ray is recommended for follow-up evaluation. 2. Possible right diaphragmatic hernia. 3. Moderate-sized hiatal hernia.? ? ? Dictated by: Mechelle Horowitz M.D. on 08/06/2021 at 23:37 ? ? Approved by: Mechelle Horowitz M.D. on 08/06/2021 at 23:42 ECG Data Attestation: I personally reviewed and interpreted this ECG as follows: Prior ECG tracings: available for review Interpretation: Atrial flutter with 3-1 conduction. Rate of 73 QRS 88 QTC of 458. No acute ST elevation depression appreciated. Patient has changes consistent with septal infarct. She has a prior EKG from 04/20/2021 that appears similar. [facility] Narrative Medical decision making narrative: Female comes emergency depart with increasing weakness. Patient had a recent lumpectomy. She has possibly some slight nasal labial fold weakness and occasional word-finding issues. She has generalized weakness but not focal to left versus right. Patient does have a history of atrial flutter she is typically on Eliquis and was stopped for her surgery. She restarted just in the last day. Unclear if patient could potentially have stroke head CT and CT angiography do not show clear change, labs do not have any reason such as h yponatremia to cause this. Patient is not able to a bee upper ambulating on her own spoke with the hospitalist PAULINA Dawn who kindly accepts for observation. Discharge Plan Departure Patient Disposition: Admitted as Observation Clinical Impression: Weakness Admit Date/Time: 08/07/21 01:49 Admit Provider: Damaris Dawn
[2021-08-06 22:14] LABS: Add Manual Diff / Slide Review NO; Basophils Absolute Auto 0 /uL (0-100); Basophils Percent Auto 0.6 % (0-2); Eosinophils Absolute Auto 100 /uL (0-450); Eosinophils Percent Auto 2.3 % (2-4); Hematocrit 31.6 % (36-46); Hemoglobin 10.7 g/dL (12.0-16.0); Lymphocytes Absolute Auto 600 /uL (1100-4500); Lymphocytes Percent Auto 10.4 % (25-40); Mean Corpuscular HGB Conc 33.7 % (30-36); Mean Corpuscular Hemoglobin 28.7 PG (26-34); Mean Corpuscular Volume 85.4 fL (80-100); Monocytes Absolute Auto 300 /uL (0-900); Monocytes Percent Auto 5.9 % (3-14); Neutrophils Absolute Auto 4500 /uL (1500-7000); Neutrophils Percent Auto 80.8 % (50-75); Platelet Count 218 X10^3/uL (150-400); Red Blood Cell Count 3.71 X10^6/uL (4.0-5.2); Red Cell Distribution Width 15.5 % (11.6-14.8); White Blood Cell Count 5.5 X10^3/uL (4.5-11.0)
[2021-08-06 22:18] LABS: INR 1.2 (0.9-1.3); Prothrombin Time 13.8 SECONDS (10.1-12.7)
[2021-08-06 22:21] LABS: PTT Partial Thromboplastin Tim 41 SECONDS (26.4-36.2)
[2021-08-06 22:23] LABS: Lactate (Lactic Acid) 0.6 mmol/L (0.7-2.1)
[2021-08-06 22:24] LABS: Alanine Aminotransferase 15 IU/L (<35); Albumin 3.9 g/dL (3.5-5.0); Albumin Globulin Ratio 1.2 (1.0-2.8); Alkaline Phosphatase 131 U/L (38-126); Aspartate Aminotransferase 25 IU/L (14-36); BUN Creatinine Ratio 34.3 (6-22); Bilirubin Total 0.5 mg/dL (0.2-1.3); Blood Urea Nitrogen 34 mg/dL (7-17); Calcium 8.9 mg/dL (8.4-10.2); Carbon Dioxide 29 mmol/L (22-32); Chloride 107 mmol/L (98-107); Creatine Kinase 73 U/L (30-135); Estimated Glomerular Filt Rate 53.4 mL/min (>60); Globulin 3.2 g/dL (1.7-4.1); Glucose 124 mg/dL (80-110); HEMOLYSIS 32 (0-50); Potassium 4.6 mmol/L (3.4-5.1); Sodium 138 mmol/L (137-145); Total Protein 7.1 g/dL (6.3-8.2)
[2021-08-06 22:30] VITALS: PULSE 72; O2SAT 90
[2021-08-06 22:35] LABS: Troponin I < 0.012 ng/mL (0.01-0.034)
[2021-08-06 22:37] VITALS: BP 154/67; PULSE 73; RESP 13; O2SAT 91
[2021-08-06 22:46] LABS: COVID19 -Nasal RAPID Negative (Negative)
--- NOTE | 2021-08-06 22:55 | DI.CT.S_ITS ---
PROCEDURE: CT ANGIO HEAD AND NECK INDICATIONS: weakness, hx flutter, slurred speech TECHNIQUE: After the administration of intravenous contrast, 1 mm thick sections acquired from the aortic arch through the [place] of [place]. Post-contrast 4.5 mm thick sections then re-acquired from the foramen magnum to the vertex. 3-dimensional nmirozo-mxexiglnd-edurntofpd (MIP) and/or volume rendering reformats were acquired of the central intracranial vasculature and neck separately. COMPARISON: [facility], MR, MR HEAD/BRAIN WO CON, 04/05/2021, 9:49. [facility], CR, XR CHEST 1V, 08/06/2021, 21:53. [facility], MR, MR STROKE, 04/21/2021, 10:48. [facility], CT, CT HEAD/BRAIN WO CON, 08/06/2021, 22:04. FINDINGS: Image quality: Excellent. BRAIN: CSF spaces: Ventricles are normal in size and shape. Basal cisterns are patent. No extra-axial fluid collections. Brain: No midline shift. No intracranial bleeds or masses. There is mild cerebral volume loss. Aranda-white matter interface appears intact. Skull and face: Calvarium and facial bones appear intact, without suspicious lesions. Orbits appear normal. Sinuses: Sinuses and mastoids are clear. HEAD CT ANGIOGRAPHY: Anterior circulation: Intracranial internal carotid arteries are normal in size and flow. The flow within the paired anterior cerebral arteries is normal and symmetric. The flow within the middle cerebral arteries is normal and symmetric. The anterior communicating artery is seen. No aneurysms are seen. Posterior circulation: Visualized portions of the vertebral arteries demonstrate normal caliber, and join to form a normal appearing basilar artery. Flow within the posterior cerebral arteries is normal and symmetric. No aneurysms are seen. NECK CT ANGIOGRAPHY: Carotid system: The great vessels demonstrate a conventional anatomy as they arise from the aortic arch. The origins of the common carotid arteries appear patent. The common carotid arteries demonstrate normal caliber and courses. Calcified plaques at the carotid bifurcations bilaterally. There is severe stenosis (approximately 80-90%) at the origin of the left internal carotid artery. Mild stenosis of the right proximal internal carotid artery. The internal carotid arteries demonstrate normal calibers and courses. Posterior circulation: The origins of the vertebral arteries both appear widely patent. Vertebral artery. The more superior extracranial portions of both vertebral arteries also demonstrate normal courses and calibers. They join to form a normal appearing basilar artery. Soft tissues: Visualized neck soft tissues demonstrate no suspicious abnormalities. Bones: No suspicious bony lesions. Kyphosis and severe degenerative changes in cervical spine. IMPRESSION: 1. No acute intracranial abnormalities. 2. No hemodynamic significant stenosis in anterior or posterior circulations. 3. There is high-grade stenosis at the origin of the left internal carotid artery. 4. Dominant left vertebral artery. No high-grade stenosis or occlusion in cervical vertebral arteries. 5. A fluid-filled cavity in the posterior right lung base. This could represent a lung abscess. Recommend chest CT for follow-up evaluation. Any quantitative measurements of stenosis were performed using NASCET criteria. Dictated by: Mechelle Horowitz M.D. on 08/07/2021 at 0:12 Approved by: Mechelle Horowitz M.D. on 08/07/2021 at 0:26
[2021-08-06] MEDS: SODIUM CHLORIDE 0.9% 1,000 ML 150 ML IV (23:00)
[2021-08-06 23:09] LABS: NT-proBNP (BNP-Adult 18+) 411 pg/mL (<450)
[2021-08-07] VITALS (14 sets, daily range): BP systolic 144–187; BP diastolic 55–79; PULSE 69–79; RESP 11–22; TEMP 36.2–36.9; O2SAT 94–96; BMI 30.7
[2021-08-07 00:34] LABS: UR Morphine/Opiate cutoff 300 Positive (Negative); Ur Creatinine 20 (Normal); Ur Specific Gravity 1.015 (Normal); Urine Amphetamines Negative (Negative); Urine Barbiturates Negative (Negative); Urine Benzodiazepines Negative (Negative); Urine Cocaine Negative (Negative); Urine MDMA Negative (Negative); Urine Methadone Negative (Negative); Urine Methamphetamines Negative (Negative); Urine Oxycodone Negative (Negative); Urine Phencyclidine Negative (Negative); Urine Tetrahydrocannabinol Negative (Negative); Urine Tricyclic Antidepressant Negative (Negative); Urine pH 5 (Normal)
[2021-08-07 00:45] LABS: Appearance Urine UA CLEAR; Bilirubin Urine UA NEGATIVE (NEGATIVE); Color Urine UA YELLOW; Glucose Urine UA NEGATIVE (Negative); Ketones Urine UA NEGATIVE (NEGATIVE); Leukocyte Esterase Urine UA NEGATIVE (NEGATIVE); Nitrite Urine UA NEGATIVE (Negative); Occult Blood Urine UA NEGATIVE (Negative); Protein Urine UA NEGATIVE (Negative); Specific Gravity Urine UA 1.015 (1.000-1.035); Urobilinogen Urine UA 0.2 E.U./dL (0.2)
--- NOTE | 2021-08-07 00:50 | DI.CT.S_ITS ---
PROCEDURE: CT CHEST W CON INDICATIONS: possible abscess vs other. lumpectomy right breast x 4 days ago. TECHNIQUE: After the administration of intravenous contrast, 5 mm thick sections acquired from the pulmonary apices to the posterior costophrenic angles. 1 mm axial lung, 5 mm thick coronal and sagittal reformats and 7 mm axial MIP were acquired. For radiation dose reduction, the following was used: automated exposure control, adjustment of mA and/or kV according to patient size. COMPARISON: [facility], CT, CT ANGIO HEAD AND NECK, 08/06/2021, 22:59. [facility], CR, XR CHEST 1V, 08/06/2021, 21:53. FINDINGS: Image quality: Excellent. Lungs and pleura: The fracture is air and fluid under the medial aspect of the right hemidiaphragm is caused by a diaphragmatic hernia well as a hiatal hernia, which contains the stomach a right hemidiaphragm. There are atelectasis in lower lobes bilaterally, as well as lingula. No acute consolidation. Are multiple tiny 2-3 mm subpleural nodules. No pleural effusions or pneumothorax. Central and peripheral airways are patent and normal in caliber. Mediastinum: Heart size is mildly enlarged. There is moderate coronary artery calcification. No pericardial effusion. No mediastinal or hilar adenopathy by size criteria. Thoracic aorta and central pulmonary arteries are normal in size. Esophagus is normal in caliber. No hiatal hernia. Bones and chest wall: No suspicious bony lesions. Moderate degenerative changes in thoracic spine and upper lumbar spine. No vertebral body compression fractures. Severe left shoulder joint degeneration. No axillary or supraclavicular adenopathy by size criteria. There is a 1.1 cm rim calcified mass in the posterior left thyroid lobe. Surgical clips in the left breast and axilla. Abdomen: Intrathoracic stomach in the posterior medial aspect of the right hemithorax. Severe left renal atrophy. There is a 0.6 cm simple appearing cyst in left kidney. IMPRESSION: 1. Large structure filled with air and fluid in the right hemithorax under the right hemidiaphragm is intrathoracic stomach because of a diaphragmatic hernia and a hiatal hernia. No lung abscess. 2. Bilateral lower lobe and lingular atelectasis. 3. Mild cardiomegaly and moderate coronary artery atherosclerosis. 4. Severe left renal atrophy. Dictated by: Mechelle Horowitz M.D. on 08/07/2021 at 1:19 Approved by: Mechelle Horowitz M.D. on 08/07/2021 at 1:32
[2021-08-07 00:59] LABS: Bacteria Urine Few (2-10); Culture Indicated Urine Cult Not Indicated; RBC Urine None Seen (0-5/HPF); Squamous Epithelial Cell Urine 1-5 /HPF (0-5/HPF); WBC Urine 0-1/HPF (0-5/HPF)
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
[2021-08-07] MEDS: SODIUM CHLORIDE 0.9% 1,000 ML 100 ML IV ×3 (03:00→16:28)
--- NOTE | 2021-08-07 05:59 | PC.NURSE ---
Patient admitted to AC unit at 0205. Alert to self, place, situation. Patient oriented to room and shown how to use call light. Tele placed on patient. NS running at 100/hr. SCD's on. Denies pain. NIH 1. Bed alarm on, breaks locked. Patient room outside nurses station with patient request to keep curtain open.
[2021-08-07 06:20] LABS: Add Manual Diff / Slide Review NO; Basophils Absolute Auto 0 /uL (0-100); Basophils Percent Auto 0.5 % (0-2); Eosinophils Absolute Auto 100 /uL (0-450); Eosinophils Percent Auto 2.2 % (2-4); Hematocrit 31.2 % (36-46); Hemoglobin 10.1 g/dL (12.0-16.0); Lymphocytes Absolute Auto 600 /uL (1100-4500); Lymphocytes Percent Auto 11.1 % (25-40); Mean Corpuscular HGB Conc 32.5 % (30-36); Mean Corpuscular Hemoglobin 28.1 PG (26-34); Mean Corpuscular Volume 86.3 fL (80-100); Monocytes Absolute Auto 400 /uL (0-900); Monocytes Percent Auto 6.7 % (3-14); Neutrophils Absolute Auto 4500 /uL (1500-7000); Neutrophils Percent Auto 79.5 % (50-75); Platelet Count 191 X10^3/uL (150-400); Red Blood Cell Count 3.61 X10^6/uL (4.0-5.2); Red Cell Distribution Width 15.7 % (11.6-14.8); White Blood Cell Count 5.6 X10^3/uL (4.5-11.0)
[2021-08-07 06:29] LABS: Alanine Aminotransferase 14 IU/L (<35); Albumin 3.5 g/dL (3.5-5.0); Albumin Globulin Ratio 1.2 (1.0-2.8); Alkaline Phosphatase 128 U/L (38-126); Aspartate Aminotransferase 21 IU/L (14-36); BUN Creatinine Ratio 27.6 (6-22); Bilirubin Total 0.5 mg/dL (0.2-1.3); Bilirubin Unconjugated 0.5 mg/dL (0.0-1.1); Blood Urea Nitrogen 24 mg/dL (7-17); Calcium 8.6 mg/dL (8.4-10.2); Carbon Dioxide 28 mmol/L (22-32); Chloride 108 mmol/L (98-107); Estimated Glomerular Filt Rate > 60.0 mL/min (>60); Glucose 98 mg/dL (80-110); HEMOLYSIS < 15 (0-50); Potassium 4.1 mmol/L (3.4-5.1); Sodium 138 mmol/L (137-145); Total Protein 6.5 g/dL (6.3-8.2)
[2021-08-07] MEDS: APIXABAN 5 MG TABLET PO ×2 (08:08→20:34)
[2021-08-07] MEDS: AMLODIPINE 5 MG TABLET PO (08:08)
[2021-08-07] MEDS: carvediloL 12.5 MG TABLET PO ×2 (08:08→20:33)
[2021-08-07] MEDS: LOSARTAN 50 MG TABLET 100 MG PO (08:11)
--- NOTE | 2021-08-07 08:43 | CM.DPNOTE ---
Noemi from [facility] called and said they are following this pt. Please contact her when pt. being dc'd. Stephani Bueno CM Assist.
--- NOTE | 2021-08-07 10:50 | PT.IIE ---
Medical History (Last Reviewed 08/07/21 @ 02:27 by KOLE Flores) Atrial fibrillation Breast cancer COPD (chronic obstructive pulmonary disease) Dementia Failure to thrive in adult Frequent falls Hallucination Hypertension Hypertensive urgency Physical Therapy Inpatient Evaluation/Re-Eval M1 PT/OT-IP Prior Functional Status Start: 08/07/21 12:11 Freq: NEEDED Status: Active Protocol: Document 08/07/21 10:50 AB (Rec: 08/07/21 12:21 AB [id number]) Medical Review Prior Functional Status Medical History Reviewed Yes Communication able to follow directions and answer some questions but pt with slight confusion/memory issues Mobility and Gait pt stated that she has only been home for 1 day; stated that she has been at [facility] after last hospitalization and has been there since d/c home. stated that she has been using a FWW at [facility] but does not recall what she uses at home since she was only there for 1 day. Social History Household Members children Living Arrangements House Number of Floors (Floors) Two Floors Number of Stairs To Enter/Railing? ramp to enter pt stays on main level of the house Home Environment Standard Height Toilet,Walk in Shower Home Equipment Four Wheel Walker,Raised Toilet Seat Without Armrests, Shower Seat with Backrest,Hand Held Shower,Grab Bars Near Toilet,Grab Bars In Shower Additional Social History Comment pt lives with her daughter; daughter works from 130 pm to 9-10 pm; stated that there is a caregiver that comes in to assist her when daughter is at work M2 PT-IP Current Condition Start: 08/07/21 12:11 Freq: NEEDED Status: Active Protocol: Document 08/07/21 10:50 AB (Rec: 08/07/21 12:21 AB [id number]) Physical Therapy Current Condition Current Condition Evaluation Date 08/07/21 Treatment Diagnosis weakness; difficulty in walking Onset Date 08/07/21 M3 PT-IP Subjective Start: 08/07/21 12:11 Freq: NEEDED Status: Active Protocol: Document 08/07/21 10:50 AB (Rec: 08/07/21 12:21 AB [email or web address]) Subjective Physical Therapy Visit Type Type Initial Evaluation Visit Start Time 10:50 Visit Stop Time 11:25 Total Visit Minutes 35 Number of NUCLEAR MEDICINE TECH Visits 0 Physical Therapy Visit Comments Patient Comments agreeable to get up M4 PT-IP Mobility and Gait Start: 08/07/21 12:11 Freq: NEEDED Status: Active Protocol: Document 08/07/21 10:50 AB (Rec: 08/07/21 12:21 AB [id number]) PT-Bed Mobility Assessment Supine to Sit Supine to Sit Moderate Assistance,1 Person Assistance Scooting Scooting to Edge of Bed Maximum Assistance PT-Transfer Assessment Sit to and From Stand Sit to and from Stand Maximum Assistance,1 Person Assistance,2 Person Assistance ,Use of Upper Extremities Equipment Transfer Assistive Device Gait Belt,Front Wheeled Walker Orthotic/Prosthetic Devices or Brace: No Transfers Transfer Destination Chair Transfer Technique Stand Step Pivot Transfer Ability Level of Assist Maximum Assistance,1 Person Assistance,2 Person Assistance ,Use of Upper Extremities Comments Mobility Comments completed supine to sit mod A but max A for scooting to EOB. pt with increase lateral trunk lean to the L. max cues for posture and balance. completed sit to stand from EOB max A x 1-2 and max cues and max A 1-2 for step transfer using FWW to chair. positioned pt on chair. call light and table placed within reach. Gait Assessment Comments Gait Comments steps during transfers max A x1-2 using fWW PT-Balance Assessment Sitting Balance and Reactions Static Sitting Balance Ability Fair Dynamic Sitting Balance Ability Poor Standing Balance and Reactions Static Standing Balance Ability Poor Dynamic Standing Balance Ability Poor Device Used FWW M5 PT-IP Objective Assessments Start: 08/07/21 12:11 Freq: NEEDED Status: Active Protocol: Document 08/07/21 10:50 AB (Rec: 08/07/21 12:21 AB [id number]) Orientation Orientation/Cognition Level of Alertness Confusional State Orientation Name,Place Language Function Ability Word Finding Difficulties Safety Awareness Decreased Safety Awareness Memory Description 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,Detention Impaired Gross Range of Motion Lower Extremity ROM Assessment Bilaterally Impaired Impairments limited B knee flexion with c/ o pain with PROM and (+) L knee crepitus Strength Lower Extremity Strength Assessment Bilaterally Impaired Hip 3+/5 Knee 3+/5 Sensation Assessment Sensation Gross Sensation WNL Muscle Tone Muscle Tone WNL Yes M6 PT-IP Treatment Start: 08/07/21 12:11 Freq: NEEDED Status: Active Protocol: Document 08/07/21 10:50 AB (Rec: 08/07/21 12:21 AB [email or web address]) Physical Therapy Treatment Education Education Provided Safety M7 PT-IP Assessment and Plan Start: 08/07/21 12:11 Freq: NEEDED Status: Active Protocol: Document 08/07/21 10:50 AB (Rec: 08/07/21 12:21 AB [id number]) PT Summary Assessment and Plan Potential Rehabilitation Potential Fair Status of Condition at Evaluation Evolving Summary Impairments Pain,ROM,Strength,Balance, Coordination,Sensation,Tone, Cognition,Bed Mobility, Transfers,Gait,Activity Tolerance Assessment Summary pt requiring max A x 1-2 with mobility using FWW. increase lateral trunk lean to the L requiring max A for standing balance and max cues with all tasks. pt will require SNF rehab to improve strength and mobility independence. Goals Bed Mobility Goal Standby Assistance Transfer Goal Standby Assistance,Front Wheeled Walker Gait Goal Standby Assistance,Front Wheel Walker Gait Distance 50 Other Goals improve ambulation using FWW 150 ft SBA Days to Meet Goals 10 Frequency of Treatment Frequency Of Treatment Once a Day Treatment Plan Physical Therapy Treatment Plan Bed Mobility Training,Transfer Training,Gait Training, Therapeutic Exercise,Balance Retraining,Discharge Planning, Hot or Cold Pack,Neuromuscular Re-ed,Coordination Retraining Precautions Other Precautions falls Recommendations To Nursing Amount of Assist Needed 2 Person Assist Discharge Recommendations PT Discharge Recommendations SNF Rehab Transportation Needs at Discharge Wheelchair/Cabulance
--- NOTE | 2021-08-07 12:15 | OT.IP.EVAL ---
Past Medical History (Last Reviewed 08/07/21 @ 02:27 by KOLE Flores) Atrial fibrillation Breast cancer COPD (chronic obstructive pulmonary disease) Dementia Failure to thrive in adult Frequent falls Hallucination History of hysterectomy Hypertension Hypertensive urgency No pertinent past surgical history Surgical History (Last Reviewed 08/07/21 @ 02:27 by KOLE Flores) History of hysterectomy No pertinent past surgical history Occupational Therapy Inpatient Evaluation/Re-Eval M1 PT/OT-IP Prior Functional Status Start: 08/07/21 12:11 Freq: NEEDED Status: Active Protocol: Document 08/07/21 13:43 [facility] (Rec: 08/07/21 14:05 [facility] [id number]) Medical Review Prior Functional Status Medical History Reviewed Yes Communication able to follow directions and answer some questions but pt with slight confusion/memory issues Mobility and Gait pt stated that she has only been home for 1 day; stated that she has been at [facility] after last hospitalization and has been there since d/c home. stated that she has been using a FWW at [facility] but does not recall what she uses at home since she was only there for 1 day. Activities of Daily Living and IADL's Pt's daughter states that she assist pt for all ADL needs as needed, especially for showers. Pt's daughter states that pt is home alone 30 minutes and is told to stay in her recliner, until her caregiver is able to come to assist. Social History Household Members children Living Arrangements House Number of Floors (Floors) Two Floors Number of Stairs To Enter/Railing? ramp to enter pt stays on main level of the house Home Environment Standard Height Toilet,Walk in Shower Home Equipment Front Wheel Walker,Four Wheel Walker,Raised Toilet Seat Without Armrests,Shower Seat with Backrest,Hand Held Shower ,Grab Bars Near Toilet,Grab Bars In Shower Additional Social History Comment pt lives with her daughter; daughter works from 130 pm to 9-10 pm; stated that there is a caregiver that comes in to assist her when daughter is at work from 2pm to 7pm M,W,F amd her brothers assist to help fill in the gaps. M2 OT-IP Current Condition Start: 08/07/21 13:43 Freq: Status: Active Protocol: Document 08/07/21 13:43 [facility] (Rec: 08/07/21 14:05 [facility] [id number]) Occupational Therapy Current Condition Current Condition Evaluation Date 08/07/21 Treatment Diagnosis Generalized weakness Diagnosis Onset Date 08/07/21 M3 OT- IP Subjective and Pain Start: 08/07/21 13:43 Freq: Status: Active Protocol: Document 08/07/21 13:43 [facility] (Rec: 08/07/21 14:05 [facility] [id number]) OT- Subjective Occupational Therapy Visit Type Type Initial Evaluation Visit Start Time 11:45 Visit Stop Time 12:16 Total Visit Minutes 31 Occupational Therapy Visit Comments Patient Comments Pt agreed to stand up from the recliner. Pt's daughter present for the end of the session. Pt's daughter initially wanting pt to go back home but realizes that she may not be able to provide enough assist as currently, pt needing two person assist Patient/Caregiver Goals Pt open to going to skilled rehab. OT Pain Assessment Pain When Pain Assessed At Rest Pain Present Pain Present Pain Reported M4 OT- IP ADL's Start: 08/07/21 13:43 Freq: Status: Active Protocol: Document 08/07/21 13:43 [facility] (Rec: 08/07/21 14:05 [facility] [id number]) OT [id number] Comments OT Self-Feeding Comments Not at meal time. OT ADL-Grooming General Evaluation Grooming Ability Standby Assistance Areas Needing Assistance Retrieving/Set-up of Grooming Items Comments OT Grooming Comments vc for completeness to wash her hands with wash cloth. OT ADL-Oral Care General Eval Oral Care Ability Standby Assistance Areas of Assistance Retrieving/Set-Up of Items Comments Oral Care Comments VC for sequencing and completeness. OT ADL-Dressing General Eval Lower Body Dressing Ability Total Assistance Areas Needing Assistance Socks OT ADL-Toileting Comments OT Toileting Comments Pt not having to go at this time. OT ADL-Bathing Comments OT Bathing Comments Sponge bath more appropriate at this time. M5 OT- IP IADL's Start: 08/07/21 13:43 Freq: Status: Active Protocol: Document 08/07/21 13:43 [facility] (Rec: 08/07/21 14:05 [facility] [id number]) OT-Instrumental Activities of Daily Living Home Safety Awareness Awareness of Need for Assistance at Home Decreased Awareness Ability to Problem Solve Emergency Unable to Problem Solve Situations Medication Management Medication Management Caregiver Administers Money Management Money Management Caregiver Provides Assistance Meal Preparation Meal Preparation Caregiver Provides Assist Animal Pathology Teacher Animal Pathology Teacher Caregiver Provides Assist M6 OT- IP Functional Cognition Start: 08/07/21 13:43 Freq: Status: Active Protocol: Document 08/07/21 13:43 [facility] (Rec: 08/07/21 14:05 [facility] [id number]) Cognitive Factors Limiting Selfcare Function Cognitive Ability Level of Alertness Alert,Confusional State Patient Orientation Name Attention Span Ability Capable of Focused Attention, Unable to Sustain Attention Ability to Follow Commands Able to Follow One Step Commands with Increased Time, Able to Follow One Step Commands with Repetition Memory Description 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,Working Impaired Problem Solving Ability Unable to Identify Errors, Needs Assist to Identify Solutions Cognitive Comments Cognitive Assessment Comments Pt per chart has dementia. Pt needing vc for sequencing through steps for ADL needs and safety with mobility needs . Per pt's daughter pt needing repetitive step by step instructions for all needs. OT- Vision and Hearing OT- Vision Assessment Vision Assessment Comments to be further assessed M7 OT- IP Mobility and Balance Start: 08/07/21 13:43 Freq: Status: Active Protocol: Document 08/07/21 13:43 [facility] (Rec: 08/07/21 14:05 [facility] [id number]) OT-Transfer Assessment Sit to and From Stand Sit to and from Stand Maximum Assistance,1 Person Assistance Comments Mobility Comments Pt needing MAX A with assist to scoot pt forwards with green pad and MAX A x1 to stand to FWW. Pt not able to tolerate standing for long and having to sit back down. OT- Balance Assessment Sitting Balance and Reactions Static Sitting Balance Ability Fair Standing Balance and Reactions Static Standing Balance Ability Poor M8 OT- IP Objective Assessments Start: 08/07/21 13:43 Freq: Status: Active Protocol: Document 08/07/21 13:43 [facility] (Rec: 08/07/21 14:05 [facility] [id number]) OT Gross Range of Motion Upper Extremity Range of Motion Assessment Bilaterally Impaired ROM Impairments RUE 0-20, LUE 0-60 for shoulder flexion. OT Strength Comments Strength Comments RUE NT due to pain as just having surgery on right breast on Wednesday. Overall pt has decreased strength for BUE. OT- Coordination Assessment Comments Coordination Comments Assist to help open packages. OT-Muscle Tone Assessment Muscle Tone WNL Yes M9 OT- IP Assessment and Plan Start: 08/07/21 13:43 Freq: Status: Active Protocol: Document 08/07/21 13:43 [facility] (Rec: 08/07/21 14:05 [facility] [id number]) OT Summary Assessment and Plan Potential Rehabilitation Potential Fair Analytic Complexity at Evaluation Moderate Summary OT Impairments Pain,Strength,Balance, Functional Cognition, Functional Mobility,Self- Feeding,Grooming,Dressing, Toileting,Toilet Transfers, Shower Transfers,Activity Tolerance Progress Towards Goals Slow Progress due to Pain,Slow Progress due to Medical Issues,Slow Progress due to Activity Tolerance,Slow Progress due to Cognition Assessment Summary Pt MOD complexity and main barriers are decreased strength, activity tolerance, and now needing two person assist for all ADL and mobility needs. Pt would benefit from skilled rehab to help get back to one person assist as her daughter was able to provide at home in addition to caregivers when she was at work. Goals Self-Feeding Goal Standby Assistance Grooming Goal Standby Assistance Toilet Transfer Goal Moderate Assistance Days to Meet Goals 15 Frequency of Treatment Frequency Of Treatment Once a Day Treatment Plan OT Treatment Plan ADL Training,Functional Cognition Training,Functional Mobility,Patient/Family Education,Discharge Planning Other Treatment Recommendations and Next Transfer to [facility] with FWW and Treatment Focus MODA X 2. Discharge Recommendations OT Discharge Recommendations SNF Rehab Transportation Needs at Discharge Wheelchair/Cabulance
--- NOTE | 2021-08-07 13:15 | CM.DANOTE ---
Discharge Assessment note: Patient is 86yo female admitted for generalized weakness (acute). Patient is assigned to hospitalist team. Patient was recently discharged from SNF to home with HH in place to open 08/07. Patient had a surgical procedure and has had increasing weakness/difficulty with ambulating/transfers since discharging home from surgical procedure. Patient resides at home with daughter Anna who is patient's DPOA. Patient has grab bars in bathroom, raised toilet seat, BSC, and 4WW at home for use as needed. Patient does not use home O2, no dialysis or IV therapies occurring. Patient has SNF history with [facility] and HH history with [facility]. Patient's daughter has just started working with [facility] on attempting to find additional caregivers for in home; patient currently has a private paid caregiver in home 3x weekly but that caregiver leaves for another job prior to pt's daughter getting home from work. Daughter reported there are not other family members available to assist with pt's care at home; daughter works cnc field service engineer in at [employer]. Pt's PT evaluation of 08/07 indicates need for SNF at this time/2 person assist. Patient has depleted all Medicare SNF coverage in her prior SNF stay. Denice at [facility] is looking to see if patient ended up getting Medicaid coverage while at their facility. Noemi at [facility] aware patient is admitted to hospital at this time. Noemi reported she will look into their HACH program for patient and call back 08/08 with their availability to open with patient (assuming no ability to get patient to SNF). INS: Medicare, for Life, will need to find out if Medicaid is active Plan: discharge to SNF versus home with HA HH with [facility]. FLAME HARDENER will continue to follow throughout clinical course of admission. Jaren Flannery [facility] Discharge Planning/Care Management CM Discharge Assessment Start: 08/07/21 13:10 Freq: Status: Active Protocol: Document 08/07/21 13:11 ROBIN (Rec: 08/07/21 13:15 ROBIN [id number]) Discharge Planning Assessment Assigned Extrusion Die Corrector Jaren Flannery [facility] DPOA/Assigned Designee Name Anna daughter Contact Information [phone] Advance Directives? Yes Advance Directives on File No History Provided By Patient,Family Member,Medical Record Has Patient been admitted in last 30 No days? Prior Living Arrangements House Comment discharged from [facility] just recently Household Members children Type of transporation used prior to Relies on Others admit Willing to Return to Facility? Yes Independent with ADL's No Is patient alert and oriented? Yes Needs Assistance With Bathing,Grooming,Meal Prep, Toileting,Managing Medications ,Home Chores / Shopping Caregiver for Another No Community Services used prior to Home Health Nurse admission: Comment [facility] first RN appt was 08/07 DME Already Rented / Owned Elevated Toilet Seat,FWW / Walker,Bedside Commode Comment grab bars Patient/Family Preference [facility] Facility Barriers to Discharge Yes Comment Attempting SNF placement due to weakness and daughter's inabilty to care for her until she is stronger. Pt has used her 100 days of Medicare coverage Discharge Plan [facility] Facility Transportation Arrangement Facility Referrals Initiated [facility],Other If patient plan is SNF: Has PASSR been No completed? Medicare Choice List Provided Yes SNF/HH Preference [facility] Has Agency SNF been contacted Yes Comment voicemail left for Denice/ admissions Whiteboard Updated in Patient Room with Yes name and ext. # of Extrusion Die Corrector Review Status In Process Next Review Type Continued Stay Review
[2021-08-07] MEDS: MONTELUKAST 10 MG TABLET PO (20:33)
[2021-08-07] MEDS: ATORVASTATIN 20 MG TABLET 10 MG PO (20:33)
[2021-08-08] VITALS (15 sets, daily range): BP systolic 150–176; BP diastolic 52–85; PULSE 70–100; RESP 18–24; TEMP 36.2–38.2; O2SAT 90–98
[2021-08-08] MEDS: SODIUM CHLORIDE 0.9% 1,000 ML 100 ML IV (03:12)
[2021-08-08 06:23] LABS: Add Manual Diff / Slide Review NO; Basophils Absolute Auto 0 /uL (0-100); Basophils Percent Auto 0.5 % (0-2); Eosinophils Absolute Auto 200 /uL (0-450); Eosinophils Percent Auto 2.9 % (2-4); Hematocrit 29.2 % (36-46); Hemoglobin 9.7 g/dL (12.0-16.0); Lymphocytes Absolute Auto 600 /uL (1100-4500); Lymphocytes Percent Auto 10.7 % (25-40); Mean Corpuscular HGB Conc 33.3 % (30-36); Mean Corpuscular Hemoglobin 28.6 PG (26-34); Mean Corpuscular Volume 86.1 fL (80-100); Monocytes Absolute Auto 400 /uL (0-900); Monocytes Percent Auto 7.4 % (3-14); Neutrophils Absolute Auto 4400 /uL (1500-7000); Neutrophils Percent Auto 78.5 % (50-75); Platelet Count 184 X10^3/uL (150-400); Red Cell Distribution Width 15.5 % (11.6-14.8); White Blood Cell Count 5.6 X10^3/uL (4.5-11.0)
[2021-08-08 06:37] LABS: Alanine Aminotransferase 15 IU/L (<35); Albumin 3.5 g/dL (3.5-5.0); Albumin Globulin Ratio 1.2 (1.0-2.8); Alkaline Phosphatase 130 U/L (38-126); Aspartate Aminotransferase 24 IU/L (14-36); Bilirubin Total 0.7 mg/dL (0.2-1.3); Bilirubin Unconjugated 0.8 mg/dL (0.0-1.1); Blood Urea Nitrogen 16 mg/dL (7-17); Calcium 8.7 mg/dL (8.4-10.2); Carbon Dioxide 25 mmol/L (22-32); Chloride 109 mmol/L (98-107); Estimated Glomerular Filt Rate > 60.0 mL/min (>60); Glucose 92 mg/dL (80-110); HEMOLYSIS < 15 (0-50); Magnesium 1.9 mg/dL (1.6-2.3); Potassium 3.8 mmol/L (3.4-5.1); Sodium 140 mmol/L (137-145); Total Protein 6.5 g/dL (6.3-8.2)
[2021-08-08] MEDS: carvediloL 12.5 MG TABLET PO ×2 (08:37→21:53)
[2021-08-08] MEDS: APIXABAN 5 MG TABLET PO ×2 (08:37→21:53)
[2021-08-08] MEDS: LOSARTAN 50 MG TABLET 100 MG PO (08:37)
[2021-08-08] MEDS: SODIUM CHLORIDE 0.9% FLUSH 10 ML IV ×2 (08:38→21:52)
[2021-08-08] MEDS: AMLODIPINE 5 MG TABLET PO (08:38)
--- NOTE | 2021-08-08 10:01 | OT.IPNOTE ---
Per nursing just got pt back to the recliner from [facility] and took 3 person assist. Pt now sleeping, therefore to check on the pt later for OT treatment.
--- NOTE | 2021-08-08 10:39 | PC.NURSE ---
Patient oriented to self and birthdate only. NIH 8. Patient calm and coooperative, two max assist to BSC, gait is weak, chair alarm on.
--- NOTE | 2021-08-08 11:39 | PT.IPTN ---
Physical Therapy Treatment Note M2 PT-IP Current Condition Start: 08/07/21 12:11 Freq: NEEDED Status: Active Protocol: Document 08/07/21 10:50 AB (Rec: 08/07/21 12:21 AB [id number]) Physical Therapy Current Condition Current Condition Evaluation Date 08/07/21 Treatment Diagnosis weakness; difficulty in walking Onset Date 08/07/21 M3 PT-IP Subjective Start: 08/07/21 12:11 Freq: NEEDED Status: Active Protocol: Document 08/08/21 11:20 KS (Rec: 08/08/21 12:16 KS [id number]) Subjective Physical Therapy Visit Type Type Treatment Note Visit Start Time 11:20 Visit Stop Time 11:39 Total Visit Minutes 19 Notes EMU FARMER present for assistance Number of AUTO WHEEL ALIGNMENT SPECIALIST Visits 1 Physical Therapy Visit Comments Patient Comments agreeable to get up M4 PT-IP Mobility and Gait Start: 08/07/21 12:11 Freq: NEEDED Status: Active Protocol: Document 08/08/21 11:20 KS (Rec: 08/08/21 12:16 KS [id number]) PT-Transfer Assessment Sit to and From Stand Sit to and from Stand Maximum Assistance,2 Person Assistance,Use of Upper Extremities Equipment Transfer Assistive Device Gait Belt,Front Wheeled Walker Orthotic/Prosthetic Devices or Brace: No Transfers Transfer Destination Chair Transfer Technique STS Transfer Ability Level of Assist Maximum Assistance,2 Person Assistance,Use of Upper Extremities Comments Mobility Comments Pt in chair upon arrival and nursing staff wanting pt to remain in chair for lunch, but pt agreeable to practice sit< >Stands w/ FWW. Pt Max A for scooting to edge of chair however does put forth own effort into scooting. Pt Max A x2 and max cues for hand placement and sequencing for sit<>Stand w/ FWW. Pt able to stand 1 min w/ Max A and max cues for hip extension and upright posture, pt w/ heavy lean to Left. Pt sat down Max A and was SOB, but once resolved performed second sit< >stand Max A x2 max cues and then performed 5x marching in place Max A w/ difficulty elevated feet off of floor but good effort. Pt sat back down and after seated rest break performed final sit<>stand Max A x2 and stood for ~1 min while EMU FARMER provided pericare. Pt sat back down and reported fatigue. Left in chair w/ alarm on and all need in reach . Gait Assessment Comments Gait Comments [address] only . PT-Balance Assessment Sitting Balance and Reactions Static Sitting Balance Ability Fair Dynamic Sitting Balance Ability Poor Standing Balance and Reactions Static Standing Balance Ability Poor Dynamic Standing Balance Ability Poor Device Used FWW M5 PT-IP Objective Assessments Start: 08/07/21 12:11 Freq: NEEDED Status: Active Protocol: Document 08/07/21 10:50 AB (Rec: 08/07/21 12:21 AB [id number]) Orientation Orientation/Cognition Level of Alertness Confusional State Orientation Name,Place Language Function Ability Word Finding Difficulties Safety Awareness Decreased Safety Awareness Memory Description 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,Nursing Home Impaired Gross Range of Motion Lower Extremity ROM Assessment Bilaterally Impaired Impairments limited B knee flexion with c/ o pain with PROM and (+) L knee crepitus Strength Lower Extremity Strength Assessment Bilaterally Impaired Hip 3+/5 Knee 3+/5 Sensation Assessment Sensation Gross Sensation WNL Muscle Tone Muscle Tone WNL Yes M6 PT-IP Treatment Start: 08/07/21 12:11 Freq: NEEDED Status: Active Protocol: Document 08/08/21 11:20 KS (Rec: 08/08/21 12:16 KS [id number]) Physical Therapy Treatment Education Education Provided Safety Other Treatments Other Treatment Performed 3 times sit<>stand, minimal marching in place. M7 PT-IP Assessment and Plan Start: 08/07/21 12:11 Freq: NEEDED Status: Active Protocol: Document 08/08/21 11:20 KS (Rec: 08/08/21 12:16 KS [id number]) PT Summary Assessment and Plan Potential Rehabilitation Potential Fair Status of Condition at Evaluation Evolving Summary Impairments Pain,ROM,Strength,Balance, Coordination,Sensation,Tone, Cognition,Bed Mobility, Transfers,Gait,Activity Tolerance Assessment Summary Pt requiring Max A x2 and max cues and has quick approach to fatigue. She was cooperative and with good effort throughout treatment. She was able to perform 3x sit<>Stand w/ FWW and Max A x2 and could follow commands for upright posture but had difficulty maintaining and unable to tolerate stand >1 min. She will require SNF to improve strength and functional mobility. Goals Bed Mobility Goal Standby Assistance Transfer Goal Standby Assistance,Front Wheeled Walker Gait Goal Standby Assistance,Front Wheel Walker Gait Distance 50 Other Goals improve ambulation using FWW 150 ft SBA Days to Meet Goals 10 Frequency of Treatment Frequency Of Treatment Once a Day Treatment Plan Physical Therapy Treatment Plan Bed Mobility Training,Transfer Training,Gait Training, Therapeutic Exercise,Balance Retraining,Discharge Planning, Hot or Cold Pack,Neuromuscular Re-ed,Coordination Retraining Precautions Other Precautions falls Recommendations To Nursing Amount of Assist Needed 2 Person Assist Discharge Recommendations PT Discharge Recommendations SNF Rehab Transportation Needs at Discharge Wheelchair/Cabulance
--- NOTE | 2021-08-08 14:00 | P.PN_ITS ---
Subjective Subjective Interval history: The patient denies any acute complaints for me this morning, although her dementia makes questioning difficult. RN reports no events overnight. PT/OT working with the patient daily. Exam Vital Signs (past 8 hours): - 08/08/21 09:17 08/08/21 09:52 08/08/21 10:01 Temperature 97.5 F L Pulse Rate 71 Respiratory Rate 20 Blood Pressure 155/58 H Pulse Oximetry 95 95 97 Oxygen Delivery Method Room Air Oxygen Flow Rate 0 Const Other: Patient sitting up in chair upon my entering the room, has just finished working with PT/OT Eyes Other: No scleral icterus appreciated Neck Other: No carotid bruits noted Resp Other: Diminished breath sounds bilaterally, with no adventitious breath sounds appreciated Cardio Other: Regular rate and rhythm, S1 and S2 heart sounds normal GI Other: Soft, non-distended, non-tender, bowel sounds present Skin Other: No grossly abnormal skin lesions appreciated Extrem Other: Palpable and equally steady radial pulses Objective Labs Result Diagrams: 08/08/21 06:16 08/08/21 06:16 Labs: Laboratory Results - last 24 hr 08/08/21 08/08/21 06:16 06:16 WBC 5.6 RBC 3.40 L Hgb 9.7 L Hct 29.2 L MCV 86.1 MCH 28.6 MCHC 33.3 RDW 15.5 H Plt Count 184 Neut % (Auto) 78.5 H Lymph % (Auto) 10.7 L [place] % (Auto) 7.4 Eos % (Auto) 2.9 Baso % (Auto) 0.5 Neut # (Auto) 4400 Lymph # (Auto) 600 L [place] # (Auto) 400 Eos # (Auto) 200 Baso # (Auto) 0 Sodium 140 Potassium 3.8 Chloride 109 H Carbon Dioxide 25 BUN 16 Creatinine 0.80 Estimated GFR > 60.0 BUN/Creatinine Ratio 20.0 Glucose 92 Calcium 8.7 Magnesium 1.9 Total Bilirubin 0.7 Conjugated Bilirubin 0.0 Unconjugated Bilirubin 0.8 AST 24 ALT 15 Alkaline Phosphatase 130 H Total Protein 6.5 Albumin 3.5 Globulin 3.0 Albumin/Globulin Ratio 1.2 PFSH Medical History Atrial fibrillation Breast cancer COPD (chronic obstructive pulmonary disease) Dementia Failure to thrive in adult Frequent falls Hallucination Hypertension Hypertensive urgency Surgical History History of hysterectomy No pertinent past surgical history Family History (Updated 08/07/21 @ 02:28 by KOLE Flores) Mother CVA (cerebral vascular accident) Father CVA (cerebral vascular accident) Brother Myocardial infarction Social History household members: children Smoking Status: Never smoker Assessment & Plan Assessment & Plan narrative: Denice Torres is placed into observation for further evaluation of her weakness.? 1. Weakness, apparently acute, present on admission * Patient may have prematurely been scheduled for an outpatient surgery procedure after just having been discharged from rehab and may require additional rehab * There was a questionable suspected lung abscess, but his was ruled-out 2. Atrial fibrillation/flutter, chronic and anticoagulated * Continue home dose of apixaban 5 mg p.o. b.i.d 3. Hypertension, suboptimally controlled, present on admission * Continue home dose of amlodipine 5 mg p.o. daily, carvedilol 12.5 mg p.o. b.i.d., and telmisartan 80 mg p.o. daily (or inpatient equivalent), and hydralazine 25 mg q.i.d. 4. Coronary artery disease, hyperlipidemia, chronic * Continue home dose of simvastatin 20 mg p.o. at bedtime (or inpatient equivalent) VTE Prophylaxis: Eliquis, as above Code status:? DNR/DNIProxy: DaughterAnna I have utilized all available immediate resources to obtain, update, or review of the patient's current medications Time Spent With Patient Critical Care time: I spent a total of [] minutes of critical care time on this patient's care today; this time is exclusive of procedural time. Quality VTE Deep Vein Thrombosis/Pulmonary Embolism Present on Admission: No MIPS - Admit I confirm the patient?s Advance Care Plan is present, Code status is documented, Surrogate decision maker is in patient?s record [If Yes, STOP here]: Yes
--- NOTE | 2021-08-08 14:48 | CM.DPC ---
DCP Cont: Denice at [facility] indicated that patient has used up all of her Medicare hours. Asked her about her going on COVID waiver, and Denice indicated that she's not having COVID symptoms, so therefor, would not cover. Patient had COVID at one time, but is now negative. Met with patient's daughter, Rayo. Updated her on skilled, and daughter still wanted clarification as to why she can't go on the COVID protocol. Did explain to daughter after calling Denice at [facility] back, and Denice will call daughter. Daughter is prepared to take her mother home. She did indicated that they are in the process of selling her home, she does not have current funds for assisted living or going to pay privately for a skilled facility, and has too many assets for Medicaid. Noemi at [facility] had called and had received a referral on patient. She did indicate that patient does qualify for the [facility], and they can start on Wednesday. Relayed this to patient's daughter, and briefly explained about the [facility] program having more access to providers. Noemi asked for a face to face today so she can schedule the patient for visits. Went ahead and faxed [facility] face sheet, face to face, orders, H&P. All that will be needed will be DC Summary at discharge. Daughter works as a reversal print inspector, after 1400 at the [employer]. She stated that she does have a private caregiver that can come in a few times a week. She is aware that there are no other facilities that can accept patient due to her using up her Medicare coverage. Patient will need to work more with P.T, and daughter will need to come in for caregiver training. Daughter is medical POA, and stated, her brother is financial, and is the one working on selling her home. P: DCP to continue to follow. Plan is home with [facility] at this time, for the [facility] program. Summer Lyle RN/Undergraduate Advisor
[2021-08-08 15:06] LABS: Erythrocyte Sedimentation Rate 39 MM/HR (0-20)
[2021-08-08] MEDS: HYDRALAZINE 25 MG TABLET PO ×2 (17:46→21:53)
[2021-08-08] MEDS: ATORVASTATIN 20 MG TABLET 10 MG PO (21:52)
[2021-08-08] MEDS: MONTELUKAST 10 MG TABLET PO (21:53)
[2021-08-08] MEDS: ALBUTEROL/IPRATROPIUM 3 ML AMPUL INH (22:00)
[2021-08-09] VITALS (11 sets, daily range): BP systolic 139–175; BP diastolic 44–71; PULSE 71–88; RESP 16–24; TEMP 36.5–37.6; O2SAT 91–95
--- NOTE | 2021-08-09 06:30 | PC.NURSE ---
Shift Note: Patient was alert, arousable but confused, denies any pain/discomfort, obeys commands. Afebrile, vital signs within acceptable limits. Maintained IV access at left forearm, saline lock. Patient still weak at right upper extremities but able to move with minimal drifting. Patient noted with inspiratory and expiratory wheezes, REGISTERED ROUTE ASSOCIATE Jesu notified and ordered prn breathing treatment, wheezes partially resolved. O2 sat maintained at 91% at room air. Turned patient every 2hrs. Will continue to monitor.
--- NOTE | 2021-08-09 11:30 | PT.IPTN ---
Physical Therapy Treatment Note M2 PT-IP Current Condition Start: 08/07/21 12:11 Freq: NEEDED Status: Active Protocol: Document 08/07/21 10:50 AB (Rec: 08/07/21 12:21 AB [id number]) Physical Therapy Current Condition Current Condition Evaluation Date 08/07/21 Treatment Diagnosis weakness; difficulty in walking Onset Date 08/07/21 M3 PT-IP Subjective Start: 08/07/21 12:11 Freq: NEEDED Status: Active Protocol: Document 08/09/21 11:15 KS (Rec: 08/09/21 12:58 KS [id number]) Subjective Physical Therapy Visit Type Type Treatment Note Visit Start Time 11:15 Visit Stop Time 11:30 Total Visit Minutes 15 Notes GRINDER TENDER and OT present for assistance Number of GENERAL COUNSELOR Visits 2 M4 PT-IP Mobility and Gait Start: 08/07/21 12:11 Freq: NEEDED Status: Active Protocol: Document 08/09/21 11:15 KS (Rec: 08/09/21 12:58 KS [id number]) PT-Bed Mobility Assessment Rolling Type of Rolling Log Rolling,Roll to Right,Roll to Left Level of Assist Maximal Assistance,2 Person Assistance PT-Transfer Assessment Comments Mobility Comments Pt unable to tolerate much mobility today due to increased fatigue and decreased awareness w/ difficulty staying awake. Max A x2 for logroll and remaining on side for brief change and pericare by GRINDER TENDER and OT. Pt moaning in pain throughout mobility and at this time not able to get out of bed. Pt Max A for repositioning in bed and unable to provide much assist today. Gait Assessment Comments Gait Comments Unable at this time. M5 PT-IP Objective Assessments Start: 08/07/21 12:11 Freq: NEEDED Status: Active Protocol: Document 08/07/21 10:50 AB (Rec: 08/07/21 12:21 AB [id number]) Orientation Orientation/Cognition Level of Alertness Confusional State Orientation Name,Place Language Function Ability Word Finding Difficulties Safety Awareness Decreased Safety Awareness Memory Description 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,Nurse Rn Bsn Impaired Gross Range of Motion Lower Extremity ROM Assessment Bilaterally Impaired Impairments limited B knee flexion with c/ o pain with PROM and (+) L knee crepitus Strength Lower Extremity Strength Assessment Bilaterally Impaired Hip 3+/5 Knee 3+/5 Sensation Assessment Sensation Gross Sensation WNL Muscle Tone Muscle Tone WNL Yes M6 PT-IP Treatment Start: 08/07/21 12:11 Freq: NEEDED Status: Active Protocol: Document 08/09/21 11:15 KS (Rec: 08/09/21 12:58 KS [id number]) Physical Therapy Treatment Education Education Provided Safety M7 PT-IP Assessment and Plan Start: 08/07/21 12:11 Freq: NEEDED Status: Active Protocol: Document 08/09/21 11:15 KS (Rec: 08/09/21 12:58 KS [id number]) PT Summary Assessment and Plan Potential Rehabilitation Potential Fair Status of Condition at Evaluation Evolving Summary Impairments Pain,ROM,Strength,Balance, Coordination,Sensation,Tone, Cognition,Bed Mobility, Transfers,Gait,Activity Tolerance Assessment Summary Pt requiring max A x2 for logrolling today and too fatigued to participate further w/ physical therapy. She will require a lyle lift to be transferred at this time unless she is able to make improvements. She will require SNF to improve functional mobility independence. Goals Bed Mobility Goal Standby Assistance Transfer Goal Standby Assistance,Front Wheeled Walker Gait Goal Standby Assistance,Front Wheel Walker Gait Distance 50 Other Goals improve ambulation using FWW 150 ft SBA Days to Meet Goals 10 Frequency of Treatment Frequency Of Treatment Once a Day Treatment Plan Physical Therapy Treatment Plan Bed Mobility Training,Transfer Training,Gait Training, Therapeutic Exercise,Balance Retraining,Discharge Planning, Hot or Cold Pack,Neuromuscular Re-ed,Coordination Retraining Precautions Other Precautions falls Recommendations To Nursing Amount of Assist Needed Mechanical Lift Discharge Recommendations PT Discharge Recommendations SNF Rehab Transportation Needs at Discharge Wheelchair/Cabulance,Stretcher /Ambulance
--- NOTE | 2021-08-09 11:31 | OT.IP.TRT ---
Occupational Therapy Treatment Note M2 OT-IP Current Condition Start: 08/07/21 13:43 Freq: Status: Active Protocol: Document 08/07/21 13:43 [facility] (Rec: 08/07/21 14:05 [facility] [id number]) Occupational Therapy Current Condition Current Condition Evaluation Date 08/07/21 Treatment Diagnosis Generalized weakness Diagnosis Onset Date 08/07/21 M3 OT- IP Subjective and Pain Start: 08/07/21 13:43 Freq: Status: Active Protocol: Document 08/09/21 11:15 [facility] (Rec: 08/09/21 11:44 [facility] [id number]) OT- Subjective Occupational Therapy Visit Type Visit Start Time 11:15 Visit Stop Time 11:31 Total Visit Minutes 16 Occupational Therapy Visit Comments Patient Comments Pt asleep and checked with nursing if okay to work with pt. OT Pain Assessment Pain When Pain Assessed At Rest Pain Present Pain Present Denied Pain M4 OT- IP ADL's Start: 08/07/21 13:43 Freq: Status: Active Protocol: Document 08/09/21 11:15 [facility] (Rec: 08/09/21 11:44 [facility] [id number]) OT DHC-Cabn-Lkbouzs Comments OT Self-Feeding Comments Pt not fully awake at this time and nursing states to assist pt with breakfast. OT ADL-Grooming General Evaluation Grooming Ability Maximum Assistance Comments OT Grooming Comments Handed pt a washcloth and pt not able to hold or fully awake to be able to assist with grooming needs at this time. OT ADL-Toileting General Evaluation Toileting Ability Total Assistance Areas Needing Assistance Manage Clothing,Perform Perineal Hygiene Comments OT Toileting Comments Pt needing MAX AX 2 to roll and total assist for hygiene and brief needs. Pt not able to assist today any physically . OT ADL-Bathing Comments OT Bathing Comments Sponge bath more appropriate at this time. M5 OT- IP IADL's Start: 08/07/21 13:43 Freq: Status: Active Protocol: Document 08/07/21 13:43 [facility] (Rec: 08/07/21 14:05 [facility] [id number]) OT-Instrumental Activities of Daily Living Home Safety Awareness Awareness of Need for Assistance at Home Decreased Awareness Ability to Problem Solve Emergency Unable to Problem Solve Situations Medication Management Medication Management Caregiver Administers Money Management Money Management Caregiver Provides Assistance Meal Preparation Meal Preparation Caregiver Provides Assist Swimming Pool Cleaner Swimming Pool Cleaner Caregiver Provides Assist M6 OT- IP Functional Cognition Start: 08/07/21 13:43 Freq: Status: Active Protocol: Document 08/09/21 11:15 [facility] (Rec: 08/09/21 11:44 [facility] [id number]) Cognitive Factors Limiting Selfcare Function Cognitive Ability Level of Alertness Confusional State,Drowsy Patient Orientation Name Attention Span Ability Unable to Sustain Attention Ability to Follow Commands Able to Follow One Step Commands with Increased Time, Able to Follow One Step Commands with Repetition Memory Description 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,Half-Way Impaired,Working Impaired Cognitive Comments Cognitive Assessment Comments Pt very drowsy and sleepy and not initially able to follow commands and needing physical assist for all needs. M7 OT- IP Mobility and Balance Start: 08/07/21 13:43 Freq: Status: Active Protocol: Document 08/09/21 11:15 [facility] (Rec: 08/09/21 11:44 [facility] [id number]) OT- Bed Mobility Assessment Rolling Type of Rolling Bilateral Level of Assistance Maximum Assistance,2 Person Assistance OT-Transfer Assessment Comments Mobility Comments MAX AX 2 to roll and use of green pad and total assist to help position in the bed with pillow especially under the left side as pt heavily leans to the left in bed. M9 OT- IP Assessment and Plan Start: 08/07/21 13:43 Freq: Status: Active Protocol: Document 08/09/21 11:15 [facility] (Rec: 08/09/21 11:44 [facility] [id number]) OT Summary Assessment and Plan Potential Rehabilitation Potential Fair Analytic Complexity at Evaluation Moderate Summary OT Impairments Pain,Strength,Balance, Functional Cognition, Functional Mobility,Self- Feeding,Grooming,Dressing, Toileting,Toilet Transfers, Shower Transfers,Activity Tolerance Progress Towards Goals Slow Progress due to Pain,Slow Progress due to Medical Issues,Slow Progress due to Activity Tolerance,Slow Progress due to Cognition Assessment Summary Pt very drowsy and having difficulty to get the words out and mainly moans today. Pt needing MAX AX 2 to roll in bed and total assist for brief change in bed. Pt would benefit from LTC versus SNF. Questionable whether pt would be able to benefit from SNF pending progress in the hospital physically. Goals Self-Feeding Goal Standby Assistance Grooming Goal Standby Assistance Toilet Transfer Goal Moderate Assistance Days to Meet Goals 40 Frequency of Treatment Frequency Of Treatment Once a Day Treatment Plan OT Treatment Plan ADL Training,Functional Cognition Training,Functional Mobility,Patient/Family Education,Discharge Planning Other Treatment Recommendations and Next Transfer to [facility] with FWW and Treatment Focus MAXA X 2. Discharge Recommendations OT Discharge Recommendations SNF Rehab,LTAC Transportation Needs at Discharge Stretcher/Ambulance
[2021-08-09] MEDS: FUROSEMIDE 20 MG/2 ML VIAL IV (13:00)
[2021-08-09] MEDS: AMLODIPINE 5 MG TABLET PO (13:44)
[2021-08-09] MEDS: LOSARTAN 50 MG TABLET 100 MG PO (13:44)
[2021-08-09] MEDS: APIXABAN 5 MG TABLET PO ×2 (13:45→21:36)
[2021-08-09] MEDS: carvediloL 12.5 MG TABLET PO ×2 (13:45→21:35)
[2021-08-09] MEDS: HYDRALAZINE 25 MG TABLET PO ×3 (13:45→21:36)
[2021-08-09] MEDS: SODIUM CHLORIDE 0.9% FLUSH 10 ML IV ×2 (13:45→21:36)
--- NOTE | 2021-08-09 14:34 | CM.DPC ---
DCP Cont: Nurse, Paloma, had spoken to daughter, Jose Manuel, on the phone. She had inquired if her mother had been on hospice, but stated, they looked into it, but she did not qualify. Confirmed that patient does have a hospital bed. Daughter mentioned, she is interested in having a hoier lift for home use, and would like care management to look into it. Let nurse, Paloma, know that this associate merchandise planner will call [facility] and get further information on hoier lift. Called Kenroy at [facility]. He indicated that the rent of a hoier would be $125.00 a month. Stated, if they were going to bill Medicare for this, it could take 2-3 weeks, and would need to have all chart notes submitted. Kenroy indicated, they could deliver hoier by Wednesday if needed. Let Kenroy know that this associate merchandise planner will call patient's daughter to inquire if this is something that she is willing to do. Called patient's daughter, Jose Manuel. Mentioned hoier lift, and the cost, and that this can be delivered on Wednesday. Daughter stated, go ahead and order. Called Kenroy back at [facility] and he indicated that patient is currently renting hospital bed from them, and can add hoier. Gave him daughter's cell number. He plans on contacting her Wednesday for delivery. Called November at [facility], since they do at times take COVID waivers, and asked her to review. Let her know the situation, as far as using her Medicare days, and that daughter is prepared to take her home with home health, but can use some rehab. She will review. Noemi at [facility] also reached out to daughter regarding setting up visit for Wednesday, but daughter stated, she is planning on taking her mother to doctor's appointment Wednesday, and they won't be able to see her until Wed. She indicated, patient has appointments with providers Wednesday and Wednesday. Spoke to November, she called back from [facility], indicated, they don't have enough to skill her on, they can't skill for symptom of weakness. Updated daughter regarding this. P: DCP to continue to follow. Plan is home, possibly tomorrow if stable. Summer Lyle RN/Centrifuge Operator
--- NOTE | 2021-08-09 16:13 | PM.PN.1 ---
Subjective Subjective Date Patient Seen: 08/09/21 Time Patient Seen: 08:00 Interval history: Today she has no specific complaints. She has more weakness per the daughter that previously. Exam Vital Signs (past 8 hours): - 08/09/21 10:41 08/09/21 12:05 Temperature 99.7 F H Pulse Rate 77 Respiratory Rate 20 Blood Pressure 153/55 H Pulse Oximetry 93 91 Oxygen Delivery Method Room Air Oxygen Flow Rate 0 Narrative Exam Narrative: GEN: weak, frail, no acute distress HEENT: dry mucous membranes CV: regular rate and rhythm, no murmurs PULM: clear bilaterally NEURO: slow to respond, moving all extremities Objective Labs Result Diagrams: 08/08/21 06:16 08/08/21 06:16 [facility] Medical History Atrial fibrillation Breast cancer COPD (chronic obstructive pulmonary disease) Dementia Failure to thrive in adult Frequent falls Hallucination Hypertension Hypertensive urgency Surgical History History of hysterectomy No pertinent past surgical history Family History (Updated 08/07/21 @ 02:28 by KOLE Flores) Mother CVA (cerebral vascular accident) Father CVA (cerebral vascular accident) Brother Myocardial infarction Social History household members: children Smoking Status: Never smoker Assessment & Plan Assessment & Plan narrative: Denice Torres is placed into observation for further evaluation of her weakness.? 1. Weakness, apparently acute, present on admission -CT head and CT angio head/neck show no evidence of acute process -infectious workup negative -will order MRI as per family change in weakness is somewhat acute -however, patient has multiple admissions for similar type presentations, suspect advancing dementia -she has been referred to neurology in the past and has not followed up 2. Atrial fibrillation/flutter, chronic and anticoagulated -continue home medications 3. Hypertension, suboptimally controlled, present on admission -Continue home dose of amlodipine 5 mg p.o. daily, carvedilol 12.5 mg p.o. b.i.d., and telmisartan 80 mg p.o. daily (or inpatient equivalent), and hydralazine 25 mg q.i.d. 4. Coronary artery disease, hyperlipidemia, chronic -Continue home dose of simvastatin 20 mg p.o. at bedtime (or inpatient equivalent) Time Spent With Patient Critical Care time: I spent a total of [] minutes of critical care time on this patient's care today; this time is exclusive of procedural time. Quality VTE Deep Vein Thrombosis/Pulmonary Embolism Present on Admission: No
--- NOTE | 2021-08-09 16:16 | DI.MRI.S_ITS ---
PROCEDURE: MR HEAD/BRAIN WO CON INDICATIONS: cva? TECHNIQUE: Non-contrast axial T1 spin echo, axial T2 fast spin echo, sagittal and axial FLAIR, coronal T2 fast spin echo, axial gradient echo, axial diffusion and ADC through the brain. COMPARISON: [facility], MR, MR HEAD/BRAIN WO CON, 01/12/2021, 13:32. [facility], MR, MR STROKE, 04/21/2021, 10:48. [facility], CT, CT ANGIO HEAD AND NECK, 08/06/2021, 22:59. [facility], CT, CT HEAD/BRAIN WO CON, 08/06/2021, 22:04. [facility], MR, MR HEAD/BRAIN WO CON, 04/05/2021, 9:49. FINDINGS: Image quality: This examination is limited by involuntary motion artifact. CSF spaces: The ventricles are stable, with stable prominence of the lateral ventricles and the 3rd ventricle. Basal cisterns are patent. No extra-axial fluid collections. Brain: No intracranial bleeds or mass effects. There is cerebral volume loss for age. There are periventricular and deep white matter chronic small vessel ischemic changes. Brainstem appears normal. Diffusion-weighted images show no acute ischemic insults. No chronic ischemic insults. Normal intravascular flow voids are present. Skull and face: Calvarial bone marrow is normal in signal. Orbits are normal. Note is made of bilateral lens replacements. Sinuses: Minimal to mild mucosal thickening can be seen within the paranasal sinuses. No abnormal fluid is seen within the mastoid air cells. IMPRESSION: No findings of acute or subacute infarction can be seen. Note is made of age-appropriate brain parenchymal volume loss and chronic small vessel ischemic changes. Dictated by: Juan Marques M.D. on 08/10/2021 at 9:42 Approved by: Juan Marques M.D. on 08/10/2021 at 9:44
[2021-08-09] MEDS: ATORVASTATIN 20 MG TABLET 10 MG PO (21:35)
[2021-08-09] MEDS: MONTELUKAST 10 MG TABLET PO (21:36)
[2021-08-09] MEDS: ALBUTEROL/IPRATROPIUM 3 ML AMPUL INH (23:28)
[2021-08-10] VITALS (7 sets, daily range): BP systolic 148–180; BP diastolic 61–77; PULSE 58–82; RESP 16–32; TEMP 36.1–36.9; O2SAT 90–96
[2021-08-10] MEDS: HYDRALAZINE 25 MG TABLET PO ×2 (09:26→14:33)
[2021-08-10] MEDS: carvediloL 12.5 MG TABLET PO (09:26)
[2021-08-10] MEDS: APIXABAN 5 MG TABLET PO (09:26)
[2021-08-10] MEDS: LOSARTAN 50 MG TABLET 100 MG PO (09:26)
[2021-08-10] MEDS: AMLODIPINE 5 MG TABLET PO (09:26)
[2021-08-10] MEDS: SODIUM CHLORIDE 0.9% FLUSH 10 ML IV (09:27)
--- NOTE | 2021-08-10 11:24 | P.PN_ITS ---
Subjective Subjective Date Patient Seen: 08/10/21 Time Patient Seen: 08:00 Interval history: Today she has no specific complaints. She looks more awake and energetic than yesterday. Exam Vital Signs (past 8 hours): - 08/10/21 04:00 08/10/21 08:05 08/10/21 09:26 Temperature 97.9 F 97.2 F L Pulse Rate 82 74 78 Respiratory Rate 16 20 Blood Pressure 148/61 H 180/77 H 180/77 H Pulse Oximetry 94 90 L Oxygen Delivery Method Room Air Oxygen Flow Rate 0 Narrative Exam Narrative: GEN: weak, frail, no acute distress HEENT: moist mucous membranes CV: regular rate and rhythm, no murmurs PULM: clear bilaterally NEURO: slow to respond, moving all extremities Objective Labs Result Diagrams: 08/08/21 06:16 08/08/21 06:16 [facility] Medical History Atrial fibrillation Breast cancer COPD (chronic obstructive pulmonary disease) Dementia Failure to thrive in adult Frequent falls Hallucination Hypertension Hypertensive urgency Surgical History History of hysterectomy No pertinent past surgical history Family History (Updated 08/07/21 @ 02:28 by KOLE Flores) Mother CVA (cerebral vascular accident) Father CVA (cerebral vascular accident) Brother Myocardial infarction Social History household members: children Smoking Status: Never smoker Assessment & Plan Assessment & Plan narrative: Denice Torres is placed into observation for further evaluation of her weakness.? 1. Weakness, apparently acute, present on admission -CT head and CT angio head/neck show no evidence of acute process -infectious workup negative -MRI negative for acute process -however, patient has multiple admissions for similar type presentations, suspect advancing dementia -she has been referred to neurology in the past -etiology is possibly progressing dementia 2. Atrial fibrillation/flutter, chronic and anticoagulated -continue home medications 3. Hypertension, suboptimally controlled, present on admission -Continue home dose of amlodipine 5 mg p.o. daily, carvedilol 12.5 mg p.o. b.i.d., and telmisartan 80 mg p.o. daily (or inpatient equivalent), and hydra lazine 25 mg q.i.d. 4. Coronary artery disease, hyperlipidemia, chronic -Continue home dose of simvastatin 20 mg p.o. at bedtime (or inpatient equivalent) Dispo: patient is medically stable for discharge Time Spent With Patient Critical Care time: I spent a total of [] minutes of critical care time on this patient's care to day; this time is exclusive of procedural time. Quality VTE Deep Vein Thrombosis/Pulmonary Embolism Present on Admission: No
--- NOTE | 2021-08-10 12:04 | PT.IPTN ---
Physical Therapy Treatment Note M2 PT-IP Current Condition Start: 08/07/21 12:11 Freq: NEEDED Status: Active Protocol: Document 08/07/21 10:50 AB (Rec: 08/07/21 12:21 AB [email or web address]) Physical Therapy Current Condition Current Condition Evaluation Date 08/07/21 Treatment Diagnosis weakness; difficulty in walking Onset Date 08/07/21 M3 PT-IP Subjective Start: 08/07/21 12:11 Freq: NEEDED Status: Active Protocol: Document 08/10/21 12:04 AW (Rec: 08/10/21 13:11 AW [id number]) Subjective Physical Therapy Visit Type Type Treatment Note Visit Start Time 11:40 Visit Stop Time 12:04 Total Visit Minutes 24 Number of DIRECTOR CORPORATE Visits 0 Physical Therapy Visit Comments Patient Comments Pt is more alert today and willing to participate with PT Therapy Pain Assessment Pain When Pain Assessed At Rest Pain Present Pain Present Pain Reported Location Left Knee Scale Used not quantified Pain Management Techniques Distraction,Re-positioning M4 PT-IP Mobility and Gait Start: 08/07/21 12:11 Freq: NEEDED Status: Active Protocol: Document 08/10/21 12:04 AW (Rec: 08/10/21 13:11 AW [id number]) PT-Bed Mobility Assessment Supine to Sit Supine to Sit Moderate Assistance,1 Person Assistance,Head of Bed Elevated,Bedrails Scooting Scooting to Edge of Bed Maximum Assistance PT-Transfer Assessment Sit to and From Stand Sit to and from Stand Maximum Assistance,1 Person Assistance,Use of Upper Extremities Equipment Transfer Assistive Device Gait Belt,Front Wheeled Walker Orthotic/Prosthetic Devices or Brace: No Transfers Transfer Destination Chair Transfer Technique Stand Step Pivot Transfer Ability Level of Assist Maximum Assistance,1 Person Assistance,Use of Upper Extremities Comments Mobility Comments Pt was more alert and aware of mobility limitations with PT today but willing to move. She needed mod A and cues with HOB elevated and heavy use of rails to complete supine to sit. She sat EOB with her hands on the bed CGA. She needed max A to scoot toward EOB to get her feet on the floor and max A to stand. In standing, she shuffled and slid her feet as PT provided assist to turn the walker for transfer to chair. With mod/ max cues, pt sat max A. She agreed to stand again from the chair with max A and stood with FWW for support ~3 minutes. During that time, she was able to perform stepping in place with poor BLE elevation but only needing CGA for balance. She sat again and was positioned on the chair, needing assist to scoot her hip back before elevating her legs. Pt left with call light and tray table in reach. Gait Assessment Comments Gait Comments Marching in place as above with poor BLE elevation. Steps also taken during pivot transfer to chair. PT-Balance Assessment Sitting Balance and Reactions Static Sitting Balance Ability Fair Dynamic Sitting Balance Ability Fair Standing Balance and Reactions Static Standing Balance Ability Poor Dynamic Standing Balance Ability Poor Device Used FWW M5 PT-IP Objective Assessments Start: 08/07/21 12:11 Freq: NEEDED Status: Active Protocol: Document 08/07/21 10:50 AB (Rec: 08/07/21 12:21 AB [id number]) Orientation Orientation/Cognition Level of Alertness Confusional State Orientation Name,Place Language Function Ability Word Finding Difficulties Safety Awareness Decreased Safety Awareness Memory Description 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,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 of Motion Lower Extremity ROM Assessment Bilaterally Impaired Impairments limited B knee flexion with c/ o pain with PROM and (+) L knee crepitus Strength Lower Extremity Strength Assessment Bilaterally Impaired Hip 3+/5 Knee 3+/5 Sensation Assessment Sensation Gross Sensation WNL Muscle Tone Muscle Tone WNL Yes M6 PT-IP Treatment Start: 08/07/21 12:11 Freq: NEEDED Status: Active Protocol: Document 08/10/21 12:04 AW (Rec: 08/10/21 13:11 AW [id number]) Physical Therapy Treatment Education Education Provided Safety M7 PT-IP Assessment and Plan Start: 08/07/21 12:11 Freq: NEEDED Status: Active Protocol: Document 08/10/21 12:04 AW (Rec: 08/10/21 13:11 AW [id number]) PT Summary Assessment and Plan Potential Rehabilitation Potential Fair Status of Condition at Evaluation Evolving Summary Impairments Pain,ROM,Strength,Balance, Coordination,Sensation,Tone, Cognition,Bed Mobility, Transfers,Gait,Activity Tolerance Assessment Summary Pt requiring max A x 1 for bed mobility, and step pivot transfer bed>chair today. Need for mobility fluctuates with pt alertness and level of fatigue. Blossom lift and wheelchair for home are recommended if pt does not go to SNF. Goals Bed Mobility Goal Standby Assistance Transfer Goal Standby Assistance,Front Wheeled Walker Gait Goal Standby Assistance,Front Wheel Walker Gait Distance 50 Other Goals improve ambulation using FWW 150 ft SBA Days to Meet Goals 10 Frequency of Treatment Frequency Of Treatment Once a Day Treatment Plan Physical Therapy Treatment Plan Bed Mobility Training,Transfer Training,Gait Training, Therapeutic Exercise,Balance Retraining,Discharge Planning, Hot or Cold Pack,Neuromuscular Re-ed,Coordination Retraining Other Recommendations and Next Treatment bed mobility, transfers, sit<> Focus stands; amb with chair follow Precautions Other Precautions falls Recommendations To Nursing Amount of Assist Needed 2 Person Assist,Mechanical Lift Discharge Recommendations PT Discharge Recommendations SNF Rehab Transportation Needs at Discharge Wheelchair/Cabulance,Stretcher /Ambulance
--- NOTE | 2021-08-10 12:15 | CM.DPC ---
Addendum entered by Summer Lyle R.N. 08/10/21 14:19: Went ahead and faxed [facility] today's progress note (DC Summary not yet available), included today's P.T. note, face to face and orders. On fax sheet, indicated that patient is discharging today, and if she can be seen in the am. Original Note: DCP Cont: Discussed patient during team rounds, MRI was ordered, no acute infarct noted. Discussed the possibility of hospice. Hospitalist indicated, he was not sure if she qualifies, but ok to order. Spoke to daughter, Jose Manuel about hospice, and she is ok with this. Discussed sending patient home tomorrow via BLS, since hoier is being delivered tomorrow. Let daughter know that BLS is the only option, since she is a max assist, and may be a charge for transportation. Daughter is aware, but that's the only way of getting her home. [facility] to [facility]. Called Noemi at [facility] regarding discharge. She indicated that if patient discharges tomorrow, they can't see her until later in the week, if she discharges today, they can see her tomorrow. Updated daughter, Jose Manuel, she is prepared to have patient go home today, prefers later this afternoon so she can have everything set up. Called [facility] transport and set up tile picker time for 1600. Updated hospitalist, and called Noemi at [facility] back and asked if they can see patient in the morning, per daughter's request. Daughter stated, her brother can stay with patient on Wednesday. They are continuing to work on selling mother's home to help patient get into an assisted living facility. P:Patient is to be discharged home today. Left Noemi at [facility] a message to let her know, and if they can see her tomorrow morning. F[facility]ed [facility]errals [facility] to [facility] and [facility], to see if she qualifies. Lelo Law, stated, patient was doing better today. Summer Lyle RN/Road Production General Manager
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
[2021-08-10] MEDS: ALBUTEROL/IPRATROPIUM 3 ML AMPUL INH (15:29)
--- NOTE | 2021-08-10 16:12 | PC.NURSE ---
Discharge Note Patient A&O, VSS, RA, no complaints of pain/discomfort. Discharge packet reviewed with patients daughter over phone and patient at bedside, all questions/concerns addressed. Daughter aware if any questions/concerns arise she may call back this RN. TELE/PIV discontinued. Report given to EMS staff, all questions/concerns addressed. Patient assisted onto gurney with help of EMS. Discharge packet given to EMS staff. Patient left unit home via EMS.
== END 2021-08-10 16:00 | disposition home or self-care (01) ==
LOC: ED 08-07 00:34 → AC 08-07 01:50
PROVIDERS: Student in an Organized Health Care Education/Training Program; Admitting Provider Nurse Practitioner Family; Emergency Provider Emergency Medicine; PCP Internal Medicine; Referring Provider Emergency Medicine; Visit Provider Nurse Practitioner Family
DX: R53.1 Weakness (principal); R47.81 Slurred speech; R29.703 NIHSS score 3; I48.20 Chronic atrial fibrillation, unspecified; Z79.01 Long term (current) use of anticoagulants; I10 Essential (primary) hypertension; I25.10 Atherosclerotic heart disease of native coronary artery without angina pectoris; E78.5 Hyperlipidemia, unspecified; Z98.890 Other specified postprocedural states; Z20.822 Contact with and (suspected) exposure to COVID-19
CPT/HCPCS: 36415; 70450; 70496; 70498; 70551; 71045; 71260; 80048; 80053; 80076; 80305; 81001; 82550; 83605; 83735; 83880; 84484; 85025; 85610; 85651; 85730; 87040; 87635; 93005; 93010; 94640; 94760; 96361; 96374; 97162; 97166; 97530; 99284; C9803; G0378; J1940; Q9967

== ENCOUNTER 2021-10-26 09:35 | Emergency (ER) | payer MEDICARE, OTHER, SELFPAY ==
[2021-08-07 01:59] VITALS: BMI 30.7
[2021-10-26] VITALS (9 sets, daily range): BP systolic 176–189; BP diastolic 73–92; PULSE 49–72; RESP 12–30; TEMP 36.2; O2SAT 96–100; BMI 69.4
--- NOTE | 2021-10-26 09:44 | DI.RAD.S_ITS ---
PROCEDURE: XR PELVIS 1-2V INDICATIONS: fall, possible injury TECHNIQUE: 1 view(s) of the pelvis acquired. COMPARISON: [facility], CR, XR HIP W PEL IF DONE LT 2V, 04/04/2021, 0:02. [facility], CR, XR CHEST 1V, 10/26/2021, 9:37. FINDINGS: Bones: No fractures or dislocations. No suspicious bony lesions. Mild degenerative joint disease in hips and sacroiliac joints bilaterally. Soft tissues: Visualized bowel gas pattern is normal. No suspicious soft tissue calcifications. Probable vascular stent in the right groin. IMPRESSION: No acute osseous abnormalities. If clinical symptoms persist or clinical suspicion for is high, CT or MRI is suggested for further evaluation. Dictated by: Mechelle Horowitz M.D. on 10/26/2021 at 9:52 Approved by: Mechelle Horowitz M.D. on 10/26/2021 at 9:54
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
--- NOTE | 2021-10-26 09:45 | DI.RAD.S_ITS ---
PROCEDURE: XR CHEST 1V INDICATIONS: fall, trauma, preop TECHNIQUE: One view of the chest was acquired. COMPARISON: [facility], CT, CT CHEST W CON, 08/07/2021, 0:58. [facility], CR, XR CHEST 1V, 08/06/2021, 21:53. FINDINGS: Limited examination. Surgical changes and devices: Surgical clips in breasts bilaterally.. Lungs and pleura: There is a large right diaphragmatic hernia medially is again identified. Right basilar opacity is most likely atelectasis. Possible small left pleural effusion may be present. No pneumothorax. Mediastinum: Mediastinal contours appear normal. Heart size is moderately increased. Bones and chest wall: No suspicious bony lesions. Overlying soft tissues appear unremarkable. IMPRESSION: 1. Limited examination. 2. Large right diaphragmatic hernia. 3. Right basilar atelectasis. 4. Possible small left pleural effusion. 5. Mild cardiomegaly. Dictated by: Mechelle Horowitz M.D. on 10/26/2021 at 9:27 Approved by: Mechelle Horowitz M.D. on 10/26/2021 at 9:41
--- NOTE | 2021-10-26 09:53 | PC.NURSE ---
The patient stated that she was in the bathroom and tried to grab the sink edge and slipped because the sink was wet. She states that her daughter was there when she fell but the EMS stated that the fall was unwitnessed. An attempt is being made to contact the daughter. Ems states that they have been involved in her care and the patient's behavior is at baseline for her. No change in mental status. There is not visible bruising on her scalp.
--- NOTE | 2021-10-26 10:26 | ED_ITS ---
HPI - Fall General Chief Complaint: Fall Stated Complaint: GLF on thinners Time Seen by Provider: 10/26/21 09:40 Source: EMS Mode of arrival: EMS History of Present Illness HPI Narrative: 86-year-old female Nonsmoker with history of hypertension, hyperlipidemia, hallucinations, dementia, failure to thrive on chronic anticoagulation presents by EMS for evaluation of a fall with head injury and generalized weakness. She lives at home and her daughter is her only help. The daughter is no longer able to care for the patient, she was standing next to her when she fell today was unable to keep her upright, she could not help her off the ground either. Patient is a poor historian at baseline. She denies any injury other than her head. She has had no recent illness such as nausea, vomiting or diarrhea. She denies chest pain or shortness of breath. She denies any change in medications or diet. She is activated as a modified trauma given fall with head injury on anticoagulation Related Data Home Medications Medication Instructions Recorded Confirmed apixaban 5 mg tablet (Eliquis) 5 mg PO BID 01/11/21 08/07/21 loratadine 10 mg tablet 10 mg PO DAILY 01/11/21 08/07/21 montelukast 10 mg tablet 10 mg PO BEDTIME 01/11/21 08/07/21 simvastatin 40 mg tablet 20 mg PO BEDTIME 01/11/21 08/07/21 telmisartan 80 mg tablet 80 mg PO DAILY 01/11/21 08/07/21 carvedilol 12.5 mg tablet 12.5 mg PO BID 08/07/21 08/07/21 hydralazine 25 mg tablet 25 mg PO QID 08/07/21 08/07/21 polyethylene glycol 3350 17 gram 17 g PO DAILY PRN 08/07/21 08/07/21 oral powder packet (Miralax) Previous Rx's Medication Instructions Recorded amlodipine 5 mg tablet (Norvasc) 5 mg PO DAILY #30 tab 04/22/21 Allergies Allergy/AdvReac Type Severity Reaction Status Date / Time chlorpheniramine Allergy Severe Anaphylaxis Verified 04/03/21 23:33 [From Actifed Cold-Allergy] phenylephrine Allergy Severe Anaphylaxis Verified 04/03/21 23:33 [From Actifed Cold-Allergy] pseudoephedrine Allergy Severe Anaphylaxis Verified 04/03/21 23:33 [From Actifed Cold-Allergy] triprolidine Allergy Severe Anaphylaxis Verified 04/03/21 23:33 [From Actifed Cold-Allergy] Review of Systems Review of Systems Narrative: GENERAL: See HPI HEENT: Denies sinus pain, ear pain, sore throat, difficulty swallowing, dizziness. RESPIRATORY: Denies dyspnea, cough, wheezing, hemoptysis, sputum. CARDIOVASCULAR: Denies chest pain, palpitations, orthopnea, edema, GASTROINTESTINAL: Denies nausea, vomiting, abdominal pain, diarrhea, constipation, melena. : Denies dysuria, frequency, incontinence, hematuria, urinary retention. MUSCULOSKELETAL: denies weakness, joint pain, or bony pain SKIN: Denies rash, skin lesions, or other NEUROLOGIC: Denies weakness, headache, numbness, change in speech, confusion, seizures, incoordination. PSYCHIATRIC: No concerning psychosocial issues. 12 point review of systems is negative except for those stated above Patient History Medical History Atrial fibrillation Breast cancer COPD (chronic obstructive pulmonary disease) Dementia Failure to thrive in adult Frequent falls Hallucination Hypertension Hypertensive urgency Surgical History History of hysterectomy No pertinent past surgical history Family History Mother CVA (cerebral vascular accident) Father CVA (cerebral vascular accident) Brother Myocardial infarction Social History household members: children Smoking Status: Never smoker Smoking Status: Never smoker alcohol intake frequency: holidays/special occasions only Substance Use Type: does not use Exam Narrative Exam Narrative: GENERAL: [86 year old patient appears stated age. Well-developed patient, in mild distress. GCS 14 (confused) frail, elderly , weak HEAD: Atraumatic. Normocephalic. No obvious hematoma or evidence of depressed skull fracture EYES: Pupils equal round and reactive. No hyphema Extraocular motions intact. No scleral icterus. No injection or drainage. ENT: Dry mucous membranes Nose without bleeding, purulent drainage. No nasal septal hematoma Throat without erythema, tonsillar hypertrophy or exudate. Airway patent. NECK: Trachea midline. Non tender no midline bony tenderness, step-offs or crepitance CARDIOVASCULAR: Regular rate and rhythm without murmurs, gallops, or rubs. RESPIRATORY: Clear to auscultation. Breath sounds equal bilaterally. No wheezes, rales, or rhonchi. GASTROINTESTINAL: Abdomen soft, non-tender, nondistended. EXTREMITIES: No edema or joint tenderness. BACK: Nontender without deformity or crepitance. No flank tenderness. NEURO: Alert, oriented to name and location SKIN: No rash or erythema of visible areas Initial Vital Signs Initial Vital Signs: Vital Signs Pulse Rate 72 10/26/21 09:41 Respiratory Rate 17 10/26/21 09:41 Pulse Oximetry 98 10/26/21 09:41 Course Orders Ordered: ED Orders 10/26/21 11:29 EKG-12 Lead Stat Discontinued Medications Sodium Chloride (Normal Saline 0.9%) 1,000 mls @ 1,000 mls/hr IV BOLUS ONE Stop: 10/26/21 10:43 Last Infusion: 10/26/21 13:04 Dose: 0 mls/hr Documented by: Admin: 10/26/21 10:39 Dose: 1,000 mls/hr Documented by: RAPHAEL Vital Signs Vital signs: Vital Signs - 8 hr 10/26/21 09:41 10/26/21 09:48 10/26/21 10:19 Temperature 97.1 F L Pulse Rate 72 72 72 Respiratory Rate 17 12 19 Blood Pressure 189/92 H Pulse Oximetry 98 99 96 10/26/21 10:30 10/26/21 10:56 10/26/21 11:00 Temperature Pulse Rate 60 57 L 51 L Respiratory Rate 18 12 12 Blood Pressure 176/73 H Pulse Oximetry 100 98 97 10/26/21 11:01 10/26/21 11:30 10/26/21 11:31 Temperature Pulse Rate 49 L 66 71 Respiratory Rate 12 15 30 H Blood Pressure 179/77 H 187/74 H Pulse Oximetry 97 99 98 MDM - Fall Lab Data Result diagrams: 10/26/21 10:45 10/26/21 10:45 Labs: Lab Results 10/26/21 10/26/21 10/26/21 Range/Units 10:18 10:45 10:45 WBC 4.5 (4.5-11.0) X10^3/uL RBC 4.29 (4.0-5.2) X10^6/uL Hgb 12.1 (12.0-16.0) g/dL Hct 36.4 (36-46) % MCV 85.0 (80-100) fL MCH 28.2 (26-34) PG MCHC 33.2 (30-36) % RDW 14.8 (11.6-14.8) % Plt Count 258 (150-400) X10^3/uL Neut % (Auto) 67.8 (50-75) % Lymph % (Auto) 21.8 L (25-40) % [place] % (Auto) 7.6 (3-14) % Eos % (Auto) 1.9 L (2-4) % Baso % (Auto) 0.9 (0-2) % Neut # (Auto) 3100 (5269-0520) /uL Lymph # (Auto) 1000 L (8875-0049) /uL [place] # (Auto) 300 (0-900) /uL Eos # (Auto) 100 (0-450) /uL Baso # (Auto) 0 (0-100) /uL PT 14.4 H (10.1-12.7) SECONDS INR 1.3 (0.9-1.3) Sodium (137-145) mmol/L Potassium (3.4-5.1) mmol/L Chloride (98-107) mmol/L Carbon Dioxide (22-32) mmol/L BUN (7-17) mg/dL Creatinine (0.52-1.04) mg/dL Estimated GFR (>60) mL/min BUN/Creatinine Ratio (6-22) Glucose (80-110) mg/dL Calcium (8.4-10.2) mg/dL Magnesium (1.6-2.3) mg/dL Total Bilirubin (0.2-1.3) mg/dL AST (14-36) IU/L ALT (<35) IU/L Alkaline Phosphatase (38-126) U/L NT-Pro-B Natriuret Pep (<450) pg/mL Total Protein (6.3-8.2) g/dL Albumin (3.5-5.0) g/dL Globulin (1.7-4.1) g/dL Albumin/Globulin Ratio (1.0-2.8) SARS-CoV-2 (PCR) Negative (Negative) 10/26/21 Range/Units 10:45 WBC (4.5-11.0) X10^3/uL RBC (4.0-5.2) X10^6/uL Hgb (12.0-16.0) g/dL Hct (36-46) % MCV (80-100) fL MCH (26-34) PG MCHC (30-36) % RDW (11.6-14.8) % Plt Count (150-400) X10^3/uL Neut % (Auto) (50-75) % Lymph % (Auto) (25-40) % [place] % (Auto) (3-14) % Eos % (Auto) (2-4) % Baso % (Auto) (0-2) % Neut # (Auto) (8745-4105) /uL Lymph # (Auto) (9149-3528) /uL [place] # (Auto) (0-900) /uL Eos # (Auto) (0-450) /uL Baso # (Auto) (0-100) /uL PT (10.1-12.7) SECONDS INR (0.9-1.3) Sodium 139 (137-145) mmol/L Potassium 4.1 (3.4-5.1) mmol/L Chloride 104 (98-107) mmol/L Carbon Dioxide 33 H (22-32) mmol/L BUN 25 H (7-17) mg/dL Creatinine 1.09 H (0.52-1.04) mg/dL Estimated GFR 50 L (>60) mL/min BUN/Creatinine Ratio 22.9 H (6-22) Glucose 99 (80-110) mg/dL Calcium 8.5 (8.4-10.2) mg/dL Magnesium 2.1 (1.6-2.3) mg/dL Total Bilirubin 0.4 (0.2-1.3) mg/dL AST 23 (14-36) IU/L ALT 15 (<35) IU/L Alkaline Phosphatase 155 H (38-126) U/L NT-Pro-B Natriuret Pep 579 H (<450) pg/mL Total Protein 6.9 (6.3-8.2) g/dL Albumin 3.7 (3.5-5.0) g/dL Globulin 3.2 (1.7-4.1) g/dL Albumin/Globulin Ratio 1.2 (1.0-2.8) SARS-CoV-2 (PCR) (Negative) Urine Dip Bedside Urine Glucose Negative Bedside Urine Bilirubin - Negative Bedside Urine Ketone - Negative Urine Specific [place] 1.015 Bedside Urine Occult Blood - Negative Bedside Urine pH 6.0 Bedside Urine Protein - Negative Bedside Urine Urobilinogen - Negative Bedside Urine Nitrite - Negative Bedside Urine Leukocytes - Negative Esterase Imaging Data Chest x-ray: Radiologist's Impression: Launch?Image [address] [address] XRay Report Signed Patient: Denice Torres MR#: [id number] : 1935 Acct:[id number] Age/Sex: 86 / F Date of Service: 10/26/21 Loc: ED Accession Number: [id number] ?? Procedure: XR chest 1V Ordering Provider: Esdras Santillan D.O. PROCEDURE:? XR CHEST 1V ? INDICATIONS:? fall, trauma, preop ? TECHNIQUE:? One view of the chest was acquired.? ? COMPARISON:? [facility], CT, CT CHEST W CON, 08/07/2021, 0:58.? [facility], CR, XR CHEST 1V, 08/06/2021, 21:53. ? FINDINGS:? Limited examination. ? Surgical changes and devices:? Surgical clips in breasts bilaterally..? ? Lungs and pleura:? There is a large right diaphragmatic hernia medially is again identified.? Right basilar opacity is most likely atelectasis.? Possible small left pleural effusion may be present.? No pneumothorax.? ? Mediastinum:? Mediastinal contours appear normal.? Heart size is moderately increased.? ? Bones and chest wall:? No suspicious bony lesions.? Overlying soft tissues appear unremarkable.? ? IMPRESSION:? ? 1. Limited examination. 2. Large right diaphragmatic hernia. 3. Right basilar atelectasis. 4. Possible small left pleural effusion. 5. Mild cardiomegaly.? ? ? Dictated by: Mechelle Horowitz M.D. on 10/26/2021 at 9:27 ? ? Approved by: Mechelle Horowitz M.D. on 10/26/2021 at 9:41 ? CT scan - head: Radiologist's Impression: [address] [address] [address] Scan Report Signed Patient: Denice Torres MR#: [id number] : 1935 Acct:[id number] Age/Sex: 86 / F Date of Service: 10/26/21 Loc: ED Accession Number: [id number] ?? Procedure: CT head/brain wo con Ordering Provider: Esdras Santillan D.O. PROCEDURE:? CT HEAD/BRAIN WO CON ? INDICATIONS:? fall with head injury on thinners ? TECHNIQUE:? Noncontrast 4.5 mm thick angled axial sections acquired from the foramen magnum to the vertex, with coronal and sagittal reformats.? For radiation dose reduction, the following was used:? automated exposure control, adjustment of mA and/or kV according to patient size.? ? COMPARISON:? [facility], MR, MR HEAD/BRAIN WO CON, 08/10/2021, 8:29.? [facility], CT, CT HEAD/BRAIN WO CON, 08/06/2021, 22:04. ? FINDINGS:? Image quality:? Excellent.? ? CSF spaces:? Basal cisterns are patent.? No extra-axial fluid collections.? The ventricles are symmetric in size and shape.? ? Brain:? No intracranial bleeds or masses.? There is moderate cerebral volume loss for age, with resultant ventricular and sulcal prominence.? There are moderate periventricular and deep white matter chronic small vessel ischemic changes.? There is intracranial internal carotid artery atherosclerosis.? ? Skull and face:? Calvarium and visualized facial bones appear intact, without suspicious lesions.? ? Sinuses:? Visualized sinuses and mastoids are clear.? ? IMPRESSION:? ? 1. No acute intracranial abnormalities. 2. Cerebral volume loss and chronic microvascular ischemic changes. ? ? ? Dictated by: Mechelle Horowitz M.D. on 10/26/2021 at 9:42 ? ? Approved by: Mechelle Horowitz M.D. on 10/26/2021 at 9:43 ? ECG Data Interpretation: AFlutter with 3:1 and 4:1. NO ST segmental elevations or depressions. No other ectopy noted. Patient completely asymptomatic Discharge Plan Departure Patient Disposition: Home Clinical Impression: Weakness, Contusion of scalp Instructions: How to Prevent Falls Activity Restrictions/Additional Instructions: *You have been diagnosed with [generalized weakness with fall. As we discussed, your history and physical exam as well as labs and imaging are very reassuring and there is no indication of broken bone, bleeding in her brain or other significant diagnosis that would require hospitalization or specific intervention *What to do: *Please continue to take your regular medications as directed. [ ] New medication prescriptions sent to your pharmacy: [ ] [ ] New medication written as a paper prescription [x ] No new medications given *Please follow up with your primary care provider in 2-3 days, call for an appointment. Let them know you were seen in the Emergency Department and that we ask that you be seen in follow up. We will electronically transmit a record of today's note if your PCP is in our system *If you do not have a primary care provider please contact the [facility] Resource line at [phone]. They will ask some questions about your medical history and help get you set up with a doctor in the community. *Return to Emergency Department if you should have any new, worsening or concerning symptoms, such as [fever greater than 101 F, shaking chills, worsening pain, persistent vomiting or other bothersome symptoms] Prescriptions: No Action simvastatin 40 mg tablet 20 mg PO BEDTIME 0RF telmisartan 80 mg tablet 80 mg PO DAILY 0RF montelukast 10 mg tablet 10 mg PO BEDTIME 0RF loratadine 10 mg tablet 10 mg PO DAILY 0RF Eliquis 5 mg tablet 5 mg PO BID 0RF carvedilol 12.5 mg Tablet 12.5 mg PO BID 0RF Rx Instructions: must administer with a meal/food polyethylene glycol 3350 [Miralax] 17 gram Powder In Packet 17 g PO DAILY PRN (Reason: Constipation) 0RF hydralazine 25 mg Tablet 25 mg PO QID 0RF amlodipine [Norvasc] 5 mg Tablet 5 mg PO DAILY Qty: 30 0RF Referrals: Lory Hammer MD [Primary Care Provider] -
[2021-10-26] MEDS: SODIUM CHLORIDE 0.9% 1,000 ML 1000 ML IV (10:39)
[2021-10-26 11:08] LABS: Add Manual Diff / Slide Review NO; Basophils Absolute Auto 0 /uL (0-100); Basophils Percent Auto 0.9 % (0-2); Eosinophils Absolute Auto 100 /uL (0-450); Eosinophils Percent Auto 1.9 % (2-4); Hematocrit 36.4 % (36-46); Hemoglobin 12.1 g/dL (12.0-16.0); Lymphocytes Absolute Auto 1000 /uL (1100-4500); Lymphocytes Percent Auto 21.8 % (25-40); Mean Corpuscular HGB Conc 33.2 % (30-36); Mean Corpuscular Hemoglobin 28.2 PG (26-34); Monocytes Absolute Auto 300 /uL (0-900); Monocytes Percent Auto 7.6 % (3-14); Neutrophils Absolute Auto 3100 /uL (1500-7000); Neutrophils Percent Auto 67.8 % (50-75); Platelet Count 258 X10^3/uL (150-400); Red Blood Cell Count 4.29 X10^6/uL (4.0-5.2); Red Cell Distribution Width 14.8 % (11.6-14.8); White Blood Cell Count 4.5 X10^3/uL (4.5-11.0)
[2021-10-26 11:19] LABS: INR 1.3 (0.9-1.3); Prothrombin Time 14.4 SECONDS (10.1-12.7)
[2021-10-26 11:22] LABS: Alanine Aminotransferase 15 IU/L (<35); Albumin 3.7 g/dL (3.5-5.0); Albumin Globulin Ratio 1.2 (1.0-2.8); Alkaline Phosphatase 155 U/L (38-126); Aspartate Aminotransferase 23 IU/L (14-36); BUN Creatinine Ratio 22.9 (6-22); Bilirubin Total 0.4 mg/dL (0.2-1.3); Blood Urea Nitrogen 25 mg/dL (7-17); Calcium 8.5 mg/dL (8.4-10.2); Carbon Dioxide 33 mmol/L (22-32); Chloride 104 mmol/L (98-107); Estimated Glomerular Filt Rate 50 mL/min (>60); Globulin 3.2 g/dL (1.7-4.1); Glucose 99 mg/dL (80-110); HEMOLYSIS < 15 (0-50); Magnesium 2.1 mg/dL (1.6-2.3); Potassium 4.1 mmol/L (3.4-5.1); Sodium 139 mmol/L (137-145); Total Protein 6.9 g/dL (6.3-8.2)
[2021-10-26 11:31] LABS: NT-proBNP (BNP-Adult 18+) 579 pg/mL (<450)
--- NOTE | 2021-10-26 11:32 | PC.NURSE ---
Pt noted on telemetry in atrial flutter, rate dips to 38 at times, pt awoken and rate increases to 68. Pt denies dizziness, skin warm/dry, aaox3/3. Dr. Santillan notified, EKG orders received.
--- NOTE | 2021-10-26 11:34 | PC.NURSE ---
I called the patient's daughter, Jose Manuel. Jose Manuel stated that she did witness the fall and that the patient falls some times when she is not getting her way. She said that today, she was encouraging her mom to walk to the bathroom and then her mom appeared to fall down to the floor but do so in an almost controlled manner as if to not hurt herself. The daughter speculates that this was done to throw a tantrum for being made to walk to the bathroom. 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 The Brother is the financial DPOA. The daughter is open to talking to [place] from social work to establish options for further support and treatment.
[2021-10-26 11:38] LABS: COVID19 -Nasal RAPID Negative (Negative)
--- NOTE | 2021-10-26 12:50 | CM.SWNOTE ---
Addendum entered by GISSELLE Ocasio 10/26/21 14:01: ADD: Return call from [facility] stating they had completed Info Visit with Karyna Richard in Jul and Dtr had stated at that time that [facility] would be starting that day and what Dtr really needed was caregiver assist therefore Hospice did not necessarily determine that pt did not meet criteria but Dtr stated she would call [facility] if needed. [facility] willing to re-review the referral SW faxed. Per RN, pt has been able to sit in w/c in the ED and Dtr called and will provide transport around 1500 to home today. BF Original Note: Patient is an 86 yo female who was admitted to [facility] ED today 10/26/21 for witnessed GLF. Pt has MCR for insurance. [facility] consult was placed due to failure to thrive, needs more assist at home. Per RN, EMS was called when pt had witnessed controlled GLF by pt with Dtr/CHRISTINA Richard as witness and pt's imaging returned normal and per MD no medical need for admission. Per RN, will attempt to get urine for lab to determine if any UTI. RN spoke to Karyna Richard and obtained information. Pt was last admitted a few months ago in Jul 2021 for similar. Patient was recently discharged from SNF to home with HH in place to open 08/07/21. Patient had a surgical procedure and has had increasing weakness/difficulty with ambulating/transfers since discharging home from surgical procedure. Patient resides at home with daughter Anna who is patient's DPOA. Patient has grab bars in bathroom, raised toilet seat, BSC, and 4WW at home for use as needed. Patient does not use home O2, no dialysis or IV therapies occurring. Patient has SNF history with [facility] and HH history with [facility]. Patient's daughter has just started working with [facility] on attempting to find additional caregivers for in home; patient currently has a private paid caregiver in home 3x weekly but that caregiver leaves for another job prior to pt's daughter getting home from work. Daughter reported there are not other family members available to assist with pt's care at home; daughter works multimedia manager in at [employer] and her brother handles more of the financials but does not provide any physical or in-person assist. Pt discharged in Jul 2021 back to home with [facility] referral for [facility] via BLS as pt was 2PA as she has used up all her Medicare Days for SNF for this year already. Pt also did not qualify for Medicaid yet as she is over financial cap with her assets and Dtr had confirmed they could not afford PP SNF or LTC privately paying. [facility] called pt's Dtr Jose Manuel again and explained role and Dtr confirms above and states they have actively been getting the house ready to sell with a plan of moving to [facility] to live in a mobile home and therefore pt would likely qualify for Medicaid to assist with LTC at [facility]. Dtr confirms that [facility] worked well in July and feels pt has maintained and not necessarily declined in health since Jul but would be agreeable with SW making another referral to [facility] to determine if pt might meet Hospice criteria now as she did not a few months ago in Jul. [facility] faxed [facility] pt's clinical information to review to see if pt meets criteria for their supportive services. [facility] also provided Dtr with new agency in [facility] and contact info as they have been very helpful and available at a short notice for other local families and Dtr plans to call tomorrow Wednesday. Dtr aware pt has no medical needs to be admitted and will likely d/c home from the ED today and she is agreeable with seeing if pt can go by POV and can pick pt up or BLS transport if more than 1PA. Pt also has lyle lift and hospital bed from [facility] at home for assist they are renting. [facility] updated RN who will help determine transport of POV vs BLS from the ED. GISSELLE Ocasio
--- NOTE | 2021-10-26 13:18 | PC.NURSE ---
Spoke to daughter Jose Manuel whom pt lives with, Jose Manuel states she just sat down at a restaurant for my birthday and unable to pick pt up at this time. States she will be here at approximately [address] to pick pt up[address] Dr. Santillan aware of situation. Jose Manuel inquired about urine test, updated her on results and no indication for further culture. Pt sitting up in wheelchair, provided lunch by this RN.
== END 2021-10-26 15:01 | disposition home or self-care (01) ==
PROVIDERS: Emergency Provider Emergency Medicine; PCP Internal Medicine
DX: R53.1 Weakness (principal); S00.03XA Contusion of scalp, initial encounter; W18.30XA Fall on same level, unspecified, initial encounter; R07.9 Chest pain, unspecified; Z79.01 Long term (current) use of anticoagulants; Z20.822 Contact with and (suspected) exposure to COVID-19
CPT/HCPCS: 36415; 70450; 71045; 72170; 80053; 81003; 83735; 83880; 85025; 85610; 87635; 93005; 99284; C9803